=== PATIENT | male | born 1935 | race Caucasian/White ===

== ENCOUNTER 2016-12-02 15:27 | Inpatient (IN) | payer OTHER ==
[~2016-12-02] VITALS: Ht 185.4 cm; Wt 87.9 kg
[~2016-12-02 15:27] MED LIST: HMLI SC; INSDGI SC; METO50TA16 PO; PRAV20TA PO
[2016-12-02 17:03] LABS: BASO % 0.3 %; BASO ABS # 0.03 K/uL (0-0.2); COMPLETE YES; EOS % 1.8 %; HEMATOCRIT 43.3 % (42-52); IG% 0.1 %; LYMPH % 26.7 %; LYMPH ABS # 2.56 K/uL (1.2-3.4); MEAN CELL VOLUME 87.5 fL (80-100); MEAN CORPUSCULAR HEMOGLOBIN 29.3 pg (25-34); MEAN CORPUSCULAR HGB CONC 33.5 g/dl (32-36); MEAN PLATELET VOLUME 9.1 fL (7.4-10.4); MONO % 8.5 %; NEUT % 62.6 %; PLATELET COUNT 239 K/uL (130-400); RED BLOOD COUNT 4.95 M/uL (4.7-6.1); WHITE BLOOD COUNT 9.58 K/uL (4.8-10.8)
--- NOTE | 2016-12-02 17:06 | EMERGENCY ROOM VISIT NOTE ---
History Report prepared by Jason: Poli Aviles Under the Supervision of: Dr. Neyda Easton M.D. First contact with patient: 16:36 Chief Complaint: GI ASSESSMENT Stated Complaint: BLOOD-HEAVY RED-IN STOOL, LIGHTHEADED History of Present Illness The patient is an 81 year old male who presents to the Emergency Room with complaints of intermittent hematochezia beginning earlier today. He currently rates his discomfort a 5/10 in severity. The patient states that he went to shoot skeet at the club after eating lunch. He reports that he went to use the restroom and passed a gross amount of blood. The patient states that he started having abdominal pain and become lightheaded. He notes that he went home and went to the restroom again; the toilet was full of blood again. The patient reports that he has not had abdominal pain prior to this. He denies nausea and vomiting. The patient reports that he has a history of diverticulitis. He states that he has a history of a rectal hemorrhoid 4 years ago that occurred after a colonoscopy. The patient notes that before that he had an episode of blood spots in his stool. He reports the does not take blood thinners, but took aspirin for a headache he had last night. The patient denies drinking alcohol and having a history of: hepatis, liver trouble, kidney trouble, and a blood transfusion. The patient notes that he just finished antibiotics for bronchitis. Source of History: patient Onset: this morning Position: buttock Symptom Intensity: 5/10 Quality: other (hematochezia) Associated Symptoms: + abdominal pain, No nausea, No vomiting Note: Associated symptoms: lightheadedness. Review of Systems See HPI for pertinent positives & negatives. A total of 10 systems reviewed and were otherwise negative. Past Medical & Surgical Medical Problems: (1) CAD (coronary artery disease) (2) DM (diabetes mellitus) (3) Neuropathy, diabetic Surgical Problems: (1) H/O nasal polypectomy Family History Patient reports no known family medical history. Social History Smoking Status: Never Smoker Marital Status: single Housing Status: lives alone Current/Historical Medications Scheduled Ciprofloxacin (Ciprofloxacin HCl), 500 MG PO Q12H Insulin Glargine (Lantus), 22 UNITS SQ HS Insulin Regular (Human) (Novolin R Relion), 10-12 UNITS SQ BID Insulin Regular (Human) (Novolin R Relion), 18-20 UNITS SQ QPM Metoprolol Tartrate (Lopressor) (Lopressor), 50 MG PO QAM Metoprolol Tartrate (Lopressor) (Lopressor), 25 MG PO QPM Metronidazole (Metronidazole), 500 MG PO TID Pravastatin (Pravachol ), 40 MG PO DAILY Allergies Coded Allergies: No Known Allergies (Unverified , 12/02/16) Physical Exam Vital Signs Date Time Temp Pulse Resp B/P (MAP) Pulse Ox O2 Delivery O2 Flow Rate FiO2 12/02/16 20:32 88 22 95 12/02/16 20:31 165/85 12/02/16 20:02 91 19 94 12/02/16 20:01 159/85 12/02/16 19:32 81 23 94 12/02/16 19:31 166/78 12/02/16 18:32 93 25 93 12/02/16 18:27 89 25 94 12/02/16 18:22 94 25 93 12/02/16 18:17 89 23 94 12/02/16 18:12 85 23 95 12/02/16 18:07 88 25 93 12/02/16 18:02 87 25 95 12/02/16 17:57 86 22 95 12/02/16 17:27 92 18 96 12/02/16 17:09 183/99 12/02/16 16:57 96 29 12/02/16 16:48 92 12/02/16 16:35 155/77 12/02/16 15:31 36.8 92 20 182/86 94 Room Air Physical Exam Vital signs reviewed. General: Well-appearing, in no significant distress. HEENT: No scleral icterus, PERRLA, neck supple. Atraumatic. Cardiovascular: Regular rate and rhythm, no extra sounds. Pulmonary: Clear to auscultation bilaterally, normal work of breathing. Abdomen: Soft, nontender, nondistended, positive bowel sounds. Rectal: Grossly positive, guaiac positive initially BRBPR Musculoskeletal: Atraumatic, no peripheral edema. Neurologic: Patient awake alert and oriented x 3, full strength in all 4 extremities. Cranial nerves 2 through 12 grossly intact. Skin: Warm, dry, no rash Medical Decision & Procedures ER Provider Diagnostic Interpretation: Radiology results as stated below per my review and radiologist interpretation: CHEST ONE VIEW PORTABLE CLINICAL HISTORY: GIBE dyspnea COMPARISON STUDY: 12/18/2014 FINDINGS: Emphysematous change. Chronic parenchymal fibrosis. Prior median sternotomy. No evidence for cardiac enlargement. Mild left basilar atelectasis. IMPRESSION: Emphysematous change. Chronic parenchymal fibrosis. Mild superimposed left basilar atelectasis. Electronically signed by: Trent Kelley M.D. 12/02/2016 5:29 PM Dictated Date/Time: 12/02/2016 5:28 PM ABDOMEN AND PELVIS CT WITH IV CONTRAST CT DOSE: 593.76 mGy.cm HISTORY: Pelvic pain diverticulitis TECHNIQUE: Multiaxial CT images of the abdomen and pelvis were performed following the use of intravenous contrast. COMPARISON STUDY: None. FINDINGS: This potentially relates to basilar fibrotic change Mild bibasilar interstitial change with basilar nodularity bilaterally. Several small hepatic cysts. Gallstones are present within the gallbladder lumen. Spleen is uniform. Kidneys demonstrate several small cysts. There are several nonobstructing lower pole left renal calcifications. There is no evidence renal hydronephrosis. The upper abdominal bowel pattern is unremarkable. There are findings of scattered colonic diverticulosis. The appendix is normal. There are findings of sigmoid diverticulitis with colonic wall thickening. Minimal infiltrative changes of pericolonic fat. No evidence for abscess collection or obstruction. IMPRESSION: 1. Mild acute diverticulitis of the sigmoid with findings superimposed upon chronic diverticular change 2. No evidence for abscess collection or obstruction. 3. Scattered colonic diverticulosis. 4. Normal appendix. 6. Several small renal cysts, nonobstructing renal calcifications, as well as gallstones. 7. Fibrotic change of the lung bases with conglomerate nodularity bilaterally. This may be a chronic finding.. Electronically signed by: Trent Kelley M.D. 12/02/2016 6:00 PM Dictated Date/Time: 12/02/2016 5:55 PM Laboratory Results Test 12/02/16 16:35 12/02/16 18:45 Immature Granulocyte % (Auto) 0.1 % White Blood Count 9.58 K/uL (4.8-10.8) Red Blood Count 4.95 M/uL (4.7-6.1) Hemoglobin 14.5 g/dL (14.0-18.0) Hematocrit 43.3 % (42-52) Mean Corpuscular Volume 87.5 fL (80-100) Mean Corpuscular Hemoglobin 29.3 pg (25-34) Mean Corpuscular Hemoglobin Concent 33.5 g/dl (32-36) Platelet Count 239 K/uL (130-400) Mean Platelet Volume 9.1 fL (7.4-10.4) Neutrophils (%) (Auto) 62.6 % Lymphocytes (%) (Auto) 26.7 % Monocytes (%) (Auto) 8.5 % Eosinophils (%) (Auto) 1.8 % Basophils (%) (Auto) 0.3 % Neutrophils # (Auto) 6.00 K/uL (1.4-6.5) Lymphocytes # (Auto) 2.56 K/uL (1.2-3.4) Monocytes # (Auto) 0.81 K/uL (0.11-0.59) Eosinophils # (Auto) 0.17 K/uL (0-0.5) Basophils # (Auto) 0.03 K/uL (0-0.2) Immature Granulocyte # (Auto) 0.01 K/uL (0.00-0.02) Prothrombin Time 10.9 SECONDS (9.0-12.0) Prothromb Time International Ratio 1.0 (0.9-1.1) Activated Partial Thromboplast Time 28.0 SECONDS (21.0-31.0) Partial Thromboplastin Ratio 1.1 Magnesium Level 2.3 mg/dl (1.8-2.4) Total Bilirubin 0.7 mg/dl (0.2-1) Direct Bilirubin 0.1 mg/dl (0-0.2) Aspartate Amino Transf (AST/SGOT) 24 U/L (15-37) Alanine Aminotransferase (ALT/SGPT) 29 U/L (12-78) Alkaline Phosphatase 74 U/L (45-117) Total Protein 7.4 gm/dl (6.4-8.2) Albumin 3.2 gm/dl (3.4-5.0) Lipase 138 U/L (73-393) Urine Color YELLOW Urine Appearance CLEAR (CLEAR) Urine pH 7.0 (4.5-7.5) Urine Specific [place] > 1.045 (1.000-1.030) Urine Protein 1+ (NEG) Urine Glucose (UA) 1+ (NEG) Urine Ketones NEG (NEG) Urine Occult Blood 1+ (NEG) Urine Nitrite NEG (NEG) Urine Bilirubin NEG (NEG) Urine Urobilinogen NEG (NEG) Urine Leukocyte Esterase NEG (NEG) Urine WBC (Auto) 1-5 /hpf (0-5) Urine RBC (Auto) 5-10 /hpf (0-4) Urine Hyaline Casts (Auto) 1-5 /lpf (0-5) Urine Epithelial Cells (Auto) 5-10 /lpf (0-5) Urine Bacteria (Auto) NEG (NEG) Date/Time Source Procedure Growth Status 12/02/16 17:15 Throat Group A Streptococcus Screen - Final SPECIMEN NEGATIVE FOR GROUP A BETA ST... Complete 12/02/16 17:15 Throat Group A Streptococcus Screen ([facility]) - Final NO BETA STREP. ISOLATED. Complete Laboratory results per my review. Medications Administered Medications (Trade) Dose Ordered Sig/Bubba Route Start Time Stop Time Status Last Admin Dose Admin Ciprofloxacin/ Dextrose (Cipro / D5W) 400 mg NOW STAT IV 12/02/16 19:33 12/02/16 19:34 DC 12/02/16 20:06 400 MG Metronidazole (Flagyl / Nss) 500 mg NOW STAT IV 12/02/16 19:33 12/02/16 19:34 DC 12/02/16 20:06 500 MG ECG Indication: other (hematochezia) Rate (beats per minute): 86 Rhythm: sinus rhythm Findings: PVC (occasional), no acute ischemic change, no ectopy ED Course 1453: Past medical records reviewed. The patient was evaluated in room B09. A complete history and physical examination was performed. 1933: Ordered Flagyl/Nss 500mg IV, Cipro/D5W 400mg IV 2005: Upon reevaluation, the patient is resting comfortably. I discussed laboratory and radiographic results with him. He verbalized agreement of the treatment plan. 2030: Ordered Pantoprazole Sodium 80 mg/Dextrose 120ml @ 400mls/hr 2018: [facility] The patient will be evaluated for further management and care. Medical Decision Differential diagnosis: Etiologies such as diverticulosis, AVM, coagulopathy, colitis, inflammatory bowel disease, malignancy, Stephanie-Siddiqui tear, esophagitis, peptic ulcer disease , variceal bleed, gastritis, epistaxis, fissure, hemorrhoids, as well as others were entertained. Medication Reconciliation: I attest that I have personally reviewed the patient' s current medication list. Blood Pressure Screening: Patient was found to have a slightly elevated blood pressure due to circumstances. I do not believe that the patient requires hypertension monitoring. This pt was evaluated and appeared to be in no distress. IV access was obtained and lab work was drawn. Pt was placed on the cardiac cath rn. He was hydrated with NSS. Pt was type and crossed for [address] abd pelvis is significant for diverticulitis. Pt has a larger darker/melanotic stool in the ED. His H/H and BP remain stable. He will be evaluated by the hospitalist for further management. Pt and son were made aware of the plan and agree. Consults Time Called: 2003 Consulting Physician: Essence Alonzo [facility] Hospitalist Returned Call: 2017 I [facility] The patient will be evaluated for further management and care. Impression Primary Impression: GI bleed Scribe Attestation See HPI for pertinent positives & negatives. A total of 10 systems reviewed and were otherwise negative. Departure Information Dispostion Being Evaluated By Hospitalist Prescriptions Metronidazole (Metronidazole) 500 Mg Tab 500 MG PO TID for 7 Days, #21 TAB Prov: Chiquita Haile M.D. 12/04/16 Ciprofloxacin (Ciprofloxacin HCl) 250 Mg Tab 500 MG PO Q12H for 7 Days, #28 TAB Prov: Chiquita Haile M.D. 12/04/16 Referrals No Doctor, Assigned (PCP) Patient Instructions My [facility]
[2016-12-02 17:14] LABS: PARTIAL THROMBOPLASTIN RATIO 1.1; PROTHROMBIN TIME (PATIENT) 10.9 SECONDS (9.0-12.0)
[2016-12-02 17:15] LABS: BUN/CREATININE RATIO 20.7 (10-20); CALCIUM 9.1 mg/dl (8.5-10.1); CREATININE 1.3 mg/dl (0.60-1.40); MAGNESIUM 2.3 mg/dl (1.8-2.4); POTASSIUM 4.7 mmol/L (3.5-5.1)
[2016-12-02] MEDS ORDERED: INSDGI SQ (17:22)
[2016-12-02] MEDS ORDERED: INSU1INJ16 SQ ×2 (17:22)
[2016-12-02] MEDS ORDERED: METO50TA16 PO (17:24)
--- NOTE | 2016-12-02 17:30 | DIAGNOSTIC IMAGING REPORT ---
CHEST ONE VIEW PORTABLE CLINICAL HISTORY: GIBE dyspnea COMPARISON STUDY: 12/18/2014 FINDINGS: Emphysematous change. Chronic parenchymal fibrosis. Prior median sternotomy. No evidence for cardiac enlargement. Mild left basilar atelectasis. IMPRESSION: Emphysematous change. Chronic parenchymal fibrosis. Mild superimposed left basilar atelectasis. Electronically signed by: Trent Kelley M.D. 12/02/2016 5:29 PM Dictated Date/Time: 12/02/2016 5:28 PM
[2016-12-02] MEDS ORDERED: OPTIRAY 320 IV PRN (18:00)
--- NOTE | 2016-12-02 18:02 | DIAGNOSTIC IMAGING REPORT ---
ABDOMEN AND PELVIS CT WITH IV CONTRAST CT DOSE: 593.76 mGy.cm HISTORY: Pelvic pain diverticulitis TECHNIQUE: Multiaxial CT images of the abdomen and pelvis were performed following the use of intravenous contrast. COMPARISON STUDY: None. FINDINGS: This potentially relates to basilar fibrotic change Mild bibasilar interstitial change with basilar nodularity bilaterally. Several small hepatic cysts. Gallstones are present within the gallbladder lumen. Spleen is uniform. Kidneys demonstrate several small cysts. There are several nonobstructing lower pole left renal calcifications. There is no evidence renal hydronephrosis. The upper abdominal bowel pattern is unremarkable. There are findings of scattered colonic diverticulosis. The appendix is normal. There are findings of sigmoid diverticulitis with colonic wall thickening. Minimal infiltrative changes of pericolonic fat. No evidence for abscess collection or obstruction. IMPRESSION: 1. Mild acute diverticulitis of the sigmoid with findings superimposed upon chronic diverticular change 2. No evidence for abscess collection or obstruction. 3. Scattered colonic diverticulosis. 4. Normal appendix. 6. Several small renal cysts, nonobstructing renal calcifications, as well as gallstones. 7. Fibrotic change of the lung bases with conglomerate nodularity bilaterally. This may be a chronic finding.. Electronically signed by: Trent Kelley M.D. 12/02/2016 6:00 PM Dictated Date/Time: 12/02/2016 5:55 PM
[2016-12-02 19:04] LABS: URINE APPEARANCE CLEAR (CLEAR); URINE BILIRUBIN NEG (NEG); URINE COLOR YELLOW; URINE NITRITE NEG (NEG); URINE SPECIFIC GRAVITY > 1.045 (1.000-1.030); UROBILINOGEN NEG (NEG); ZZUR CULT IF INDIC CLEAN CATCH NO
[2016-12-02 19:06] LABS: MANUAL MICROSCOPIC REQUIRED? NO; REVIEW REQ? NO
[2016-12-02] MEDS ORDERED: CIPROFLOXACIN 400MG / 200ML D5W IV STA (19:33)
[2016-12-02] MEDS ORDERED: METRONIDAZOLE 500MG / 100ML NSS IV STA (19:33)
[2016-12-02] MEDS ORDERED: PANTOprazole INJ 80 MG in DEXTROSE 5% 100ML 100 ML IV SCH (20:30)
[2016-12-02] MEDS ORDERED: ONDANSETRON INJ 2 MG/ML 2 ML VIAL IV PRN (20:45)
[2016-12-02] MEDS ORDERED: ACETAMINOPHEN 325 MG TAB PO PRN (20:45)
[2016-12-02] MEDS ORDERED: INSULIN ASPART 100 UNITS/ML 3 ML PEN SC SCH (21:00)
[2016-12-02] MEDS ORDERED: GLUCOSE 10 TABS/TUBE PO PRN (21:00)
[2016-12-02] MEDS ORDERED: INSULIN GLARGINE SOLOSTAR 100 UNITS/ML 3 ML PEN SC SCH (21:00)
[2016-12-02] MEDS ORDERED: GLUCAGON FOR INJ 1 MG VIAL SQ PRN (21:00)
[2016-12-02] MEDS ORDERED: DEXTROSE 50% 50 ML SYR IV PRN (21:00)
[2016-12-02] MEDS ORDERED: GLUCOSE 40% GEL 15 GM TUBE PO PRN (21:00)
--- NOTE | 2016-12-02 21:07 | History and Physical ---
History & Physical Date & Time of Service: Dec 02, 2016 at 20:54 Chief Complaint: Blood in Stool Primary Care Physician: Heidy Potter M.D. History of Present Illness 81 year old male who presents to the ER with bright ref bleeding per rectum. Patient reports that around lunch time today he felt as though he had to have a bowel movement and when he went the toilet was filled with bright red blood. He reports an additional episode a few hours later. He denies any pain with the bowel movements or abdominal pain. He reports feeling mildly lightheaded and dizzy with standing. No syncopal events. While in the ER patient has had two additional bowel movements however stools are now a darker red. He denies nausea and vomiting. He denies any use of blood thinners or heavy NSAID use. He reports he was recently treated for bronchitis with azithromycin and those symptoms have resolved. He denies chest pain and shortness of breath. No fever or chills. He denies urinary symptoms. In the ER, vitals and hgb are stable. CT scan is shpwing mild diverticulitis in the sigmoid colon. Patient was given IV Cipro and Flagyl. Past Medical/Surgical History Medical Problems: (1) CAD (coronary artery disease) Permanent Comment: [place] at age 35 ~ 2009 - CABG x 4 Status: Chronic (2) DM (diabetes mellitus) Status: Chronic (3) Neuropathy, diabetic Status: Chronic Surgical Problems: (1) H/O nasal polypectomy Status: Chronic Family History non contributory due to patient's advanced age Social History Smoking Status: Former Smoker Alcohol Use: none Multi-Drug Resistant Organisms History of MDRO: No Allergies Coded Allergies: No Known Allergies (Unverified , 12/02/16) Home Medications Scheduled Insulin Glargine (Lantus), 22 UNITS SQ HS Insulin Regular (Human) (Novolin R Relion), 10-12 UNITS SQ BID Insulin Regular (Human) (Novolin R Relion), 18-20 UNITS SQ QPM Metoprolol Tartrate (Lopressor) (Lopressor), 50 MG PO QAM Metoprolol Tartrate (Lopressor) (Lopressor), 25 MG PO QPM Pravastatin (Pravachol ), 40 MG PO DAILY Review of Systems ROS per HPI, all other systems reviewed and negative Physical Exam Vital Signs Date Time Temp Pulse Resp B/P (MAP) Pulse Ox O2 Delivery O2 Flow Rate FiO2 12/02/16 18:27 89 25 94 12/02/16 18:22 94 25 93 12/02/16 18:17 89 23 94 12/02/16 18:12 85 23 95 12/02/16 18:07 88 25 93 12/02/16 18:02 87 25 95 12/02/16 17:57 86 22 95 12/02/16 17:27 92 18 96 12/02/16 17:09 183/99 12/02/16 16:57 96 29 12/02/16 16:48 92 12/02/16 16:35 155/77 12/02/16 15:31 36.8 92 20 182/86 94 Room Air General Appearance: no apparent distress Head: normocephalic Eyes: normal inspection ENT: hearing grossly normal Neck: supple, no JVD Respiratory/Chest: lungs clear, normal breath sounds, no respiratory distress Cardiovascular: regular rate, rhythm, no edema, normal peripheral pulses Abdomen/GI: normal bowel sounds, non tender, soft Back: normal inspection, no CVA tenderness Extremities/Musculoskelatal: normal inspection, no calf tenderness Neurologic/Psych: no motor/sensory deficits, alert, normal mood/affect, oriented x 3 Skin: normal color, warm/dry Diagnostics Laboratory Results Results Past 24 Hours Test 12/02/16 16:35 12/02/16 18:45 Range/Units White Blood Count 9.58 4.8-10.8 K/uL Red Blood Count 4.95 4.7-6.1 M/uL Hemoglobin 14.5 14.0-18.0 g/dL Hematocrit 43.3 42-52 % Mean Corpuscular Volume 87.5 80-100 fL Mean Corpuscular Hemoglobin 29.3 25-34 pg Mean Corpuscular Hemoglobin Concent 33.5 32-36 g/dl Platelet Count 239 130-400 K/uL Mean Platelet Volume 9.1 7.4-10.4 fL Neutrophils (%) (Auto) 62.6 % Lymphocytes (%) (Auto) 26.7 % Monocytes (%) (Auto) 8.5 % Eosinophils (%) (Auto) 1.8 % Basophils (%) (Auto) 0.3 % Neutrophils # (Auto) 6.00 1.4-6.5 K/uL Lymphocytes # (Auto) 2.56 1.2-3.4 K/uL Monocytes # (Auto) 0.81 0.11-0.59 K/uL Eosinophils # (Auto) 0.17 0-0.5 K/uL Basophils # (Auto) 0.03 0-0.2 K/uL RDW Standard Deviation 46.1 36.4-46.3 fL RDW Coefficient of Variation 14.5 11.5-14.5 % Immature Granulocyte % (Auto) 0.1 % Immature Granulocyte # (Auto) 0.01 0.00-0.02 K/uL Prothrombin Time 10.9 9.0-12.0 SECONDS Prothromb Time International Ratio 1.0 0.9-1.1 Activated Partial Thromboplast Time 28.0 21.0-31.0 SECONDS Partial Thromboplastin Ratio 1.1 Sodium Level 137 136-145 mmol/L Potassium Level 4.7 3.5-5.1 mmol/L Chloride Level 104 98-107 mmol/L Carbon Dioxide Level 26 21-32 mmol/L Anion Gap 7.0 3-11 mmol/L Blood Urea Nitrogen 27 7-18 mg/dl Creatinine 1.30 0.60-1.40 mg/dl Est Creatinine Clear Calc Drug Dose 50.4 ml/min Estimated GFR () 59.3 Estimated GFR (Non- 51.2 BUN/Creatinine Ratio 20.7 10-20 Random Glucose 230 70-99 mg/dl Calcium Level 9.1 8.5-10.1 mg/dl Magnesium Level 2.3 1.8-2.4 mg/dl Total Bilirubin 0.7 0.2-1 mg/dl Direct Bilirubin 0.1 0-0.2 mg/dl Aspartate Amino Transf (AST/SGOT) 24 15-37 U/L Alanine Aminotransferase (ALT/SGPT) 29 12-78 U/L Alkaline Phosphatase 74 45-117 U/L Total Protein 7.4 6.4-8.2 gm/dl Albumin 3.2 3.4-5.0 gm/dl Lipase 138 73-393 U/L Urine Color YELLOW Urine Appearance CLEAR CLEAR Urine pH 7.0 4.5-7.5 Urine Specific [place] > 1.045 1.000-1.030 Urine Protein 1+ NEG Urine Glucose (UA) 1+ NEG Urine Ketones NEG NEG Urine Occult Blood 1+ NEG Urine Nitrite NEG NEG Urine Bilirubin NEG NEG Urine Urobilinogen NEG NEG Urine Leukocyte Esterase NEG NEG Urine WBC (Auto) 1-5 0-5 /hpf Urine RBC (Auto) 5-10 0-4 /hpf Urine Hyaline Casts (Auto) 1-5 0-5 /lpf Urine Epithelial Cells (Auto) 5-10 0-5 /lpf Urine Bacteria (Auto) NEG NEG Microbiology Results 12/02/16 Group A Streptococcus Screen - Final, Resulted SPECIMEN NEGATIVE FOR GROUP A BETA ST... 12/02/16 Group A Streptococcus Screen ([facility]), Resulted Pending 12/02/16 Shiga Toxin Test, Received Pending 12/02/16 Stool Culture, Received Pending 12/02/16 C.difficile Toxin B Gene (PCR) - Final, Complete No C. difficile toxin B gene detected Diagnostic Radiology CT ABD/PELVIS IMPRESSION: 1. Mild acute diverticulitis of the sigmoid with findings superimposed upon chronic diverticular change 2. No evidence for abscess collection or obstruction 3. Scattered colonic diverticulosis. 4. Normal appendix. 6. Several small renal cysts, nonobstructing renal calcifications, as well as gallstones. 7. Fibrotic change of the lung bases with conglomerate nodularity bilaterally. This may be a chronic finding. CXR IMPRESSION: Emphysematous change. Chronic parenchymal fibrosis. Mild superimposed left basilar atelectasis. Impression Assessment and Plan GI BLEED, DIVERTICULITIS - admit to tele - patient presenting with two episodes of painless BRBPR at home followed by 2 darker red bowel movements in the ER - patient reports last colonoscopy was 3 years ago and he had 2 polyps removed, he also reports he was told he had diverticulosis (report of colonoscopy unavailable, will obtain from PCP) - CT scan today showing sigmoid diverticulitis and diverticulosis throughout the colon - no leukocytosis, afebrile, BP and hgb stable - suspect source for bleeding is diverticular bleed - s/p Cipro and Flagyl in the ED - will continue with - also started on PPI drip in ED - suspect this is a likely a lower GI bleed but will continue with for now - serial H/Hs, transfuse PRN - NPO - GI consult CAD - stable, no reports of chest pain - is not on ASA due to nose bleeds - continue beta lianet and statin DM - on Lantus and SSI at home - will continue with but adjust for NPO status DVT PROPHYLAXIS - SCDs due to GI bleed CODE STATUS - Patient is a full code as per my discussion with him. DISPO - In my clinical judgment this beneficiary meets acute admission criteria, established by [facility], that includes being hospitalized through two midnights. ADDENDUM: This is an 81 year old male with a PMH of CAD and DM2, presents with bright red blood per rectum; CT performed here showing diverticulitis; patient feels abdominal cramping; no chest pain/shortness of breath noted. Diverticular Bleed H/H drop from 14 to 12.8, repeat in AM; type and crossed two units, hold transfusion for now hemodynamically stable NPO, IVFs stool appeared darker while inpatient, so PPI drip started in case there is another source of GI bleeding Cipro + Flagyl VTE Prophylaxis VTE Risk Assessment Done? Y/N: Yes Risk Level: Moderate
[2016-12-02] MEDS ORDERED: PHARMACY GLYCEMIC MGMT CONSULT PRN (21:20)
[2016-12-02] MEDS ORDERED: PANTOprazole INJ 40 MG in DEXTROSE 5% 100ML IV SCH (21:30)
[2016-12-02] MEDS ORDERED: PANTOprazole INJ 80 MG in DEXTROSE 5% 100ML 100 ML IV ONE (22:30)
[2016-12-02 22:48] VITALS: BP 160/81; PULSE 96; TEMP 36.5; O2SAT 95; Ht 185.4 cm; Wt 87.9 kg
[2016-12-02 23:34] LABS: HEMATOCRIT 38.7 % (42-52)
[2016-12-02] MEDS: SODIUM CHLORIDE 0.9% 1000ML 1,000 ML IV SCH (23:47)
[2016-12-02] MEDS: METOPROLOL TARTRATE 25 MG TAB PO SCH (23:47)
[2016-12-03] VITALS (7 sets, daily range): BP systolic 112–157; BP diastolic 55–73; PULSE 66–88; TEMP 36.6–37; O2SAT 93–96
[2016-12-03 02:03] LABS: HEMATOCRIT 37.8 % (42-52)
[2016-12-03 02:33] LABS: CKMB/CK RATIO 2.8 (0-3.0)
[2016-12-03] MEDS: PANTOprazole INJ 40 MG in DEXTROSE 5% 100ML IV SCH ×5 (03:13→22:03)
[2016-12-03] MEDS ORDERED: INSULIN ASPART 100 UNITS/ML 3 ML PEN SC SCH (04:00)
[2016-12-03] MEDS: METRONIDAZOLE / NSS 500 MG in PREMIXED NSS 100 ML IV SCH ×3 (04:35→20:30)
[2016-12-03] MEDS: INSULIN ASPART 100 UNITS/ML 3 ML PEN SC SCH ×3 (06:00→17:03)
[2016-12-03 07:14] LABS: HEMATOCRIT 34.2 % (42-52); MEAN CELL VOLUME 87.5 fL (80-100); MEAN CORPUSCULAR HEMOGLOBIN 29.4 pg (25-34); MEAN CORPUSCULAR HGB CONC 33.6 g/dl (32-36); MEAN PLATELET VOLUME 8.6 fL (7.4-10.4); PLATELET COUNT 201 K/uL (130-400); RED BLOOD COUNT 3.91 M/uL (4.7-6.1); WHITE BLOOD COUNT 8.48 K/uL (4.8-10.8)
[2016-12-03 07:48] LABS: CREATININE 1.3 mg/dl (0.60-1.40); POTASSIUM 4.5 mmol/L (3.5-5.1)
[2016-12-03] MEDS: CIPROFLOXACIN / D5W 400 MG in PREMIXED IN D5W 200 ML IV SCH ×2 (08:14→20:30)
[2016-12-03] MEDS: METOPROLOL TARTRATE 50 MG TAB PO SCH (08:15)
[2016-12-03 08:30] LABS: ESTIMATED AVERAGE GLUCOSE 157 mg/dl; HA1C FLAG Normal (Normal)
--- NOTE | 2016-12-03 08:32 | Progress Note ---
Internal Med Progress Note Date of Service: Dec 03, 2016. Provider Documentation: SUBJECTIVE: had 3 more episode of bloody bowel movement this am last one was at 7 am felt dizzy , lightheaded , diaphoretic while on the commode no nausea has discomfort /pain on left lower quadrant no fever or chills OBJECTIVE: Vital Signs-as noted below Exam: General-no sign of distress Eyes-sclera non icteric Lungs-CTA Heart-regular S1/S2 Abdomen-soft, left lower quadrant tenderness , no rebound , bowel sound active Extremities-no lower ext edema Neuro-AAo x3 , no focal deficit Lab data as noted below. ASSESSMENT & PLAN: GI BLEED, DIVERTICULITIS - Possible diverticular bleed - patient presented with multiple episodes of painless BRBPR at home -having ongoing GI bleed -HB dropped 14-11 ( acute blood loss anemia due to diverticular bleed ) -remains stable hemodynamically -no indication for PRBC transfusion , monitor H&H q 8hrs - patient reports last colonoscopy was 3 years ago and he had 2 polyps removed, he also reports he was told he had diverticulosis (report of colonoscopy unavailable, will obtain from PCP) - CT scan showing sigmoid diverticulitis and diverticulosis throughout the colon - cont Cipro and Flagyl in the ED - will continue with - cont on PPI drip - serial H/Hs q 8hrs - NPO - GI consult requested CAD - stable, no reports of chest pain - is not on ASA due to nose bleeds - continue beta lianet with holding parameters -hold statin for NPO status /GI bleed DM - on Lantus and SSI at home - will continue with but adjusted for NPO status DVT PROPHYLAXIS - SCDs due to GI bleed CODE STATUS - Patient is a full code DISPOSITION Discharge home when medically stable Vital Signs: Date Time Temp Pulse Resp B/P (MAP) Pulse Ox O2 Delivery O2 Flow Rate FiO2 12/03/16 04:00 Room Air 12/03/16 03:23 37.0 69 17 134/67 (89) 93 Room Air 12/03/16 01:26 36.6 88 24 118/73 (88) 93 12/03/16 00:00 Room Air 12/02/16 22:48 36.5 96 19 160/81 95 Room Air 12/02/16 22:22 78 18 155/79 98 12/02/16 22:02 98 155/79 93 6/14/17 22:01 164/72 12/02/16 21:52 155/79 12/02/16 21:32 103 94 12/02/16 21:02 90 21 95 12/02/16 21:01 155/78 12/02/16 20:55 89 12/02/16 20:32 88 22 95 12/02/16 20:31 165/85 12/02/16 20:02 91 19 94 12/02/16 20:01 159/85 12/02/16 19:32 81 23 94 12/02/16 19:31 166/78 12/02/16 18:32 93 25 93 12/02/16 18:27 89 25 94 12/02/16 18:22 94 25 93 12/02/16 18:17 89 23 94 12/02/16 18:12 85 23 95 12/02/16 18:07 88 25 93 12/02/16 18:02 87 25 95 12/02/16 17:57 86 22 95 12/02/16 17:27 92 18 96 12/02/16 17:09 183/99 12/02/16 16:57 96 29 12/02/16 16:48 92 12/02/16 16:35 155/77 12/02/16 15:31 36.8 92 20 182/86 94 Room Air Lab Results: Results Past 24 Hours Test 12/02/16 16:35 12/02/16 18:45 12/02/16 23:04 12/02/16 23:17 Range/Units White Blood Count 9.58 4.8-10.8 K/uL Red Blood Count 4.95 4.7-6.1 M/uL Hemoglobin 14.5 12.8 14.0-18.0 g/dL Hematocrit 43.3 38.7 42-52 % Mean Corpuscular Volume 87.5 80-100 fL Mean Corpuscular Hemoglobin 29.3 25-34 pg Mean Corpuscular Hemoglobin Concent 33.5 32-36 g/dl Platelet Count 239 130-400 K/uL Mean Platelet Volume 9.1 7.4-10.4 fL Neutrophils (%) (Auto) 62.6 % Lymphocytes (%) (Auto) 26.7 % Monocytes (%) (Auto) 8.5 % Eosinophils (%) (Auto) 1.8 % Basophils (%) (Auto) 0.3 % Neutrophils # (Auto) 6.00 1.4-6.5 K/uL Lymphocytes # (Auto) 2.56 1.2-3.4 K/uL Monocytes # (Auto) 0.81 0.11-0.59 K/uL Eosinophils # (Auto) 0.17 0-0.5 K/uL Basophils # (Auto) 0.03 0-0.2 K/uL RDW Standard Deviation 46.1 36.4-46.3 fL RDW Coefficient of Variation 14.5 11.5-14.5 % Immature Granulocyte % (Auto) 0.1 % Immature Granulocyte # (Auto) 0.01 0.00-0.02 K/uL Prothrombin Time 10.9 9.0-12.0 SECONDS Prothromb Time International Ratio 1.0 0.9-1.1 Activated Partial Thromboplast Time 28.0 21.0-31.0 SECONDS Partial Thromboplastin Ratio 1.1 Sodium Level 137 136-145 mmol/L Potassium Level 4.7 3.5-5.1 mmol/L Chloride Level 104 98-107 mmol/L Carbon Dioxide Level 26 21-32 mmol/L Anion Gap 7.0 3-11 mmol/L Blood Urea Nitrogen 27 7-18 mg/dl Creatinine 1.30 0.60-1.40 mg/dl Est Creatinine Clear Calc Drug Dose 50.4 ml/min Estimated GFR () 59.3 Estimated GFR (Non- 51.2 BUN/Creatinine Ratio 20.7 10-20 Random Glucose 230 70-99 mg/dl Calcium Level 9.1 8.5-10.1 mg/dl Magnesium Level 2.3 1.8-2.4 mg/dl Total Bilirubin 0.7 0.2-1 mg/dl Direct Bilirubin 0.1 0-0.2 mg/dl Aspartate Amino Transf (AST/SGOT) 24 15-37 U/L Alanine Aminotransferase (ALT/SGPT) 29 12-78 U/L Alkaline Phosphatase 74 45-117 U/L Total Protein 7.4 6.4-8.2 gm/dl Albumin 3.2 3.4-5.0 gm/dl Lipase 138 73-393 U/L Urine Color YELLOW Urine Appearance CLEAR CLEAR Urine pH 7.0 4.5-7.5 Urine Specific [place] > 1.045 1.000-1.030 Urine Protein 1+ NEG Urine Glucose (UA) 1+ NEG Urine Ketones NEG NEG Urine Occult Blood 1+ NEG Urine Nitrite NEG NEG Urine Bilirubin NEG NEG Urine Urobilinogen NEG NEG Urine Leukocyte Esterase NEG NEG Urine WBC (Auto) 1-5 0-5 /hpf Urine RBC (Auto) 5-10 0-4 /hpf Urine Hyaline Casts (Auto) 1-5 0-5 /lpf Urine Epithelial Cells (Auto) 5-10 0-5 /lpf Urine Bacteria (Auto) NEG NEG Bedside Glucose 212 70-99 mg/dl Test 12/03/16 01:19 12/03/16 01:35 12/03/16 04:34 12/03/16 05:58 Range/Units Bedside Glucose 217 229 213 70-99 mg/dl Hemoglobin 12.9 14.0-18.0 g/dL Hematocrit 37.8 42-52 % Total Creatine Kinase 86 39-308 U/L Creatine Kinase MB 2.4 0.5-3.6 ng/ml Creatine Kinase MB Ratio 2.8 0-3.0 Troponin I 0.030 0-0.045 ng/ml Test 12/03/16 07:03 Range/Units White Blood Count 8.48 4.8-10.8 K/uL Red Blood Count 3.91 4.7-6.1 M/uL Hemoglobin 11.5 14.0-18.0 g/dL Hematocrit 34.2 42-52 % Mean Corpuscular Volume 87.5 80-100 fL Mean Corpuscular Hemoglobin 29.4 25-34 pg Mean Corpuscular Hemoglobin Concent 33.6 32-36 g/dl RDW Standard Deviation 47.0 36.4-46.3 fL RDW Coefficient of Variation 14.6 11.5-14.5 % Platelet Count 201 130-400 K/uL Mean Platelet Volume 8.6 7.4-10.4 fL Sodium Level 139 136-145 mmol/L Potassium Level 4.5 3.5-5.1 mmol/L Chloride Level 106 98-107 mmol/L Carbon Dioxide Level 27 21-32 mmol/L Anion Gap 6.0 3-11 mmol/L Blood Urea Nitrogen 25 7-18 mg/dl Creatinine 1.30 0.60-1.40 mg/dl Est Creatinine Clear Calc Drug Dose 50.4 ml/min Estimated GFR () 59.3 Estimated GFR (Non- 51.2 BUN/Creatinine Ratio 19.0 10-20 Random Glucose 189 70-99 mg/dl Estimated Average Glucose 157 mg/dl Hemoglobin A1c 7.1 4.5-5.6 % Calcium Level 8.0 8.5-10.1 mg/dl Microbiology Results 12/02/16 Group A Streptococcus Screen - Final, Resulted SPECIMEN NEGATIVE FOR GROUP A BETA ST... 12/02/16 Group A Streptococcus Screen ([facility]), Resulted Pending 12/02/16 Shiga Toxin Test, Received Pending 12/02/16 Stool Culture, Received Pending 12/02/16 C.difficile Toxin B Gene (PCR) - Final, Complete No C. difficile toxin B gene detected
[2016-12-03] MEDS ORDERED: INSULIN GLARGINE SOLOSTAR 100 UNITS/ML 3 ML PEN SC SCH ×2 (09:00→21:00)
--- NOTE | 2016-12-03 10:29 | Gastrointestinal Consultation ---
Gastrointestinal Consultation Date of Consultation: Dec 03, 2016 Attending Physician: Dr. Nieto; Essence Alonzo NP Consulting Physician: Dr. Tian Reason for Consultation: GI bleed, diverticulitis History of Present Illness Patient is a 81 year old male patient of Heidy Potter MD. The pt has a hx of CAD, DM, Neuropathy. He presented to the ED yesterday for rectal bleeding. Gi is consulted for diverticulitis and GI bleed. Mr. Sapp tells me that yesterday, he experienced mild lower abdomen cramping with a loose BM consisting mostly of red liquid saying,"It looked like cervantes syrup." He experienced the same thing around 2 PM and he was brought to the ED. Since being here, he has had about 5 more episodes. He had brief lightheadedness yesterday. He also had a "chest cold" last week for which he completed a Z-pack on Wednesday. He denies any significant abdominal pain. No nausea or vomiting. He tells us that he underwent colonoscopy at [facility] about 3 or 4 years ago. On arrival, he was found to have a normal Hb at 14.5, though it has decreased to 11.5 this morning. C-diff is (-). He has remained hemodynamically stable. BUN is 25, Cr 1.2. He is seen and examined while he is resting in bed. He is awake, alert, oriented and free of pain. Past Medical/Surgical History Past Medical History: 1. CAD 2. DM 3. DM neuropathy Past Surgical History: 1. Nasal polypectomy 2. Childhood tonsillectomy and adenoidectomy. Family History Patient reports no known family medical history. Social History Smoking Status: Never Smoker Housing Status: lives alone Allergies Coded Allergies: No Known Allergies (Unverified , 12/02/16) Current Medications Home Meds and Scripts Medications Dose Route/Sig Max Daily Dose Days Date Category Dose Instructions Lopressor (Metoprolol Tartrate) 50 Mg Tab 25 Mg PO QPM 12/02/16 Reported Lantus (Insulin Glargine) 100 Unit/Ml Inj 22 Units SQ HS 12/02/16 Reported Novolin R Relion (Insulin Regular (Human)) 100 Unit/Ml Inj 18-20 Units SQ QPM 12/02/16 Reported SLIDING SCALE Novolin R Relion (Insulin Regular (Human)) 100 Unit/Ml Inj 10-12 Units SQ BID 12/02/16 Reported SLIDING SCALE Pravachol (Pravastatin Sodium) 20 Mg Tab 40 Mg PO DAILY 12/18/14 Reported Lopressor (Metoprolol Tartrate) 50 Mg Tab 50 Mg PO QAM 12/18/14 Reported Review of Systems Constitutional: No fever, No chills, No sweats, No weight loss, No weakness Eyes: No eye pain, No redness ENT: No sore throat, No trouble swallowing, No pain on swallowing Respiratory: No cough, No wheezing, No shortness of breath, No dyspnea on exertion Cardiac: No chest pain, No edema, No palpitations Abdomen: + see HPI, + diarrhea, + GI bleeding, No pain, No nausea, No vomiting Male : No dysuria Neuro: No memory loss, No weakness, No numbness/tingling, No vertigo, No balance problems Psych: No depression symptoms, No anxiety, No insomnia Heme: No abnormal bleeding/bruising, No night sweats Endo: No fatigue, No excessive thirst, No excessive urination Skin: No rash, No itch, No new/changing skin lesions, No jaundice Physical Exam Date Time Temp Pulse Resp B/P (MAP) Pulse Ox O2 Delivery O2 Flow Rate FiO2 12/03/16 04:00 Room Air 12/03/16 03:23 37.0 69 17 134/67 (89) 93 Room Air 12/03/16 01:26 36.6 88 24 118/73 (88) 93 12/03/16 00:00 Room Air 12/02/16 22:48 36.5 96 19 160/81 95 Room Air 12/02/16 22:22 78 18 155/79 98 12/02/16 22:02 98 155/79 93 12/02/16 22:01 164/72 12/02/16 21:52 155/79 12/02/16 21:32 103 94 12/02/16 21:02 90 21 95 12/02/16 21:01 155/78 12/02/16 20:55 89 12/02/16 20:32 88 22 95 12/02/16 20:31 165/85 12/02/16 20:02 91 19 94 12/02/16 20:01 159/85 12/02/16 19:32 81 23 94 12/02/16 19:31 166/78 12/02/16 18:32 93 25 93 12/02/16 18:27 89 25 94 12/02/16 18:22 94 25 93 12/02/16 18:17 89 23 94 12/02/16 18:12 85 23 95 12/02/16 18:07 88 25 93 12/02/16 18:02 87 25 95 12/02/16 17:57 86 22 95 12/02/16 17:27 92 18 96 12/02/16 17:09 183/99 12/02/16 16:57 96 29 12/02/16 16:48 92 12/02/16 16:35 155/77 12/02/16 15:31 36.8 92 20 182/86 94 Room Air General Appearance: no apparent distress Eyes: normal inspection, EOMI Neck: supple, no adenopathy, thyroid normal, no JVD Respiratory/Chest: chest non-tender, lungs clear, normal breath sounds, no accessory muscle use Cardiovascular: regular rate, rhythm, no JVD, no murmur Abdomen: normal bowel sounds, non tender, soft, no organomegaly Extremities: normal inspection, no pedal edema, normal capillary refill Neurologic/Psych: alert, normal mood/affect, oriented x 3 Skin: normal color, no jaundice, warm/dry, no rash Laboratory Results Last 24 Hours Test 12/02/16 16:35 12/02/16 18:45 12/02/16 23:04 12/02/16 23:17 White Blood Count 9.58 K/uL Red Blood Count 4.95 M/uL Hemoglobin 14.5 g/dL 12.8 g/dL Hematocrit 43.3 % 38.7 % Mean Corpuscular Volume 87.5 fL Mean Corpuscular Hemoglobin 29.3 pg Mean Corpuscular Hemoglobin Concent 33.5 g/dl Platelet Count 239 K/uL Mean Platelet Volume 9.1 fL Neutrophils (%) (Auto) 62.6 % Lymphocytes (%) (Auto) 26.7 % Monocytes (%) (Auto) 8.5 % Eosinophils (%) (Auto) 1.8 % Basophils (%) (Auto) 0.3 % Neutrophils # (Auto) 6.00 K/uL Lymphocytes # (Auto) 2.56 K/uL Monocytes # (Auto) 0.81 K/uL Eosinophils # (Auto) 0.17 K/uL Basophils # (Auto) 0.03 K/uL RDW Standard Deviation 46.1 fL RDW Coefficient of Variation 14.5 % Immature Granulocyte % (Auto) 0.1 % Immature Granulocyte # (Auto) 0.01 K/uL Prothrombin Time 10.9 SECONDS Prothromb Time International Ratio 1.0 Activated Partial Thromboplast Time 28.0 SECONDS Partial Thromboplastin Ratio 1.1 Sodium Level 137 mmol/L Potassium Level 4.7 mmol/L Chloride Level 104 mmol/L Carbon Dioxide Level 26 mmol/L Anion Gap 7.0 mmol/L Blood Urea Nitrogen 27 mg/dl Creatinine 1.30 mg/dl Est Creatinine Clear Calc Drug Dose 50.4 ml/min Estimated GFR () 59.3 Estimated GFR (Non- 51.2 BUN/Creatinine Ratio 20.7 Random Glucose 230 mg/dl Calcium Level 9.1 mg/dl Magnesium Level 2.3 mg/dl Total Bilirubin 0.7 mg/dl Direct Bilirubin 0.1 mg/dl Aspartate Amino Transf (AST/SGOT) 24 U/L Alanine Aminotransferase (ALT/SGPT) 29 U/L Alkaline Phosphatase 74 U/L Total Protein 7.4 gm/dl Albumin 3.2 gm/dl Lipase 138 U/L Urine Color YELLOW Urine Appearance CLEAR Urine pH 7.0 Urine Specific [place] > 1.045 Urine Protein 1+ Urine Glucose (UA) 1+ Urine Ketones NEG Urine Occult Blood 1+ Urine Nitrite NEG Urine Bilirubin NEG Urine Urobilinogen NEG Urine Leukocyte Esterase NEG Urine WBC (Auto) 1-5 /hpf Urine RBC (Auto) 5-10 /hpf Urine Hyaline Casts (Auto) 1-5 /lpf Urine Epithelial Cells (Auto) 5-10 /lpf Urine Bacteria (Auto) NEG Bedside Glucose 212 mg/dl Test 12/03/16 01:19 12/03/16 01:35 12/03/16 04:34 12/03/16 05:58 Bedside Glucose 217 mg/dl 229 mg/dl 213 mg/dl Hemoglobin 12.9 g/dL Hematocrit 37.8 % Total Creatine Kinase 86 U/L Creatine Kinase MB 2.4 ng/ml Creatine Kinase MB Ratio 2.8 Troponin I 0.030 ng/ml Test 12/03/16 07:03 White Blood Count 8.48 K/uL Red Blood Count 3.91 M/uL Hemoglobin 11.5 g/dL Hematocrit 34.2 % Mean Corpuscular Volume 87.5 fL Mean Corpuscular Hemoglobin 29.4 pg Mean Corpuscular Hemoglobin Concent 33.6 g/dl RDW Standard Deviation 47.0 fL RDW Coefficient of Variation 14.6 % Platelet Count 201 K/uL Mean Platelet Volume 8.6 fL Sodium Level 139 mmol/L Potassium Level 4.5 mmol/L Chloride Level 106 mmol/L Carbon Dioxide Level 27 mmol/L Anion Gap 6.0 mmol/L Blood Urea Nitrogen 25 mg/dl Creatinine 1.30 mg/dl Est Creatinine Clear Calc Drug Dose 50.4 ml/min Estimated GFR () 59.3 Estimated GFR (Non- 51.2 BUN/Creatinine Ratio 19.0 Random Glucose 189 mg/dl Estimated Average Glucose 157 mg/dl Hemoglobin A1c 7.1 % Calcium Level 8.0 mg/dl CT abd/pelvis mild acute diverticulitis of the sigmoid. Impression Patient is a 81 year old male with painless rectal bleeding. His CT was suggestive of diverticulitis but his symptoms are not suggestive of that. This painless rectal bleeding is more suggestive of a diverticular bleed. Plan 1. Clear liquids po today. 2. Appreciate primary services management of fluids, blood transfusions if necessary. 3. Will prep for colonoscopy today and plan for colonoscopy tomorrow. If bleeding stops as diverticular bleeds often do, we could consider cancelling the colonoscopy. I saw and evaluated the patient. He presents with hematochezia and a CT showing evidence mild left-sided diverticulitis. He did have a colonoscopy performed years home about 3 years ago significant for hemorrhoids and diverticulosis of the colon. Physical examination no obvious distress mild left-sided tenderness impression: patient presenting for evaluation of hematochezia ongoing for several days. I wonder if this may represent ischemic colitis or perhaps a diverticular hemorrhage. We will have the patient undergo a bowel preparation this evening and will likely recommend a colonoscopy tomorrow. If the patient 's hematochezia cease is entirely we may hold on the examination given the question of diverticulitis Recommendations NPO bowel preparation written continue antibiotics
--- NOTE | 2016-12-03 11:20 | Pharmacy Progress Note ---
Glycemic Control Intl Consult Date of Service Dec 03, 2016. Scope Glycemic Pharmacist consulted by Essence Alonzo on 12/03/2016 for glycemic control and to write orders per [facility] inpatient glycemic control protocol Objective Weight (Kilograms): 89.100 Accuchecks BSG (last 24hrs): Test 12/02/16 16:35 12/02/16 23:04 12/03/16 01:19 12/03/16 04:34 Random Glucose 230 mg/dl (70-99) Bedside Glucose 212 mg/dl (70-99) 217 mg/dl (70-99) 229 mg/dl (70-99) Test 12/03/16 05:58 12/03/16 07:03 Bedside Glucose 213 mg/dl (70-99) Random Glucose 189 mg/dl (70-99) Laboratory Data (last 24hrs) Test 12/02/16 16:35 12/03/16 07:03 Anion Gap 7.0 mmol/L 6.0 mmol/L BUN/Creatinine Ratio 20.7 19.0 Blood Urea Nitrogen 27 mg/dl 25 mg/dl Creatinine 1.30 mg/dl 1.30 mg/dl Potassium Level 4.7 mmol/L 4.5 mmol/L Sodium Level 137 mmol/L 139 mmol/L White Blood Count 9.58 K/uL 8.48 K/uL Red Blood Count 4.95 M/uL Hemoglobin 14.5 g/dL Hematocrit 43.3 % Mean Corpuscular Volume 87.5 fL Mean Corpuscular Hemoglobin 29.3 pg Mean Corpuscular Hemoglobin Concent 33.5 g/dl Platelet Count 239 K/uL Mean Platelet Volume 9.1 fL Neutrophils (%) (Auto) 62.6 % Lymphocytes (%) (Auto) 26.7 % Monocytes (%) (Auto) 8.5 % Eosinophils (%) (Auto) 1.8 % Basophils (%) (Auto) 0.3 % Neutrophils # (Auto) 6.00 K/uL Lymphocytes # (Auto) 2.56 K/uL Monocytes # (Auto) 0.81 K/uL Eosinophils # (Auto) 0.17 K/uL Basophils # (Auto) 0.03 K/uL Hemoglobin A1c 7.1 % HbA1c Test 12/03/16 07:03 Hemoglobin A1c 7.1 % (4.5-5.6) H Recent Pertinent Medications Outpatient Anti-diabetic Regimen: * Lantus 22 units qPM + Novolin R 10-12 units with breakfast/lunch, 18-20 units with dinner The patient is currently receiving: * Basal insulin: Lantus 11 units every 24 hours at bedtime * Correctional Insulin: Novolog Correction per scale ACHS Goal Range: Low 140 mg/dL - High 180 mg/dL Correction Factor: 25 mg/dL/unit * Prandial insulin: Per carb ratio of 1 unit per 8 grams CHO consumed Risk Factors for Insulin Resistance: * Infection: possible diverticulitis on cipro + Flagyl * IVs: PRT gtt * Diet: NPO except for meds Assessment & Plan ASSESSMENT: * ADA & AACE recommend a goal blood sugar range 140-180 mg/dl for the majority of critically ill & non-critically ill patients. However, more stringent targets may be selected in individual cases. After lunch, the goal blood sugar was reduced to 120-160 mg/dL. The patient was tolerating 16 units of Lantus, and he would not receive enough insulin to keep his blood sugars lower with this goal range. * Mr Sapp is an 81 y/o M admitted 12/03/2016 for a GI bleed. He has a PMH of CAD and diabetic neuropathy. He last took his Lantus on 12/01/2016 and took Regular insulin 12 units with breakfast and lunch. His blood sugar was 230 mg/ dL and 212 mg/dL yesterday. He received Lantus 11 units in the evening. * Today, Mr Sapp's fasting blood sugar is 213 mg/dL. This is above his goal. Since 50-80% of the Lantus dose may be given when a patient is NPO, I gave an additional 5 units of Lantus to make 17 units total. The nighttime dose of Lantus will be increased to 15 units to provide better coverage (approximately 70% of his home dose) since his fasting was elevated. His correctional insulin is at weight based stress of 2 which is appropriate. PLAN FOR INPATIENT GLYCEMIC CONTROL: * Basal insulin with LANTUS 15 units SQ qPM * Correctional Insulin with NOVOLOG per scale Q6 while NPO * Goal Range: Low 140 mg/dL - High 180 mg/dL * Correction Factor: 25 mg/dL/unit * Nutritional / Prandial insulin per carb ratio of 1 unit per 8 grams CHO consumed * Please note that the plan above was derived based on current level of insulin resistance and hospital stress. These recommendations are appropriate for inpatient admission only. Plan of care upon discharge will need to be reassessed to avoid potential outpatient hypo/hyperglycemia. Thank you.
[2016-12-03] MEDS: SODIUM CHLORIDE 0.9% 1000ML 1,000 ML IV SCH ×2 (12:02→23:59)
[2016-12-03 15:38] LABS: HEMATOCRIT 32.3 % (42-52)
[2016-12-03] MEDS ORDERED: BISACODYL 5 MG TABEC PO ONE (15:45)
[2016-12-03] MEDS ORDERED: LAVAGE SOLUTION 4000ML PO SCH (17:00)
[2016-12-03 19:37] LABS: HEMATOCRIT 34.5 % (42-52)
[2016-12-03] MEDS: METOPROLOL TARTRATE 25 MG TAB PO SCH (20:31)
[2016-12-03] MEDS ORDERED: PRAVASTATIN SOD 20 MG TAB PO SCH (21:00)
[2016-12-03] MEDS ORDERED: PANTOprazole INJ 80 MG in DEXTROSE 5% 100ML 100 ML IV ONE (22:00)
[2016-12-04] VITALS (9 sets, daily range): BP systolic 131–165; BP diastolic 43–75; PULSE 62–74; TEMP 36.6–36.9; O2SAT 94–97
[2016-12-04] MEDS: INSULIN ASPART 100 UNITS/ML 3 ML PEN SC SCH ×4 (00:01→17:58)
[2016-12-04] MEDS: PANTOprazole INJ 40 MG in DEXTROSE 5% 100ML IV SCH ×2 (03:12→09:22)
[2016-12-04] MEDS: METRONIDAZOLE / NSS 500 MG in PREMIXED NSS 100 ML IV SCH (04:16)
[2016-12-04 07:20] LABS: HEMATOCRIT 31.5 % (42-52)
[2016-12-04 07:48] LABS: BUN/CREATININE RATIO 15.7 (10-20); CALCIUM 8.1 mg/dl (8.5-10.1); CREATININE 1.1 mg/dl (0.60-1.40)
--- NOTE | 2016-12-04 09:15 | History & Physical Bridge Note ---
H&P Re-Evaluation Bridge Note: I have examined the patient, reviewed the History & Physical and in the interval since the performance of the History & Physical I have noted the following changes of clinical significance: No changes noted
[2016-12-04] MEDS: METOPROLOL TARTRATE 50 MG TAB PO SCH (09:22)
--- NOTE | 2016-12-04 09:43 | GI REPORT ---
Procedure Date: 12/04/2016 9:25 AM Procedure: Colonoscopy Indications: Hematochezia Medicines: Monitored Anesthesia Care Complications: No immediate complications. Estimated blood loss: Minimal. Estimated Blood Loss: Estimated blood loss was minimal. Procedure: Pre-Anesthesia Assessment: - Prior to the procedure, a History and Physical was performed, and patient medications, allergies and sensitivities were reviewed. The patient's tolerance of previous anesthesia was reviewed. - The risks and benefits of the procedure and the sedation options and risks were discussed with the patient. All questions were answered and informed consent was obtained. - Patient identification and proposed procedure were verified prior to the procedure by the physician, the nurse and the cell builder. The procedure was verified in the procedure room. - Pre-procedure physical examination revealed no contraindications to sedation. - ASA Grade Assessment: III - A patient with severe systemic disease. - After reviewing the risks and benefits, the patient was deemed in satisfactory condition to undergo the procedure. - The anesthesia plan was to use monitored anesthesia care (MAC). - Immediately prior to administration of medications, the patient was re-assessed for adequacy to receive sedatives. - The heart rate, respiratory rate, oxygen saturations, blood pressure, adequacy of pulmonary ventilation, and response to care were monitored throughout the procedure. - The physical status of the patient was re-assessed after the procedure. After I obtained informed consent, the scope was passed under direct vision. Throughout the procedure, the patient's blood pressure, pulse, and oxygen saturations were monitored continuously. The Scope was introduced through the anus and advanced to the terminal ileum. The colonoscopy was performed without difficulty. The patient tolerated the procedure well. The quality of the bowel preparation was fair. Findings: The perianal and digital rectal examinations were normal. Pertinent negatives include normal sphincter tone. The terminal ileum appeared normal. Many small and large-mouthed diverticula were found in the sigmoid colon and in the descending colon. There was evidence of past bleeding within the colon, the specific culprit diverticulum could not be identified. Internal hemorrhoids were found during retroflexion. The hemorrhoids were mild. The exam was otherwise without abnormality. Impression: - The examined portion of the ileum was normal. - Moderate diverticulosis in the sigmoid colon and in the descending colon. There was evidence of past bleeding consistent with a deverticular hemorrhage. - Internal hemorrhoids. - The examination was otherwise normal. - No specimens collected. Recommendation: - [facility]. - Full liquid diet today. - Complete a 2 week course of antibiotics given question of diverticulitis - If rebleeding occurrs would suggest a GI bleeding scan and a referral to a center with IR support. - Patient should be dischard with a fiber supplement and Miralax 17 gm per day Izzy Tian D.O. Izzy Tian, 12/04/2016 9:42:52 AM This report has been signed electronically. Note Initiated On: 12/04/2016 9:25 AM I attest to the content of the Intraoperative Record and orders documented therein, exceptions below
[2016-12-04] MEDS ORDERED: EpHEDrine SULFATE 50MG/5ML SYR ONE (10:01)
[2016-12-04] MEDS ORDERED: LIDOCAINE HCL 2% 2 ML VIAL (20MG/ML) ONE (10:01)
[2016-12-04] MEDS ORDERED: PROPOFOL IV EMULSION 10 MG/ML 20 ML VIAL IV ONE (10:01)
--- NOTE | 2016-12-04 10:10 | Anesthesiology Progress Note ---
Anesthesia Post Op Note Date & Time Dec 04, 2016 at 10:10 Vital Signs Pain Intensity: 0.0 Vital Signs Past 12 Hours Date Time Temp Pulse Resp B/P (MAP) Pulse Ox O2 Delivery O2 Flow Rate FiO2 12/04/16 09:15 36.5 73 20 163/78 (106) 95 Room Air 12/04/16 08:00 Room Air 12/04/16 07:30 36.7 70 19 165/69 (101) 94 Room Air 12/04/16 05:08 36.9 68 18 132/43 95 Room Air 12/04/16 04:06 36.9 68 18 132/43 (72) 95 Room Air 12/04/16 04:00 Room Air 12/03/16 23:59 Room Air 12/03/16 23:39 36.7 72 18 130/67 (88) 95 Room Air Notes Mental Status: alert / awake / arousable, participated in evaluation Pt Amnestic to Procedure: Yes Nausea / Vomiting: adequately controlled Pain: adequately controlled Airway Patency, RR, SpO2: stable & adequate BP & HR: stable & adequate Hydration State: stable & adequate Anesthetic Complications: no major complications apparent
[2016-12-04] MEDS: CIPROFLOXACIN / D5W 400 MG in PREMIXED IN D5W 200 ML IV SCH (11:22)
--- NOTE | 2016-12-04 14:10 | Progress Note ---
Internal Med Progress Note Date of Service: Dec 04, 2016. Provider Documentation: SUBJECTIVE: no episodes of dark stool today had colonoscopy earlier no active bleeding noted ordered for full liquid diet tolerating well no dizzy spell or lightheadedness OBJECTIVE: Vital Signs-as noted below Exam: General-no sign of distress Eyes-sclera non icteric Lungs-CTA Heart-regular S1/S2 Abdomen-soft, left lower quadrant tenderness , no rebound , bowel sound active Extremities-no lower ext edema Neuro-AAo x3 , no focal deficit Lab data as noted below. ASSESSMENT & PLAN: GI BLEED, DIVERTICULITIS resolved - Possible diverticular bleed - patient presented with multiple episodes of painless BRBPR at home -HB dropped 14-11 -> 10 ( acute blood loss anemia due to diverticular bleed ) pt also been getting IV fluids -remained stable hemodynamically - CT scan showing sigmoid diverticulitis and diverticulosis throughout the colon - GI consult appreciated -S/P colonoscopy : Impression: - The examined portion of the ileum was normal. - Moderate diverticulosis in the sigmoid colon and in the descending colon. There was evidence of past bleeding consistent with a diverticular hemorrhage. - Internal hemorrhoids. - The examination was otherwise normal. -Diet advanced to full liquid , will be advanced to low residue diet in AM if tolerated -D/C PPI gtt -pt will need to complete 10 days of Abx for diverticulitis -Changed Cipro and Flagyl to PO -possible discharge home tomorrow if no further episode of GI bleed -stable to D/C tele monitoring CAD - stable, no reports of chest pain - is not on ASA due to nose bleeds - continue beta lianet with holding parameters --statin resumed DM - on Lantus and SSI at home - DVT PROPHYLAXIS - SCDs due to GI bleed CODE STATUS - Patient is a full code DISPOSITION possible Discharge home tomorrow pt would like to follow up with [facility] GI for future follow ups Vital Signs: Date Time Temp Pulse Resp B/P (MAP) Pulse Ox O2 Delivery O2 Flow Rate FiO2 12/04/16 13:49 36.8 62 20 96 12/04/16 12:00 Room Air 12/04/16 11:57 36.8 62 20 135/63 (87) 96 Room Air 12/04/16 10:11 60 20 122/57 (78) 97 Room Air 12/04/16 10:06 56 20 116/55 (75) 95 Room Air 12/04/16 09:56 61 20 93/49 (64) 97 Room Air 12/04/16 09:54 61 20 109/41 (63) 96 Room Air 12/04/16 09:52 60 20 104/35 (58) 97 Room Air 12/04/16 09:48 60 20 107/38 (61) 96 Room Air 12/04/16 09:46 56 20 90/44 (59) 97 Room Air 12/04/16 09:45 58 20 87/38 (54) 97 Room Air 12/04/16 09:43 58 20 86/43 (57) 97 Room Air 12/04/16 09:41 58 20 91/29 (49) 98 Room Air 12/04/16 09:15 36.5 73 20 163/78 (106) 95 Room Air 12/04/16 08:00 Room Air 12/04/16 07:30 36.7 70 19 165/69 (101) 94 Room Air 12/04/16 05:08 36.9 68 18 132/43 95 Room Air 12/04/16 04:06 36.9 68 18 132/43 (72) 95 Room Air 12/04/16 04:00 Room Air 12/03/16 23:59 Room Air 12/03/16 23:39 36.7 72 18 130/67 (88) 95 Room Air 12/03/16 20:00 Room Air 12/03/16 19:15 36.7 83 20 157/70 (99) 94 Room Air 12/03/16 16:00 Room Air 12/03/16 14:58 36.7 75 21 143/64 (90) 95 Room Air Lab Results: Results Past 24 Hours Test 12/03/16 15:29 12/03/16 16:12 12/03/16 19:31 12/03/16 20:24 Range/Units Hemoglobin 10.9 11.4 14.0-18.0 g/dL Hematocrit 32.3 34.5 42-52 % Bedside Glucose 139 178 70-99 mg/dl Test 12/03/16 23:58 12/04/16 06:29 12/04/16 07:09 12/04/16 09:52 Range/Units Bedside Glucose 187 124 140 70-99 mg/dl Hemoglobin 10.7 14.0-18.0 g/dL Hematocrit 31.5 42-52 % Sodium Level 142 136-145 mmol/L Potassium Level 4.0 3.5-5.1 mmol/L Chloride Level 109 98-107 mmol/L Carbon Dioxide Level 25 21-32 mmol/L Anion Gap 8.0 3-11 mmol/L Blood Urea Nitrogen 17 7-18 mg/dl Creatinine 1.10 0.60-1.40 mg/dl Est Creatinine Clear Calc Drug Dose 59.5 ml/min Estimated GFR () 72.6 Estimated GFR (Non- 62.6 BUN/Creatinine Ratio 15.7 10-20 Random Glucose 138 70-99 mg/dl Lactic Acid Level 1.1 0.4-2.0 mmol/L Calcium Level 8.1 8.5-10.1 mg/dl Test 12/04/16 11:32 Range/Units Bedside Glucose 121 70-99 mg/dl
[2016-12-04] MEDS ORDERED: CIPR250T5 PO (14:17)
[2016-12-04] MEDS ORDERED: MTR500 PO (14:17)
--- NOTE | 2016-12-04 14:18 | Discharge Instructions ---
Discharge Instructions Date of Service Dec 04, 2016. Admission Reason for Admission: Gi Bleed Discharge Discharge Diagnosis / Problem: ACUTE SIGMOID DIVERTICULITIS WITH RECURRENT DIVERTICULAR BLEED Discharge Goals Goal(s): Decrease discomfort, Improve disease control, Diagnostic testing Activity Recommendations Activity Limitations: as noted below ( TOLERATED ) . Instructions / Follow-Up Instructions / Follow-Up PT IS BEING TRANSFERRED TO [facility] FOR RECURRENT DIVERTICULAR BLEED WILL NEED BLEEDING SCAN AND IR GUIDED INTERVENTION ACCEPTING PHYSICIAN DR PARRA -HOSPITALIST AT [facility] Current Hospital Diet Patient's current hospital diet: NPO Discharge Diet Recommended Diet: N/A (NPO) Procedures Procedures Performed: Colonoscopy Pending Studies Studies pending at discharge: no Laboratory Results Hemoglobin A1c Test 12/03/16 07:03 Range/Units Estimated Average Glucose 157 mg/dl Hemoglobin A1c 7.1 H 4.5-5.6 % Medical Emergencies . Who to Call and When: Medical Emergencies: If at any time you feel your situation is an emergency, please call 911 immediately. . Non-Emergent Contact Non-Emergency issues call your: Primary Care Provider . . "Provider Documentation" section prepared by Chiquita Haile. . VTE Core Measure Inpt VTE Proph given/why not?: Olivia Chakraborty, SCD's
[2016-12-04] MEDS: METRONIDAZOLE 500 MG TAB PO SCH ×3 (15:46→20:26)
--- NOTE | 2016-12-04 17:11 | Progress Note ---
Progress Note Date of Service Dec 04, 2016. Progress Note Patient underwent colonoscopy today. Results: Diverticulosis of the left colon hemorrhoids REcomendations: Daily fiber supplement Miralax 17 gm per day If rebleeding occurs would suggest a Bleeding scan and referral to a tertiary center for IR support Advance diet as tolerated Please call with questions or concerns if there are issues over the weekend, GI to sign off.
--- NOTE | 2016-12-04 19:20 | Progress Note ---
Progress Note Date of Service Dec 04, 2016. Progress Note ATTENDING NOTE : pt had colonoscopy earlier today later this evening -had dark stool followed by blood clots and bright red blood per rectum due to repeat GI bleed pt will need Bleeding scan and Possible IR guided hemostasis in a Tertiary Care -as GI recommendation called [facility] awaiting call back ordered for NPO pt will be monitored in Telemetry while waiting to be transferred to [facility]
[2016-12-04 19:54] LABS: HEMATOCRIT 30.6 % (42-52)
[2016-12-04] MEDS ORDERED: CIPROFLOXACIN 250 MG TAB PO SCH (20:00)
--- NOTE | 2016-12-04 20:08 | Discharge Summary ---
Discharge Summary Date of Service Dec 04, 2016. Discharge Summary Admission Date: Dec 02, 2016 at 20:46 Discharge Date: Dec 05, 2016 Discharge Disposition: Acute care facility ([facility] ) Principal Diagnosis: CUTE SIGMOID DIVERTICULITIS WITH RECURRENT DIVERTICULAR BLEED Procedures: COLONOSCOPY Consultations: [facility] GI Medication Reconciliation New Medications: Ciprofloxacin (Ciprofloxacin HCl) 250 Mg Tab 500 MG PO Q12H for 7 Days, #28 TAB Metronidazole (Metronidazole) 500 Mg Tab 500 MG PO TID for 7 Days, #21 TAB Continued Medications: Insulin Glargine (Lantus) 100 Unit/Ml Inj 22 UNITS SQ HS, #30 Insulin Regular (Human) (Novolin R Relion) 100 Unit/Ml Inj 10-12 UNITS SQ BID, #40 SLIDING SCALE Insulin Regular (Human) (Novolin R Relion) 100 Unit/Ml Inj 18-20 UNITS SQ QPM SLIDING SCALE Metoprolol Tartrate (Lopressor) (Lopressor) 50 Mg Tab 50 MG PO QAM, TAB Metoprolol Tartrate (Lopressor) (Lopressor) 50 Mg Tab 25 MG PO QPM, TAB Pravastatin (Pravachol ) 20 Mg Tab 40 MG PO DAILY, TAB Admission Information HPI (per Admitting provider): 81 year old male who presents to the ER with bright ref bleeding per rectum. Patient reports that around lunch time today he felt as though he had to have a bowel movement and when he went the toilet was filled with bright red blood. He reports an additional episode a few hours later. He denies any pain with the bowel movements or abdominal pain. He reports feeling mildly lightheaded and dizzy with standing. No syncopal events. While in the ER patient has had two additional bowel movements however stools are now a darker red. He denies nausea and vomiting. He denies any use of blood thinners or heavy NSAID use. He reports he was recently treated for bronchitis with azithromycin and those symptoms have resolved. He denies chest pain and shortness of breath. No fever or chills. He denies urinary symptoms. In the ER, vitals and hgb are stable. CT scan is shpwing mild diverticulitis in the sigmoid colon. Patient was given IV Cipro and Flagyl. Physical Exam (per Admitting): General Appearance: no apparent distress Head: normocephalic Eyes: normal inspection ENT: hearing grossly normal Neck: supple, no JVD Respiratory/Chest: lungs clear, normal breath sounds, no respiratory distress Cardiovascular: regular rate, rhythm, no edema, normal peripheral pulses Abdomen/GI: normal bowel sounds, non tender, soft Back: normal inspection, no CVA tenderness Extremities/Musculoskelatal: normal inspection, no calf tenderness Neurologic/Psych: no motor/sensory deficits, alert, normal mood/affect, oriented x 3 Skin: normal color, warm/dry Hospital Course ATTENDING NOTE : pt had colonoscopy earlier today later this evening -had dark stool followed by blood clots and bright red blood per rectum due to repeat GI bleed pt will need Bleeding scan and Possible IR guided hemostasis in a Tertiary Care -as GI recommendation D/w Dr Izzy Tian in agreement with transfer to [facility] called [facility] Pt is accepted by Dr Parra, Hospitalist at [facility] ordered for NPO pt is being transferred via [facility] GI BLEED, DIVERTICULITIS continued to have GI bleed after colonoscopy - patient presented with multiple episodes of painless BRBPR at home -HB dropped 14-11 -> 10 ( acute blood loss anemia due to diverticular bleed ) pt also been getting IV fluids -remained stable hemodynamically - CT scan showing sigmoid diverticulitis and diverticulosis throughout the colon - GI consult appreciated -S/P colonoscopy : Impression: - The examined portion of the ileum was normal. - Moderate diverticulosis in the sigmoid colon and in the descending colon. There was evidence of past bleeding consistent with a diverticular hemorrhage. - Internal hemorrhoids. - The examination was otherwise normal. -being transferred to [facility] for Bleeding scan and possible IR Guided intervention CAD - stable, no reports of chest pain - is not on ASA due to nose bleeds - continue beta lianet with holding parameters - DM - on Lantus and SSI at home - DVT PROPHYLAXIS - SCDs due to GI bleed CODE STATUS - Patient is a full code DISPOSITION Transfer to [facility] for Further care Accepting Physician Dr Parra Total time spent on discharge = 35 MINS This includes examination of the patient, discharge planning, medication reconciliation, and communication with other providers. Discharge Instructions DI: Medical v4 Discharge Instructions Date of Service Dec 04, 2016. Admission Reason for Admission: Gi Bleed Discharge Discharge Diagnosis / Problem: ACUTE SIGMOID DIVERTICULITIS WITH RECURRENT DIVERTICULAR BLEED Discharge Goals Goal(s): Decrease discomfort, Improve disease control, Diagnostic testing Activity Recommendations Activity Limitations: as noted below ( TOLERATED ) . Instructions / Follow-Up Instructions / Follow-Up PT IS BEING TRANSFERRED TO [facility] FOR RECURRENT DIVERTICULAR BLEED WILL NEED BLEEDING SCAN AND IR GUIDED INTERVENTION ACCEPTING PHYSICIAN DR PARRA -HOSPITALIST AT [facility] Current Hospital Diet Patient's current hospital diet: NPO Discharge Diet Recommended Diet: N/A (NPO) Procedures Procedures Performed: Colonoscopy Pending Studies Studies pending at discharge: no Laboratory Results Hemoglobin A1c Test 12/03/16 07:03 Range/Units Estimated Average Glucose 157 mg/dl Hemoglobin A1c 7.1 H 4.5-5.6 % Medical Emergencies . Who to Call and When: Medical Emergencies: If at any time you feel your situation is an emergency, please call 911 immediately. . Non-Emergent Contact Non-Emergency issues call your: Primary Care Provider . . "Provider Documentation" section prepared by Chiquita Haile. . VTE Core Measure Inpt VTE Proph given/why not?: Olivia Chakraborty, SCD's Additional Copies To Izzy Tian, DO
[2016-12-04] MEDS: METOPROLOL TARTRATE 25 MG TAB PO SCH (20:23)
[2016-12-04] MEDS ORDERED: INSULIN GLARGINE SOLOSTAR 100 UNITS/ML 3 ML PEN SC SCH (21:00)
== END 2016-12-04 21:19 | disposition short-term general hospital (02) | DRG 378 ==
LOC: C.EDB 15:32 → C.2T 20:46 → ENRESERV 20:53 → CANRESERV 20:53 → ENRESERV 21:05 → C.4E 12-04 14:11 → ENRESERV 12-04 19:27 → C.2T 12-04 20:11
PROVIDERS: ADMIT Family Medicine; ATTEND Hospitalist
PROC: 0DJD8ZZ Inspection of Lower Intestinal Tract, Via Natural or Artificial Opening Endoscopic (ICD-10-PCS; principal; 2016-12-04 09:09)
DX: K57.91 Diverticulosis of intestine, part unspecified, without perforation or abscess with bleeding (principal); D62 Acute posthemorrhagic anemia; E11.40 Type 2 diabetes mellitus with diabetic neuropathy, unspecified; K64.8 Other hemorrhoids; I25.10 Atherosclerotic heart disease of native coronary artery without angina pectoris; Z79.4 Long term (current) use of insulin; Z79.899 Other long term (current) drug therapy

== ENCOUNTER 2017-06-04 13:05 | Emergency (ER) | payer OTHER ==
[~2017-06-04] VITALS: Ht 182.9 cm; Wt 93.0 kg
[~2017-06-04 13:05] MED LIST changes: +CIPR250T5 PO; -HMLI SC; -INSDGI SC; +INSDGI SQ; +INSU1INJ16 SQ; +MTR500 PO
[2017-06-04 13:06] VITALS: Ht 182.9 cm; Wt 93.0 kg
--- NOTE | 2017-06-04 13:57 | EMERGENCY ROOM VISIT NOTE ---
ED Visit Note First contact with patient: 13:30 I have seen and examined this patient with Becca South and generally agree with the treatment plan as discussed. Problem List Medical Problems: (1) CAD (coronary artery disease) Permanent Comment: NM at age 35 ~ 2009 - CABG x 4 Status: Chronic (2) DM (diabetes mellitus) Status: Chronic (3) Neuropathy, diabetic Status: Chronic Surgical Problems: (1) H/O nasal polypectomy Status: Chronic Current/Historical Medications Scheduled Ciprofloxacin (Ciprofloxacin HCl), 500 MG PO Q12H Insulin Glargine (Lantus), 22 UNITS SQ HS Insulin Regular (Human) (Novolin R Relion), 10-12 UNITS SQ BID Insulin Regular (Human) (Novolin R Relion), 18-20 UNITS SQ QPM Metoprolol Tartrate (Lopressor) (Lopressor), 50 MG PO QAM Metoprolol Tartrate (Lopressor) (Lopressor), 25 MG PO QPM Metronidazole (Metronidazole), 500 MG PO TID Pravastatin (Pravachol ), 40 MG PO DAILY Allergies Coded Allergies: No Known Allergies (Unverified , 12/02/16) Vital Signs Date Time Temp Pulse Resp B/P (MAP) Pulse Ox O2 Delivery O2 Flow Rate FiO2 06/04/17 13:06 73 16 195/82 97 Room Air Departure Information Referrals Heidy Potter M.D. (PCP) Patient Instructions My [facility]
--- NOTE | 2017-06-04 14:36 | DIAGNOSTIC IMAGING REPORT ---
LEFT ANKLE 3 VIEWS HISTORY: left ankle pain, fall COMPARISON: None. FINDINGS: Minimally displaced oblique fracture within the distal fibula. This demonstrates 1 mm of lateral displacement. Lateral soft tissue swelling. No dislocation. Skin barbie are noted within the medial lower leg. Vascular calcifications are noted. IMPRESSION: Minimally displaced oblique fracture of the distal fibula. Electronically signed by: Tank Hernandez M.D. 06/04/2017 2:34 PM Dictated Date/Time: 06/04/2017 2:27 PM
--- NOTE | 2017-06-04 14:48 | DIAGNOSTIC IMAGING REPORT ---
R RIBS UNILATERAL WITH PA CHEST CLINICAL HISTORY: Right rib pain following fall. COMPARISON STUDY: Chest radiograph December 02, 2016. FINDINGS: There is an acute minimally displaced fracture of the lateral right seventh rib. No pneumothorax or pleural effusion is present. There are median sternotomy wires. Cardiomegaly is noted. Diffuse interstitial thickening is likely chronic. IMPRESSION: 1. Acute mildly displaced lateral right seventh rib fracture. No pneumothorax. 2. Diffuse interstitial thickening which is likely chronic. Electronically signed by: Lawrence Morris M.D. 06/04/2017 2:46 PM Dictated Date/Time: 06/04/2017 2:44 PM
[2017-06-04] MEDS ORDERED: HYDR-5688 PO (15:21)
--- NOTE | 2017-06-04 15:22 | EMERGENCY ROOM VISIT NOTE ---
History First contact with patient: 13:30 Chief Complaint: FALL Stated Complaint: FALL History of Present Illness The patient is a 81 year old male who presents to the Emergency Room for evaluation after a fall. The patient states that he tripped and fell over a table and hit his right ribs on the corner of a desk. He fell backward and landed onto his buttocks. He denies hitting his head. The patient reports pain in the right side of his ribs worse with movement, cough and deep breath. The patient rates the discomfort an 8/10. He states it is much better when he is still. The patient also reports he somehow injured the left ankle when he fell. He reports swelling and pain in the ankle. He does not have much feeling in either ankle/foot due to a history of neuropathy. The patient reports a history of diabetes, bypass surgery and diverticulitis. He lives by himself. He is able to perform all ADLs independently. He reports the fall was mechanical in nature and not associated with any dizziness or lightheadedness. Review of Systems A complete 10 point review of systems was reviewed with the patient with pertinent positives and negatives as per history of present illness. All else were negative. Past Medical/Surgical History Medical Problems: (1) CAD (coronary artery disease) (2) DM (diabetes mellitus) (3) Neuropathy, diabetic Surgical Problems: (1) H/O nasal polypectomy Family History Patient reports no known family medical history. Social History Smoking Status: Never Smoker Housing Status: lives alone Current/Historical Medications Scheduled Ciprofloxacin (Ciprofloxacin HCl), 500 MG PO Q12H Insulin Glargine (Lantus), 22 UNITS SQ HS Insulin Regular (Human) (Novolin R Relion), 10-12 UNITS SQ BID Insulin Regular (Human) (Novolin R Relion), 18-20 UNITS SQ QPM Metoprolol Tartrate (Lopressor) (Lopressor), 50 MG PO QAM Metoprolol Tartrate (Lopressor) (Lopressor), 25 MG PO QPM Metronidazole (Metronidazole), 500 MG PO TID Pravastatin (Pravachol ), 40 MG PO DAILY Scheduled PRN Hydrocodone/Acetaminophen 5MG/325MG ([place] 5MG/325MG), 1 TABLET PO Q4H PRN for Pain Physical Exam Vital Signs Date Time Temp Pulse Resp B/P (MAP) Pulse Ox O2 Delivery O2 Flow Rate FiO2 12/15/17 15:50 81 16 185/93 94 06/04/17 13:06 73 16 195/82 97 Room Air Physical Exam VITALS: Vitals are noted on the nurse's note and reviewed by myself. Vital signs stable. GENERAL: This is an 81-year-old male, in no acute distress, nondiaphoretic, well -developed well-nourished. SKIN: The skin was without erythema, edema, or bruising. HEAD: Normocephalic atraumatic. EARS: External auditory canals clear, tympanic membranes pearly gonzales without erythema or effusion bilaterally. No hemotympanum. EYES: Pupils equal round and reactive to light and accommodation. Extraocular movements intact. NECK: Cervical spine is nontender. HEART: Regular rate and rhythm without murmurs gallops or rubs. LUNGS: Clear to auscultation bilaterally without wheezes, rales or rhonchi. ABDOMEN: Soft, nontender. MUSCULOSKELETAL: There is tenderness to palpation of the right lateral lower ribs. There is mild tenderness and soft tissue swelling of the lateral left ankle. No tenderness of the proximal tibia/fibula or foot. Dorsalis pedis pulse 2+. NEURO: Patient was alert and oriented to person place and time. No focal neurological deficits. Medical Decision & Procedures ER Provider Diagnostic Interpretation: R RIBS UNILATERAL WITH PA CHEST FINDINGS: There is an acute minimally displaced fracture of the lateral right seventh rib. No pneumothorax or pleural effusion is present. There are median sternotomy wires. Cardiomegaly is noted. Diffuse interstitial thickening is likely chronic. IMPRESSION: 1. Acute mildly displaced lateral right seventh rib fracture. No pneumothorax. 2. Diffuse interstitial thickening which is likely chronic. LEFT ANKLE 3 VIEWS FINDINGS: Minimally displaced oblique fracture within the distal fibula. This demonstrates 1 mm of lateral displacement. Lateral soft tissue swelling. No dislocation. Skin barbie are noted within the medial lower leg. Vascular calcifications are noted. IMPRESSION: Minimally displaced oblique fracture of the distal fibula. Medical Decision Differential diagnosis includes rib fracture, rib contusion, pneumothorax, ankle fracture, ankle sprain, among others. The patient is an 81-year-old male who presents today complaining of rib and ankle pain after a fall. The fall was mechanical in nature. The patient did not strike his head. Chest x-ray shows a fracture of the lateral right seventh rib. No pneumothorax. Patient declined any analgesics. X-ray of the left ankle showed a nondisplaced fracture of the distal fibula. Patient was placed in a fracture boot and given a walker. He was given an incentive spirometer and instructed on use. He was given a prescription for [place] in case he needed for pain. I advised him to start with one half a tablet at a time. He will follow-up with orthopedics. He will follow-up with his primary care provider. He does have 3 sons which will be able to help him perform his ADLs. The patient and family members verbalized their understanding of my assessment and treatment plan and the patient was discharged home in good condition. The patient was independently evaluated by Dr. Doss, ED attending physician , who agreed with my assessment and treatment plan. [facility] Drug Monitoring Program Search Results: patient reviewed within database, no issues identified Medication Reconcilliation Current Medication List: was personally reviewed by me Blood Pressure Screening Patient's blood pressure: Elevated blood pressure Blood pressure disposition: Elevated BP felt to be situational, Referred to PCP Impression Primary Impression: Right rib fracture Additional Impression: Fracture of distal fibula Departure Information Dispostion Home / Self-Care Condition GOOD Prescriptions Hydrocodone/Acetaminophen 5MG/325MG ([place] 5MG/325MG) Tab 1 TABLET PO Q4H Y for Pain, #15 TAB For Initial Treatment Prov: Becca South .JAS 06/04/17 Referrals Heidy Potter M.D. (PCP) Bashir Chaudhry, DO Patient Instructions ED Fx Rib, Incentive Spirometer [place], [facility] Additional Instructions You have been treated in the Emergency Department for a Rib fracture and ankle fracture. You have been prescribed [place] to be used for pain control. This is a narcotic medication. You cannot drive or consume alcohol while on this medicine. This medicine should only be used for pain that cannot be controlled with over-the- counter pain medicines. You may want to try one half of a tablet first, as this medication may make you drowsy. For pain control, you can use the following brjc-frs-lbuxeyt medicines (if >12 yo): - Regular strength (325mg/tab) Tylenol (acetaminophen) 2 tabs every 4-6 hours as needed. Do not exceed 12 tablets in a 24 hour period. Avoid taking more than 4 grams (4000 mg) of Tylenol per day. This includes any other sources of acetaminophen you may take on a regular basis. If this is an acute injury, ice can be applied to the area of pain for the first 3 days to help decrease pain and inflammation. After the first 3 days, a heating pad can be used over the area for continued soothing relief. To minimize your discomfort, you can hug a pillow while coughing or sneezing. Additionally, you should continue to force yourself to take nice, deep breaths. Use the incentive spirometer as instructed. This will help you to take full breaths. Full expansion of the lungs is necessary to prevent the accumulation of fluid in the lung tissue and development of pneumonia. Keep the fracture boot in place until you follow up with orthopedics regarding your ankle fracture. Use the walker to help you get around. Call orthopedics tomorrow to schedule a follow-up appointment. You should schedule a follow-up appointment within one week with your Primary Care Provider for further evaluation and treatment of your injuries. Return to the Emergency Department if your current symptoms worsen despite treatment course outlined above, or if you develop any of the following symptoms : intractable pain despite aforementioned treatment course, development of a wet cough, bloody cough, fever, chills, or increased shortness of breath. Problem Qualifiers Primary Impression: Right rib fracture Encounter type: initial encounter Rib fracture type: single rib Fracture type: closed Qualified Codes: S22.31XA - Fracture of one rib, right side, initial encounter for closed fracture Additional Impression: Fracture of distal fibula Encounter type: initial encounter Fracture type: closed Fracture morphology : other fracture Laterality: left Qualified Codes: S82.832A - Other fracture of upper and lower end of left fibula, initial encounter for closed fracture
[2017-06-04 15:50] VITALS: BP 185/93; PULSE 81; O2SAT 94
== END 2017-06-04 15:50 | disposition home or self-care (01) ==
LOC: C.EDB 13:07
DX: S22.31XA Fracture of one rib, right side, initial encounter for closed fracture (principal); S82.832A Other fracture of upper and lower end of left fibula, initial encounter for closed fracture; W19.XXXA Unspecified fall, initial encounter; I25.10 Atherosclerotic heart disease of native coronary artery without angina pectoris; E11.9 Type 2 diabetes mellitus without complications; Z79.4 Long term (current) use of insulin

== ENCOUNTER 2019-12-04 04:01 | Observation (INO) ==
--- NOTE | 2019-12-04 04:05 | Emergency Department Note ---
Impression & Plan Chest pain ED Provider Note NAME: LILLIAN GALARZA AGE: 84 SEX: M ARRIVES VIA: Ambulance INFORMANT: Patient ED PROVIDER(S): Niharika Brooks DO CHIEF COMPLAINT: Left-sided chest pain PLAN: Disposition: Admitted to the [facility] service Condition: Stable MEDICAL DECISION MAKING: This is an 84-year-old male patient who presents to the emergency department with complaints of left-sided chest pain that was relieved with nitroglycerin. Patient had an EKG with no signs of ischemia although he did have episodes of bradycardia. Initial troponin was negative. Patient's chest pain did not return while here in the emergency department. [facility] and [facility] will evaluate for further management. Triage Nursing notes reviewed and agree them. Additional history obtained from EMS Prior medical records reviewed including notes from cardiology Vital Signs: reviewed and remarkable for bradycardia at times Differential diagnosis: NSTEMI; GERD; beta-lianet overdose; CHF Diagnostics interpreted by me: ECG: Sinus bradycardia at 59 with a first-degree AV block flattened T waves laterally no obvious ischemia or ectopy. Cardiac Monitoring: Sinus bradycardia with rates as low as the 40s. 1 to 2- second pauses Laboratory studies: See below Imaging studies: As per my interpretation Chest x-ray: Asymmetric volume overload to the right or interstitial thickening to the right compared to the left. No obvious consolidation or pleural effusion HPI: 84/M arrives for evaluation of left-sided chest pain. The patient has been having episodes of shortness of breath over the past 3 weeks with intermittent episodes of chest pain. He was seen by [facility] cardiology and they prescribed him nitroglycerin. Prior to going to bed last night, the patient took a nitroglycerin for some chest discomfort with associated nausea and diaphoresis. This did not help his discomfort. He did go to sleep but awoke and then developed the chest discomfort again when he got up from bed. He again had associated shortness of breath, nausea and diaphoresis. He took 1 sublingual nitroglycerin and this relieved his chest discomfort. EMS was called. They administered baby aspirin. ROS: See above HPI for pertinent positives & negatives. A total of 10 systems reviewed and were otherwise negative. PAST MEDICAL HISTORY:Diabetes, GERD, hypercholesterolemia PAST SURGICAL HISTORY:See Below FAMILY HISTORY:See Below SOCIAL HISTORY:See Below HOME MEDICATIONS:See list ALLERGIES:None VITALS:See Below PHYSICAL EXAMINATION: HEENT: Head - normocephalic and atraumatic Pupils are equal, round, and reactive to light. Extraocular eye muscles are intact, and sclera are anicteric. Nose - moist nasal mucosa without discharge. Mouth - moist buccal mucosa. Oropharynx is nonerythematous and there is no tonsillar exudate or edema noted. Neck: Supple; no JVD, nuchal rigidity, cervical lymphadenopathy, or auscultated bruits. Heart: Bradycardic rate and rhythm. There is a normal S1 and S2 with no murmurs, clicks, or gallops appreciated. Lungs: Clear to auscultation bilaterally with no wheezes, rales, or rhonchi. Abdomen: Soft, completely nontender, nondistended, with good bowel sounds. There are no palpable pulsatile masses or hepatosplenomegaly. There is no g uarding, rigidity, or rebound noted. Extremities: No evidence of cyanosis, clubbing, or edema. There are easily palpable peripheral pulses. Skin: Pale, warm and dry with good turgor and no rashes. ED COURSE: Times/Reassessments: The patient was evaluated in room C7. A complete history and physical was performed. Labs were obtained. A twelve-lead EKG was obtained. An order was placed for continuous cardiac monitoring. The patient was in a normal sinus rhythm at 64. The patient was rechecked and was asleep I reevaluated the patient and woke him up. He had no complaints of chest pain and stated that the pain never returned. I discussed the case with Dr. Thakur from the [facility] service Niharika Brooks DO Past Med/Surg History Medical History CAD (coronary artery disease) (Chronic) "CT at age 35 ~ 2009 - CABG x 4 " DM (diabetes mellitus) (Chronic) Heart disease Neuropathy, diabetic (Chronic) Social History Preferred Language: [place] Citizen Communication Ability: Effective [employer]vest [employer] Required: No Beliefs That Will Affect Care: None Current Living Situation: Alone Other Information That Helps Us Care for You: No Feels Safe at Home: Yes Safety Concerns: Feels Safe At This Time Smoking Status: Former smoker Smoking End Date: 1967 ; Hx Alcohol Use: No Hx Substance Use: No Allergies Allergies Allergy/AdvReac Type Severity Reaction Status Date / Time No Known Allergies Allergy Unverified 12/04/19 04:16 Home Meds Home Medications Medication Instructions Recorded Confirmed insulin glargine [Lantus U-100 22 units SUBCUT HS 07/16/18 12/04/19 Insulin] insulin regular human [Novolin R See Rx Instructions .ROUTE .COMPLEX 07/16/18 12/04/19 Regular U-100 Insuln] pravastatin 40 mg PO DAILY 07/16/18 12/04/19 famotidine 20 mg PO BID 12/04/19 12/04/19 furosemide 20 mg PO DAILY 12/04/19 12/04/19 metoprolol succinate 50 mg PO BID 12/04/19 12/04/19 nitroglycerin 0.4 mg SUBLINGUAL UD PRN 12/04/19 12/04/19 Results & Data (ED) Vital Signs Vital Signs - 24 hr 12/04/19 04:21 12/04/19 04:23 12/04/19 05:54 Temperature 36.7 C Temperature Source Oral Pulse Rate 59 L Pulse Rate [Apical] 56 L Respiratory Rate 18 18 Respiratory Effort / Characteristics Non-Labored Non-Labored Respiratory Depth Normal Normal Blood Pressure 152/69 H Blood Pressure [Right Arm] 145/74 H Blood Pressure Mean 96 Blood Pressure Mean [Right Arm] 97 Pulse Oximetry 97 96 95 Oxygen Delivery Method Room Air Room Air Room Air Sepsis Recent Fever Within 48 Hours No Sepsis New/Unexplained Change in Mental Status No Sepsis Action Taken by Nursing No Action Required Laboratory Data Result diagrams: 12/05/19 05:16 12/05/19 05:16 Lab Results 12/04/19 12/04/19 12/04/19 Range/Units 04:13 04:13 04:13 WBC 12.70 H (4.8-10.8) K/uL RBC 4.54 L (4.7-6.1) M/uL Hgb 14.2 (14.0-18.0) g/dL Hct 40.7 L (42-52) % MCV 89.6 (80-100) fL MCH 31.3 (25-34) pg MCHC 34.9 (32-36) g/dL RDW Std Deviation 48.4 H (36.4-46.3) fL RDW Coeff of Fahad 14.6 H (11.5-14.5) % Plt Count 205 (130-400) K/uL MPV 9.3 (7.4-10.4) fL Immature Gran % (Auto) 0.3 % Neut % (Auto) 41.3 % Lymph % (Auto) 45.5 % Hays % (Auto) 8.7 % Eos % (Auto) 3.7 % Baso % (Auto) 0.5 % Immature Gran # (Auto) 0.04 H (0.00-0.02) K/uL Neut # (Auto) 5.24 (1.4-6.5) K/uL Lymph # (Auto) 5.78 H (1.2-3.4) K/uL Hays # (Auto) 1.11 H (0.11-0.59) K/uL Eos # (Auto) 0.47 (0-0.5) K/uL Baso # (Auto) 0.06 (0-0.2) K/uL Blood Smear Review Ovalocytes 1+ PT 11.1 (9.0-12.0) Seconds INR 1.1 (0.9-1.1) APTT 26.6 (21.0-31.0) Seconds PTT Ratio 1.0 Sodium 141 (136-145) mmol/L Potassium 3.4 L (3.5-5.1) mmol/L Chloride 107 (98-107) mmol/L Carbon Dioxide 30 (21-32) mmol/L Anion Gap 4.0 (3-11) BUN 29 H (7-18) mg/dl Creatinine 1.22 (0.6-1.4) mg/dl Est Cr Clr Drug Dosing 50.9 ml/min Est GFR ( Amer) 62.7 Est GFR (Non-Af Amer) 54.1 BUN/Creatinine Ratio 23.9 H (10-20) Glucose 54 L (70-99) mg/dl Calcium 8.7 (8.5-10.1) mg/dl Total Bilirubin 0.6 (0.2-1) mg/dl AST 27 (15-37) U/L ALT 35 (12-78) U/L Alkaline Phosphatase 73 (45-117) U/L Troponin I 0.017 (0-0.045) ng/ml Total Protein 6.9 (6.4-8.2) gm/dl Albumin 3.2 L (3.4-5.0) gm/dl Globulin 3.7 (2.5-4.0) gm/dl Albumin/Globulin Ratio 0.9 (0.9-2) Lipase 133 (73-393) U/L Administered Medications Aspirin (Ecotrin Ectab) 81 mg PO DAILY [facility] Stop: 01/03/20 08:59 Last Admin: 12/04/19 09:53 Dose: 81 mg Documented by: [id number] Famotidine (Pepcid) 20 mg PO BID MARGIE Stop: 01/03/20 08:59 Last Admin: 12/04/19 21:32 Dose: 20 mg Documented by: [id number] Admin: 12/04/19 09:52 Dose: 20 mg Documented by: [id number] Heparin Sodium (Porcine) (Heparin Sodium (Porcine)) 5,000 units SQ Q12 MARGIE Stop: 01/03/20 20:59 Last Admin: 12/04/19 21:32 Dose: 5,000 units Documented by: [id number] Cosigned by: [id number] Insulin Aspart (Novolog Flexpen) 0 units SC ACHS [facility] Stop: 01/03/20 11:29 Last Admin: 12/04/19 21:35 Dose: 3 units Documented by: [id number] Cosigned by: [id number] Admin: 12/04/19 16:57 Dose: 6 units Documented by: [id number] Cosigned by: [id number] Admin: 12/04/19 12:11 Dose: 4 units Documented by: [id number] Cosigned by: [id number] Insulin Glargine (Lantus Solostar Pen) 10 units SC [facility] Stop: 01/03/20 20:59 Last Admin: 12/04/19 21:32 Dose: 10 units Documented by: [id number] Cosigned by: [id number] Isosorbide Mononitrate (Imdur Extended Rel) 30 mg PO QAM [facility] Stop: 01/03/20 10:59 Last Admin: 12/04/19 11:45 Dose: 30 mg Documented by: [id number] Pravastatin Sodium (Pravachol) 40 mg PO HS [facility] Stop: 01/03/20 20:59 Last Admin: 12/04/19 21:32 Dose: 40 mg Documented by: [id number] Discontinued Medications Glucose (Dex4 Glucose) 4 tabs PO NOW STA Stop: 12/04/19 06:29 Last Admin: 12/04/19 06:42 Dose: 4 tabs Documented by: [id number] Furosemide 20 mg/ Syringe 2 mls @ 4 mls/min IV [id number] MARGIE Stop: 01/03/20 08:59 Last Admin: 12/04/19 09:52 Dose: 4 mls/min Documented by: [id number] Metoprolol Succinate (Toprol Xl) 50 mg PO BID MARGIE Stop: 01/03/20 08:59 Last Admin: 12/04/19 09:53 Dose: 50 mg Documented by: [id number] Potassium Chloride (Ashleigh Ciel Elix) 40 meq PO NOW ONE Stop: 12/04/19 08:31 Last Admin: 12/04/19 09:52 Dose: 40 meq Documented by: [id number] Discharge Plan Visit Data *Final* Discharge Date/Time: 12/04/19 06:54 Chief Complaint: Cardiac Assessment Stated Complaint: CHEST PAIN/SHORT OF BREATH ED Provider: Niharika Brooks Discharge Problem: Chest pain Patient Disposition: Admitted As Inpatient Discharge Instructions Interventions: ED Discharge Assessment Last Done: 12/04/19 06:54 Discharge Problem: Chest pain Qualifiers: Chest pain type: precordial pain Qualified Code(s): R07.2 - Precordial pain
[2019-12-04 04:27] LABS: Hematocrit (blood only) 40.7 % (42-52); Hemoglobin 14.2 g/dL (14.0-18.0); Mean Corpuscular Hemoglobin 31.3 pg (25-34); Mean Corpuscular Hgb Conc 34.9 g/dL (32-36); Mean Corpuscular Volume 89.6 fL (80-100); Mean Platelet Volume 9.3 fL (7.4-10.4); Platelet Count 205 K/uL (130-400); RDW Coefficient of Variation 14.6 % (11.5-14.5); RDW Standard Deviation 48.4 fL (36.4-46.3); Red Blood Count 4.54 M/uL (4.7-6.1)
[2019-12-04 04:37] LABS: INR 1.1 (0.9-1.1); Partial Thromboplastin Time 26.6 Seconds (21.0-31.0); Prothrombin Time 11.1 Seconds (9.0-12.0)
[2019-12-04 04:38] LABS: Albumin Level 3.2 gm/dl (3.4-5.0); BUN Creatinine Ratio 23.9 (10-20); Calcium 8.7 mg/dl (8.5-10.1); Creatinine Clr Calc Pharmacy 50.9 ml/min; Est GFR (African American) 62.7; Est GFR (Non-African American) 54.1; Potassium 3.4 mmol/L (3.5-5.1)
[2019-12-04 04:43] LABS: Albumin Globulin Ratio 0.9 (0.9-2); Bilirubin,Total 0.6 mg/dl (0.2-1); Globulin 3.7 gm/dl (2.5-4.0); Total Protein 6.9 gm/dl (6.4-8.2); Troponin I 0.017 ng/ml (0-0.045)
[2019-12-04 05:16] LABS: Basophils # (auto) 0.06 K/uL (0-0.2); Basophils % (auto) 0.5 %; Eosinophils # (auto) 0.47 K/uL (0-0.5); Eosinophils % (auto) 3.7 %; Immature Granulocytes # (auto) 0.04 K/uL (0.00-0.02); Immature Granulocytes % (auto) 0.3 %; Lymphocytes # (auto) 5.78 K/uL (1.2-3.4); Lymphocytes % (auto) 45.5 %; Monocytes # (auto) 1.11 K/uL (0.11-0.59); Monocytes % (auto) 8.7 %; Neutrophils # (auto) 5.24 K/uL (1.4-6.5); Neutrophils % (auto) 41.3 %; Ovalocytes 1+
[2019-12-04] MEDS ORDERED: GLUCOSE 10 TABS/TUBE PO STA (06:28)
--- NOTE | 2019-12-04 07:07 | XRay Report ---
XR chest 1V portable CLINICAL HISTORY: Atypical chest pain COMPARISON STUDY: 06/04/2017 FINDINGS: There is radiographic evidence of emphysema. The heart is the upper limits of normal in siz e. There are postsurgical changes of a midline sternotomy. There is asymmetric interstitial thickenin g right greater than left. This could indicate asymmetric edema, or interstitial inflammatory process es. Clinical and radiographic follow-up is recommended. IMPRESSION: 1. Nonspecific asymmetric interstitial thickening. This could be secondary to mild edema or interstit ial inflammatory processes. Clinical and radiographic follow-up is recommended ACT 112: Negative or not required by law. Electronically signed by: Nadir Banda M.D. 12/04/2019 7:06 AM
[2019-12-04] MEDS ORDERED: ONDANSETRON INJ 2 MG/ML 2 ML VIAL IV PRN (08:10)
[2019-12-04] MEDS ORDERED: POLYETHYLENE (MIRALAX) 17 GM PACK PO PRN (08:10)
[2019-12-04] MEDS ORDERED: NITROGLYCERIN SL 0.4 MG/TAB TAB SL PRN ×2 (08:10)
[2019-12-04] MEDS ORDERED: ACETAMINOPHEN 325 MG TAB PO PRN (08:10)
[2019-12-04] MEDS ORDERED: POTASSIUM CHLORIDE 20 MEQ/15 ML UDC PO ONE (08:30)
--- NOTE | 2019-12-04 08:35 | History and Physical Report ---
DATE OF ADMISSION: 12/04/2019 CHIEF COMPLAINT: Chest pain, shortness of breath on exertion. HISTORY OF PRESENT ILLNESS: This 84-year-old male with past medical history significant for type 2 diabetes, hyperlipidemia, congestive heart failure, CAD, diverticulosis, GERD, chronic kidney disease stage III, bilateral hearing loss, who lives alone, walks with a cane, comes with shortness of breath on exertion and chest pain on and off. The patient says he is having chest pain on and off last 2 weeks and shortness of breath on exertion. He saw cardiology recently, echo done November 26 showed EF of 35%, started on Lasix. His Lopressor, was changed to Toprol-XL. He says that he taking medication as prescribed, but last night he was feeling again feeling short of breath on exertion and chest pain and was feeling dizzy and cold in his legs which prompted him to come to the ER. Currently, chest pain is resolved. EKG, no acute findings. Troponin is negative. Chest x-ray showed possible mild congestion. He has a history of diabetic neuropathy and does not feel much in the legs but they are still cold on palpation. Currently resting comfortably and he has some bradycardia, questionable small pause on the monitor. Denies any headache, no blurred vision, no runny nose, no sore throat. Somewhat hard of hearing. No cough, no fever, no chills, no nausea, no abdominal pain. Normal bowel and bladder movements. Appetite is okay. No dysphagia. ALLERGIES: No known drug allergies. PAST MEDICAL HISTORY: As mentioned above. PAST SURGICAL HISTORY: Colonoscopy, CABG, EGD, tonsillectomy. MEDICATIONS: The patient is on Lasix 20 mg p.o. daily, Toprol-XL 50 mg p.o. b.i.d., nitroglycerin 0.4 mg sublingual p.r.n., Pepcid 20 mg p.o. b.i.d., aspirin 81 mg p.o. daily, Lantus 20 units under skin daily, Novolin R sliding scale, pravastatin 40 mg p.o. daily. FAMILY HISTORY: No family history on file. SOCIAL HISTORY: . No smoking, no alcohol. Family lives close by. Lives alone. REVIEW OF SYMPTOMS: As per HPI. Rest of review of symptoms negative. PHYSICAL EXAMINATION: GENERAL: The patient is of moderate build, not in acute distress. VITAL SIGNS: Temperature 36.7, pulse 59, respiratory rate 18, blood pressure 152/69, oxygen 96% on room air. HEENT: Pupils equal, round, and reactive to light. Head atraumatic. NECK: No JVD, supple. CARDIOVASCULAR: S1, S2 heard, regular rate and rhythm, no murmur, no gallop. RESPIRATORY SYSTEM: Normal AP diameter. No accessory muscle use. No wheezing, no crackles. ABDOMEN: Soft, bowel sounds present, nontender. No distention. CENTRAL NERVOUS SYSTEM: Cranial nerves II-XII grossly intact. Nonfocal. EXTREMITIES: Bilateral lower extremity edema present, no erythema seen. LABORATORY DATA: WBC 12.7, hemoglobin 14.2, hematocrit 40.7, platelets 205. PT 11.1, INR 1.1, APTT 26.6. Sodium 141, potassium 3.4, chloride 107, bicarbonate 30, BUN 13, creatinine 1.2, serum glucose 54, calcium 8.7, total bilirubin 0.6, AST 27, ALT 35, alkaline phosphatase 73, troponin 0.017. Lipase 133. Chest x-ray: Mild pulmonary congestion. EKG: Sinus bradycardia with first degree AV block at a rate of 59, nonspecific T-wave abnormality seen. ASSESSMENT AND PLAN: This is an 84-year-old male who presents with ongoing chest pain on and off and also shortness of breath with exertion. Also feels coldness in his legs and dizzy. . Recently saw cardiology and stared on Lasix. Recent echo showed EF of 35%. We will rule out acute coronary syndrome with serial cardiac enzymes and echo. Serial cardiac enzymes. Monitor in tele floor. 2. Acute systolic congestive heart failure with an EF of 35%. We will place him on IV Lasix 20 b.i.d. Continue Toprol-XL. Closely monitor in the tele floor as there is question of some bradycardia and some mild pauses on tele monitor. Await cardiology input. 3.Possible peripheral artery disease, lower extremities are cold on palpation. We will do arterial Doppler 4. Hypoglycemia, glucose is 54 on the labs. Currently n.p.o. We will cut his Lantus to 10units q hs and place on insulin sliding scale. Monitor his blood sugars, follow HbA1c levels. 5. Gastroesophageal reflux disease. Continue Pepcid. 6. Hyperlipidemia. Continue statin. 7. 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 Continue statin, beta lianet, aspirin. 8. Deep vein thrombosis prophylaxis, sequential compression devices. Closely monitor in the tele floor. Level 1 full code. MTDD
[2019-12-04] MEDS ORDERED: METOPROLOL SUCC 50MG EXT REL TAB PO SCH (09:00)
[2019-12-04] MEDS ORDERED: FUROSEMIDE 20 MG in SYRINGE 0 ML IV SCH (09:00)
[2019-12-04] MEDS ORDERED: FUROSEMIDE 40 MG/4 ML VIAL IV SCH (09:00)
[2019-12-04] MEDS: FAMOTIDINE 20 MG TAB PO SCH ×2 (09:52→21:32)
[2019-12-04] MEDS: ASPIRIN 81 MG ECTAB PO SCH (09:53)
--- NOTE | 2019-12-04 10:26 | Ultrasound Report ---
US arterial duplex LE BI HISTORY: 84 years-old Male cold lower extremities peripheral artery disease COMPARISON: None TECHNIQUE: Multiple real-time sonographic images of the bilateral lower extremity arterial structures were obtained assessing grayscale appearance, color and spectral flow. Segmental blood pressures wer e also obtained. FINDINGS: SEGMENTAL BLOOD PRESSURES: RIGHT: Brachial-165 (index); posterior tibial-noncompressible; dorsalis pedis-noncompressible. LEFT: Brachial-158 (index); posterior tibial-211 (1.28); dorsalis pedis-219 (1.33). RIGHT LOWER EXTREMITY: Calcified plaque is noted throughout. Mostly biphasic waveforms within the common femoral, profunda f emoris, superficial femoral, and popliteal arteries. No appreciable flow identified within the motor and chassis inspector ior tibial artery. Biphasic waveforms are also noted within the peroneal and posterior tibial artery. Mildly blunted waveforms of the posterior tibial artery. Blunted monophasic waveforms of the distal anterior tibial artery and dorsalis pedis artery. Mildly elevated peak systolic velocities of the mid superficial femoral artery, 182 cm/s. LEFT LOWER EXTREMITY: Calcified plaque is noted throughout. Mostly biphasic waveforms are noted extending from the common f emoral, profunda femoris, superficial femoral and popliteal arteries. Blunted biphasic waveforms of t he posterior tibial artery. Broken intermittent flow is noted at several places below the level of th e knee. Biphasic waveforms of the peroneal artery. Blunted monophasic waveforms of the anterior tibia l and dorsalis petrous arteries. Mildly elevated peak systolic velocities within the distal superfici al femoral artery, 150 cm/s. IMPRESSION: 1. Peripheral arterial disease as above with biphasic and monophasic waveforms. 2. No appreciable flow identified within the right posterior tibial artery suggestive of occlusion. 3. Mildly elevated peak systolic velocities of the bilateral superficial femoral arteries suggests mi ld stenosis. ACT 112: Negative or not required by law. The above report was generated using voice recognition software. It may contain grammatical, syntax o r spelling errors. Electronically signed by: Reji Valente M.D. 12/04/2019 10:25 AM
[2019-12-04] MEDS: ISOSORBIDE MONO EXTENDED REL 30 MG TABCR PO SCH (11:45)
[2019-12-04] MEDS: INSULIN ASPART 100 UNITS/ML 3 ML PEN SC SCH ×3 (12:11→21:35)
--- NOTE | 2019-12-04 12:25 | Cardiology Consultation ---
Date of Consultation December 04, 2019 Assessment & Plan (1) Chest pain: Musculoskeletal in nature with recent nonischemic outpatient work-up. No further testing or intervention is necessary at this time. If persist consideration may be given to performing a noncontrast CT of the chest to evaluate for sternal nonunion (2) CAD (coronary artery disease): Stable I will be decreasing his metoprolol so to prevent any inducible anginal symptoms I will also start him on isosorbide 30 mg daily at this time. (3) SOB (shortness of breath): Pulmonary evaluation recommended (4) Bradycardia: While sleeping We will obtain a nocturnal pulse ox overnight tonight. We will decrease beta-blockade dose and may consider outpatient telemetry monitoring upon discharge. History of Present Illness Reason for Consultation: chest pain Requesting Physician: Dr. Lucero Attending Physician: Narinder Hurt MD History of Present Illness It was my pleasure to see Mr. Sapp in consultation today December 04, 2019. He is a very pleasant 84-year-old gentleman who only recently established cardiac care with us at [facility]. He presented to [facility] emergency department via EMS with complaint of chest pain. He states that on the evening of 12/04/2019 he was sitting relaxing when he suddenly felt both of his legs become cold from the knees down. When he pushed himself up from the chair he felt some pain in his midsternal area. He states it felt as though the bones shifted at the site of sternotomy which is not unusual for him. He states that this pain occurs with motion and particularly when rolling over in bed. The chest pain quickly resolved on its own but he became concerned and summoned EMS. Upon arrival to the emergency department his initial evaluation was unremarkable and he was admitted to telemetry. He states he has had no further chest discomfort overnight. Upon further questioning he also states his been g etting dyspneic with exertion for the last several months. He recently established care with my partner Dr. Carpenter and a nuclear stress test was performed which showed an inferior and apical scar without ischemia. 2D echocardiogram was also performed which showed no significant valvular disease. A chest x-ray was performed which was read as possible interstitial lung disease pattern and a pulmonary consultation was requested. While the mid on telemetry he had episodes of sinus bradycardia into the 30s with sleep. Allergies Allergy/AdvReac Type Severity Reaction Status Date / Time No Known Allergies Allergy Unverified 12/04/19 04:16 Home Medications Home Medications Medication Instructions Recorded Confirmed Type insulin glargine [Lantus U-100 22 units SUBCUT HS 07/16/18 12/04/19 History Insulin] insulin regular human [Novolin R See Rx Instructions .ROUTE .COMPLEX 07/16/18 12/04/19 History Regular U-100 Insuln] pravastatin 40 mg PO DAILY 07/16/18 12/04/19 History famotidine 20 mg PO BID 12/04/19 12/04/19 History furosemide 20 mg PO DAILY 12/04/19 12/04/19 History metoprolol succinate 50 mg PO BID 12/04/19 12/04/19 History nitroglycerin 0.4 mg SUBLINGUAL UD PRN 12/04/19 12/04/19 History Patient History Medical History CAD (coronary artery disease) (Chronic) "NE at age 35 ~ 2009 - CABG x 4 " DM (diabetes mellitus) (Chronic) Heart disease Neuropathy, diabetic (Chronic) Social History Preferred Language: [place] Communication Ability: Effective Sweatband Perforator Required: No Beliefs That Will Affect Care: None Current Living Situation: Alone Other Information That Helps Us Care for You: No Feels Safe at Home: Yes Safety Concerns: Feels Safe At This Time Smoking Status: Former smoker Smoking End Date: 1967 ; Hx Alcohol Use: No Hx Substance Use: No Review of Systems Review of Systems: All systems reviewed & are unremarkable except as noted in HPI & below Physical Exam Physical Exam: General: Awake, alert and oriented x 3. No acute distress. HEENT: Normocephalic, atraumatic. Pupils equal, round and reactive to light and accommodation. Extraocular muscles are intact. Anicteric sclera. Moist mucous membranes. Neck: No JVD. No bruit. Cardiovascular: Regular. Positive S-4. Normal S-1 and S-2. No S-3. 3/6 mid to late systolic ejection murmur, greatest at the right sternal border, second intercostal space with radiation to the bilateral carotids. No rubs. Pulmonary: Clear to auscultation bilaterally. No rales, rhonchi, or wheezing. Abdomen: Bowel sounds x 4, soft. No rebound, guarding or tenderness. No organomegaly. Extremities: No clubbing, cyanosis or edema. +2 pedal pulses bilaterally. Skin: Warm and dry. Results & Data ([facility]) Vital Signs (Past 12 Hours) Vital Signs Temp Pulse Pulse Pulse Resp BP BP 12/04/19 11:32 36.4 C L 65 18 163/77 H 12/04/19 07:48 36.5 C 73 18 167/69 H 12/04/19 05:54 56 L 18 145/74 H 12/04/19 04:23 12/04/19 04:21 36.7 C 59 L 18 152/69 H Pulse Ox 12/04/19 11:32 97 12/04/19 07:48 96 12/04/19 05:54 95 12/04/19 04:23 96 12/04/19 04:21 97
--- NOTE | 2019-12-04 12:31 | Electrocardiogram Report ---
Test Reason : Blood Pressure : / mmHG Vent. Rate : 059 BPM Atrial Rate : 059 BPM P-R Int : 250 ms QRS Dur : 126 ms QT Int : 438 ms P-R-T Axes : -16 -58 112 degrees QTc Int : 433 ms Sinus bradycardia with 1st degree A-V block Left axis deviation Left ventricular hypertrophy with QRS widening Nonspecific T wave abnormality Abnormal ECG When compared with ECG of 03-DEC-2016 01:23, ME interval has increased Confirmed by El Sharp ([id number]) on 12/04/2019 12:31:39 PM Referred By: REFERRED SELF Confirmed By:Ned Sharp
--- NOTE | 2019-12-04 13:40 | Hospitalist Progress Note ---
Date of Service December 04, 2019 Assessment & Plan (1) Chest pain: Peripheral Arterial Disease -as per admission H and P 12/04/2019: This is an 84-year-old male who presents with ongoing chest pain on and off and also shortness of breath with exertion. Also feels coldness in his legs and dizzy, chest pains and also shortness of breath on exertion." -Patient seen and examined by daytime hospitalist after he was seen by cardiology. Patient did not appear to be any distress. he denied current chest pain. he is breathing on room air. he does not have abdomen pain. he was eating the food. no nausea. no vomiting. no dizziness. no headache. he completed the ultrasound arterial doppler which was ordered by admitting physician because he has bilateral cold lower extremities and while the test appears to indicate a degree of peripheral arterial disease (Peripheral arterial disease with biphasic and monophasic waveforms. No appreciable flow identified within the right posterior tibial artery suggestive of occlusion. 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 This could be secondary to mild edema or interstitial inflammatory processes. -send procalcitonin -there is an elevated WBC on presentation as 12,[address] chest scan may be able to better elucidate admission CXR findings but patient declines CT scan -Continue statin, beta lianet, aspirin. 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 improved during next checks and patient eating okay in the hospital -check HbA1c -holding his Lantus of 22 units qhs at home for now and continue with sliding scale insulin for now Gastroesophageal reflux disease -Continue Pepcid. Deep vein thrombosis prophylaxis: heparin subcutaneous Level 1 full code. Admission and Anticipated Discharge Date Admission Date: December 04, 2019 Subjective Patient seen and examined by daytime hospitalist after he was seen by cardiology. Patient did not appear to be any distress. he denied current chest pain. he is breathing on room air. he does not have abdomen pain. he was eating the food. no nausea. no vomiting. no dizziness. no headache. he completed the u ltrasound arterial doppler which was ordered by admitting physician because he has bilateral cold lower extremities and while the test appears to indicate a degree of peripheral arterial disease the report did not suggest acute arterial occlusions. His legs are indeed cold on my exam. but patient denies pain of the legs when he ambulates independently at home. he is agreeable to vascular surgery consult. Review of Systems Review of Systems: All systems reviewed & are unremarkable except as noted in Subjective Physical Exam Constitutional: WD/WN, vitals as above comfortable Eyes: PERRL, conjunctivae normal, anicteric sclerae EOM intact bilaterally ENMT: external ear and nose normal, oropharynx normal Neck: normal visual inspection Respiratory: normal respiratory effort, lungs clear to auscultation Cardiovascular: heart rate in the 60s and on telemetry this is sinus rhythm with premature atrial contraction Gastrointestinal (Abdomen): normal bowel sounds, soft, nontender, no hepatosplenomegaly Musculoskeletal: Head/Neck/Chest: normocephalic and head atraumatic Skin: bilateral legs are cool to the touch Neurologic: PERRL, EOMI, accommodation nl, no face palsy, no dysarthria CN's II-XI intact bilaterally Psychiatric: A+Ox3, euthymic affect Results & Data Results & Data ([facility]) Vital Signs (Past 12 Hours) Vital Signs Temp Pulse Pulse Pulse Resp BP BP 12/04/19 11:32 36.4 C L 65 18 163/77 H 12/04/19 07:48 36.5 C 73 18 167/69 H 12/04/19 05:54 56 L 18 145/74 H 12/04/19 04:23 12/04/19 04:21 36.7 C 59 L 18 152/69 H Pulse Ox 12/04/19 11:32 97 12/04/19 07:48 96 12/04/19 05:54 95 12/04/19 04:23 96 12/04/19 04:21 97
[2019-12-04] MEDS ORDERED: HEPARIN SOD 5,000 UNIT/0.5 ML VIAL SQ SCH (21:00)
[2019-12-04] MEDS ORDERED: PRAVASTATIN SOD 40 MG TAB PO SCH (21:00)
[2019-12-04] MEDS ORDERED: INSULIN GLARGINE SOLOSTAR 100 UNITS/ML 3 ML PEN SC SCH (21:00)
[2019-12-05 05:41] LABS: Basophils # (auto) 0.06 K/uL (0-0.2); Basophils % (auto) 0.6 %; Eosinophils # (auto) 0.34 K/uL (0-0.5); Eosinophils % (auto) 3.3 %; Hematocrit (blood only) 39.5 % (42-52); Immature Granulocytes # (auto) 0.04 K/uL (0.00-0.02); Immature Granulocytes % (auto) 0.4 %; Lymphocytes # (auto) 3.91 K/uL (1.2-3.4); Lymphocytes % (auto) 37.5 %; Mean Corpuscular Hemoglobin 30.1 pg (25-34); Mean Corpuscular Hgb Conc 32.9 g/dL (32-36); Mean Corpuscular Volume 91.4 fL (80-100); Mean Platelet Volume 9.2 fL (7.4-10.4); Monocytes # (auto) 0.87 K/uL (0.11-0.59); Monocytes % (auto) 8.3 %; Neutrophils # (auto) 5.22 K/uL (1.4-6.5); Neutrophils % (auto) 49.9 %; Platelet Count 172 K/uL (130-400); RDW Coefficient of Variation 14.8 % (11.5-14.5); Red Blood Count 4.32 M/uL (4.7-6.1); White Blood Count 10.44 K/uL (4.8-10.8)
[2019-12-05 06:33] LABS: BUN Creatinine Ratio 21.8 (10-20); Calcium 8.6 mg/dl (8.5-10.1); Creatinine Clr Calc Pharmacy 44.1 ml/min; Est GFR (African American) 52.6; Est GFR (Non-African American) 45.4; Magnesium 2.1 mg/dl (1.8-2.4); Potassium 4.2 mmol/L (3.5-5.1)
[2019-12-05 06:51] LABS: Estimated Average Glucose 151 mg/dl; Hemoglobin A1C 6.9 % (4.5-5.6)
[2019-12-05] MEDS ORDERED: SODIUM CHLORIDE 0.9% 1000ML 250 ML IV ONE (07:26)
[2019-12-05] MEDS: INSULIN ASPART 100 UNITS/ML 3 ML PEN SC SCH ×2 (08:24→12:12)
[2019-12-05] MEDS: FAMOTIDINE 20 MG TAB PO SCH (08:25)
[2019-12-05] MEDS: ASPIRIN 81 MG ECTAB PO SCH (08:25)
[2019-12-05] MEDS: ISOSORBIDE MONO EXTENDED REL 30 MG TABCR PO SCH (08:25)
[2019-12-05] MEDS ORDERED: METOPROLOL SUCC 50MG EXT REL TAB PO SCH (09:00)
--- NOTE | 2019-12-05 10:02 | Consultation ---
Date of Consultation December 05, 2019 Assessment & Plan (1) Peripheral arterial disease: Mild PAd noted on US and good doppler flow to feet. Pt asymptomatic. No indications for vascular surgical intervention at this time. Pt also seen by Dr Jones. Please call if needed. Patient was seen, examined, and chart reviewed. Agree with exam and treatment plan of the Vascular PA. History of Present Illness Reason for Consultation: legs feel cool Attending Physician: Narinder Hurt MD History of Present Illness 84 yo m with hx of DMII, CAD s/p CABG x4, diabetic neuropathy, admitted with chest pain and SOB, seen in consultation today for cold feeling in extremities. Pt is [place], but states he feels his feet are "cool" most of the time. Denies any problems with ambulation other than trouble with balance. Sometimes uses a cane for balance. No hx of PAD. Admits mild edema of BLE and intermittent numbness. Denies any toe discoloration, rest pain, claudication, CURIEL, fever, chest pain presently, abd pain, N/V, recent illness, other complaints. CP and SOB has resolved. Arterial US demonstrates diffuse mild PAD with triphasic waveforms. Allergies Allergy/AdvReac Type Severity Reaction Status Date / Time No Known Allergies Allergy Unverified 12/04/19 04:16 Home Medications Home Medications Medication Instructions Recorded Confirmed Type insulin glargine [Lantus U-100 22 units SUBCUT HS 07/16/18 12/04/19 History Insulin] insulin regular human [Novolin R See Rx Instructions .ROUTE .COMPLEX 07/16/18 12/04/19 History Regular U-100 Insuln] pravastatin 40 mg PO DAILY 07/16/18 12/04/19 History famotidine 20 mg PO BID 12/04/19 12/04/19 History furosemide 20 mg PO DAILY 12/04/19 12/04/19 History metoprolol succinate 50 mg PO BID 12/04/19 12/04/19 History nitroglycerin 0.4 mg SUBLINGUAL UD PRN 12/04/19 12/04/19 History Patient History Medical History (Updated 12/05/19 @ 10:01 by Janine Samano PABretC) CAD (coronary artery disease) (Chronic) "MA at age 35 ~ 2009 - CABG x 4 " DM (diabetes mellitus) (Chronic) Heart disease Neuropathy, diabetic (Chronic) Peripheral arterial disease Social History Preferred Language: Divehi Communication Ability: Effective Blueprinter Required: No Beliefs That Will Affect Care: None Current Living Situation: Alone Other Information That Helps Us Care for You: No Feels Safe at Home: Yes Safety Concerns: Feels Safe At This Time Smoking Status: Former smoker Smoking End Date: 1967 ; Hx Alcohol Use: No Hx Substance Use: No Review of Systems Review of Systems: All systems reviewed & are unremarkable except as noted in HPI & below Physical Exam Constitutional: WD/WN, vitals as above healthy appearing, cooperative and comfortable; not in distress Eyes: PERRL, conjunctivae normal, anicteric sclerae ENMT: external ear and nose normal, oropharynx normal Ears: + hearing impairment Neck: trachea midline, no thyromegaly Respiratory: normal respiratory effort, lungs clear to auscultation Cardiovascular: Rate/Rhythm: regular rate and regular rhythm Vessels: femoral pulses present, posterior tibial pulses present (difficult to palpate, biphasic with doppler), dorsalis pedis pulses present (difficult to palpate, triphasic with doppler bLE), brachial pulses present and radial pulses present; + abnormal peripheral pulses Extremities: normal capillary refill and + edema (trace) Gastrointestinal (Abdomen): normal bowel sounds, soft, nontender, no hepatosplenomegaly Musculoskeletal: no cyanosis or clubbing, extremities motor strength 5/5 Skin: no rashes, warm and dry Neurologic: moves all extremities and awake; no focal motor deficits and not confused Psychiatric: A+Ox3, euthymic affect Results & Data Vital Signs (Past 12 Hours) Vital Signs Temp Pulse Pulse Resp BP Pulse Ox Pulse Ox 12/05/19 07:52 36.4 C L 63 18 128/54 L 96 12/05/19 03:30 36.7 C 68 18 118/56 L 96 12/05/19 03:29 62 94 12/04/19 23:30 36.6 C 68 18 107/47 L 94
--- NOTE | 2019-12-05 12:16 | Electrocardiogram Report ---
Test Reason : Blood Pressure : / mmHG Vent. Rate : 058 BPM Atrial Rate : 058 BPM P-R Int : 232 ms QRS Dur : 120 ms QT Int : 450 ms P-R-T Axes : 007 -51 265 degrees QTc Int : 441 ms Sinus bradycardia with 1st degree A-V block Left axis deviation Non-specific intra-ventricular conduction delay Minimal voltage criteria for LVH, may be normal variant Nonspecific T wave abnormality Abnormal ECG When compared with ECG of 04-DEC-2019 04:07, Nonspecific T wave abnormality now evident in Inferior leads Confirmed by El Sharp ([id number]) on 12/05/2019 12:15:57 PM Referred By: REFERRED SELF Confirmed By:Ned Sharp
[2019-12-05 12:39] LABS: BUN Creatinine Ratio 21.8 (10-20); Calcium 8.5 mg/dl (8.5-10.1); Creatinine Clr Calc Pharmacy 47.4 ml/min; Est GFR (African American) 57.5; Est GFR (Non-African American) 49.6; Potassium 4.6 mmol/L (3.5-5.1)
--- NOTE | 2019-12-05 14:16 | Cardiology Progress Note ---
Date of Service December 05, 2019 Assessment & Plan (1) Chest pain: Musculoskeletal in nature with recent nonischemic outpatient work-up. No further testing or intervention is necessary at this time. If persist consideration may be given to performing a noncontrast CT of the chest to evaluate for sternal nonunion (2) CAD (coronary artery disease): Stable I will be decreasing his metoprolol and to prevent any inducible anginal symptoms I will also start him on isosorbide 30 mg daily Would DC home on this regimen. (3) SOB (shortness of breath): Pulmonary evaluation recommended (4) Bradycardia: While sleeping Asymptomatic. Nocturnal pulse ox was unremarkable with lowest rate into the 40s. No further testing is necessary at this time. His beta-blockade dose has been reduced. Follow-up as scheduled as an outpatient. Subjective Patient seen and examined, chart reviewed. No further complaints of chest pain overnight. Denies any shortness of breath, palpitations, lightheadedness, dizziness or syncope. He is anxious to be discharged home. Telemetry reviewed: Normal sinus rhythm with episodes of sinus bradycardia into the 40s overnight while sleeping. Review of Systems Review of Systems: All systems reviewed & are unremarkable except as noted in HPI & below Physical Exam Physical Exam: General: Awake, alert and oriented x 3. No acute distress. HEENT: Normocephalic, atraumatic. Pupils equal, round and reactive to light and accommodation. Extraocular muscles are intact. Anicteric sclera. Moist mucous membranes. Neck: No JVD. No bruit. Cardiovascular: Regular. Positive S-4. Normal S-1 and S-2. No S-3. 3/6 mid to late systolic ejection murmur, greatest at the right sternal border, second intercostal space with radiation to the bilateral carotids. No rubs. Pulmonary: Clear to auscultation bilaterally. No rales, rhonchi, or wheezing. Abdomen: Bowel sounds x 4, soft. No rebound, guarding or tenderness. No or ganomegaly. Extremities: No clubbing, cyanosis or edema. +2 pedal pulses bilaterally. Skin: Warm and dry. Results & Data Vital Signs (Past 12 Hours) Vital Signs Temp Pulse Pulse Resp BP Pulse Ox Pulse Ox 12/05/19 11:59 36.3 C L 62 18 124/48 L 97 12/05/19 07:52 36.4 C L 63 18 128/54 L 96 12/05/19 03:30 36.7 C 68 18 118/56 L 96 12/05/19 03:29 62 94
--- NOTE | 2019-12-05 14:42 | Hospitalist Progress Note ---
Date of Service December 05, 2019 Assessment & Plan (1) Chest pain: Peripheral Arterial Disease -as per admission H and P 12/04/2019: This is an 84-year-old male who presents with ongoing chest pain on and off and also shortness of breath with exertion. Also feels coldness in his legs and dizzy, chest pains and also shortness of breath on exertion." -Patient seen and examined by daytime hospitalist after he was seen by cardiology. Patient did not appear to be any distress. he denied current chest pain. he is breathing on room air. he does not have abdomen pain. he was eating the food. no nausea. no vomiting. no dizziness. no headache. he completed the ultrasound arterial doppler which was ordered by admitting physician because he has bilateral cold lower extremities and while the test appears to indicate a degree of peripheral arterial disease (Peripheral arterial disease with biphasic and monophasic waveforms. No appreciable flow identified within the right posterior tibial artery suggestive of occlusion. Mildly elevated peak systolic velocities of the bilateral superficial femoral arteries suggests mild stenosis.) the report did not suggest acute arterial occlusions -cardiology consult added isosorbide to medication regimen, appreciate any further cardiology recommendations -vascular surgery consult with no acute surgical interventions, Patient had nose bleed when he was on aspirin and heparin subcutaneous q12 hours while in patient. It self resolved. Patient was evaluated by vascular surgery consult for peripheral arterial disease of the legs but no acute surgical intervention needed at this time -as per cardiology his chest pain had been Musculoskeletal in nature with recent nonischemic outpatient work-up. No further testing or intervention is necessary at this time. Shortness of breath (resolved) -reported on admission but no hypoxia, normal pulse oximetry overnight, no urgent need for pulmonary consultation -patient declined CT chest scan in hospital Leukocytosis with abnormal peripheral blood smear -there is an elevated WBC on presentation as 12,7000 but no fever, downtrended to 10,000 with -PERIPHERAL SMEAR FOR REVIEW on 12/04/2019 This peripheral smear for review reveals anisocytosis of the red blood cells, unremarkable platelets, unremarkable PMN leukocytes, unremarkable monocytes, a mild increase in smudge cells, unremarkable lymphocytes, and a population of lymphocytes with irregular nuclear membranes and nucleomegaly, but mature chromatin. A few buttock cells are identified. Blasts and schistocytes are not seen. Review of the patient's CBC reveals a leukocytosis with a white blood cell count at 12.70 x109 per liter, an unremarkable hemoglobin concentration at 14.2 g/dL, and an unremarkable platelet count at 205 x109 per liter. The patient's absolute lymphocyte count is 5.78 x109 per liter and is clearly elevated. Review of the electronic medical record indicates Mr. Patrick Sapp is an 84-year-old man who was admitted with shortness of breath and chest pain. A recent echocardiogram of the heart revealed an ejection fraction at 35%. In light of the above discussion, residual blood in the lavender-top tube will be submitted for flow cytometric analysis to exclude a monoclonal B-cell lymphocytosis or even chronic lymphocytic leukemia. The flow report will serve as an addendum to this case. PERIPHERAL SMEAR FOR REVIEW: 1. MILD ANISOCYTOSIS OF THE RED BLOOD CELLS, UNREMARKABLE PMN LEUKOCYTES, UNREMARKABLE PLATELETS, UNREMARKABLE MONOCYTES, AND A POPULATION OF MILDLY ATYPICAL LYMPHOCYTES WITH IRREGULAR NUCLEAR MEMBRANES AND NUCLEOMEGALY ARE ALL SEEN. 2. BLASTS AND SCHISTOCYTES ARE NOT SEEN. 3. THE RESIDUAL BLOOD IN THE LAVENDER-TOP TUBE WILL BE SUBMITTED FOR FLOW CYTOMETRIC ANALYSIS TO EXCLUDE A MONOCLONAL B-CELL LYMPHOCYTOSIS OR EVEN CHRONIC LYMPHOCYTIC LEUKEMIA. -12/04/2019 Flow cytometry subsequently sent are pending -patient declined CT chest scan in the hospital for further workup. patient to follow up with primary care doctor for the flow cytometry results congestive heart failure with an EF of 35% Coronary artery disease with history of coronary artery bypass graft Leukocytosis -outpatient echocardiogram with EF 35 % in recent past -admitting physician started empirically on IV Lasix -admission: Chest X ray: Nonspecific asymmetric interstitial thickening. This could be secondary to mild edema or interstitial inflammatory processes. -procalcitonin negative -acute congestive heart failure appears ruled out, he ended up having mildly elevated creatinine from 1.2 to 1.4 that resolved with IV fluids . CT chest scan may be able to better elucidate admission CXR findings but patient declines CT scan -Continue statin, beta lianet, aspirin. Bradycardia -medications adjusted to reduce his home dose beta blockers to minimize overnight bradycardia for which he has been asymptomatic when in the hospital -Patient's new discharge medications are metoprolol succinate as 25 mg once vanesa ly and isosorbide mononitrate as 30 mg daily sent electronically to [facility], [place] [address] Type 2 diabetes mellitus with longterm current use of insulin Hypoglycemia -admission glucose is 54 on the labs. improved during next checks and patient eating okay in the hospital and then placed on reduce insulin dosing compared to home dose -Continue Lantus insulin as reduced dosing as 10 units every night. this change is also sent electronically to [facility], [place] [address]. patient should record blood sugars at home and follow up with primary care doctor Gastroesophageal reflux disease -Continue Pepcid. Discharge clinic follow ups Follow up with primary care doctor on Wednesday with Dr. Li at [facility] Follow up with cardiology on December 13, 2019 Dr. Carpenter of cardiology clinic at [facility] Admission and Anticipated Discharge Date Admission Date: December 04, 2019 Subjective over night with asymptomatic bradycardia. patient continues to be on room air. he did not have any acute pulse oximetry overnight and remained on room air. no dizziness. no lightheadedness. no abdomen pain. no chest pain. no nausea. patient wishes to be discharged and his son to pick him up. Review of Systems Review of Systems: All systems reviewed & are unremarkable except as noted in Subjective Physical Exam Constitutional: WD/WN, vitals as above comfortable Eyes: PERRL, conjunctivae normal, anicteric sclerae EOM intact bilaterally ENMT: external ear and nose normal, oropharynx normal Neck: normal visual inspection Respiratory: normal respiratory effort, lungs clear to auscultation Gastrointestinal (Abdomen): normal bowel sounds, soft, nontender, no hepatosp lenomegaly Musculoskeletal: Head/Neck/Chest: normocephalic and head atraumatic Neurologic: PERRL, EOMI, accommodation nl, no face palsy, no dysarthria CN's II-XI intact bilaterally Psychiatric: A+Ox3, euthymic affect Results & Data Results & Data ([facility]) Vital Signs (Past 12 Hours) Vital Signs Temp Pulse Pulse Resp BP Pulse Ox Pulse Ox 12/05/19 11:59 36.3 C L 62 18 124/48 L 97 12/05/19 07:52 36.4 C L 63 18 128/54 L 96 12/05/19 03:30 36.7 C 68 18 118/56 L 96 12/05/19 03:29 62 94
--- NOTE | 2019-12-05 14:59 | Discharge Summary ---
Date of Service December 05, 2019 Admission HPI Per Admitting Provider DATE OF ADMISSION: 12/04/2019 CHIEF COMPLAINT: Chest pain, shortness of breath on exertion. HISTORY OF PRESENT ILLNESS: This 84-year-old male with past medical history significant for type 2 diabetes, hyperlipidemia, congestive heart failure, CAD, diverticulosis, GERD, chronic kidney disease stage III, bilateral hearing loss, who lives alone, walks with a cane, comes with shortness of breath on exertion and chest pain on and off. The patient says he is having chest pain on and off last 2 weeks and shortness of breath on exertion. He saw cardiology recently, echo done November 26 showed EF of 35%, started on Lasix. His Lopressor, was changed to Toprol-XL. He says that he taking medication as prescribed, but last night he was feeling again feeling short of breath on exertion and chest pain and was feeling dizzy and cold in his legs which prompted him to come to the ER. Currently, chest pain is resolved. EKG, no acute findings. Troponin is negative. Chest x-ray showed possible mild congestion. He has a history of diabetic neuropathy and does not feel much in the legs but they are still cold on palpation. Currently resting comfortably and he has some bradycardia, questionable small pause on the monitor. Denies any headache, no blurred vision, no runny nose, no sore throat. Somewhat hard of hearing. No cough, no fever, no chills, no nausea, no abdominal pain. Normal bowel and bladder movements. Appetite is okay. No dysphagia. Principal Diagnosis Chest pain shortness of breath (resolved) Bradycardia Type 2 diabetes mellitus with half-way current use of insulin Hypoglycemia Leukocytosis with abnormal peripheral blood smear Coronary artery disease Discharge Exam Constitutional WD/WN, vitals as above comfortable Eyes PERRL, conjunctivae normal, anicteric sclerae EOM intact bilaterally ENMT external ear and nose normal, oropharynx normal Neck normal visual inspection Respiratory normal respiratory effort, lungs clear to auscultation Gastrointestinal (Abdomen) normal bowel sounds, soft, nontender, no hepatosplenomegaly Musculoskeletal Head/Neck/Chest: normocephalic and head atraumatic Neurologic PERRL, EOMI, accommodation nl, no face palsy, no dysarthria CN's II-XI intact bilaterally Psychiatric A+Ox3, euthymic affect Discharge Data Allergies Allergy/AdvReac Type Severity Reaction Status Date / Time No Known Allergies Allergy Unverified 12/04/19 04:16 Consultations 12/04/19 05:12 ED Decision to Admit Stat 12/04/19 08:10 Consult Cardiology Routine Consult Case Management - Discharge Planning Routine 12/04/19 12:05 Consult Vascular Surgery Routine Ordered Studies 12/04/19 09:00 arterial duplex LE Urgent Hospital Course (1) Chest pain: Peripheral Arterial Disease -as per admission H and P 12/04/2019: This is an 84-year-old male who presents with ongoing chest pain on and off and also shortness of breath with exertion. Also feels coldness in his legs and dizzy, chest pains and also shortness of breath on exertion." -Patient seen and examined by daytime hospitalist after he was seen by cardiology. Patient did not appear to be any distress. he denied current chest pain. he is breathing on room air. he does not have abdomen pain. he was eating the food. no nausea. no vomiting. no dizziness. no headache. he completed the ultrasound arterial doppler which was ordered by admitting physician because he has bilateral cold lower extremities and while the test appears to indicate a degree of peripheral arterial disease (Peripheral arterial disease with biphasic and monophasic waveforms. No appreciable flow identified within the right posterior tibial artery suggestive of occlusion. Mildly elevated peak systolic velocities of the bilateral superficial femoral arteries suggests mild stenosis.) the report did not suggest acute arterial occlusions -cardiology consult added isosorbide to medication regimen, appreciate any further cardiology recommendations -vascular surgery consult with no acute surgical interventions, Patient had nose bleed when he was on aspirin and heparin subcutaneous q12 hours while in patient. It self resolved. Patient was evaluated by vascular surgery consult for peripheral arterial disease of the legs but no acute surgical intervention needed at this time -as per cardiology his chest pain had been Musculoskeletal in nature with recent nonischemic outpatient work-up. No further testing or intervention is necessary at this time. Shortness of breath (resolved) -reported on admission but no hypoxia, normal pulse oximetry overnight, no urgent need for pulmonary consultation -patient declined CT chest scan in hospital Leukocytosis with abnormal peripheral blood smear -there is an elevated WBC on presentation as 12,7000 but no fever, downtrended to 10,000 with -PERIPHERAL SMEAR FOR REVIEW on 12/04/2019 This peripheral smear for review reveals anisocytosis of the red blood cells, unremarkable platelets, unremarkable PMN leukocytes, unremarkable monocytes, a mild increase in smudge cells, unremarkable lymphocytes, and a population of lymphocytes with irregular nuclear membranes and nucleomegaly, but mature chromatin. A few buttock cells are identified. Blasts and schistocytes are not seen. Review of the patient's CBC reveals a leukocytosis with a white blood cell count at 12.70 x109 per liter, an unremarkable hemoglobin concentration at 14.2 g/dL, and an unremarkable platelet count at 205 x109 per liter. The patient's absolute lymphocyte count is 5.78 x109 per liter and is clearly elevated. Review of the electronic medical record indicates Mr. Patrick Sapp is an 84-year-old man who was admitted with shortness of breath and chest pain. A recent echocardiogram of the heart revealed an ejection fraction at 35%. In light of the above discussion, residual blood in the lavender-top tube will be submitted for flow cytometric analysis to exclude a monoclonal B-cell lymphocytosis or even chronic lymphocytic leukemia. The flow report will serve as an addendum to this case. PERIPHERAL SMEAR FOR REVIEW: 1. MILD ANISOCYTOSIS OF THE RED BLOOD CELLS, UNREMARKABLE PMN LEUKOCYTES, UNREMARKABLE PLATELETS, UNREMARKABLE MONOCYTES, AND A POPULATION OF MILDLY ATYPICAL LYMPHOCYTES WITH IRREGULAR NUCLEAR MEMBRANES AND NUCLEOMEGALY ARE ALL SEEN. 2. BLASTS AND SCHISTOCYTES ARE NOT SEEN. 3. THE RESIDUAL BLOOD IN THE LAVENDER-TOP TUBE WILL BE SUBMITTED FOR FLOW CYTOMETRIC ANALYSIS TO EXCLUDE A MONOCLONAL B-CELL LYMPHOCYTOSIS OR EVEN CHRONIC LYMPHOCYTIC LEUKEMIA. -12/04/2019 Flow cytometry subsequently sent are pending -patient declined CT chest scan in the hospital for further workup. patient to follow up with primary care doctor for the flow cytometry results congestive heart failure with an EF of 35% Coronary artery disease with history of coronary artery bypass graft Leukocytosis -outpatient echocardiogram with EF 35 % in recent past -admitting physician started empirically on IV Lasix -admission: Chest X ray: Nonspecific asymmetric interstitial thickening. This could be secondary to mild edema or interstitial inflammatory processes. -procalcitonin negative -acute congestive heart failure appears ruled out, he ended up having mildly elevated creatinine from 1.2 to 1.4 that resolved with IV fluids . CT chest scan may be able to better elucidate admission CXR findings but patient declines CT scan -Continue statin, beta lianet, aspirin. 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 improved during next checks and patient eating okay in the hospital and then placed on reduce insulin dosing compared to home dose -Continue Lantus insulin as reduced dosing as 10 units every night. this change is also sent electronically to [address] [id number]. patient should record blood sugars at home and follow up with primary care doctor Gastroesophageal reflux disease -Continue Pepcid. Discharge clinic follow ups Follow up with primary care doctor on Wednesday with Dr. Li at [facility] Follow up with cardiology on December 13, 2019 Dr. 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 Li at [facility] Follow up with cardiology on December 13, 2019 Dr. Carpenter of cardiology clinic at [facility] Patient's new discharge medications are metoprolol succinate as 25 mg once daily and isosorbide mononitrate as 30 mg daily sent electronically to [address] [address] Continue Lantus insulin as reduced dosing as 10 units every night. this change is also sent electronically to [address] [address]. patient should record blood sugars at home and follow up with primary care doctor Patient had nose bleed when he was on aspirin and heparin subcutaneous q12 hours while in patient. It self resolved. Patient was evaluated by vascular surgery consult for peripheral arterial disease of the legs but no acute surgical intervention needed at this time Patient should discussed with primary care doctor about future management of peripheral arterial disease of the lower extremities Add Job Coach Provider Instructions: PERIPHERAL SMEAR FOR REVIEW on 12/04/2019 This peripheral smear for review reveals anisocytosis of the red blood cells, unremarkable platelets, unremarkable PMN leukocytes, unremarkable monocytes, a mild increase in smudge cells, unremarkable lymphocytes, and a population of lymphocytes with irregular nuclear membranes and nucleomegaly, but mature chromatin. A few buttock cells are identified. Blasts and schistocytes are not seen. Review of the patient's CBC reveals a leukocytosis with a white blood cell count at 12.70 x109 per liter, an unremarkable hemoglobin concentration at 14.2 g/dL, and an unremarkable platelet count at 205 x109 per liter. The patient's absolute lymphocyte count is 5.78 x109 per liter and is clearly elevated. Review of the electronic medical record indicates Mr. Patrick Sapp is an 84-year-old man who was admitted with shortness of breath and chest pain. A recent echocardiogram of the heart revealed an ejection fraction at 35%. In light of the above discussion, residual blood in the lavender-top tube will be submitted for flow cytometric analysis to exclude a monoclonal B-cell lymphocytosis or even chronic lymphocytic leukemia. The flow report will serve as an addendum to this case. PERIPHERAL SMEAR FOR REVIEW: 1. MILD ANISOCYTOSIS OF THE RED BLOOD CELLS, UNREMARKABLE PMN LEUKOCYTES, UNREMARKABLE PLATELETS, UNREMARKABLE MONOCYTES, AND A POPULATION OF MILDLY ATYPICAL LYMPHOCYTES WITH IRREGULAR NUCLEAR MEMBRANES AND NUCLEOMEGALY ARE ALL SEEN. 2. BLASTS AND SCHISTOCYTES ARE NOT SEEN. 3. THE RESIDUAL BLOOD IN THE LAVENDER-TOP TUBE WILL BE SUBMITTED FOR FLOW CYTOMETRIC ANALYSIS TO EXCLUDE A MONOCLONAL B-CELL LYMPHOCYTOSIS OR EVEN CHRONIC LYMPHOCYTIC LEUKEMIA. 12/04/2019 Flow cytometry subsequently sent are pending patient declined CT chest scan in the hospital for further workup. patient to follow up with primary care doctor for the flow cytometry results Pending Studies at Discharge: No Studies:: Flow cytometry from 12/04/2019 test pending Stand-Alone Forms: [employer], Smoking Cessation Medications and DC Order Prescriptions: New isosorbide mononitrate 30 mg Tablet Extended Release 24 Hr 30 mg PO QAM 30 Days Qty: 30 RF: 0 metoprolol succinate 25 mg Tablet Extended Release 24 Hr 25 mg PO QAM 30 Days Qty: 30 RF: 0 Lantus Solostar U-100 Insulin 100 unit/mL (3 mL) Insulin Pen 10 unit SC HS 30 Days Qty: 3 RF: 0 Continued pravastatin 40 mg tablet 40 mg PO DAILY RF: 0 Novolin R Regular U-100 Insuln 100 unit/mL solution See Rx Instructions .ROUTE .COMPLEX RF: 0 famotidine 20 mg tablet 20 mg PO BID RF: 0 furosemide 20 mg tablet 20 mg PO DAILY RF: 0 nitroglycerin 0.4 mg tablet, sublingual 0.4 mg sublingual UD PRN (Reason: Chest Pain) RF: 0 Discontinued Lantus U-100 Insulin 100 unit/mL solution 22 units subcut HS RF: 0 metoprolol succinate 50 mg tablet extended release 24 hr 50 mg PO BID RF: 0 Discharge Orders: Discharge Order (Routine); Ordered 12/05/19 Ordered By: Narinder Gamez/Other Patient Handouts: Diabetes Type 2 Managing, ED PVD Admission Data Admit Date/Time: 12/04/19 06:15 Attending Provider: Narinder Hurt Admit Provider: Cesario Lucero Primary Care Provider: Heidy Potter Other Providers: Cesario Lucero ; Sebastián Rock ; Gianluca Simons ; Bennett Aviles ; Car Carpenter ; ClaudetteChemo poole ; Trent Jackson ; Blanca Restrepo ; Flavia Doyle ; Too Wood ; Paramjit Jones
[2019-12-06] MEDS ORDERED: METOPROLOL SUCC 25MG EXT REL TAB PO SCH (09:00)
== END 2019-12-05 16:24 | disposition home or self-care (01) ==
LOC: 2S 04:01 → ED 04:01 → 2S 06:54

== ENCOUNTER 2021-10-13 19:47 | Inpatient (IN) ==
[2021-10-13 20:24] LABS: Hematocrit (blood only) 26.1 % (42-52); Hemoglobin 7.7 g/dL (14.0-18.0); Mean Corpuscular Hemoglobin 22.4 pg (25-34); Mean Corpuscular Hgb Conc 29.5 g/dL (32-36); Mean Corpuscular Volume 76.1 fL (80-100); Mean Platelet Volume 8.9 fL (7.4-10.4); Platelet Count 311 K/uL (130-400); RDW Coefficient of Variation 17.9 % (11.5-14.5); RDW Standard Deviation 50.3 fL (36.4-46.3); Red Blood Count 3.43 M/uL (4.7-6.1); White Blood Count 9.97 K/uL (4.8-10.8)
[2021-10-13 20:26] LABS: Partial Thromboplastin Time 26.6 Seconds (21.0-31.0); Prothrombin Time 11.1 Seconds (9.0-12.0)
--- NOTE | 2021-10-13 20:30 | XRay Report ---
SINGLE VIEW CHEST CLINICAL HISTORY: Atypical chest pain FINDINGS: An AP, portable, upright chest radiograph is compared to study dated 12/04/2019. The patient is status post midline sternotomy. The heart is enlarged noting atherosclerotic calcification of the thoracic aorta. Findings of chronic residual lung disease appears progressive as compared to previou s. There are asymmetric airspace opacities throughout the right lung at the left lung base. Question small pleural effusions. No pneumothorax is seen. The skeletal structures are osteopenic. The bony th orax is grossly intact. IMPRESSION: 1. Cardiomegaly with findings of chronic interstitial/fibrotic lung disease. 2. There are asymmetric airspace opacities throughout the right lung and at the left lung base. This has increased from 2020 and could be related to progressive interstitial lung disease. Correlate clin ically for evidence of a superimposed infectious/inflammatory pneumonitis or possibly congestive hess ge. Radiographic follow-up to resolution is recommended. 3. Question trace pleural effusions. ACT 112: Negative or not required by law. Electronically signed by: Vicente Rashid M.D. 10/13/2021 8:28 PM
[2021-10-13 20:37] LABS: Alanine Aminotransferase 11 U/L (7-52); Albumin Globulin Ratio 1.3 (0.9-2); Albumin Level 3.7 gm/dl (3.4-5.0); Alkaline Phosphatase 63 U/L (34-104); Anion Gap 5 (3-11); Aspartate Aminotransferase 17 U/L (13-39); BUN Creatinine Ratio 14.3 (10-20); Bilirubin,Total 0.5 mg/dl (0.2-1.0); Blood Urea Nitrogen 22 mg/dl (6-23); Calcium 8.6 mg/dl (8.5-10.1); Carbon Dioxide 25 mmol/L (21-32); Chloride 103 mmol/L (98-107); Est GFR (African American) 46.7 ml/min; Est GFR (Non-African American) 40.3 ml/min; Globulin 2.8 gm/dl (2.5-4.0); Glucose 136 mg/dl (70-99(Fasting)); Potassium 4.5 mmol/L (3.5-5.1); Sodium 133 mmol/L (136-145); Total Protein 6.5 gm/dl (6.0-8.3)
[2021-10-13 21:01] LABS: Basophils # (auto) 0.02 K/uL (0-0.2); Basophils % (auto) 0.2 %; Eosinophils # (auto) 0.31 K/uL (0-0.5); Eosinophils % (auto) 3.1 %; Hypochromasia Present; Immature Granulocytes # (auto) 0.03 K/uL (0.00-0.02); Immature Granulocytes % (auto) 0.3 %; Lymphocytes # (auto) 3.66 K/uL (1.2-3.4); Lymphocytes % (auto) 36.7 %; Monocytes # (auto) 0.75 K/uL (0.11-0.59); Monocytes % (auto) 7.5 %; Neutrophils % (auto) 52.2 %; Ovalocytes 1+; Polychromasia 1+
[2021-10-13] MEDS ORDERED: SODIUM CHLORIDE 0.9% 250 ML IV PRN (21:03)
[2021-10-13] MEDS ORDERED: ASPIRIN CHEW 324 MG PO STA (21:06)
--- NOTE | 2021-10-13 21:06 | Emergency Department Note ---
Impression & Plan Acute GI bleeding, Non-ST elevation DC (NSTEMI), Symptomatic anemia ED Provider Note NAME: LILLIAN GALARZA AGE: 86 SEX: M : 1935 ARRIVES VIA: Walk-In INFORMANT: Patient ED PROVIDER(S): Vinayak Mejia DO CHIEF COMPLAINT: Chest pain HPI: Patient is an 86-year-old male with a past medical history of CAD and previous bypass as well as peripheral artery disease and diabetes who presents to the ER for exertional chest pain which has been present for the past 2 weeks which was getting worse. He also has associated shortness of breath. Denies any arm or jaw pain. Pain is described as a soreness in the middle of his chest. It resolves with rest. No belly pain, nausea, vomiting, or diarrhea. No dysuria, urgency, or frequency. No other exacerbating or remitting factors. Denies any black stool or bright red blood per rectum. ROS: See above HPI for pertinent positives & negatives. A total of 10 systems reviewed and were otherwise negative. PAST MEDICAL HISTORY:See Below PAST SURGICAL HISTORY:See Below FAMILY HISTORY:See Below SOCIAL HISTORY:See Below HOME MEDICATIONS:See Below ALLERGIES:See Below VITALS:See Below PHYSICAL EXAMINATION: GENERAL: Sitting up in bed, alert, well appearing, well nourished, no distress, non-toxic EYE EXAM: normal conjunctiva. OROPHARYNX: no exudate, no erythema, lips, buccal mucosa, and tongue normal and mucous membranes are moist NECK: supple, no nuchal rigidity, no adenopathy, non-tender LUNGS: Clear to auscultation. Normal chest wall mechanics HEART: no murmurs, S1 normal and S2 normal ABDOMEN: abdomen soft, non-tender, normo-active bowel sounds, no masses, no rebound or guarding. RECTAL: Heme positive dark stool UPPER EXTREMITIES: upper extremities are grossly normal. LOWER EXTREMITIES: No pitting edema. NEURO EXAM: Normal sensorium, cranial nerves II-XII grossly intact, normal speech, no gross weakness of arms, no gross weakness of legs. MEDICAL DECISION MAKING: Patient is an 86-year-old male who presents the ER for exertional chest pain for the past 2 weeks. IV was established blood work was obtained. Labs show no significant leukocytosis. Moderate anemia at 7.7 down from 13 in 2019. INR was unremarkable. BMP with mild hyponatremia at 133. Creatinine at 1.5. Glucose up at 136. Troponin was significantly elevated at 217. COVID was negative. He was typed and crossed and ordered and given 1 unit of PRBCs while in the ER. EKG showed nonspecific T wave changes. This is consistent with an NSTEMI with the elevation in the troponin however in light of the GI bleed and his anemia do favor this is demand ischemia. Did not speak with cardiology at this time as he was pain-free and heparin drip would be harmful at this time and consequently he ld. Held aspirin as well. Discussed with Lynne Glez and patient was admitted for further work-up. Triage Nursing notes reviewed. Limited review of prior medical records performed Vital Signs: reviewed and remarkable for no significant abnormalities Differential diagnosis: Differential diagnoses includes but is not limited to acute coronary syndrome, myocardial infarction, pericarditis, pulmonary embolus, aortic dissection, pneumonia, pneumothorax, musculoskeletal, shingles, esophageal. ER treatment provided: See below Diagnostics interpreted by me: ECG: Sinus rhythm rate [address] depressions in the high lateral leads ST depressions in V4 through V6 Poor baseline in V1 V2 QTC [address] depressions in the lateral leads is new from 2019 Cardiac Monitoring: An order was placed for continuous cardiac monitoring. The monitor shows a rate of 92 with sinus rhythm. Laboratory studies: As stated above and show below. Imaging studies: Chest x-ray with asymmetrical opacities Consultation(s): Discussed with [facility] for further evaluation Procedures: none Critical Care: I have personally spent 32 minutes of critical care time in the direct management of this patient. This includes bedside care, interpretation of diagnostic studies, and testing, discussion with consultants, patient, and family members, and other required patient management activities. This 32 minutes is in excess of all separately billable procedures. Past Med/Surg History Medical History (Updated 10/14/21 @ 01:14 by Vinayak Mejia DO) Abdominal aortic aneurysm CAD (coronary artery disease) "DC at age 35 ~ 2009 - CABG x 4 " CKD stage 3 secondary to diabetes DM (diabetes mellitus) Heart disease ILD (interstitial lung disease) Ischemic cardiomyopathy Neuropathy, diabetic Peripheral arterial disease Surgical History (Updated 10/13/21 @ 22:43 by Lynne Glez DO) S/P CABG (coronary artery bypass graft) Family History Unknown No problems noted. Other Patient denies significant medical history Social History Smoking Status: Former smoker Hx Alcohol Use: No Hx Substance Use: No Preferred Language: French Communication Ability: Effective Metal Model Maker Required: No Beliefs That Will Affect Care: None Current Living Situation: Alone Feels Safe at Home: Yes Assistive Devices: None Allergies Allergies Allergy/AdvReac Type Severity Reaction Status Date / Time GAMAL Inhibitors Allergy Unknown Verified 10/13/21 22:44 Home Meds Home Medications Medication Instructions Recorded Confirmed pravastatin 40 mg tablet 40 mg PO DAILY 07/16/18 10/13/21 famotidine 20 mg tablet 20 mg PO BID PRN 12/04/19 10/13/21 furosemide 20 mg tablet 20 mg PO DAILY 12/04/19 10/13/21 nitroglycerin 0.4 mg sublingual 0.4 mg SUBLINGUAL UD PRN 12/04/19 10/13/21 tablet aspirin 81 mg tablet 81 mg PO DAILY 10/13/21 10/13/21 folic acid 1 mg tablet 1 mg PO DAILY 10/13/21 10/13/21 insulin glargine 100 unit/mL 20 unit SUBCUT QPM 10/13/21 10/13/21 subcutaneous solution (Lantus U-100 Insulin) insulin regular human 100 unit/mL 0 unit SUBCUT TIDWMEAL 10/13/21 10/13/21 injection solution (Novolin R Regular U-100 Insulin) isosorbide mononitrate 30 mg 30 mg PO DAILY 10/13/21 10/13/21 tablet,extended release 24 hr losartan 25 mg tablet 25 mg PO QAM 10/13/21 10/13/21 metoprolol succinate 25 mg 25 mg PO DAILY 10/13/21 10/13/21 tablet,extended release 24 hr Results & Data (ED) Vital Signs Vital Signs - 24 hr 10/13/21 19:53 10/13/21 20:41 Temperature 36.7 C 36.9 C Temperature Source Temporal Artery Scan Oral Pulse Rate 86 Pulse Rate [Apical] 82 Respiratory Rate 18 15 Respiratory Effort / Characteristics Non-Labored Spontaneous Respiratory Depth Normal Normal Blood Pressure 150/81 H Blood Pressure [Right Arm] 161/83 H Blood Pressure Mean 104 Blood Pressure Mean [Right Arm] 109 Blood Pressure Position [Right Arm] Semi-fowlers Pulse Oximetry 98 97 Oxygen Delivery Method Room Air Room Air Sepsis New/Unexplained Change in Mental Status N/A Sepsis Action Taken by Nursing No Action Required Laboratory Data Result diagrams: 10/13/21 20:07 10/13/21 20:07 Lab Results 10/13/21 10/13/21 10/13/21 Range/Units 20:07 20:07 20:07 WBC 9.97 (4.8-10.8) K/uL RBC 3.43 L (4.7-6.1) M/uL Hgb 7.7 L (14.0-18.0) g/dL Hct 26.1 L (42-52) % MCV 76.1 L (80-100) fL MCH 22.4 L (25-34) pg MCHC 29.5 L (32-36) g/dL RDW Std Deviation 50.3 H (36.4-46.3) fL RDW Coeff of Fahad 17.9 H (11.5-14.5) % Plt Count 311 (130-400) K/uL MPV 8.9 (7.4-10.4) fL Immature Gran % (Auto) 0.3 % Neut % (Auto) 52.2 % Lymph % (Auto) 36.7 % [place] % (Auto) 7.5 % Eos % (Auto) 3.1 % Baso % (Auto) 0.2 % Neut # (Auto) 5.20 (1.4-6.5) K/uL Lymph # (Auto) 3.66 H (1.2-3.4) K/uL [place] # (Auto) 0.75 H (0.11-0.59) K/uL Eos # (Auto) 0.31 (0-0.5) K/uL Baso # (Auto) 0.02 (0-0.2) K/uL Immature Gran # (Auto) 0.03 H (0.00-0.02) K/uL Polychromasia 1+ Hypochromasia Present Ovalocytes 1+ PT 11.1 (9.0-12.0) Seconds INR 1.0 (0.9-1.1) APTT 26.6 (21.0-31.0) Seconds PTT Ratio 1.0 Sodium (136-145) mmol/L Potassium (3.5-5.1) mmol/L Chloride (98-107) mmol/L Carbon Dioxide (21-32) mmol/L Anion Gap (3-11) BUN (6-23) mg/dl Creatinine (0.6-1.4) mg/dl Est Cr Clr Drug Dosing Est GFR ( Amer) ml/min Est GFR (Non-Af Amer) ml/min BUN/Creatinine Ratio (10-20) Glucose (70-99(Fasting)) mg/dl Calcium (8.5-10.1) mg/dl Magnesium (1.7-2.4) mg/dl Total Bilirubin (0.2-1.0) mg/dl AST (13-39) U/L ALT (7-52) U/L Alkaline Phosphatase (34-104) U/L Troponin I High Sens 259.0 H* (0-20) pg/ml Total Protein (6.0-8.3) gm/dl Albumin (3.4-5.0) gm/dl Globulin (2.5-4.0) gm/dl Albumin/Globulin Ratio (0.9-2) SARS-CoV-2, RNA, NAAT (NEGATIVE) Blood Type Antibody Screen Crossmatch 10/13/21 10/13/21 10/13/21 Range/Units 20:07 21:09 21:09 WBC (4.8-10.8) K/uL RBC (4.7-6.1) M/uL Hgb (14.0-18.0) g/dL Hct (42-52) % MCV (80-100) fL MCH (25-34) pg MCHC (32-36) g/dL RDW Std Deviation (36.4-46.3) fL RDW Coeff of Fahad (11.5-14.5) % Plt Count (130-400) K/uL MPV (7.4-10.4) fL Immature Gran % (Auto) % Neut % (Auto) % Lymph % (Auto) % [place] % (Auto) % Eos % (Auto) % Baso % (Auto) % Neut # (Auto) (1.4-6.5) K/uL Lymph # (Auto) (1.2-3.4) K/uL [place] # (Auto) (0.11-0.59) K/uL Eos # (Auto) (0-0.5) K/uL Baso # (Auto) (0-0.2) K/uL Immature Gran # (Auto) (0.00-0.02) K/uL Polychromasia Hypochromasia Ovalocytes PT (9.0-12.0) Seconds INR (0.9-1.1) APTT (21.0-31.0) Seconds PTT Ratio Sodium 133 L (136-145) mmol/L Potassium 4.5 (3.5-5.1) mmol/L Chloride 103 (98-107) mmol/L Carbon Dioxide 25 (21-32) mmol/L Anion Gap 5 (3-11) BUN 22 (6-23) mg/dl Creatinine 1.54 H (0.6-1.4) mg/dl Est Cr Clr Drug Dosing Not Reportable Est GFR ( Amer) 46.7 ml/min Est GFR (Non-Af Amer) 40.3 ml/min BUN/Creatinine Ratio 14.3 (10-20) Glucose 136 H (70-99(Fasting)) mg/dl Calcium 8.6 (8.5-10.1) mg/dl Magnesium 2.1 (1.7-2.4) mg/dl Total Bilirubin 0.5 (0.2-1.0) mg/dl AST 17 (13-39) U/L ALT 11 (7-52) U/L Alkaline Phosphatase 63 (34-104) U/L Troponin I High Sens 217.0 H* (0-20) pg/ml Total Protein 6.5 (6.0-8.3) gm/dl Albumin 3.7 (3.4-5.0) gm/dl Globulin 2.8 (2.5-4.0) gm/dl Albumin/Globulin Ratio 1.3 (0.9-2) SARS-CoV-2, RNA, NAAT (NEGATIVE) Blood Type A Positive Antibody Screen NEGATIVE Crossmatch See Detail 10/13/21 Range/Units 21:23 WBC (4.8-10.8) K/uL RBC (4.7-6.1) M/uL Hgb (14.0-18.0) g/dL Hct (42-52) % MCV (80-100) fL MCH (25-34) pg MCHC (32-36) g/dL RDW Std Deviation (36.4-46.3) fL RDW Coeff of Fahad (11.5-14.5) % Plt Count (130-400) K/uL MPV (7.4-10.4) fL Immature Gran % (Auto) % Neut % (Auto) % Lymph % (Auto) % [place] % (Auto) % Eos % (Auto) % Baso % (Auto) % Neut # (Auto) (1.4-6.5) K/uL Lymph # (Auto) (1.2-3.4) K/uL [place] # (Auto) (0.11-0.59) K/uL Eos # (Auto) (0-0.5) K/uL Baso # (Auto) (0-0.2) K/uL Immature Gran # (Auto) (0.00-0.02) K/uL Polychromasia Hypochromasia Ovalocytes PT (9.0-12.0) Seconds INR (0.9-1.1) APTT (21.0-31.0) Seconds PTT Ratio Sodium (136-145) mmol/L Potassium (3.5-5.1) mmol/L Chloride (98-107) mmol/L Carbon Dioxide (21-32) mmol/L Anion Gap (3-11) BUN (6-23) mg/dl Creatinine (0.6-1.4) mg/dl Est Cr Clr Drug Dosing Est GFR ( Amer) ml/min Est GFR (Non-Af Amer) ml/min BUN/Creatinine Ratio (10-20) Glucose (70-99(Fasting)) mg/dl Calcium (8.5-10.1) mg/dl Magnesium (1.7-2.4) mg/dl Total Bilirubin (0.2-1.0) mg/dl AST (13-39) U/L ALT (7-52) U/L Alkaline Phosphatase (34-104) U/L Troponin I High Sens (0-20) pg/ml Total Protein (6.0-8.3) gm/dl Albumin (3.4-5.0) gm/dl Globulin (2.5-4.0) gm/dl Albumin/Globulin Ratio (0.9-2) SARS-CoV-2, RNA, NAAT NEGATIVE (NEGATIVE) Blood Type Antibody Screen Crossmatch Administered Medications Pantoprazole Sodium 40 mg/ (Dextrose) 100 mls @ 20 mls/hr IV Q5H MARGIE Stop: 11/12/21 21:44 Last Admin: 10/13/21 22:39 Dose: 8 mg/hr, 20 mls/hr Documented by: [id number] Discontinued Medications Albuterol (Albut/Ipratrop 3mg/0.5mg Neb 3 Ml Vial) 3 ml NEB NOW STA; Protocol Stop: 10/13/21 22:22 Last Admin: 10/13/21 23:59 Dose: Not Given Documented by: [id number] Aspirin (Aspirin Chew 324 Mg) 324 mg PO NOW STA Stop: 10/13/21 21:07 Last Admin: 10/13/21 22:22 Dose: Not Given Documented by: [id number] Furosemide (Furosemide Inj 20 Mg/2 Ml Vial) 20 mg IV ONE ONE Stop: 10/13/21 23:53 Last Admin: 10/13/21 23:56 Dose: 20 mg Documented by: [id number] Pantoprazole Sodium 80 mg/ (Dextrose) 120 mls @ 400 mls/hr IV NOW ONE Stop: 10/13/21 21:45 Last Infusion: 10/13/21 22:39 Dose: 0 mls/hr Documented by: [id number] Admin: 10/13/21 22:23 Dose: 400 mls/hr Documented by: [id number] Methylprednisolone 20 mg/ (Syringe) 0.32 mls @ 1.5 mls/min IV NOW STA Stop: 10/14/21 00:19 Last Admin: 10/14/21 00:45 Dose: 1.5 mls/min Documented by: [id number] Ipratropium [place] (Ipratropium [place] Neb Soln 0.02% 2.5 Ml Vial) 0.5 mg INH NOW STA Stop: 10/13/21 23:34 Last Admin: 10/13/21 23:58 Dose: 0.5 mg Documented by: [id number] Levalbuterol HCl (Levalbuterol 1.25mg/0.5ml Neb) 1.25 mg INH NOW STA Stop: 10/13/21 23:34 Last Admin: 10/13/21 23:58 Dose: 1.25 mg Documented by: [id number] Imaging Data Radiologist's Impression: Chest X-Ray 10/13/21 19:59 SINGLE VIEW CHEST CLINICAL HISTORY: Atypical chest pain FINDINGS: An AP, portable, upright chest radiograph is compared to study dated 12/04/2019. The patient is status post midline sternotomy. The heart is enlarged noting atherosclerotic calcification of the thoracic aorta. Findings of chronic residual lung disease appears progressive as compared to previous. There are asymmetric airspace opacities throughout the right lung at the left lung base. Question small pleural effusions. No pneumothorax is seen. The skeletal structures are osteopenic. The bony thorax is grossly intact. IMPRESSION: 1. Cardiomegaly with findings of chronic interstitial/fibrotic lung disease. 2. There are asymmetric airspace opacities throughout the right lung and at the left lung base. This has increased from 2020 and could be related to progressive interstitial lung disease. Correlate clinically for evidence of a superimposed infectious/inflammatory pneumonitis or possibly congestive change. Radiographic follow-up to resolution is recommended. 3. Question trace pleural effusions. ACT 112: Negative or not required by law. Electronically signed by: Vicente Rashid M.D. 10/13/2021 8:28 PM Discharge Plan Visit Data Chief Complaint: Chest Pain Stated Complaint: CHEST PAIN, FOR 6 WEEKS NOW, SOB ED Provider: Vinayak Mejia Discharge Problem: Acute GI bleeding, Non-ST elevation DC (NSTEMI), Symptomatic anemia Patient Disposition: Admitted As Inpatient Discharge Instructions Interventions: ED Discharge Assessment Last Done: 10/14/21 00:18
[2021-10-13] MEDS ORDERED: PANTOPRAZOLE BOLUS/DRIP 1 EA IV STA (21:28)
[2021-10-13] MEDS ORDERED: PANTOprazole 80 MG in DEXTROSE 5% 100 ML IV ONE (21:28)
--- NOTE | 2021-10-13 21:48 | History & Physical Report ---
Date of Service October 13, 2021 Assessment & Plan (1) NSTEMI (non-ST elevated myocardial infarction): Plan: ST changes and elevated trop to 259 consistent with acute cardiac syndrome. Uncertain if this is primary or secondary to acute GI bleeding. Full dose aspirin given, cont statin, losartan. He has a normal heart rate and currently is not in pain. Heparin contraindicated in acute bleeding. Trend serial troponins overnight. Echo in am. Cardiology consult. Control pain overnight, but if unable to contact cardiology immediately given history. (2) Acute GI bleeding: Plan: Heme positive but no meg blood per rectum. There is a clear anemia, however, he remains hemodynamically stable. 3 gram drop in H/H in last 2-3 months. PPI drip, consult GI for consideration of endoscopy, however, this may be delayed because of the acute [place] unless life threatening bleed occurs. (3) Acute blood loss anemia: Plan: 2 units blood ordered for overnight. Given possible pulmonary congestion on xray and lower extremity edema as well as age and h/o cardiomyopathy, there is a concern for fluid overload with this volume. Adding small dose Lasix in between units. Trend H/H (4) Ischemic cardiomyopathy: Plan: volume status is difficult to appreciate. In setting of possible bleed, hold scheduled diuretic therapy. Otherwise cont GDMT per home regimen. Follows with [facility] cardiology. (5) CAD (coronary artery disease): Plan: plan per #4 (6) Peripheral arterial disease: Plan: cont medical management per home regimen, AAA monitored as outpatient. (7) DM (diabetes mellitus): Plan: DMII wtih neuropathy as a complication. A1C is 7.2 in Aug 12. Cont with basal/bolus insulin in the hospital. (8) ILD (interstitial lung disease): Plan: Abnormal chest CT consistent with this, but according to outpatient records review, it doesn't appear he has followed back up for continued diagnostics. No reports worsening cough with possible progressive ILD on CXR. Currently oxygenating well on room air and suspect cardiac and GI issues to be contributing to current dyspnea issues, however, this is not a good foundation for good airway exchange and may be contributing to current symptoms. Cont to monitor. If not improved with initial treatments, consider pulmonology consultation. (9) CKD stage 3 secondary to diabetes: Plan: chronic, stable. Creat currently 1.5 and was just checked outpatient and was 1.4. Cont to monitor and renally dose medications as needed. (10) DVT prophylaxis: Plan: SCDs DNR/DNI per my discussion with he and his son who was at bedside in the ER. Dispo-to PCU Lynne Glez DO [facility] Hospitalist History of Present Illness Chief Complaint: chest pain Primary Care Provider: Car Carpenter DO 86 yo nonsmoker with known CAD s/p CABG presents with chest pain and exertional shortness of breath, worse in the last couple of weeks. Workup revealed a drop in H/H from 11.6/39 in Aug 12 to 7.7/ tonight. Heme positive on rectal exam performed by ER physician, however, the patient denies any blood per rectum, changes in BMs (takes a regular stool softener) and denies nausea, vomiting. He does report a poor appetite for the past 3-6 months. He did recently get put on omeprazole by his PCP because taking daily famotidine wasn't helping him. He fr equently takes Tums or Rolaids and has been asking for these meds recently per son who is at bedside. Patient cannot describe his chest pain but it clearly comes on with exertion, and is better with rest. He states it is more intense now. He has known ICM with and EF 45%, and denies any changes in leg swelling which has been present for a long time, no orthopnea. He has a decreased exercise tolerance because of SOB. He has suspected ILD and was seen by [facility] pulmonology in 2019. He underwent a CT chest which was abnormal and PFTs with 6 minute walk test was recommended. Patient declined followup. He reports increase cough with some sputum production for the past few months. Denies fevers or chills. He also has CLL and is under active surveillance with oncology. No treatment has been needed and he denies weight loss, night sweats, or other B symptoms at this time. He currently denies any chest pain In the ER, he was given ASA 324mg and protonix Allergies Allergy/AdvReac Type Severity Reaction Status Date / Time GAMAL Inhibitors Allergy Unknown Verified 10/13/21 22:44 Home Medications Medication Instructions Recorded Confirmed Type pravastatin 40 mg tablet 40 mg PO DAILY 07/16/18 10/13/21 History famotidine 20 mg tablet 20 mg PO BID PRN 12/04/19 10/13/21 History furosemide 20 mg tablet 20 mg PO DAILY 12/04/19 10/13/21 History nitroglycerin 0.4 mg sublingual 0.4 mg SUBLINGUAL UD PRN 12/04/19 10/13/21 History tablet aspirin 81 mg tablet 81 mg PO DAILY 10/13/21 10/13/21 History folic acid 1 mg tablet 1 mg PO DAILY 10/13/21 10/13/21 History insulin glargine 100 unit/mL 20 unit SUBCUT QPM 10/13/21 10/13/21 History subcutaneous solution (Lantus U-100 Insulin) insulin regular human 100 unit/mL 0 unit SUBCUT TIDWMEAL 10/13/21 10/13/21 History injection solution (Novolin R Regular U-100 Insulin) isosorbide mononitrate 30 mg 30 mg PO DAILY 10/13/21 10/13/21 History tablet,extended release 24 hr losartan 25 mg tablet 25 mg PO QAM 10/13/21 10/13/21 History metoprolol succinate 25 mg 25 mg PO DAILY 10/13/21 10/13/21 History tablet,extended release 24 hr Past Med/Surg History Medical History (Updated 10/13/21 @ 22:50 by Lynne Glez DO) Abdominal aortic aneurysm CAD (coronary artery disease) "[place] at age 35 ~ 2009 - CABG x 4 " CKD stage 3 secondary to diabetes DM (diabetes mellitus) Heart disease ILD (interstitial lung disease) Ischemic cardiomyopathy Neuropathy, diabetic Peripheral arterial disease Surgical History (Updated 10/13/21 @ 22:43 by Lynne Glez DO) S/P CABG (coronary artery bypass graft) Family History Unknown No problems noted. Other Patient denies significant medical history Social History Smoking Status: Former smoker Hx Alcohol Use: No Hx Substance Use: No Preferred Language: Grenadian Communication Ability: Effective Top Cutter Required: No Beliefs That Will Affect Care: None Current Living Situation: Alone Feels Safe at Home: Yes Assistive Devices: None Review of Systems Review of Systems: All systems were reviewed and negative except as indicated above. Physical Exam Physical Exam: CONSTITUTIONAL: WNWD, vitals as above, NAD, hard of hearing EYES: normal conjunctivae, no scleral icterus ENT: external ear and nose normal, oropharynx clear, NECK: trachea midline RESPIRATORY: clear to auscultation bilaterally, no crackles, rales or wheezes, normal respiratory effort. Upper airway wheezing is audible. CARDIOVASCULAR: regular rate and rhythm, S1 and 2 heard without murmurs, gallops or rubs, no JVD, 1+ peripheral edema bilaterally CHEST: inspection of chest was normal GASTROINTESTINAL: soft, nontender, ND, no guarding MUSCULOSKELETAL: strength 5/5 throughout, head is normocephalic and atraumatic SKIN: warm and dry, NEUROLOGIC: CN 2-12 grossly intact, no sensory deficit, normal cognition, normal speech, no tremor PSYCHIATRIC: alert cooperative and oriented and answering questions appropriately. Results & Data Results & Data ([facility]) Vital Signs (Past 12 Hours) Vital Signs Temp Pulse Pulse Resp BP BP Pulse Ox 10/13/21 20:41 36.9 C 82 15 161/83 H 97 10/13/21 19:53 36.7 C 86 18 150/81 H 98 Laboratory Results Short CBC 10/13/21 Range/Units 20:07 WBC 9.97 (4.8-10.8) K/uL Hgb 7.7 L (14.0-18.0) g/dL Hct 26.1 L (42-52) % Plt Count 311 (130-400) K/uL BMP 10/13/21 20:07 Sodium 133 L Potassium 4.5 Chloride 103 Carbon Dioxide 25 BUN 22 Creatinine 1.54 H Glucose 136 H Calcium 8.6 Liver Function 10/13/21 Range/Units 20:07 Total Bilirubin 0.5 (0.2-1.0) mg/dl AST 17 (13-39) U/L ALT 11 (7-52) U/L Alkaline Phosphatase 63 (34-104) U/L Albumin 3.7 (3.4-5.0) gm/dl Diagnostic Findings Chest X-Ray 10/13/21 19:59 SINGLE VIEW CHEST CLINICAL HISTORY: Atypical chest pain FINDINGS: An AP, portable, upright chest radiograph is compared to study dated 12/04/2019. The patient is status post midline sternotomy. The heart is enlarged noting atherosclerotic calcification of the thoracic aorta. Findings of chronic residual lung disease appears progressive as compared to previous. There are asymmetric airspace opacities throughout the right lung at the left lung base. Question small pleural effusions. No pneumothorax is seen. The skeletal structures are osteopenic. The bony thorax is grossly intact. IMPRESSION: 1. Cardiomegaly with findings of chronic interstitial/fibrotic lung disease. 2. There are asymmetric airspace opacities throughout the right lung and at the left lung base. This has increased from 2020 and could be related to progressive interstitial lung disease. Correlate clinically for evidence of a superimposed infectious/inflammatory pneumonitis or possibly congestive change. Radiographic follow-up to resolution is recommended. 3. Question trace pleural effusions. ACT 112: Negative or not required by law. Electronically signed by: Vicente Rashid M.D. 10/13/2021 8:28 PM Code Status & VTE Plan VTE Prophylaxis Plan VTE Prophylaxis will be ordered: Yes
[2021-10-13] MEDS ORDERED: ALBUT/IPRATROP 3MG/0.5MG NEB 3 ML VIAL NEB STA (22:21)
[2021-10-13] MEDS: PANTOprazole 40 MG in DEXTROSE 5% 100 ML IV SCH (22:39)
[2021-10-13] MEDS ORDERED: GLUCOSE 10 TABS/TUBE PO PRN (22:58)
[2021-10-13] MEDS ORDERED: GLUCOSE 40% GEL 15 GM TUBE PO PRN (22:58)
[2021-10-13] MEDS ORDERED: CARBOHYDRATES FOR HYPOGLYCEMIA PO PRN (22:58)
[2021-10-13] MEDS ORDERED: DEXTROSE 50% 50 ML SYRINGE IV PRN (22:58)
[2021-10-13] MEDS ORDERED: GLUCAGON FOR INJ 1 MG VIAL SQ PRN (22:58)
[2021-10-13] MEDS ORDERED: LEVALBUTEROL 1.25MG/0.5ML NEB INH STA (23:33)
[2021-10-13] MEDS ORDERED: XOPENEX/ATROVENT 1.25mg/0.5MG NEB COMBO NEB STA (23:33)
[2021-10-13] MEDS ORDERED: IPRATROPIUM BROMIDE NEB SOLN 0.02% 2.5 ML VIAL INH STA (23:33)
[2021-10-13] MEDS ORDERED: FUROSEMIDE INJ 20 MG/2 ML VIAL IV ONE (23:52)
[2021-10-13] MEDS ORDERED: NITROGLYCERIN SL 0.4 MG/TAB TAB SL PRN (23:58)
[2021-10-14 00:13] LABS: Magnesium 2.1 mg/dl (1.7-2.4)
[2021-10-14] MEDS ORDERED: methylPREDNISolone 20 MG in SYRINGE 0 ML IV STA (00:18)
[2021-10-14] MEDS ORDERED: METOPROLOL TARTRATE 1 MG/ML VIAL IV STA (00:40)
[2021-10-14 01:34] LABS: Base Excess ABG -1.2 mEq/L (-9-1.8); HCO3 ABG 22 mmol/L (19-24); Oxygen Saturation ABG 89.5 % (90-95); PCO2 ABG 33 mmHg (35-46); PO2 ABG 57 mmHg (80-95); pH ABG 7.45 (7.35-7.45)
[2021-10-14 01:49] LABS: Allen Test Pos (Pos)
[2021-10-14] MEDS: PANTOprazole 40 MG in DEXTROSE 5% 100 ML IV SCH ×5 (03:43→22:31)
[2021-10-14 06:32] LABS: Hematocrit (blood only) 27.8 % (42-52); Hemoglobin 8.4 g/dL (14.0-18.0); Mean Corpuscular Hemoglobin 23.3 pg (25-34); Mean Corpuscular Hgb Conc 30.2 g/dL (32-36); Mean Corpuscular Volume 77.2 fL (80-100); Mean Platelet Volume 8.9 fL (7.4-10.4); Platelet Count 275 K/uL (130-400); RDW Coefficient of Variation 18.4 % (11.5-14.5); White Blood Count 9.58 K/uL (4.8-10.8)
[2021-10-14 06:56] LABS: BUN Creatinine Ratio 14.3 (10-20); Calcium 8.7 mg/dl (8.5-10.1); Creatinine Clr Calc Pharmacy 38.9 ml/min; Est GFR (African American) 46.7 ml/min; Est GFR (Non-African American) 40.3 ml/min
--- NOTE | 2021-10-14 07:10 | Gastrointestinal Consultation ---
Date of Consultation October 14, 2021 Assessment & Plan (1) Non-ST elevation NE (NSTEMI): (2) Symptomatic anemia: Pt w hx of CAD s/p CABG, ischemic cardiomyopathy, presented w CP and SOB symptoms. Found to be anemic w heme positive stools but wo meg melena or rectal bleeding. Abd exam benign today. His blood ct responded well after 2U PRBC transfusion. His Troponin levels are increased w Twave changes on EKG. I would keep him NPO, continue PPI gtt, and defer endoscopic evaluations until Cardiology evaluates him. Please continue to monitor for any s/s of GI bleeding and recall us if this occurs. Supervising Physician Co-Signing Physician Notes PE elderly male in no acute distress, slightyl sob, abd exam is benign Does not endorse any symptoms of hematemesis/ hematochezia. PE as noted Labs reviewed Currently has NSTEMI with sob on physical exam. He has had an egd/colon in 2017 with findings of diverticula/hemorrhoids on colonoscopy from 2017, egd with findings gastritis. There is no significant bun rise to suggest an acute ugi bleed. Given his cardiac status, await cardiology input, would complete IV drip and then convert to oral PPI daily. No plans for endoscopy unless overt hematemesis given current cardiac status. History of Present Illness Reason for Consultation: GI bleed Requesting Physician: Dr. Larissa Baird Attending Physician: Dr. Kenia Powell History of Present Illness Pt is a 86 yo male who presented yesterday with c/o CP, SOB, and weakness. Hx of CAD s/p CABG, ICM w EF of 45%, CLL on surveillance. He was found to be anemic w H/H of 01/13 from baseline Hgb of 11 two months ago. He was given 2U PRBC transfusion last night w improvement of his blood ct. Heme positive stools per ED physician exam though pt denies rectal bleeding or black stools. He does not to have heartburn, frequently taking TUMS/Rolaids, and recently started on Omeprazole by PCP as Famotidine daily wasn't helping. His bloodwork also elevated Troponin in 200s, w T wave inversion in EKG this AM. CXR: 1. Cardiomegaly with findings of chronic interstitial/fibrotic lung disease. 2. There are asymmetric airspace opacities throughout the right lung and at the left lung base. This has increased from 2020 and could be related to progressive interstitial lung disease. Correlate clinically for evidence of a superimposed infectious/inflammatory pneumonitis or possibly congestive change. Radiographic follow-up to resolution is recommended. 3. Question trace pleural effusions. Last EGD/Colonoscopy in 2017: Hiatal hernia, gastric erosion, diverticuli, int hemorrhoids. Pt reports ? hx of duodenal ulcer 20+ years ago No NSAIDs, ETOh, tobacco. Allergies Allergy/AdvReac Type Severity Reaction Status Date / Time GAMAL Inhibitors Allergy Unknown Verified 10/13/21 22:44 Home Medications Medication Instructions Recorded Confirmed Type pravastatin 40 mg tablet 40 mg PO DAILY 07/16/18 10/13/21 History famotidine 20 mg tablet 20 mg PO BID PRN 12/04/19 10/13/21 History furosemide 20 mg tablet 20 mg PO DAILY 12/04/19 10/13/21 History nitroglycerin 0.4 mg sublingual 0.4 mg SUBLINGUAL UD PRN 12/04/19 10/13/21 History tablet aspirin 81 mg tablet 81 mg PO DAILY 10/13/21 10/13/21 History folic acid 1 mg tablet 1 mg PO DAILY 10/13/21 10/13/21 History insulin glargine 100 unit/mL 20 unit SUBCUT QPM 10/13/21 10/13/21 History subcutaneous solution (Lantus U-100 Insulin) insulin regular human 100 unit/mL 0 unit SUBCUT TIDWMEAL 10/13/21 10/13/21 History injection solution (Novolin R Regular U-100 Insulin) isosorbide mononitrate 30 mg 30 mg PO DAILY 10/13/21 10/13/21 History tablet,extended release 24 hr losartan 25 mg tablet 25 mg PO QAM 10/13/21 10/13/21 History metoprolol succinate 25 mg 25 mg PO DAILY 10/13/21 10/13/21 History tablet,extended release 24 hr Patient History Medical History Abdominal aortic aneurysm CAD (coronary artery disease) "NE at age 35 ~ 2009 - CABG x 4 " CKD stage 3 secondary to diabetes DM (diabetes mellitus) Heart disease ILD (interstitial lung disease) Ischemic cardiomyopathy Neuropathy, diabetic Peripheral arterial disease Surgical History S/P CABG (coronary artery bypass graft) Family History Unknown No problems noted. Other Patient denies significant medical history Social History Smoking Status: Former smoker Smoking End Date: 50 years ago; Second Hand Exposure: No; Hx Alcohol Use: No Hx Substance Use: No Preferred Language: Thai Communication Ability: Effective Barrel Finisher Required: No Beliefs That Will Affect Care: Hinduism Hinduism Beliefs: Ronda Current Living Situation: Alone Feels Safe at Home: Yes Safety Concerns: Feels Safe At This Time Assistive Devices: Cane and Hearing Aid - Bilateral Assistive Devices Comment: Patient uses hearing aids, not with patient Review of Systems Review of Systems: All systems reviewed & are unremarkable except as noted in HPI & below Physical Exam Constitutional: WD/WN, vitals as above well groomed, cooperative and comfortable Eyes: PERRL, conjunctivae normal, anicteric sclerae ENMT: external ear and nose normal, oropharynx normal Respiratory: normal respiratory effort, lungs clear to auscultation Cardiovascular: RRR, no murmur, no edema Gastrointestinal (Abdomen): normal bowel sounds, soft, nontender, no hepatosplenomegaly Skin: no rashes, warm and dry no jaundice Psychiatric: A+Ox3, euthymic affect Lymphatic: no lymphedema Results & Data ([facility]) Vital Signs (Past 12 Hours) Vital Signs Temp Pulse Pulse Resp BP BP Pulse Ox 10/14/21 06:25 36.8 C 87 20 146/75 H 96 10/14/21 05:25 36.6 C 90 18 149/77 H 94 10/14/21 05:19 90 10/14/21 04:25 36.6 C 87 16 135/68 94 10/14/21 03:55 36.5 C 85 16 135/68 97 10/14/21 03:40 36.7 C 85 20 143/71 H 95 10/14/21 03:23 36.7 C 87 16 144/73 H 96 10/14/21 00:00 36.3 C L 101 H 26 H 178/85 H 93 10/13/21 23:59 111 H 24 97 10/13/21 23:48 36.3 C L 101 H 26 H 178/85 H 93 10/13/21 22:46 36.6 C 84 24 160/84 H 97 10/13/21 22:45 36.6 C 78 20 160/84 H 78 L 10/13/21 22:30 36.6 C 82 21 165/84 H 91 10/13/21 20:41 36.9 C 82 15 161/83 H 97 10/13/21 19:53 36.7 C 86 18 150/81 H 98
[2021-10-14] MEDS: FUROSEMIDE INJ 20 MG/2 ML VIAL IV SCH ×2 (07:17→07:49)
--- NOTE | 2021-10-14 08:56 | Cardiology Consultation ---
Date of Consultation October 14, 2021 Assessment & Plan (1) Symptomatic anemia: (2) Non-ST elevation CO (NSTEMI): (3) Ischemic cardiomyopathy: -Echocardiogram revealed stable findings of LAD territory scar, mild LV systolic dysfunction. -Pt has chronic exertional angina with worsening symptoms, minimally elevated HS troponin, and chronic lateral ST depression on EKG. At minimum , would describe this as crescendo angina, or Type II NSTEMI with subendocardial ischemia due to anemia. -Agree with holding aspirin. Heparin contraindicated. -Transfuse goal Hgb of 9-10 g/dl given angina. -Continue Imdur, losartan, metoprolol. -Holding standing furosemide. -Resume pravastatin. -Agree with supportive care. Presentation appears similar to 2017 admission at which time EGD and colonoscopy suggestive diverticular disease as source. Continue IV protonix. History of Present Illness Attending Physician: Larissa Baird MD History of Present Illness Patrick Sapp is an 86-year-old male seen in cardiology consultation per the request of Dr. Glez for evaluation of non-ST segment elevation myocardial infarction. The patient's primary business travel consultant is Dr. Carpenter of our practice. Most recent outpatient follow-up visit had been July, at which time stable cardiac signs and symptoms were noted, with history of stable angina pectoris. The patient presented via the emergency room last evening with complaint of chest discomfort and exertional shortness of breath that has been progressive over the last few weeks, acutely worse in the last few days. Outpatient hemoglobin level obtained 08/01/2021 was 11.6. On presentation to the emergency department yesterday 10/13/2021 hemoglobin was 7.7 g/dL. He was found to have Hemoccult positive stool and has received 2 units of packed red blood cells overnight with repeat hemoglobin at 6 AM of 8.4 g/dL. Furosemide 20 mg IV was administered between transfusions. EKG performed 10/13/2021 at 1959 revealed sinus rhythm at 83 bpm with first- degree AV block, [address] segment depression noted in the lateral leads, however this is only minimally changed compared to previous outpatient tracing dated 01/09/2021. Repeat tracing this morning, once again with lateral ST segment depression, 11.5 mm in the lateral leads. Patient has had at bedtime troponin measurements x2 last evening of 259, 217 PG per mL at 2006 and again at 2108. Past Medical History: 1. Chronic coronary heart disease, CABG in 2007 or 2008 at [facility],anatomical details unknown 2. Prior myocardial infarction at the age of 35 3. Ischemic cardiomyopathy, pharmacologic nuclear stress test, September, revealed a large sized inferior, septal, apical scar with no superimposed ischemia. LVEF 42%. 4. [facility], [facility]: Large sized apical, septal, anteroseptal, anterior wall motion abnormality with hypokinesis to akinesis of the segments, LVEF mildly reduced 45 to 49%, moderate aortic regurgitation. 5. Flow cytometry suggestive of monotypic CD5 positive B-cell population with an immunophenotype typical of chronic lymphocytic leukemia, small lymphocytic leukemia (CLL/SLL) 6.Suspected underlying interstitial lung disease 4. Chart history, past admission for gastrointestinal bleeding 2016, diverticulosis noted at that time. EGD November,, report describes a single nonbleeding localized erosion at the pylorus. Colonoscopy November,, report describes many small and large mouth diverticula in the sigmoid and descending colon. Allergies Allergy/AdvReac Type Severity Reaction Status Date / Time GAMAL Inhibitors Allergy Unknown Verified 10/13/21 22:44 Home Medications Medication Instructions Recorded Confirmed Type pravastatin 40 mg tablet 40 mg PO DAILY 07/16/18 10/13/21 History famotidine 20 mg tablet 20 mg PO BID PRN 12/04/19 10/13/21 History furosemide 20 mg tablet 20 mg PO DAILY 12/04/19 10/13/21 History nitroglycerin 0.4 mg sublingual 0.4 mg SUBLINGUAL UD PRN 12/04/19 10/13/21 History tablet aspirin 81 mg tablet 81 mg PO DAILY 10/13/21 10/13/21 History folic acid 1 mg tablet 1 mg PO DAILY 10/13/21 10/13/21 History insulin glargine 100 unit/mL 20 unit SUBCUT QPM 10/13/21 10/13/21 History subcutaneous solution (Lantus U-100 Insulin) insulin regular human 100 unit/mL 0 unit SUBCUT TIDWMEAL 10/13/21 10/13/21 History injection solution (Novolin R Regular U-100 Insulin) isosorbide mononitrate 30 mg 30 mg PO DAILY 10/13/21 10/13/21 History tablet,extended release 24 hr losartan 25 mg tablet 25 mg PO QAM 10/13/21 10/13/21 History metoprolol succinate 25 mg 25 mg PO DAILY 10/13/21 10/13/21 History tablet,extended release 24 hr Patient History Medical History Abdominal aortic aneurysm CAD (coronary artery disease) "CO at age 35 ~ 2009 - CABG x 4 " CKD stage 3 secondary to diabetes DM (diabetes mellitus) Heart disease ILD (interstitial lung disease) Ischemic cardiomyopathy Neuropathy, diabetic Peripheral arterial disease Surgical History S/P CABG (coronary artery bypass graft) Family History Unknown No problems noted. Other Patient denies significant medical history Social History Smoking Status: Former smoker Smoking End Date: 50 years ago; Second Hand Exposure: No; Hx Alcohol Use: No Hx Substance Use: No Preferred Language: Guatemalan Communication Ability: Effective Shoe Folder Required: No Beliefs That Will Affect Care: Mandaeism Mandaeism Beliefs: Ronda Current Living Situation: Alone Feels Safe at Home: Yes Safety Concerns: Feels Safe At This Time Assistive Devices: Cane and Hearing Aid - Bilateral Assistive Devices Comment: Patient uses hearing aids, not with patient Review of Systems Review of Systems: All systems reviewed & are unremarkable except as noted in HPI & below Physical Exam Physical Exam: Temp Pulse Resp BP Pulse Ox 36.5 C 84 18 144/82 H 98 10/14/21 07:25 10/14/21 07:35 10/14/21 07:25 10/14/21 07:25 10/14/21 07:25 Constitutional: + frail appearing; no acute distress Respiratory: normal respiratory effort, lungs clear to auscultation Cardiovascular: RRR, no murmur, no edema Gastrointestinal (Abdomen): normal bowel sounds, soft, nontender, no hepatosplenomegaly Neurologic: PERRL, EOMI, accommodation nl, no face palsy, no dysarthria Results & Data ([facility]) Laboratory Results Cardiac Enzymes 10/13/21 10/13/21 10/13/21 Range/Units 20:07 20:07 21:09 AST 17 (13-39) U/L Troponin I High Sens 259.0 H* 217.0 H* (0-20) pg/ml 10/14/21 Range/Units 09:06 AST (13-39) U/L Troponin I High Sens 196.2 H* (0-20) pg/ml Coagulation 10/13/21 Range/Units 20:07 PT 11.1 (9.0-12.0) Seconds APTT 26.6 (21.0-31.0) Seconds CBC 10/13/21 10/14/21 Range/Units 20:07 06:08 WBC 9.97 9.58 (4.8-10.8) K/uL RBC 3.43 L 3.60 L (4.7-6.1) M/uL Hgb 7.7 L 8.4 L (14.0-18.0) g/dL Hct 26.1 L 27.8 L (42-52) % Plt Count 311 275 (130-400) K/uL Neut # (Auto) 5.20 (1.4-6.5) K/uL Lymph # (Auto) 3.66 H (1.2-3.4) K/uL [place] # (Auto) 0.75 H (0.11-0.59) K/uL Eos # (Auto) 0.31 (0-0.5) K/uL Baso # (Auto) 0.02 (0-0.2) K/uL Comprehensive Metabolic Panel 10/13/21 10/14/21 Range/Units 20:07 06:08 Sodium 133 L 133 L (136-145) mmol/L Potassium 4.5 5.0 (3.5-5.1) mmol/L Chloride 103 102 (98-107) mmol/L Carbon Dioxide 25 24 (21-32) mmol/L BUN 22 22 (6-23) mg/dl Creatinine 1.54 H 1.54 H (0.6-1.4) mg/dl Glucose 136 H 244 H (70-99(Fasting)) mg/dl Calcium 8.6 8.7 (8.5-10.1) mg/dl AST 17 (13-39) U/L ALT 11 (7-52) U/L Alkaline Phosphatase 63 (34-104) U/L Total Protein 6.5 (6.0-8.3) gm/dl Albumin 3.7 (3.4-5.0) gm/dl Intake and Output 10/13/21 10/14/21 10/14/21 22:59 06:59 14:59 Intake Total 120 / 220 100 / 220 393.667 / 393.667 Output Total 2300 / 2300 500 / 500 Balance 120 / -2080 -2200 / -2080 -106.333 / -106.333 Intake: IV 120 / 220 100 / 220 83.667 / 83.667 PANTOprazole 40 mg In Dextrose 100 / 100 83.667 / 83.667 5% 100 ml @ 8 MG/HR 20 mls/hr IV Q5H [facility] Rx#:[id number] PANTOprazole 80 mg In Dextrose 120 / 120 5% 100 ml @ 400 mls/hr IV NOW ONE Rx#:[id number] Intake (Blood Product) Amt 0 / 0 310 / 310 Packed Cells, Leukoreduced 0 / 0 310 / 310 Unit [id number] Output: Urine 2300 / 2300 500 / 500 Other: Weight 92.7 kg 92.7 kg Weight Measurement Method Built in [facility] Patient Weight 10/15/21 06:59 Weight 92.7 kg
[2021-10-14] MEDS: INSULIN GLARGINE SOLOSTAR 100 UNITS/ML 3 ML PEN SC SCH ×2 (08:57→20:04)
[2021-10-14] MEDS: ISOSORBIDE MONO EXTENDED REL 30 MG TABCR PO SCH (08:58)
[2021-10-14] MEDS: FOLIC ACID 1 MG TAB PO SCH (08:58)
[2021-10-14] MEDS: METOPROLOL SUCC 25MG EXT REL TAB PO SCH (08:58)
[2021-10-14] MEDS: LOSARTAN POTASSIUM 25 MG TAB PO SCH (08:58)
[2021-10-14] MEDS: INSULIN ASPART PER UNIT SC SCH ×4 (08:58→20:04)
--- NOTE | 2021-10-14 09:29 | Electrocardiogram Report ---
Test Reason : Blood Pressure : / mmHG Vent. Rate : 086 BPM Atrial Rate : 086 BPM P-R Int : 220 ms QRS Dur : 120 ms QT Int : 402 ms P-R-T Axes : 016 -39 148 degrees QTc Int : 481 ms Sinus rhythm with 1st degree A-V block Left axis deviation Incomplete left bundle block Abnormal ECG When compared with ECG of 13-OCT-2021 19:59, (unconfirmed) T wave inversion more evident in Lateral leads Confirmed by Parish Vieira ([id number]) on 10/14/2021 9:29:22 AM Referred By: REFERRED SELF Confirmed By:Parish Vieira
--- NOTE | 2021-10-14 09:42 | Electrocardiogram Report ---
Test Reason : Blood Pressure : / mmHG Vent. Rate : 083 BPM Atrial Rate : 083 BPM P-R Int : 228 ms QRS Dur : 122 ms QT Int : 394 ms P-R-T Axes : 072 -38 115 degrees QTc Int : 462 ms Sinus rhythm with 1st degree A-V block Left axis deviation Non-specific intra-ventricular conduction delay Abnormal ECG When compared with ECG of 05-DEC-2019 06:49, ST now depressed in Anterolateral leads Nonspecific T wave abnormality no longer evident in Inferior leads Confirmed by Parish Vieira ([id number]) on 10/14/2021 9:42:20 AM Referred By: REFERRED SELF Confirmed By:Parish Vieira
[2021-10-14 10:30] LABS: Hematocrit (blood only) 28.6 % (42-52); Hemoglobin 8.8 g/dL (14.0-18.0)
[2021-10-14] MEDS: PRAVASTATIN SOD 40 MG TAB PO SCH (11:18)
[2021-10-14] MEDS ORDERED: SODIUM CHLORIDE 0.9% 250 ML IV PRN ×2 (12:23→14:03)
--- NOTE | 2021-10-14 12:24 | Hospitalist Progress Note ---
Date of Service October 14, 2021 Assessment & Plan (1) Non-ST elevation NE (NSTEMI): (2) Symptomatic anemia: (3) Acute GI bleeding: Plan: 86 yo nonsmoker with known CAD s/p CABG presents with chest pain and exertional shortness of breath, worse in the last couple of weeks. He is being maanged for the following: (1) NSTEMI (non-ST elevated myocardial infarction): Plan: Patient presented with chest pain and exertional shortness of breath, progressive over the last few weeks [employer]. 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 Likely NSTEMI. S/P full dose aspirin but Heparin drip contraindicated d/t acute bleeding. 10/14 ECHO: EF 40-45%, no significant change from prior Echo on Jan, 2021. Patient denies chest pain, patient is mostly lying in bed. Cardio on board, c/w imdur, losartan, metoprolol, pravastatin Hb goal of 9-10 mg/dl; supportive care. c/w telemetry, EKG prn for chest pain. #. Acute GI bleeding, likely lower GI #. Acute blood loss anemia Workup revealed a drop in H/H from 11.6/39 in Aug 12 to 7.7/ on the day of arrival. Patient denies any blood per rectum or changes in bowel movement. Patient had EGD/colon in 2016 with findings of gastritis and diverticula/hemorrhoids respectively. FOBT positive in the ED. Patient is status post 1 unit PRBC (reflected differently in the system), 1 unit ordered again to maintain hemoglobin goal of 9-10 given ACS. iv lasix fci through transfusion of 2nd unit. Monitor hemoglobin every 12 hours or as needed. Continue PPI drip, n.p.o. GI evaluated, appreciate recommendation. No plans for scope unless overt hematemesis. #. Other chronic medical conditions: Ischemic CM, CAD, PAD, DM 2 with neuropathy [A1c of 7.2 in July 2021], ILD, CKD stage III Continue with/resume home meds as and when appropriate. Continue with sliding scale insulin and 50% dose of basal insulin [as long as n.p.o.]. Admitting CXR suggestive of ILD, will need outpatient follow-up with pulmonology. If patient does not improve with improving hemoglobin, consider pulmonology consult. Creatinine around baseline, continue to monitor BMP #. DVT prophylaxis: SCDs Re: GI bleed DNR/DNI Dispo-to PCU 10/14: Updated patient's son at bedside. Admission and Anticipated Discharge Date Admission Date: October 13, 2021 Subjective Patient seen and examined at bedside as a follow-up of NSTEMI, acute GI bleed likely lower GI, acute blood loss anemia. Patient was lying in bed, on 2 L nasal cannula oxygen, NAD, no new acute events overnight. Patient reports 3 bowel movement yesterday, he is unsure of whether or not there was blood in it. Patient is n.p.o., denies any headache/dizziness/chest pain/palpitation, denies any pain or burning while passing urine or other review of symptoms. Physical Exam Physical Exam: GENERAL: Alert and oriented x3. NAD, on 2L. HEENT: No pallor, no icterus. Pupils equal, round and reactive to light. Oral mucosa moist. NECK: No JVD, no neck masses. HEART: S1 and S2 heard. Regular rate and rhythm. Systolic murmur at A and P area, no gallop. RESPIRATORY SYSTEM: Normal AP diameter. No accessory muscle use. No wheezing, no crackles. ABDOMEN: Soft, bowel sounds present, nontender, no distention. CENTRAL NERVOUS SYSTEM: No facial droop. Speech is clear. Obeys simple commands. Moves extremities. EXTREMITIES: 1-2+ BLE edema, no erythema seen. Results & Data Results & Data ([facility]) Vital Signs (Past 12 Hours) Vital Signs Temp Pulse Pulse Resp BP BP Pulse Ox 10/14/21 11:13 36.8 C 72 19 129/55 L 94 10/14/21 07:35 84 10/14/21 07:25 36.5 C 90 18 144/82 H 98 10/14/21 06:25 36.8 C 87 20 146/75 H 96 10/14/21 05:25 36.6 C 90 18 149/77 H 94 10/14/21 05:19 90 10/14/21 04:25 36.6 C 87 16 135/68 94 10/14/21 03:55 36.5 C 85 16 135/68 97 10/14/21 03:40 36.7 C 85 20 143/71 H 95 10/14/21 03:23 36.7 C 87 16 144/73 H 96
[2021-10-14] MEDS ORDERED: FUROSEMIDE INJ 20 MG/2 ML VIAL IV ONE (12:36)
[2021-10-14] MEDS ORDERED: FUROSEMIDE INJ 20 MG/2 ML VIAL IV SCH (12:51)
[2021-10-14 20:50] LABS: Hematocrit (blood only) 31.1 % (42-52); Hemoglobin 9.7 g/dL (14.0-18.0)
[2021-10-15] MEDS: PANTOprazole 40 MG in DEXTROSE 5% 100 ML IV SCH (03:57)
[2021-10-15 06:41] LABS: BUN Creatinine Ratio 14.6 (10-20); Calcium 8.4 mg/dl (8.5-10.1); Creatinine Clr Calc Pharmacy 38.2 ml/min; Est GFR (African American) 45.6 ml/min; Est GFR (Non-African American) 39.3 ml/min; Magnesium 1.9 mg/dl (1.7-2.4); Potassium 4.2 mmol/L (3.5-5.1)
[2021-10-15 08:13] LABS: Hematocrit (blood only) 30.7 % (42-52); Hemoglobin 9.5 g/dL (14.0-18.0); Mean Corpuscular Hemoglobin 23.8 pg (25-34); Mean Corpuscular Hgb Conc 30.9 g/dL (32-36); Mean Corpuscular Volume 76.8 fL (80-100); Platelet Count 269 K/uL (130-400); RDW Coefficient of Variation 18.5 % (11.5-14.5); RDW Standard Deviation 52.2 fL (36.4-46.3); White Blood Count 11.51 K/uL (4.8-10.8)
[2021-10-15] MEDS: PRAVASTATIN SOD 40 MG TAB PO SCH (08:29)
[2021-10-15] MEDS: METOPROLOL SUCC 25MG EXT REL TAB PO SCH (08:29)
[2021-10-15] MEDS: FOLIC ACID 1 MG TAB PO SCH (08:29)
[2021-10-15] MEDS: INSULIN GLARGINE SOLOSTAR 100 UNITS/ML 3 ML PEN SC SCH ×2 (08:29→20:38)
[2021-10-15] MEDS: ISOSORBIDE MONO EXTENDED REL 30 MG TABCR PO SCH (08:29)
[2021-10-15] MEDS: LOSARTAN POTASSIUM 25 MG TAB PO SCH (08:29)
[2021-10-15] MEDS: INSULIN ASPART PER UNIT SC SCH ×4 (08:31→20:36)
--- NOTE | 2021-10-15 09:08 | Gastroenterology Progress Note ---
Date of Service October 15, 2021 Assessment & Plan (1) Non-ST elevation [place] (NSTEMI): (2) Symptomatic anemia: Plan: Pt w hx of CAD s/p CABG, ischemic cardiomyopathy, presented w CP and SOB symptoms. Found to be anemic w heme positive stools but wo meg melena or recta l bleeding. Abd exam benign today. His blood ct responded well after 3U PRBC transfusion. His Troponin levels are increased w Twave changes on EKG. Overnight patient did not have any bowel movements, also denies any abdominal pain, nausea or vomiting. Tolerating clear liquid diets. Continues to not have any meg signs and symptoms of GI bleed. Blood counts stable. - Continue to defer endoscopic evaluations unless meg hematemesis. - Stop Protonix drip, switch to Protonix 40 mg p.o. daily -Advance diet as tolerated -Please recall GI as needed Admission and Anticipated Discharge Date Admission Date: October 13, 2021 Supervising Physician Co-Signing Physician Notes Sitting in a chair, sleepy but arousable, abd exam is benign Stable labs, no bun rise Agree with further plan of care as already stated. Subjective Pt denies any more chest pain, or SOB. Does have expiratory wheezing. No abd pain, nausea or vomiting. He denies any bowel movements overnight. His blood count has been stable after 3 units of PRBC transfusion. Hemoglobin currently staying around 9. Review of Systems Review of Systems: All systems reviewed & are unremarkable except as noted in HPI & below Physical Exam Constitutional: WD/WN, vitals as above well groomed, cooperative and comfortable Eyes: PERRL, conjunctivae normal, anicteric sclerae ENMT: external ear and nose normal, oropharynx normal Respiratory: normal respiratory effort, lungs clear to auscultation Cardiovascular: RRR, no murmur, no edema Gastrointestinal (Abdomen): normal bowel sounds, soft, nontender, no hepatosplenomegaly Skin: no rashes, warm and dry no jaundice Psychiatric: A+Ox3, euthymic affect Lymphatic: no lymphedema Results & Data ([facility]) Vital Signs (Past 12 Hours) Vital Signs Temp Pulse Pulse Resp BP Pulse Ox 10/15/21 07:49 36.6 C 77 18 146/66 H 96 10/15/21 07:28 77 10/15/21 02:33 37.0 C 76 17 146/76 H 96 10/15/21 00:00 76 10/14/21 22:50 36.8 C 80 19 142/67 H 95
--- NOTE | 2021-10-15 10:21 | Electrocardiogram Report ---
Test Reason : Blood Pressure : / mmHG Vent. Rate : 082 BPM Atrial Rate : 082 BPM P-R Int : 212 ms QRS Dur : 126 ms QT Int : 422 ms P-R-T Axes : 001 -51 122 degrees QTc Int : 493 ms Sinus rhythm with 1st degree A-V block with occasional Premature ventricular complexes Left axis deviation Non-specific intra-ventricular conduction block T wave abnormality, consider lateral ischemia Abnormal ECG When compared with ECG of 14-OCT-2021 06:50, Premature ventricular complexes are now Present Confirmed by Parish Vieira ([id number]) on 10/15/2021 10:21:31 AM Referred By: REFERRED SELF Confirmed By:Parish Vieira
--- NOTE | 2021-10-15 10:57 | Cardiology Progress Note ---
Date of Service October 15, 2021 Assessment & Plan (1) Symptomatic anemia: (2) Non-ST elevation [place] (NSTEMI): (3) Ischemic cardiomyopathy: Plan: 86-year-old patient admitted with crescendo angina secondary to symptomatic anemia. Symptoms have resolved with transfusion. No indication for intravenous heparin at this time. Resume oral furosemide 20 mg daily in AM. Continue isosorbide monohydrate, losartan, metoprolol, and pravastatin. Restart low-dose aspirin, 81 mg daily if no contraindication/object from GI perspective. No further inpatient cardiac testing or intervention at this time. Recommend outpatient cardiology follow-up in 1-2 weeks. Admission and Anticipated Discharge Date Admission Date: October 13, 2021 Subjective Patient seen and examined at the bedside. Denies recurrent chest discomfort or unusual shortness of breath. Telemetry reveals sinus rhythm. Hemoglobin improved with transfusion of 3 units of packed red blood cells. No signs/symptoms of GI/ blood loss. Aspirin and furosemide on hold since admission. Patient offers no complaints. Review of Systems Review of Systems: All systems reviewed & are unremarkable except as noted in Subjective Physical Exam Constitutional: well developed and well nourished; not ill appearing Respiratory: normal respiratory effort; no respiratory distress and no labored breathing Auscultation: lungs clear to auscultation bilaterally; breath sounds present, no diminished lung sounds, no crackles, no rales and no rhonchi Cardiovascular: Rate/Rhythm: regular rate and regular rhythm Heart Sounds: normal S1 and normal S2; no murmur Vessels: no JVD and no carotid bruit Extremities: + edema (Trace to mild bilateral pedal and ankle edema.) Gastrointestinal (Abdomen): Inspection/Auscultation: abdomen normal to inspection and normal bowel sounds; abdomen not distended Percussion/Palpation: abdomen soft; abdomen nontender, no guarding and abdomen not rigid Neurologic: CN's II-XI intact bilaterally and moves all extremities; no focal motor deficits Motor/Sensory: no tremor Psychiatric: A+Ox3, euthymic affect Results & Data ([facility]) Vital Signs (Past 12 Hours) Vital Signs Temp Pulse Pulse Resp BP Pulse Ox 10/15/21 07:49 36.6 C 77 18 146/66 H 96 10/15/21 07:28 77 10/15/21 02:33 37.0 C 76 17 146/76 H 96 10/15/21 00:00 76
[2021-10-15] MEDS: PANTOprazole 40 MG TAB PO SCH (12:13)
[2021-10-15] MEDS: ACETAMINOPHEN 325 MG TAB PO PRN (12:18)
--- NOTE | 2021-10-15 13:45 | Hospitalist Progress Note ---
Date of Service October 15, 2021 Assessment & Plan (1) Non-ST elevation [place] (NSTEMI): (2) Symptomatic anemia: (3) Acute GI bleeding: Plan: 86 yo nonsmoker with known CAD s/p CABG presents with chest pain and exertional shortness of breath, worse in the last couple of weeks. He is being managed for the following: (1) NSTEMI (non-ST elevated myocardial infarction): Plan: Patient presented with chest pain and exertional shortness of breath, progressive over the last few weeks [employer]. 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 NSTEMI secondary to anemia. S/P full dose aspirin but Heparin drip contraindicated d/t acute bleeding. 10/14 ECHO: EF 40-45%, no significant change from prior Echo on Jan, 2021. Patient denies chest pain Cardiology following c/w imdur, losartan, metoprolol, pravastatin, furosemide. consider re-starting ASA if not contraindicated w/ GI Hb goal of 9-10 mg/dl; supportive care. c/w telemetry, EKG prn for chest pain. #. Acute GI bleeding, likely lower GI #. Acute blood loss anemia Workup revealed a drop in H/H from 11.6/39 in Aug 12 to 7.7/26 on the day of arrival. Patient denies any blood per rectum or changes in bowel movement. Patient had EGD/colon in 2016 with findings of gastritis and diverticula/hemorrhoids respectively. FOBT positive in the ED. Patient is status post 2 units PRBCs, hgb stable hemoglobin goal of 9-10 given ACS. PPI now switched to PO 40 mg daily GI evaluated, appreciate recommendation. No plans for endoscopy unless overt hematemesis. #. Other chronic medical conditions: Ischemic CM, CAD, PAD, DM 2 with neuropathy [A1c of 7.2 in July 2021], ILD, CKD stage III Continue with/resume home meds as and when appropriate. Continue with sliding scale insulin and 50% dose of basal insulin [as long as n.p.o.]. Admitting CXR suggestive of ILD, will need outpatient follow-up with pulmonology. If patient does not improve with improving hemoglobin, consider pulmonology consult. Creatinine around baseline, continue to monitor BMP #. DVT prophylaxis: SCDs Re: GI bleed DNR/DNI Dispo-to PCU 10/14: son updated at the bedside. Admission and Anticipated Discharge Date Admission Date: October 13, 2021 Subjective Patient seen in follow-up of NSTEMI, poss. acute GI bleed likely lower GI, acute blood loss anemia. Patient is sitting in chair, in no acute distress, on RA Patient says this is the first time he is out of bed Also says that he is eating solids now for the first time since admission Denies any blood in his stool or dark stools, reports no bowel movement since being admitted Denies any chest pain shortness of breath palpitations, headache, abdominal pain, nausea vomiting Review of Systems Review of Systems: All systems reviewed & are unremarkable except as noted in Subjective Physical Exam Physical Exam: GENERAL: Alert and oriented x3. NAD, on RA HEENT: No pallor, no icterus . Pupils equal, r ound and reactive to light. Oral mu cosa moist. NECK: No JVD, no neck m asses. HEART: S1 and S2 heard. Reg ular rate and rhyt hm. Systolic murm ur at A and P area , no gallop. RESPI RATORY: Normal AP diameter. No acc essory muscle use. No wheezing, no crackles. ABDOMEN: Soft, bowel soun ds present, nonten ray, no distention . NEURO: No facia l droop. Speech i s clear. Obeys si mple commands. Mo ves extremities. E XTREMITIES: 1-2+ BLE edema, no eryt lucian seen. Results & Data Results & Data ([facility]) Vital Signs (Past 12 Hours) Vital Signs Temp Pulse Pulse Resp BP Pulse Ox 10/15/21 11:48 36.7 C 73 20 108/61 95 10/15/21 07:49 36.6 C 77 18 146/66 H 96 10/15/21 07:28 77 10/15/21 02:33 37.0 C 76 17 146/76 H 96 Laboratory Results 10/15/21 10/15/21 10/15/21 Range/Units 11:08 07:22 05:41 WBC (4.8-10.8) K/uL RBC (4.7-6.1) M/uL Hgb Hct MCV (80-100) fL MCH (25-34) pg MCHC (32-36) g/dL RDW Std Deviation (36.4-46.3) fL RDW Coeff of Fahad (11.5-14.5) % Plt Count (130-400) K/uL MPV (7.4-10.4) fL Sodium 135 L (136-145) mmol/L Potassium 4.2 (3.5-5.1) mmol/L Chloride 101 (98-107) mmol/L Carbon Dioxide 28 (21-32) mmol/L Anion Gap 6 (3-11) BUN 23 (6-23) mg/dl Creatinine 1.57 H (0.6-1.4) mg/dl Est Cr Clr Drug Dosing 38.2 ml/min Est GFR ( Amer) 45.6 ml/min Est GFR (Non-Af Amer) 39.3 ml/min BUN/Creatinine Ratio 14.6 (10-20) Glucose 142 H (70-99(Fasting)) mg/dl POC Glucose 240 H 157 H (70-99) mg/dl Calcium 8.4 L (8.5-10.1) mg/dl Magnesium 1.9 (1.7-2.4) mg/dl Blood Type Blood Type Recheck Antibody Screen Crossmatch 10/15/21 10/14/21 10/14/21 Range/Units 05:41 20:18 19:40 WBC 11.51 H (4.8-10.8) K/uL RBC 4.00 L (4.7-6.1) M/uL Hgb 9.5 L 9.7 L Hct 30.7 L 31.1 L MCV 76.8 L (80-100) fL MCH 23.8 L (25-34) pg MCHC 30.9 L (32-36) g/dL RDW Std Deviation 52.2 H (36.4-46.3) fL RDW Coeff of Fahad 18.5 H (11.5-14.5) % Plt Count 269 (130-400) K/uL MPV 9.0 (7.4-10.4) fL Sodium (136-145) mmol/L Potassium (3.5-5.1) mmol/L Chloride (98-107) mmol/L Carbon Dioxide (21-32) mmol/L Anion Gap (3-11) BUN (6-23) mg/dl Creatinine (0.6-1.4) mg/dl Est Cr Clr Drug Dosing ml/min Est GFR ( Amer) ml/min Est GFR (Non-Af Amer) ml/min BUN/Creatinine Ratio (10-20) Glucose (70-99(Fasting)) mg/dl POC Glucose 258 H (70-99) mg/dl Calcium (8.5-10.1) mg/dl Magnesium (1.7-2.4) mg/dl Blood Type Blood Type Recheck Antibody Screen Crossmatch 10/14/21 10/14/21 10/14/21 Range/Units 16:11 12:30 10:21 WBC (4.8-10.8) K/uL RBC (4.7-6.1) M/uL Hgb Cancelled Hct Cancelled MCV (80-100) fL MCH (25-34) pg MCHC (32-36) g/dL RDW Std Deviation (36.4-46.3) fL RDW Coeff of Fahad (11.5-14.5) % Plt Count (130-400) K/uL MPV (7.4-10.4) fL Sodium (136-145) mmol/L Potassium (3.5-5.1) mmol/L Chloride (98-107) mmol/L Carbon Dioxide (21-32) mmol/L Anion Gap (3-11) BUN (6-23) mg/dl Creatinine (0.6-1.4) mg/dl Est Cr Clr Drug Dosing ml/min Est GFR ( Amer) ml/min Est GFR (Non-Af Amer) ml/min BUN/Creatinine Ratio (10-20) Glucose (70-99(Fasting)) mg/dl POC Glucose 217 H (70-99) mg/dl Calcium (8.5-10.1) mg/dl Magnesium (1.7-2.4) mg/dl Blood Type Blood Type Recheck A Positive Antibody Screen Crossmatch 10/13/21 Range/Units 21:09 WBC (4.8-10.8) K/uL RBC (4.7-6.1) M/uL Hgb Hct MCV (80-100) fL MCH (25-34) pg MCHC (32-36) g/dL RDW Std Deviation (36.4-46.3) fL RDW Coeff of Fahad (11.5-14.5) % Plt Count (130-400) K/uL MPV (7.4-10.4) fL Sodium (136-145) mmol/L Potassium (3.5-5.1) mmol/L Chloride (98-107) mmol/L Carbon Dioxide (21-32) mmol/L Anion Gap (3-11) BUN (6-23) mg/dl Creatinine (0.6-1.4) mg/dl Est Cr Clr Drug Dosing ml/min Est GFR ( Amer) ml/min Est GFR (Non-Af Amer) ml/min BUN/Creatinine Ratio (10-20) Glucose (70-99(Fasting)) mg/dl POC Glucose (70-99) mg/dl Calcium (8.5-10.1) mg/dl Magnesium (1.7-2.4) mg/dl Blood Type A Positive Blood Type Recheck Antibody Screen NEGATIVE Crossmatch See Detail Medications Administered Current Inpatient Medications Acetaminophen (Acetaminophen 325 Mg Tab) 650 mg PO Q4H PRN PRN Reason: Pain or Fever Stop: 11/12/21 23:57 Last Admin: 10/15/21 12:18 Dose: 650 mg Documented by: Dextrose (Dextrose 50% 50 Ml Syringe) 25 - 50 ml IV UD PRN; Protocol PRN Reason: Hypoglycemia Protocol Stop: 11/12/21 22:57 Folic Acid (Folic Acid 1 Mg Tab) [address] [facility] Stop: 11/13/21 08:59 Last Admin: 10/15/21 08:29 Dose: 1 mg Documented by: Furosemide (Furosemide 20 Mg Tab) [address] [facility] Stop: 11/15/21 08:59 Glucagon (Glucagon For Inj 1 Mg Vial) 1 mg SQ UD PRN; Protocol PRN Reason: Hypoglycemia Protocol Stop: 11/12/21 22:57 Glucose (Glucose 10 Tabs/Tube) 4 - 8 tabs PO UD PRN; Protocol PRN Reason: Hypoglycemia Protocol Stop: 11/12/21 22:57 Glucose (Glucose 40% Gel 15 Gm Tube) 15 - 30 gm PO UD PRN; Protocol PRN Reason: Hypoglycemia Protocol Stop: 11/12/21 22:57 Insulin Aspart (Insulin Aspart Per Unit) [address] [facility] Stop: 11/13/21 07:29 Last Admin: 10/15/21 12:11 Dose: 7 units Documented by: Insulin Glargine (Insulin Glargine Solostar 100 Units/Ml 3 Ml Pen) [address] [facility] Stop: 11/13/21 08:59 Last Admin: 10/15/21 08:29 Dose: 8 units Documented by: Isosorbide Mononitrate (Isosorbide [place] Extended Rel 30 Mg Tabcr) [address] [facility] Stop: 11/13/21 08:59 Last Admin: 10/15/21 08:29 Dose: 30 mg Documented by: Losartan Potassium (Losartan Potassium 25 Mg Tab) [address] [facility] Stop: 11/13/21 08:59 Last Admin: 10/15/21 08:29 Dose: 25 mg Documented by: Metoprolol Succinate (Metoprolol Succ 25mg Ext Rel Tab) [address] [facility] Stop: 11/13/21 08:59 Last Admin: 10/15/21 08:29 Dose: 25 mg Documented by: Miscellaneous (Carbohydrates For Hypoglycemia ) 15 - 30 gm PO UD PRN PRN Reason: Hypoglycemia Protocol Stop: 11/12/21 22:57 Nitroglycerin (Nitroglycerin Sl 0.4 Mg/Tab Tab) 0.4 mg SL PRN PRN PRN Reason: chest pain Stop: 11/12/21 23:57 Pantoprazole Sodium (Pantoprazole 40 Mg Tab) [address] [facility] Stop: 11/14/21 09:14 Last Admin: 10/15/21 12:13 Dose: 40 mg Documented by: Pravastatin Sodium (Pravastatin Sod 40 Mg Tab) [address] [facility] Stop: 11/13/21 10:29 Last Admin: 10/15/21 08:29 Dose: 40 mg Documented by:
[2021-10-15] MEDS: SENNA 8.6 MG TAB PO SCH (20:38)
[2021-10-16] MEDS: INSULIN ASPART PER UNIT SC SCH ×4 (08:52→20:43)
--- NOTE | 2021-10-16 09:02 | Cardiology Progress Note ---
Date of Service October 16, 2021 Assessment & Plan (1) Symptomatic anemia: (2) Non-ST elevation [place] (NSTEMI): (3) Ischemic cardiomyopathy: Plan: 86-year-old patient admitted with crescendo angina secondary to symptomatic anemia. No signs of GI blood loss at this time. Oral furosemide resumed yesterday. Continue isosorbide monohydrate, losartan, metoprolol, and pravastatin. Discussed with gastroenterology. Okay to resume low-dose aspirin, 81 mg daily. No further inpatient cardiac testing or intervention at this time. Admission and Anticipated Discharge Date Admission Date: October 13, 2021 Subjective Patient seen and examined the bedside. Feeling well from a cardiovascular perspective. No recurrent chest discomfort. Tolerated a.m. meal. Telemetry reveals sinus rhythm. Offers no concerns/complaints. Review of Systems Review of Systems: All systems reviewed & are unremarkable except as noted in Subjective Physical Exam Constitutional: well developed and well nourished; not ill appearing Respiratory: normal respiratory effort; no respiratory distress and no labored breathing Auscultation: lungs clear to auscultation bilaterally; breath sounds present, no diminished lung sounds, no crackles, no rales and no rhonchi Cardiovascular: Rate/Rhythm: regular rate and regular rhythm Heart Sounds: normal S1 and normal S2; no murmur Vessels: no JVD and no carotid bruit Extremities: + edema (Trace to mild bilateral pedal and ankle edema.) Gastrointestinal (Abdomen): Inspection/Auscultation: abdomen normal to inspection and normal bowel sounds; abdomen not distended Percussion/Palpation: abdomen soft; abdomen nontender, no guarding and abdomen not rigid Neurologic: CN's II-XI intact bilaterally and moves all extremities; no focal motor deficits Motor/Sensory: no tremor Psychiatric: A+Ox3, euthymic affect Results & Data ([facility]) Vital Signs (Past 12 Hours) Vital Signs Temp Pulse Pulse Resp BP Pulse Ox 10/16/21 08:00 81 10/16/21 07:59 36.9 C 78 22 140/75 93 10/16/21 04:00 36.9 C 82 20 154/69 H 93 10/16/21 00:00 86 10/15/21 23:20 36.9 C 81 20 144/71 H 92
[2021-10-16] MEDS: FUROSEMIDE 20 MG TAB PO SCH (09:05)
[2021-10-16] MEDS: SENNA 8.6 MG TAB PO SCH (09:05)
[2021-10-16] MEDS: PRAVASTATIN SOD 40 MG TAB PO SCH (09:05)
[2021-10-16] MEDS: METOPROLOL SUCC 25MG EXT REL TAB PO SCH (09:06)
[2021-10-16] MEDS: PANTOprazole 40 MG TAB PO SCH (09:06)
[2021-10-16] MEDS: FOLIC ACID 1 MG TAB PO SCH (09:06)
[2021-10-16] MEDS: ISOSORBIDE MONO EXTENDED REL 30 MG TABCR PO SCH (09:07)
[2021-10-16] MEDS: LOSARTAN POTASSIUM 25 MG TAB PO SCH (09:07)
[2021-10-16] MEDS: INSULIN GLARGINE SOLOSTAR 100 UNITS/ML 3 ML PEN SC SCH ×2 (09:08→20:45)
[2021-10-16] MEDS ORDERED: ASPIRIN 81 MG CHEW ONE (09:25)
--- NOTE | 2021-10-16 14:39 | Hospitalist Progress Note ---
Date of Service October 16, 2021 Assessment & Plan (1) Non-ST elevation [place] (NSTEMI): (2) Symptomatic anemia: (3) Acute GI bleeding: Plan: 86 yo nonsmoker with known CAD s/p CABG presents with chest pain and exertional shortness of breath, worse in the last couple of weeks. He is being managed for the following: (1) NSTEMI (non-ST elevated myocardial infarction): Plan: Patient presented with chest pain and exertional shortness of breath, progressive over the last few weeks [employer]. 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 NSTEMI secondary to anemia. S/P full dose aspirin but Heparin drip contraindicated d/t acute bleeding. 10/14 ECHO: EF 40-45%, no significant change from prior Echo on Jan, 2021. Patient denies chest pain Cardiology following c/w imdur, losartan, metoprolol, pravastatin, furosemide. re-starting ASA as it's not contraindicated w/ GI Hb goal of 9-10 mg/dl; supportive care. c/w telemetry, EKG prn for chest pain. #. Acute GI bleeding, likely lower GI #. Acute blood loss anemia Workup revealed a drop in H/H from 11.6/39 in Aug 12 to 7.7/ on the day of arrival. Patient denies any blood per rectum or changes in bowel movement. Patient had EGD/colon in 2016 with findings of gastritis and diverticula/hemorrhoids respectively. FOBT positive in the ED. Patient is status post 2 units PRBCs, hgb stable hemoglobin goal of 9-10 given ACS. PPI now switched to PO 40 mg daily GI evaluated, appreciate recommendation. No plans for endoscopy unless signs of active bleeding. #. Other chronic medical conditions: Ischemic CM, CAD, PAD, DM 2 with neuropathy [A1c of 7.2 in July 2021], ILD, CKD stage III Continue with/resume home meds as and when appropriate. Continue with sliding scale insulin and 50% dose of basal insulin [as long as n.p.o.]. Admitting CXR suggestive of ILD, will need outpatient follow-up with pulmonology. If patient does not improve with improving hemoglobin, consider pulmonology consult. Creatinine around baseline, continue to monitor BMP #. DVT prophylaxis: SCDs Re: GI bleed DNR/DNI Dispo-to PCU, per PT, recommends rehab 10/14: son updated at the bedside. Admission and Anticipated Discharge Date Admission Date: October 13, 2021 Subjective Patient seen in follow-up of NSTEMI, poss. acute GI bleed likely lower GI, acute blood loss anemia. Patient is laying in bed in no acute distress, on RA Patient reports he was seen by PT, became short of breath during physical therapy. Per PT, recommend rehab. Denies any blood in his stool or dark stools. Nursing staff reported brown stool. Denies any chest pain shortness of breath palpitations, headache, abdominal pain, nausea vomiting Review of Systems Review of Systems: All systems reviewed & are unremarkable except as noted in Subjective Physical Exam Physical Exam: GENERAL: Alert and oriented x3. NAD, on RA HEENT: NC/ AT. EOMI. Pupils e qual, round and re active to light. Oral mucosa moist. NECK: No JVD, no neck masses. HEAR T: S1 and S2 hear d. Regular rate a nd rhythm. Systol ic murmur at A and P area, no gallop . RESPIRATORY: No rmal AP diameter. No accessory musc le use. No wheezi ng, no crackles. A BDOMEN: Soft, bow el sounds present, nontender, no dis tention. NEURO: N o facial droop. S peech is clear. O beys simple comman ds. Moves extremi ties. EXTREMITIES: 1+ BLE edema, no erythema seen. Results & Data Results & Data ([facility]) Vital Signs (Past 12 Hours) Vital Signs Temp Pulse Pulse Resp BP Pulse Ox 10/16/21 13:20 95 10/16/21 11:49 36.3 C L 77 20 125/62 96 10/16/21 08:00 81 10/16/21 07:59 36.9 C 78 22 140/75 93 10/16/21 04:00 36.9 C 82 20 154/69 H 93 Laboratory Results 10/16/21 10/16/21 10/15/21 Range/Units 11:43 07:30 20:29 POC Glucose 185 H 187 H 152 H (70-99) mg/dl 10/15/21 Range/Units 16:14 POC Glucose 145 H (70-99) mg/dl Medications Administered Current Inpatient Medications Acetaminophen (Acetaminophen 325 Mg Tab) 650 mg PO Q4H PRN PRN Reason: Pain or Fever Stop: 11/12/21 23:57 Last Admin: 10/15/21 12:18 Dose: 650 mg Documented by: Aspirin (Aspirin 81 Mg Chew) 81 mg PO DAILY [facility] Stop: 11/16/21 08:59 Dextrose (Dextrose 50% 50 Ml Syringe) 25 - 50 ml IV UD PRN; Protocol PRN Reason: Hypoglycemia Protocol Stop: 11/12/21 22:57 Folic Acid (Folic Acid 1 Mg Tab) 1 mg PO DAILY [facility] Stop: 11/13/21 08:59 Last Admin: 10/16/21 09:06 Dose: 1 mg Documented by: Furosemide (Furosemide 20 Mg Tab) 20 mg PO QAM [facility] Stop: 11/15/21 08:59 Last Admin: 10/16/21 09:05 Dose: 20 mg Documented by: Glucagon (Glucagon For Inj 1 Mg Vial) 1 mg SQ UD PRN; Protocol PRN Reason: Hypoglycemia Protocol Stop: 11/12/21 22:57 Glucose (Glucose 10 Tabs/Tube) 4 - 8 tabs PO UD PRN; Protocol PRN Reason: Hypoglycemia Protocol Stop: 11/12/21 22:57 Glucose (Glucose 40% Gel 15 Gm Tube) 15 - 30 gm PO UD PRN; Protocol PRN Reason: Hypoglycemia Protocol Stop: 11/12/21 22:57 Insulin Aspart (Insulin Aspart Per Unit) 0 units SC ACHS [facility] Stop: 11/13/21 07:29 Last Admin: 10/16/21 12:07 Dose: 5 units Documented by: Insulin Glargine (Insulin Glargine Solostar 100 Units/Ml 3 Ml Pen) 8 units SC BID [facility] Stop: 11/13/21 08:59 Last Admin: 10/16/21 09:08 Dose: 8 units Documented by: Isosorbide Mononitrate (Isosorbide [place] Extended Rel 30 Mg Tabcr) 30 mg PO DAILY [facility] Stop: 11/13/21 08:59 Last Admin: 10/16/21 09:07 Dose: 30 mg Documented by: Losartan Potassium (Losartan Potassium 25 Mg Tab) 25 mg PO QAM [facility] Stop: 11/13/21 08:59 Last Admin: 10/16/21 09:07 Dose: 25 mg Documented by: Metoprolol Succinate (Metoprolol Succ 25mg Ext Rel Tab) 25 mg PO DAILY [facility] Stop: 11/13/21 08:59 Last Admin: 10/16/21 09:06 Dose: 25 mg Documented by: Miscellaneous (Carbohydrates For Hypoglycemia ) 15 - 30 gm PO UD PRN PRN Reason: Hypoglycemia Protocol Stop: 11/12/21 22:57 Nitroglycerin (Nitroglycerin Sl 0.4 Mg/Tab Tab) 0.4 mg SL PRN PRN PRN Reason: chest pain Stop: 11/12/21 23:57 Pantoprazole Sodium (Pantoprazole 40 Mg Tab) 40 mg PO QAM [facility] Stop: 11/14/21 09:14 Last Admin: 10/16/21 09:06 Dose: 40 mg Documented by: Pravastatin Sodium (Pravastatin Sod 40 Mg Tab) 40 mg PO DAILY [facility] Stop: 11/13/21 10:29 Last Admin: 10/16/21 09:05 Dose: 40 mg Documented by: Sennosides (Senna 8.6 Mg Tab) 8.6 mg PO QAM [facility] Stop: 11/14/21 18:59 Last Admin: 10/16/21 09:05 Dose: 8.6 mg Documented by:
[2021-10-17 06:18] LABS: Hematocrit (blood only) 31.9 % (42-52); Hemoglobin 9.8 g/dL (14.0-18.0)
[2021-10-17 06:54] LABS: BUN Creatinine Ratio 20.6 (10-20); Calcium 8.7 mg/dl (8.5-10.1); Creatinine Clr Calc Pharmacy 44.1 ml/min; Est GFR (African American) 54.2 ml/min; Est GFR (Non-African American) 46.8 ml/min; Phosphorus 3.1 mg/dl (2.5-4.9); Potassium 4.1 mmol/L (3.5-5.1)
[2021-10-17] MEDS: INSULIN ASPART PER UNIT SC SCH ×4 (08:06→21:03)
[2021-10-17] MEDS: INSULIN GLARGINE SOLOSTAR 100 UNITS/ML 3 ML PEN SC SCH ×2 (08:08→21:02)
[2021-10-17] MEDS: SENNA 8.6 MG TAB PO SCH (08:09)
[2021-10-17] MEDS: FOLIC ACID 1 MG TAB PO SCH (08:09)
[2021-10-17] MEDS: ISOSORBIDE MONO EXTENDED REL 30 MG TABCR PO SCH (08:09)
[2021-10-17] MEDS: PANTOprazole 40 MG TAB PO SCH (08:09)
[2021-10-17] MEDS: LOSARTAN POTASSIUM 25 MG TAB PO SCH (08:09)
[2021-10-17] MEDS: FUROSEMIDE 20 MG TAB PO SCH (08:09)
[2021-10-17] MEDS: METOPROLOL SUCC 25MG EXT REL TAB PO SCH (08:09)
[2021-10-17] MEDS: PRAVASTATIN SOD 40 MG TAB PO SCH (08:09)
[2021-10-17] MEDS: ASPIRIN 81 MG CHEW PO SCH (08:09)
--- NOTE | 2021-10-17 17:43 | Hospitalist Progress Note ---
Date of Service October 17, 2021 Assessment & Plan (1) Non-ST elevation [place] (NSTEMI): (2) Symptomatic anemia: (3) Acute GI bleeding: Plan: 86 yo nonsmoker with known CAD s/p CABG presents with chest pain and exertional shortness of breath, worse in the last couple of weeks. 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 NSTEMI secondary to anemia. S/P full dose aspirin but Heparin drip contraindicated d/t acute bleeding. 10/14 ECHO: EF 40-45%, no significant change from prior Echo on Jan, 2021. Patient denies chest pain Cardiology following c/w imdur, losartan, metoprolol, pravastatin, furosemide. re-starting ASA as it's not contraindicated w/ GI Hb goal of 9-10 mg/dl; supportive care. c/w telemetry, EKG prn for chest pain. #. Acute GI bleeding, likely lower GI #. Acute blood loss anemia Workup revealed a drop in H/H from 11.6/39 in Aug 12 to 7.7/ on the day of arrival. Patient denies any blood per rectum or changes in bowel movement. Patient had EGD/colon in 2016 with findings of gastritis and diverticula/hemorrhoids respectively. FOBT positive in the ED. Patient is status post 2 units PRBCs, hgb stable hemoglobin goal of 9-10 given ACS. PPI now switched to PO 40 mg daily GI evaluated, appreciate recommendation. No plans for endoscopy unless signs of active bleeding. #. Other chronic medical conditions: Ischemic CM, CAD, PAD, DM 2 with neuropathy [A1c of 7.2 in July 2021], ILD, CKD stage III Continue with/resume home meds as and when appropriate. Continue with sliding scale insulin and 50% dose of basal insulin [as long as n.p.o.]. Admitting CXR suggestive of ILD, will need outpatient follow-up with pulmonology. If patient does not improve with improving hemoglobin, consider pulmonology consult. Creatinine around baseline, continue to monitor BMP #. DVT prophylaxis: SCDs Re: GI bleed DNR/DNI Dispo-to PCU, per PT, recommends rehab 10/17: son updated at the bedside. Admission and Anticipated Discharge Date Admission Date: October 13, 2021 Subjective Patient seen in follow-up of NSTEMI, poss. acute GI bleed likely lower GI, acute blood loss anemia. Patient is laying in bed in no acute distress, on RA Per PT, recommend rehab. Denies any blood in his stool or dark stools. Nursing staff reported brown stool. Denies any chest pain shortness of breath palpitations, headache, abdominal pain, nausea vomiting Review of Systems Review of Systems: All systems reviewed & are unremarkable except as noted in Subjective Physical Exam Physical Exam: GENERAL: Alert and oriented x3. NAD, on RA HEENT: NC/ AT. EOMI. Pupils e qual, round and re active to light. Oral mucosa moist. NECK: No JVD, no neck masses. HEAR T: S1 and S2 hear d. Regular rate a nd rhythm. Systol ic murmur at A and P area, no gallop . RESPIRATORY: No rmal AP diameter. No accessory musc le use. No wheezi ng, no crackles. A BDOMEN: Soft, bow el sounds present, nontender, no dis tention. NEURO: N o facial droop. S peech is clear. O beys simple comman ds. Moves extremi ties. EXTREMITIES: 1+ BLE edema, no erythema seen. Results & Data Results & Data ([facility]) Vital Signs (Past 12 Hours) Vital Signs Temp Pulse Pulse Resp BP Pulse Ox 10/17/21 16:00 79 10/17/21 15:29 36.5 C 87 14 137/61 97 10/17/21 11:40 36.3 C L 80 14 129/61 95 10/17/21 08:00 83 10/17/21 06:43 36.6 C 87 18 137/75 95 Laboratory Results 10/17/21 10/17/21 10/17/21 Range/Units 16:26 16:25 16:23 Hgb (14.0-18.0) g/dL Hct (42-52) % Sodium (136-145) mmol/L Potassium (3.5-5.1) mmol/L Chloride (98-107) mmol/L Carbon Dioxide (21-32) mmol/L Anion Gap (3-11) BUN (6-23) mg/dl Creatinine (0.6-1.4) mg/dl Est Cr Clr Drug Dosing ml/min Est GFR ( Amer) ml/min Est GFR (Non-Af Amer) ml/min BUN/Creatinine Ratio (10-20) Glucose (70-99(Fasting)) mg/dl POC Glucose 226 H 196 H 406 H* (70-99) mg/dl Calcium (8.5-10.1) mg/dl Phosphorus (2.5-4.9) mg/dl Magnesium (1.7-2.4) mg/dl 10/17/21 10/17/21 10/17/21 Range/Units 11:02 07:07 05:56 Hgb (14.0-18.0) g/dL Hct (42-52) % Sodium 135 L (136-145) mmol/L Potassium 4.1 (3.5-5.1) mmol/L Chloride 103 (98-107) mmol/L Carbon Dioxide 25 (21-32) mmol/L Anion Gap 7 (3-11) BUN 28 H (6-23) mg/dl Creatinine 1.36 (0.6-1.4) mg/dl Est Cr Clr Drug Dosing 44.1 ml/min Est GFR ( Amer) 54.2 ml/min Est GFR (Non-Af Amer) 46.8 ml/min BUN/Creatinine Ratio 20.6 H (10-20) Glucose 139 H (70-99(Fasting)) mg/dl POC Glucose 275 H 154 H (70-99) mg/dl Calcium 8.7 (8.5-10.1) mg/dl Phosphorus 3.1 (2.5-4.9) mg/dl Magnesium 2.0 (1.7-2.4) mg/dl 10/17/21 10/16/21 Range/Units 05:56 20:40 Hgb 9.8 L (14.0-18.0) g/dL Hct 31.9 L (42-52) % Sodium (136-145) mmol/L Potassium (3.5-5.1) mmol/L Chloride (98-107) mmol/L Carbon Dioxide (21-32) mmol/L Anion Gap (3-11) BUN (6-23) mg/dl Creatinine (0.6-1.4) mg/dl Est Cr Clr Drug Dosing ml/min Est GFR ( Amer) ml/min Est GFR (Non-Af Amer) ml/min BUN/Creatinine Ratio (10-20) Glucose (70-99(Fasting)) mg/dl POC Glucose 175 H (70-99) mg/dl Calcium (8.5-10.1) mg/dl Phosphorus (2.5-4.9) mg/dl Magnesium (1.7-2.4) mg/dl Medications Administered Current Inpatient Medications Acetaminophen (Acetaminophen 325 Mg Tab) 650 mg PO Q4H PRN PRN Reason: Pain or Fever Stop: 11/12/21 23:57 Last Admin: 10/15/21 12:18 Dose: 650 mg Documented by: Aspirin (Aspirin 81 Mg Chew) 81 mg PO DAILY [facility] Stop: 11/16/21 08:59 Last Admin: 10/17/21 08:09 Dose: 81 mg Documented by: Dextrose (Dextrose 50% 50 Ml Syringe) 25 - 50 ml IV UD PRN; Protocol PRN Reason: Hypoglycemia Protocol Stop: 11/12/21 22:57 Folic Acid (Folic Acid 1 Mg Tab) 1 mg PO DAILY [facility] Stop: 11/13/21 08:59 Last Admin: 10/17/21 08:09 Dose: 1 mg Documented by: Furosemide (Furosemide 20 Mg Tab) 20 mg PO QAM [facility] Stop: 11/15/21 08:59 Last Admin: 10/17/21 08:09 Dose: 20 mg Documented by: Glucagon (Glucagon For Inj 1 Mg Vial) 1 mg SQ UD PRN; Protocol PRN Reason: Hypoglycemia Protocol Stop: 11/12/21 22:57 Glucose (Glucose 10 Tabs/Tube) 4 - 8 tabs PO UD PRN; Protocol PRN Reason: Hypoglycemia Protocol Stop: 11/12/21 22:57 Glucose (Glucose 40% Gel 15 Gm Tube) 15 - 30 gm PO UD PRN; Protocol PRN Reason: Hypoglycemia Protocol Stop: 11/12/21 22:57 Insulin Aspart (Insulin Aspart Per Unit) 0 units SC ACHS [facility] Stop: 11/13/21 07:29 Last Admin: 10/17/21 16:46 Dose: 7 units Documented by: Insulin Glargine (Insulin Glargine Solostar 100 Units/Ml 3 Ml Pen) 8 units SC BID [facility] Stop: 11/13/21 08:59 Last Admin: 10/17/21 08:08 Dose: 8 units Documented by: Isosorbide Mononitrate (Isosorbide [place] Extended Rel 30 Mg Tabcr) 30 mg PO DAILY [facility] Stop: 11/13/21 08:59 Last Admin: 10/17/21 08:09 Dose: 30 mg Documented by: Losartan Potassium (Losartan Potassium 25 Mg Tab) 25 mg PO QAM [facility] Stop: 11/13/21 08:59 Last Admin: 10/17/21 08:09 Dose: 25 mg Documented by: Metoprolol Succinate (Metoprolol Succ 25mg Ext Rel Tab) 25 mg PO DAILY [facility] Stop: 11/13/21 08:59 Last Admin: 10/17/21 08:09 Dose: 25 mg Documented by: Miscellaneous (Carbohydrates For Hypoglycemia ) 15 - 30 gm PO UD PRN PRN Reason: Hypoglycemia Protocol Stop: 11/12/21 22:57 Nitroglycerin (Nitroglycerin Sl 0.4 Mg/Tab Tab) 0.4 mg SL PRN PRN PRN Reason: chest pain Stop: 11/12/21 23:57 Pantoprazole Sodium ([facility] 40 Mg Tab) [facility] Stop: 11/14/21 09:14 Last Admin: 10/17/21 08:09 Dose: 40 mg Documented by: Pravastatin Sodium (Pravastatin Sod 40 Mg Tab) 40 mg PO DAILY [facility] Stop: 11/13/21 10:29 Last Admin: 10/17/21 08:09 Dose: 40 mg Documented by: Sennosides (Senna 8.6 Mg Tab) 8.6 mg PO QAM [facility] Stop: 11/14/21 18:59 Last Admin: 10/17/21 08:09 Dose: 8.6 mg Documented by:
[2021-10-18] MEDS: PANTOprazole 40 MG TAB PO SCH (09:07)
[2021-10-18] MEDS: METOPROLOL SUCC 25MG EXT REL TAB PO SCH (09:07)
[2021-10-18] MEDS: PRAVASTATIN SOD 40 MG TAB PO SCH (09:08)
[2021-10-18] MEDS: LOSARTAN POTASSIUM 25 MG TAB PO SCH (09:08)
[2021-10-18] MEDS: ASPIRIN 81 MG CHEW PO SCH (09:08)
[2021-10-18] MEDS: FOLIC ACID 1 MG TAB PO SCH (09:09)
[2021-10-18] MEDS: SENNA 8.6 MG TAB PO SCH (09:10)
[2021-10-18] MEDS: ISOSORBIDE MONO EXTENDED REL 30 MG TABCR PO SCH (09:10)
[2021-10-18] MEDS: INSULIN GLARGINE SOLOSTAR 100 UNITS/ML 3 ML PEN SC SCH ×2 (09:11→20:43)
[2021-10-18] MEDS: INSULIN ASPART PER UNIT SC SCH ×4 (09:17→20:44)
[2021-10-18] MEDS: FUROSEMIDE 20 MG TAB PO SCH (09:17)
[2021-10-18] MEDS: ACETAMINOPHEN 325 MG TAB PO PRN (12:47)
--- NOTE | 2021-10-18 12:51 | Hospitalist Progress Note ---
Date of Service October 18, 2021 Assessment & Plan (1) Non-ST elevation [place] (NSTEMI): (2) Symptomatic anemia: (3) Acute GI bleeding: Plan: 86 yo nonsmoker with known CAD s/p CABG presents with chest pain and exertional shortness of breath, worse in the last couple of weeks. 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 NSTEMI secondary to anemia. S/P full dose aspirin but Heparin drip contraindicated d/t acute bleeding. 10/14 ECHO: EF 40-45%, no significant change from prior Echo on Jan, 2021. Patient denies chest pain Cardiology following c/w imdur, losartan, metoprolol, pravastatin, furosemide. re-started ASA as it's not contraindicated w/ GI Hb goal of 9-10 mg/dl; supportive care. c/w telemetry, EKG prn for chest pain. possible Acute GI bleeding, likely lower GI Acute blood loss anemia Workup revealed a drop in H/H from 11.6/39 in Aug 12 to 7.7/ on the day of arrival. Patient denies any blood per rectum or changes in bowel movement. Patient had EGD/colon in 2016 with findings of gastritis and diverticula/hemorrhoids respectively. FOBT positive in the ED. Patient is status post 2 units PRBCs, hgb stable hemoglobin goal of 9-10 given ACS. PPI now switched to PO 40 mg daily GI evaluated, appreciate recommendation. No plans for endoscopy unless signs of active bleeding. Other chronic medical conditions: Ischemic CM, CAD, PAD, DM 2 with neuropathy [A1c of 7.2 in July 2021], ILD, CKD stage III Continue with/resume home meds as and when appropriate. Continue with sliding scale insulin and 50% dose of basal insulin [as long as n.p.o.]. Admitting CXR suggestive of ILD, will need outpatient follow-up with pulmonology. If patient does not improve with improving hemoglobin, consider pulmonology consult. Patient is clinically much improved, comfortable and breathing comfortably on room air, saturating 95%. Creatinine around baseline, continue to monitor BMP #. DVT prophylaxis: SCDs Re: poss. GI bleed DNR/DNI Dispo-to PCU, per PT, recommends rehab 10/17: son updated at the bedside. Admission and Anticipated Discharge Date Admission Date: October 13, 2021 Subjective Patient seen in follow-up of NSTEMI, poss. acute GI bleed likely lower GI, acute blood loss anemia. Patient is laying in bed in no acute distress, on RA Per PT, recommend rehab. Denies any blood in his stool or dark stools. Nursing staff reported brown stool. Denies any chest pain shortness of breath palpitations, headache, abdominal p ain, nausea vomiting Review of Systems Review of Systems: All systems reviewed & are unremarkable except as noted in Subjective Physical Exam Physical Exam: GENERAL: Alert and oriented x3. NAD, on RA HEENT: NC/ AT. EOMI. Pupils e qual, round and re active to light. Oral mucosa moist. NECK: No JVD, no neck masses. HEAR T: S1 and S2 hear d. Regular rate a nd rhythm. Systol ic murmur at A and P area, no gallop . RESPIRATORY: No rmal AP diameter. No accessory musc le use. No wheezi ng, no crackles. A BDOMEN: Soft, bow el sounds present, nontender, no dis tention. NEURO: N o facial droop. S peech is clear. O beys simple comman ds. Moves extremi ties. EXTREMITIES: 1+ BLE edema, no erythema seen. Results & Data Results & Data ([facility]) Vital Signs (Past 12 Hours) Vital Signs Temp Pulse Pulse Resp BP BP Pulse Ox 10/18/21 10:55 36.4 C L 81 18 134/63 95 10/18/21 07:27 83 10/18/21 07:09 36.6 C 79 18 158/71 H 95 10/18/21 03:55 36.7 C 75 18 135/65 96 10/18/21 00:54 85 Medications Administered Current Inpatient Medications Acetaminophen (Acetaminophen 325 Mg Tab) 650 mg PO Q4H PRN PRN Reason: Pain or Fever Stop: 11/12/21 23:57 Last Admin: 10/18/21 12:47 Dose: 650 mg Documented by: Aspirin (Aspirin 81 Mg Chew) 81 mg PO DAILY [facility]S [facility] 234 BEDS AT [facility] Stop: 11/16/21 08:59 Last Admin: 10/18/21 09:08 Dose: 81 mg Documented by: Dextrose (Dextrose 50% 50 Ml Syringe) 25 - 50 ml IV UD PRN; Protocol PRN Reason: Hypoglycemia Protocol Stop: 11/12/21 22:57 Folic Acid (Folic Acid 1 Mg Tab) 1 mg PO DAILY [facility] Stop: 11/13/21 08:59 Last Admin: 10/18/21 09:09 Dose: 1 mg Documented by: Furosemide (Furosemide 20 Mg Tab) 20 mg PO QAM [facility] Stop: 11/15/21 08:59 Last Admin: 10/18/21 09:17 Dose: 20 mg Documented by: Glucagon (Glucagon For Inj 1 Mg Vial) 1 mg SQ UD PRN; Protocol PRN Reason: Hypoglycemia Protocol Stop: 11/12/21 22:57 Glucose (Glucose 10 Tabs/Tube) 4 - 8 tabs PO UD PRN; Protocol PRN Reason: Hypoglycemia Protocol Stop: 11/12/21 22:57 Glucose (Glucose 40% Gel 15 Gm Tube) 15 - 30 gm PO UD PRN; Protocol PRN Reason: Hypoglycemia Protocol Stop: 11/12/21 22:57 Insulin Aspart (Insulin Aspart Per Unit) 0 units SC ACHS [facility] Stop: 11/13/21 07:29 Last Admin: 10/18/21 12:49 Dose: 9 units Documented by: Insulin Glargine (Insulin Glargine Solostar 100 Units/Ml 3 Ml Pen) 10 units SC BID [facility] Stop: 11/17/21 20:59 Isosorbide Mononitrate (Isosorbide [place] Extended Rel 30 Mg Tabcr) 30 mg PO DAILY [facility] Stop: 11/13/21 08:59 Last Admin: 10/18/21 09:10 Dose: 30 mg Documented by: Losartan Potassium (Losartan Potassium 25 Mg Tab) 25 mg PO QAM [facility] Stop: 11/13/21 08:59 Last Admin: 10/18/21 09:08 Dose: 25 mg Documented by: Metoprolol Succinate (Metoprolol Succ 25mg Ext Rel Tab) 25 mg PO DAILY [facility] Stop: 11/13/21 08:59 Last Admin: 10/18/21 09:07 Dose: 25 mg Documented by: Miscellaneous (Carbohydrates For Hypoglycemia ) 15 - 30 gm PO UD PRN PRN Reason: Hypoglycemia Protocol Stop: 11/12/21 22:57 Nitroglycerin (Nitroglycerin Sl 0.4 Mg/Tab Tab) 0.4 mg SL PRN PRN PRN Reason: chest pain Stop: 11/12/21 23:57 Pantoprazole Sodium (Pantoprazole 40 Mg Tab) 40 mg PO [facility] Stop: 11/14/21 09:14 Last Admin: 10/18/21 09:07 Dose: 40 mg Documented by: Pravastatin Sodium (Pravastatin Sod 40 Mg Tab) 40 mg PO DAILY COUNTS INCLUDE 234 BEDS AT [facility] Stop: 11/13/21 10:29 Last Admin: 10/18/21 09:08 Dose: 40 mg Documented by: Sennosides (Senna 8.6 Mg Tab) 8.6 mg PO [facility] Stop: 11/14/21 18:59 Last Admin: 10/18/21 09:10 Dose: 8.6 mg Documented by:
[2021-10-19] MEDS: INSULIN ASPART PER UNIT SC SCH ×4 (09:41→20:27)
[2021-10-19] MEDS: INSULIN GLARGINE SOLOSTAR 100 UNITS/ML 3 ML PEN SC SCH ×2 (09:42→20:28)
[2021-10-19] MEDS: FUROSEMIDE 20 MG TAB PO SCH (09:46)
[2021-10-19] MEDS: ISOSORBIDE MONO EXTENDED REL 30 MG TABCR PO SCH (09:46)
[2021-10-19] MEDS: ASPIRIN 81 MG CHEW PO SCH (09:46)
[2021-10-19] MEDS: SENNA 8.6 MG TAB PO SCH (09:46)
[2021-10-19] MEDS: PANTOprazole 40 MG TAB PO SCH (09:47)
[2021-10-19] MEDS: PRAVASTATIN SOD 40 MG TAB PO SCH (09:47)
[2021-10-19] MEDS: LOSARTAN POTASSIUM 25 MG TAB PO SCH (09:47)
[2021-10-19] MEDS: FOLIC ACID 1 MG TAB PO SCH (09:47)
[2021-10-19] MEDS: METOPROLOL SUCC 25MG EXT REL TAB PO SCH (09:47)
--- NOTE | 2021-10-19 19:40 | Hospitalist Progress Note ---
Date of Service October 19, 2021 Assessment & Plan (1) Non-ST elevation [place] (NSTEMI): (2) Symptomatic anemia: (3) Acute GI bleeding: Plan: 86 yo nonsmoker with known CAD s/p CABG presents with chest pain and exertional shortness of breath, worse in the last couple of weeks. 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 NSTEMI secondary to anemia. S/P full dose aspirin but Heparin drip contraindicated d/t acute bleeding. 10/14 ECHO: EF 40-45%, no significant change from prior Echo on Jan, 2021. Patient denies chest pain Cardiology following c/w imdur, losartan, metoprolol, pravastatin, furosemide. re-started ASA as it's not contraindicated w/ GI Hb goal of 9-10 mg/dl; supportive care. c/w telemetry, EKG prn for chest pain. possible Acute GI bleeding, likely lower GI Acute blood loss anemia Workup revealed a drop in H/H from 11.6/39 in Aug 12 to 7.7/ on the day of arrival. Patient denies any blood per rectum or changes in bowel movement. Patient had EGD/colon in 2016 with findings of gastritis and diverticula/hemorrhoids respectively. FOBT positive in the ED. Patient is status post 2 units PRBCs, hgb stable hemoglobin goal of 9-10 given ACS. PPI now switched to PO 40 mg daily GI evaluated, appreciate recommendation. No plans for endoscopy unless signs of active bleeding. Other chronic medical conditions: Ischemic CM, CAD, PAD, DM 2 with neuropathy [A1c of 7.2 in July 2021], ILD, CKD stage III Continue with/resume home meds as and when appropriate. Continue with sliding scale insulin and 50% dose of basal insulin [as long as n.p.o.]. Admitting CXR suggestive of ILD, will need outpatient follow-up with pulmonology. If patient does not improve with improving hemoglobin, consider pulmonology consult. Patient is clinically much improved, comfortable and breathing comfortably on room air, saturating 95%. Creatinine around baseline, continue to monitor BMP #. DVT prophylaxis: SCDs Re: poss. GI bleed DNR/DNI Dispo-to PCU, per PT, recommends rehab 10/17: son updated at the bedside. Admission and Anticipated Discharge Date Admission Date: October 13, 2021 Subjective Patient seen in follow-up of NSTEMI, poss. acute GI bleed likely lower GI, acute blood loss anemia. Patient is sitting up in chair, in no acute distress, on RA Per PT, recommend rehab. Denies any blood in his stool or dark stools. Nursing staff reported brown stool. Denies any chest pain shortness of breath palpitations, headache, abdominal pain, nausea vomiting Review of Systems Review of Systems: All systems reviewed & are unremarkable except as noted in Subjective Physical Exam Physical Exam: GENERAL: Alert and oriented x3. NAD, on RA HEENT: NC/ AT. EOMI. Pupils e qual, round and re active to light. Oral mucosa moist. NECK: No JVD, no neck masses. HEAR T: S1 and S2 hear d. Regular rate a nd rhythm. Systol ic murmur at A and P area, no gallop . RESPIRATORY: No rmal AP diameter. No accessory musc le use. No wheezi ng, no crackles. A BDOMEN: Soft, bow el sounds present, nontender, no dis tention. NEURO: N o facial droop. S peech is clear. O beys simple comman ds. Moves extremi ties. EXTREMITIES: 1+ BLE edema, no erythema seen. Results & Data Results & Data ([facility]) Vital Signs (Past 12 Hours) Vital Signs Temp Pulse Resp BP Pulse Ox 10/19/21 16:07 36.7 C 71 20 110/59 L 95 10/19/21 07:48 36.6 C 83 19 145/57 H 94 Medications Administered Current Inpatient Medications Acetaminophen (Acetaminophen 325 Mg Tab) 650 mg PO Q4H PRN PRN Reason: Pain or Fever Stop: 11/12/21 23:57 Last Admin: 10/18/21 12:47 Dose: 650 mg Documented by: Aspirin (Aspirin 81 Mg Chew) 81 mg PO DAILY [facility] Stop: 11/16/21 08:59 Last Admin: 10/19/21 09:46 Dose: 81 mg Documented by: Dextrose (Dextrose 50% 50 Ml Syringe) 25 - 50 ml IV UD PRN; Protocol PRN Reason: Hypoglycemia Protocol Stop: 11/12/21 22:57 Folic Acid (Folic Acid 1 Mg Tab) 1 mg PO DAILY [facility] Stop: 11/13/21 08:59 Last Admin: 10/19/21 09:47 Dose: 1 mg Documented by: Furosemide (Furosemide 20 Mg Tab) 20 mg PO QAM [facility] Stop: 11/15/21 08:59 Last Admin: 10/19/21 09:46 Dose: 20 mg Documented by: Glucagon (Glucagon For Inj 1 Mg Vial) 1 mg SQ UD PRN; Protocol PRN Reason: Hypoglycemia Protocol Stop: 11/12/21 22:57 Glucose (Glucose 10 Tabs/Tube) 4 - 8 tabs PO UD PRN; Protocol PRN Reason: Hypoglycemia Protocol Stop: 11/12/21 22:57 Glucose (Glucose 40% Gel 15 Gm Tube) 15 - 30 gm PO UD PRN; Protocol PRN Reason: Hypoglycemia Protocol Stop: 11/12/21 22:57 Insulin Aspart (Insulin Aspart Per Unit) 0 units SC ACHS [facility] Stop: 11/13/21 07:29 Last Admin: 10/19/21 17:08 Dose: 3 units Documented by: Insulin Glargine (Insulin Glargine Solostar 100 Units/Ml 3 Ml Pen) 10 units SC BID [facility] Stop: 11/17/21 20:59 Last Admin: 10/19/21 09:42 Dose: 10 units Documented by: Isosorbide Mononitrate (Isosorbide [place] Extended Rel 30 Mg Tabcr) 30 mg PO DAILY [facility] Stop: 11/13/21 08:59 Last Admin: 10/19/21 09:46 Dose: 30 mg Documented by: Losartan Potassium (Losartan Potassium 25 Mg Tab) 25 mg PO QAM [facility] Stop: 11/13/21 08:59 Last Admin: 10/19/21 09:47 Dose: 25 mg Documented by: Metoprolol Succinate (Metoprolol Succ 25mg Ext Rel Tab) 25 mg PO DAILY [facility] Stop: 11/13/21 08:59 Last Admin: 10/19/21 09:47 Dose: 25 mg Documented by: Miscellaneous (Carbohydrates For Hypoglycemia ) 15 - 30 gm PO UD PRN PRN Reason: Hypoglycemia Protocol Stop: 11/12/21 22:57 Nitroglycerin (Nitroglycerin Sl 0.4 Mg/Tab Tab) 0.4 mg SL PRN PRN PRN Reason: chest pain Stop: 11/12/21 23:57 Pantoprazole Sodium (Pantoprazole 40 Mg Tab) 40 mg PO [facility] Stop: 11/14/21 09:14 Last Admin: 10/19/21 09:47 Dose: 40 mg Documented by: Pravastatin Sodium (Pravastatin Sod 40 Mg Tab) 40 mg PO DAILY [facility] Stop: 11/13/21 10:29 Last Admin: 10/19/21 09:47 Dose: 40 mg Documented by: Sennosides (Senna 8.6 Mg Tab) 8.6 mg PO [facility] Stop: 11/14/21 18:59 Last Admin: 10/19/21 09:46 Dose: 8.6 mg Documented by:
--- NOTE | 2021-10-20 08:11 | Hospitalist Progress Note ---
Date of Service October 20, 2021 Assessment & Plan (1) Non-ST elevation VA (NSTEMI): (2) Symptomatic anemia: (3) Acute GI bleeding: Plan: 86 yo nonsmoker with known CAD s/p CABG presents with chest pain and exertional shortness of breath, worse in the last couple of weeks. 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 NSTEMI secondary to anemia. S/P full dose aspirin but Heparin drip contraindicated d/t acute bleeding. 10/14 ECHO: EF 40-45%, no significant change from prior Echo on Jan, 2021. Patient denies chest pain Cardiology following c/w imdur, losartan, metoprolol, pravastatin, furosemide. re-started ASA as it's not contraindicated w/ GI Hb goal of 9-10 mg/dl; supportive care. c/w telemetry, EKG prn for chest pain. possible Acute GI bleeding, likely lower GI Acute blood loss anemia Workup revealed a drop in H/H from 11.6/39 in Aug 12 to 7.7/ on the day of arrival. Patient denies any blood per rectum or changes in bowel movement. Patient had EGD/colon in 2016 with findings of gastritis and diverticula/hemorrhoids respectively. FOBT positive in the ED. Patient is status post 2 units PRBCs, hgb stable hemoglobin goal of 9-10 given ACS. PPI now switched to PO 40 mg daily GI evaluated, appreciate recommendation. No plans for endoscopy unless signs of active bleeding. Other chronic medical conditions: Ischemic CM, CAD, PAD, DM 2 with neuropathy [A1c of 7.2 in July 2021], ILD, CKD stage III Continue with/resume home meds as and when appropriate. Continue with sliding scale insulin and 50% dose of basal insulin [as long as n.p.o.]. Admitting CXR suggestive of ILD, will need outpatient follow-up with pulmonology. If patient does not improve with improving hemoglobin, consider pulmonology consult. Patient is clinically much improved, comfortable and breathing comfortably on room air, saturating 95%. Creatinine around baseline, continue to monitor BMP #. DVT prophylaxis: SCDs Re: poss. GI bleed DNR/DNI Dispo-per PT, recommends rehab 10/17: son updated at the bedside. Admission and Anticipated Discharge Date Admission Date: October 13, 2021 Subjective Patient seen in follow-up of NSTEMI, poss. acute GI bleed likely lower GI, acute blood loss anemia. Patient is sitting up in chair, in no acute distress, on RA Per PT, recommend rehab. Denies any blood in his stool or dark stools. Nursing staff reported brown stool. Denies any chest pain shortness of breath palpitations, headache, abdominal pain, nausea vomiting Review of Systems Review of Systems: All systems reviewed & are unremarkable except as noted in Subjective Physical Exam Physical Exam: GENERAL: Alert and oriented x3. NAD, on RA HEENT: NC/ AT. EOMI. Pupils e qual, round and re active to light. Oral mucosa moist. NECK: No JVD, no neck masses. HEAR T: S1 and S2 hear d. Regular rate a nd rhythm. Systol ic murmur at A and P area, no gallop . RESPIRATORY: No rmal AP diameter. No accessory musc le use. No wheezi ng, no crackles. A BDOMEN: Soft, bow el sounds present, nontender, no dis tention. NEURO: N o facial droop. S peech is clear. O beys simple comman ds. Moves extremi ties. EXTREMITIES: trace BLE edema, no erythema seen. Results & Data Results & Data ([facility]) Vital Signs (Past 12 Hours) Vital Signs Temp Pulse Pulse Resp BP BP Pulse Ox 10/20/21 07:53 36.7 C 80 14 138/70 93 10/20/21 07:44 86 10/20/21 03:05 36.8 C 80 16 138/68 97 10/20/21 00:01 36.8 C 71 18 116/71 96 10/19/21 23:00 76 Medications Administered Current Inpatient Medications Acetaminophen (Acetaminophen 325 Mg Tab) 650 mg PO Q4H PRN PRN Reason: Pain or Fever Stop: 11/12/21 23:57 Last Admin: 10/18/21 12:47 Dose: 650 mg Documented by: Aspirin (Aspirin 81 Mg Chew) 81 mg PO DAILY [facility] Stop: 11/16/21 08:59 Last Admin: 10/19/21 09:46 Dose: 81 mg Documented by: Dextrose (Dextrose 50% 50 Ml Syringe) 25 - 50 ml IV UD PRN; Protocol PRN Reason: Hypoglycemia Protocol Stop: 11/12/21 22:57 Folic Acid (Folic Acid 1 Mg Tab) 1 mg PO DAILY MARGIE Stop: 11/13/21 08:59 Last Admin: 10/19/21 09:47 Dose: 1 mg Documented by: Furosemide (Furosemide 20 Mg Tab) 20 mg PO QAM MARGIE Stop: 11/15/21 08:59 Last Admin: 10/19/21 09:46 Dose: 20 mg Documented by: Glucagon (Glucagon For Inj 1 Mg Vial) 1 mg SQ UD PRN; Protocol PRN Reason: Hypoglycemia Protocol Stop: 11/12/21 22:57 Glucose (Glucose 10 Tabs/Tube) 4 - 8 tabs PO UD PRN; Protocol PRN Reason: Hypoglycemia Protocol Stop: 11/12/21 22:57 Glucose (Glucose 40% Gel 15 Gm Tube) 15 - 30 gm PO UD PRN; Protocol PRN Reason: Hypoglycemia Protocol Stop: 11/12/21 22:57 Insulin Aspart (Insulin Aspart Per Unit) 0 units SC ACHS MARGIE Stop: 11/13/21 07:29 Last Admin: 10/19/21 20:27 Dose: 3 units Documented by: Insulin Glargine (Insulin Glargine Solostar 100 Units/Ml 3 Ml Pen) 10 units SC BID MARGIE Stop: 11/17/21 20:59 Last Admin: 10/19/21 20:28 Dose: 10 units Documented by: Isosorbide Mononitrate (Isosorbide Rock Extended Rel 30 Mg Tabcr) 30 mg PO DAILY MARGIE Stop: 11/13/21 08:59 Last Admin: 10/19/21 09:46 Dose: 30 mg Documented by: Losartan Potassium (Losartan Potassium 25 Mg Tab) 25 mg PO QAM MARGIE Stop: 11/13/21 08:59 Last Admin: 10/19/21 09:47 Dose: 25 mg Documented by: Metoprolol Succinate (Metoprolol Succ 25mg Ext Rel Tab) 25 mg PO DAILY MARGIE Stop: 11/13/21 08:59 Last Admin: 10/19/21 09:47 Dose: 25 mg Documented by: Miscellaneous (Carbohydrates For Hypoglycemia ) 15 - 30 gm PO UD PRN PRN Reason: Hypoglycemia Protocol Stop: 11/12/21 22:57 Nitroglycerin (Nitroglycerin Sl 0.4 Mg/Tab Tab) 0.4 mg SL PRN PRN PRN Reason: chest pain Stop: 11/12/21 23:57 Pantoprazole Sodium (Pantoprazole 40 Mg Tab) [facility] [place] Stop: 11/14/21 09:14 Last Admin: 10/19/21 09:47 Dose: 40 mg Documented by: Pravastatin Sodium (Pravastatin Sod 40 Mg Tab) 40 mg PO DAILY [facility] Stop: 11/13/21 10:29 Last Admin: 10/19/21 09:47 Dose: 40 mg Documented by: Sennosides (Senna 8.6 Mg Tab) 8.6 mg PO [facility] Stop: 11/14/21 18:59 Last Admin: 10/19/21 09:46 Dose: 8.6 mg Documented by:
[2021-10-20] MEDS: LOSARTAN POTASSIUM 25 MG TAB PO SCH (08:46)
[2021-10-20] MEDS: FOLIC ACID 1 MG TAB PO SCH (08:46)
[2021-10-20] MEDS: ISOSORBIDE MONO EXTENDED REL 30 MG TABCR PO SCH (08:46)
[2021-10-20] MEDS: SENNA 8.6 MG TAB PO SCH (08:47)
[2021-10-20] MEDS: ASPIRIN 81 MG CHEW PO SCH (08:47)
[2021-10-20] MEDS: FUROSEMIDE 20 MG TAB PO SCH (08:47)
[2021-10-20] MEDS: PANTOprazole 40 MG TAB PO SCH (08:48)
[2021-10-20] MEDS: PRAVASTATIN SOD 40 MG TAB PO SCH (08:48)
[2021-10-20] MEDS: METOPROLOL SUCC 25MG EXT REL TAB PO SCH (08:48)
[2021-10-20] MEDS: INSULIN GLARGINE SOLOSTAR 100 UNITS/ML 3 ML PEN SC SCH ×2 (08:49→20:37)
[2021-10-20] MEDS: INSULIN ASPART PER UNIT SC SCH ×4 (08:55→20:38)
[2021-10-21] MEDS: INSULIN ASPART PER UNIT SC SCH ×2 (08:37→13:14)
[2021-10-21] MEDS: SENNA 8.6 MG TAB PO SCH (08:39)
[2021-10-21] MEDS: ASPIRIN 81 MG CHEW PO SCH (08:39)
[2021-10-21] MEDS: ISOSORBIDE MONO EXTENDED REL 30 MG TABCR PO SCH (08:39)
[2021-10-21] MEDS: FUROSEMIDE 20 MG TAB PO SCH (08:40)
[2021-10-21] MEDS: LOSARTAN POTASSIUM 25 MG TAB PO SCH (08:40)
[2021-10-21] MEDS: PRAVASTATIN SOD 40 MG TAB PO SCH (08:40)
[2021-10-21] MEDS: METOPROLOL SUCC 25MG EXT REL TAB PO SCH (08:41)
[2021-10-21] MEDS: FOLIC ACID 1 MG TAB PO SCH (08:41)
[2021-10-21] MEDS: PANTOprazole 40 MG TAB PO SCH (08:41)
[2021-10-21] MEDS: INSULIN GLARGINE SOLOSTAR 100 UNITS/ML 3 ML PEN SC SCH (09:41)
--- NOTE | 2021-10-21 13:15 | Discharge Summary ---
Date of Service October 21, 2021 Admission HPI Per Admitting Provider 86 yo nonsmoker with known CAD s/p CABG presents with chest pain and exertional shortness of breath, worse in the last couple of weeks. Workup revealed a drop in H/H from 11.6/39 in Aug 12 to 7.7/ tonight. Heme positive on rectal exam performed by ER physician, however, the patient denies any blood per rectum, changes in BMs (takes a regular stool softener) and denies nausea, vomiting. He does report a poor appetite for the past 3-6 months. He did recently get put on omeprazole by his PCP because taking daily famotidine wasn't helping him. He frequently takes Tums or Rolaids and has been asking for these meds recently per son who is at bedside. Patient cannot describe his chest pain but it clearly comes on with exertion, and is better with rest. He states it is more intense now. He has known ICM with and EF 45%, and denies any changes in leg swelling which has been present for a long time, no orthopnea. He has a decreased exercise tolerance because of SOB. He has suspected ILD and was seen by [facility] pulmonology in 2019. He underwent a CT chest which was abnormal and PFTs with 6 minute walk test was recommended. Patient declined followup. He reports increase cough with some sputum production for the past few months. Denies fevers or chills. He also has CLL and is under active surveillance with oncology. No treatment has been needed and he denies weight loss, night sweats, or other B symptoms at this time. He currently denies any chest pain In the ER, he was given ASA 324mg and protonix Principal Diagnosis Demand Ischemia Acute anemia Microcytic anemia, likely iron deficient Discharge Exam Patient appears well, hard of hearing, no acute distress Respiratory breathing comfortably on room air, no wheezing/rhonchi/rales Cardiovascular regular rate and rhythm, no murmurs/rubs/gallops Gastrointestinal (Abdomen) soft, non tender, non distended Musculoskeletal No edema Neurologic awake, alert, hard of hearing, spontaneously moving extremities Discharge Data Allergies Allergy/AdvReac Type Severity Reaction Status Date / Time GAMAL Inhibitors Allergy Unknown Verified 10/13/21 22:44 Consultations 10/13/21 21:07 ED Decision to Admit Stat 10/13/21 23:58 Consult Cardiology Routine Consult Gastroenterology Routine Hospital Course (1) Non-ST elevation [place] (NSTEMI): (2) Symptomatic anemia: (3) Acute GI bleeding: Mr Patrick Sapp is a 86 year old man with history of CKD stage 3, ischemic cardiomyopathy, CAD, IDDM and remaining PMHx per H&P presented to the ER on 10/13 with chest pain and shortness of breath found to have anemia. His hemoglobin on presentation was 7.7 with an MCV of 76 compared to Hb of 13 and normal MCV from 2 years prior. He received 2 units packed RBC and did not have any evidence of bleed while here. He was seen by GI and recommended deferring endoscopy unless he had meg bleeding. He will need to follow up with them after discharge for EGD and/or colonoscopy for evaluation of his microcytic anemia (likely iron deficiency from chronic blood loss). His chest pain and shortness of breath was demand ischemia in the setting of his anemia. His symptoms resolved after blood transfusion. Initially, he was seen by PT and recommended rehab and he remained in the hospital awaiting placement. Subsequent PT assessments patient did markedly improve but PT continues to recommend rehab. Patient, however, does not want to remain in the hospital any longer and wants to return home with home care services and the support of his 3 sons. Prior to discharge, his son Car was called and updated. Home Health Attestation I certify that this patient is under my care and that I, or a physicians press assistant and feeder working with me, had a face to-face encounter that meets the home health [id number] encounter requirements with this patient. The encounter with the patient was in whole, or in part, for the following medical condition, which is the primary reason for home health care (list medical condition): Non STEMI, GI Bleed I certify that, based on my findings, the following services are medically necessary home health services: My clinical findings support the need for the above services because: OT Assess ADL Status and Restore Function w ADLs PT Assessment for Endurance / Balance / Strength PT Eval for Safety and Mobility PT Eval for Safety, Gait Training, Assistive Devices PT Gait and Balance Training, Strengthening and Safety Skilled Nsg Assessment Skilled Nsg Instruction New Medications Further, I certify that my clinical findings support that this patient is homebound (i.e. absences from home require considerable and taxing effort and are for medical reasons or bahai services or infrequently or of short duration when for other reasons) because: Transportation Assistance/Unable to Leave Home Unassisted Certification for Home Health Services: Based on the above findings, I certify that this patient is confined to the home and needs intermittent intermediate care, physical therapy and/or speech therapy or continues to need occupational therapy. The patient is under my care, and I have initiated the establishment of the plan of care. This patient will be followed by a physician who will periodically review the plan of care. Total Time Total Time Spent Total Time Spent (In Minutes): 40 Discharge Plan Discharge Items Patient Disposition: Home - Home Health Services Reason For Visit: NSTEMI, UPPER GI BLEED Discharge Diagnosis: Demand ischemia Acute anemia Microcytic Anemia Condition on Discharge: Good Activity: Resume your previous activity Non-emergency contact: Primary Care Provider and Cyber Defense Analyst Call non-emergency contact if: you have any medication questions Follow-up/Referrals: Car Carpenetr DO [Primary Care Provider] - (Date & Time 11/11/2021 9:00 AM Provider Blanca Restrepo PA-C Department Cardiology, [facility] ) Nadine Li MD [Outside Practitioners] - (Date & Time 10/24/2021 11:00 AM Provider Nadine Li MD Department [facility] ) Diet: Carb Consistent or DM2 and Heart Healthy Diet Texture: Easy to Chew Addtl Attending Provider Instructions: You were admitted for weakness found to have anemia This is likely Iron deficiency. You received 2 unit RBC (blood) while in the hospital You had no overt bleeding and was seen by Cyber Defense Analyst. It is recommended you follow up with Gastroenterology to arrange for an outpatient Endoscopy (EGD and/or colonoscopy) to evaluate for the source of your anemia You were started on oral iron. This may cause constipation so you were also started on colace (stool softener) and miralax (laxative). You should follow up with your primary care provider for repeat CBC in 1 week, Iron studies, folate level, B12 level. Pending Studies at Discharge: No Stand-Alone Forms: My Sessions, Smoking Cessation Medications and DC Order Prescriptions: New pantoprazole 40 mg Tablet,Delayed Release (Dr/Ec) 40 mg PO QAM 60 Days Qty: 60 RF: 0 ferrous sulfate 325 mg (65 mg iron) tablet 325 mg PO DAILY Qty: 30 RF: 1 docusate sodium [Colace] 100 mg capsule 100 mg PO DAILY Qty: 30 RF: 1 polyethylene glycol 3350 [Miralax] 17 gram/dose powder 8.5 g PO DAILY PRN (Reason: constipation) Qty: 119 RF: 0 Continued pravastatin 40 mg tablet 40 mg PO DAILY RF: 0 furosemide 20 mg tablet 20 mg PO DAILY RF: 0 nitroglycerin 0.4 mg tablet, sublingual 0.4 mg sublingual UD PRN (Reason: Chest Pain) RF: 0 Lantus U-100 Insulin 100 unit/mL solution 20 unit SUBCUT QPM RF: 0 Novolin R Regular U-100 Insuln 100 unit/mL solution 0 unit subcut TIDWMEAL RF: 0 isosorbide mononitrate 30 mg tablet extended release 24 hr 30 mg PO DAILY RF: 0 metoprolol succinate 25 mg tablet extended release 24 hr 25 mg PO DAILY RF: 0 losartan 25 mg tablet 25 mg PO QAM RF: 0 aspirin 81 mg Tablet 81 mg PO DAILY RF: 0 folic acid 1 mg Tablet 1 mg PO DAILY RF: 0 Discontinued famotidine 20 mg tablet 20 mg PO BID PRN (Reason: Heartburn) RF: 0 Discharge Orders: Discharge Order (Routine); Ordered 10/21/21 Ordered By: Law Gamez/Other Patient Handouts: Anemia, Managing Type 2 Diabetes Admission Data Admit Date/Time: 10/13/21 21:45 Attending Provider: Law Singh Admit Provider: Lynne Glez Primary Care Provider: Car Carpenter Other Providers: Larissa Baird ; [facility] ; [facility] [place] ; Lynne Glez ; Gianluca Simons ; Kenia Powell ; Kris Gaffney Other Interventions: Discharge Summary Assessment (RN) Last Done: 10/21/21 11:14
== END 2021-10-21 14:00 | disposition home health service (06) | DRG 811 ==
LOC: ED 19:47 → SUATTDRO 21:45 → 2S 21:45 → 3W 10-20 18:20

== ENCOUNTER 2022-03-25 06:26 | Inpatient (IN) ==
[2022-03-25] MEDS ORDERED: traMADol HCL 50 MG TABLET PO STA (06:48)
[2022-03-25] MEDS ORDERED: ACETAMINOPHEN 500 MG TAB PO STA (06:48)
[2022-03-25] MEDS ORDERED: LIDOCAINE 5% 1 PATCH TD STA (06:48)
--- NOTE | 2022-03-25 06:48 | Emergency Department Note ---
Impression & Plan Fall, Elevated troponin I level, Back pain, Anemia ED Provider Note NAME: LILLIAN GALARZA AGE: 86 SEX: M : 1935 ARRIVES VIA: Ambulance INFORMANT: Patient, ED PROVIDER(S): Ramírez Jauregui MD Chief Complaint: Fall, hip and back pain HPI: Patient presents due to concern for fall with associated head and neck pain. Patient states that he has neuropathy in his heels and sometimes he does not know if he was leaning somewhat backward. The patient states that he fell backward last evening around 11 PM as he was going to bed fell into a chair. Patient states that he went to bed but this morning was unable to get up out of bed very well as he had pain in his back and hips. Patient denies any nausea or vomiting but does have some indigestion. He states that he may have some associated chest pain from the cold. Patient also has reproducible chest pain. Patient denies any nausea or vomiting. Patient denies any abdominal pain or extremity pain. No focal weakness or headache. The patient denies any head strike or LOC at the time of his fall. ROS: See HPI for pertinent positives and negatives. A total of 10 systems were reviewed and otherwise negative. Past medical history: See below Surgical history: See below Social history: See below Physical Exam: GENERAL: NAD, wearing a mask, non-toxic. EYE EXAM: Normal conjunctiva. PERRL, no anisocoria and EOM's grossly intact w/o pain. NECK: Supple, no nuchal rigidity, no adenopathy, non-tender. No signs of meningismus. FROM of the neck with good chin to chest and neck extension. No stridor. LUNGS: Clear to auscultation. Normal chest wall mechanics. HEART: NSR, no MRG. ABDOMEN: Abdomen soft, non-tender, normo-active bowel sounds, no masses, no rebound or guarding. BACK: Mild reproducible right-sided SI and midline lumbar TTP. SKIN: No rashes and no bruising. UPPER EXTREMITIES: Upper extremities are grossly normal. LOWER EXTREMITIES: Grossly normal, no edema. NEURO EXAM: A&O x3, cranial nerves II-XII grossly intact, normal speech, moves all 4 extremities. Differential diagnoses: Fracture, dislocation, contusion, intra-abdominal, pneumothorax, intrathoracic, intracranial, neurologic, compartment syndrome, rhabdomyolysis, as well as other pathologies. Course: Patient was seen and evaluated the bedside. Full history physical exam was performed. EKG interpreted by me Sinus tachycardia with first-degree AV block with PVCs noted, rate of 101, prolonged UT, wide QRS, left bundle branch block pattern. Depressions noted lat erally in the high lateral leads. Also in V2. Slight elevation in aVR. Patient does appear to have prior depressions with slight elevation in aVR from prior completed October 15, 2021. Imaging Studies: See Below Cardiac monitoring: An order was placed for continuous cardiac monitoring. The monitor shows a rate of 88 with sinus rhythm. MDM: Patient was seen due to concern for fall. Blood work was obtained along with an EKG and troponin the patient did have imaging completed and was given pain medication. EKG does appear to show likely chronic changes. Patient does have a borderline elevated troponin at 22 this is significantly decreased from comparison in September. Patient does have a creatinine 1.4 which is close to the patient's baseline. Kidney function grossly unremarkable with normal white count mild anemia hemoglobin 13. Patient's chest x-ray shows cardiomegaly with stable appearance of chronic interstitial lung disease. Patient's lumbar spine pelvis and sacrum and coccyx show no definite acute fracture. The patient is a chronic L1 with mild superior endplate compression at L3 which is progressively worse. The patient does not have any reproducible tenderness upon reassessment. Given that the patient has a prior history of heart disease and does have an elevated troponin a repeat was obtained. The repeat troponin is almost double from what it was initially and thus I did make the recommendation for observation and treatment to continue to trend his enzymes. I also discussed with the patient the patient's son at bedside about PT and OT to ensure that he has better mobility and is able to get up from a seated or laying down position. They are in agreement plan of care. I did speak with Virginie Wong PA-C and Dr. Chou and the patient was admitted to Dr. Chou [facility] medical service. Past Med/Surg History Medical History Abdominal aortic aneurysm Acute GI bleeding CAD (coronary artery disease) "[place] at age 35 ~ 2009 - CABG x 4 " CKD stage 3 secondary to diabetes DM (diabetes mellitus) Heart disease ILD (interstitial lung disease) Ischemic cardiomyopathy Neuropathy, diabetic Non-ST elevation [place] (NSTEMI) Peripheral arterial disease Symptomatic anemia Surgical History S/P CABG (coronary artery bypass graft) Family History (Updated 03/25/22 @ 11:18 by Virginie Wong PA-C) Other Family history non-contributory Social History Smoking Status: Never smoker Second Hand Exposure: No; Hx Alcohol Use: No Hx Substance Use: No Preferred Language: Singaporean Communication Ability: Effective Running Specialist Required: No Beliefs That Will Affect Care: Yazdanism Yazdanism Beliefs: Ronda Current Living Situation: Alone How many Children do You have: 4 Feels Safe at Home: Yes Assistive Devices: Cane Allergies Allergies Allergy/AdvReac Type Severity Reaction Status Date / Time GAMAL Inhibitors Allergy Unknown Verified 10/13/21 22:44 Home Meds Home Medications Medication Instructions Recorded Confirmed pravastatin 40 mg tablet 40 mg PO DAILY 07/16/18 03/25/22 furosemide 20 mg tablet 20 mg PO DAILY 12/04/19 03/25/22 nitroglycerin 0.4 mg sublingual 0.4 mg sublingual UD PRN Chest Pain 12/04/19 03/25/22 tablet aspirin 81 mg tablet 81 mg PO DAILY 10/13/21 03/25/22 folic acid 1 mg tablet 1 mg PO DAILY 10/13/21 03/25/22 insulin glargine 100 unit/mL 20 unit subcut QPM 10/13/21 03/25/22 subcutaneous solution (Lantus U-100 Insulin) insulin regular human 100 unit/mL 0 unit subcut TIDWMEAL 10/13/21 03/25/22 injection solution (Novolin R Regular U-100 Insulin) isosorbide mononitrate 30 mg 30 mg PO DAILY 10/13/21 03/25/22 tablet,extended release 24 hr losartan 25 mg tablet 25 mg PO QAM 10/13/21 03/25/22 metoprolol succinate 25 mg 25 mg PO DAILY 10/13/21 03/25/22 tablet,extended release 24 hr pantoprazole 40 mg tablet,delayed 40 mg PO DAILY 03/25/22 03/25/22 release Previous Rx's Medication Instructions Recorded docusate sodium 100 mg capsule 100 mg PO DAILY #30 caps 10/21/21 (Colace) ferrous sulfate 325 mg (65 mg 325 mg PO DAILY #30 tabs 10/21/21 iron) tablet polyethylene glycol 3350 17 8.5 g PO DAILY PRN constipation 10/21/21 gram/dose oral powder (Miralax) #119 grams Results & Data (ED) Vital Signs Vital Signs - 24 hr 03/25/22 06:36 03/25/22 06:52 03/25/22 08:11 Temperature 36.6 C Temperature Source Oral Pulse Rate 96 H Pulse Rate [Right Finger] 76 Pulse Rate from SpO2 Sensor Respiratory Rate 20 16 Blood Pressure 189/106 H Blood Pressure [Right Arm] 164/81 H Blood Pressure Mean 133 Blood Pressure Mean [Right Arm] 108 Pulse Oximetry 96 95 94 Oxygen Delivery Method Room Air Room Air Sepsis Recent Fever Within 48 Hours No Sepsis New/Unexplained Change in Mental Status N/A Sepsis Action Taken by Nursing No Action Required 03/25/22 06:31 03/25/22 06:33 03/25/22 06:33 Temperature Temperature Source Pulse Rate 101 H 103 H Pulse Rate [Right Finger] Pulse Rate from SpO2 Sensor 95 H Respiratory Rate 24 21 Blood Pressure 189/106 H Blood Pressure [Right Arm] Blood Pressure Mean 133 Blood Pressure Mean [Right Arm] Pulse Oximetry 93 Oxygen Delivery Method Sepsis Recent Fever Within 48 Hours Sepsis New/Unexplained Change in Mental Status Sepsis Action Taken by Nursing 03/25/22 07:00 03/25/22 08:09 03/25/22 08:10 Temperature Temperature Source Pulse Rate 88 Pulse Rate [Right Finger] Pulse Rate from SpO2 Sensor 88 82 81 Respiratory Rate 15 Blood Pressure Blood Pressure [Right Arm] Blood Pressure Mean Blood Pressure Mean [Right Arm] Pulse Oximetry 93 94 95 Oxygen Delivery Method Sepsis Recent Fever Within 48 Hours Sepsis New/Unexplained Change in Mental Status Sepsis Action Taken by Nursing 03/25/22 08:10 03/25/22 09:00 03/25/22 09:00 Temperature Temperature Source Pulse Rate Pulse Rate [Right Finger] Pulse Rate from SpO2 Sensor 81 Respiratory Rate Blood Pressure 164/81 H 159/79 H Blood Pressure [Right Arm] Blood Pressure Mean 108 105 Blood Pressure Mean [Right Arm] Pulse Oximetry 95 Oxygen Delivery Method Sepsis Recent Fever Within 48 Hours Sepsis New/Unexplained Change in Mental Status Sepsis Action Taken by Nursing 03/25/22 10:00 Temperature Temperature Source Pulse Rate Pulse Rate [Right Finger] Pulse Rate from SpO2 Sensor 78 Respiratory Rate Blood Pressure 164/80 H Blood Pressure [Right Arm] Blood Pressure Mean 108 Blood Pressure Mean [Right Arm] Pulse Oximetry 95 Oxygen Delivery Method Sepsis Recent Fever Within 48 Hours Sepsis New/Unexplained Change in Mental Status Sepsis Action Taken by Residential Medications Current Medication List: was personally reviewed by me Laboratory Data Attestation: I reviewed the patient's lab results. Result diagrams: 03/25/22 07:03/25/22 07: Lab Results 03/25/22 03/25/22 03/25/22 Range/Units 07: 07: 09:02 WBC 10.08 (4.8-10.8) K/ul RBC 4.34 L (4.63-6.08) M/uL Hgb 13.0 L (14.0-18.0) g/dl Hct 39.6 L (40.1-51.0) % MCV 91.2 (80.0-100.0) fL MCH 30.0 (25.0-34.0) pg MCHC 32.8 (32.0-36.0) g/dL RDW Std Deviation 50.4 H (36.4-46.3) fL RDW Coeff of Fahad 14.9 H (11.5-14.5) % Plt Count 172 (130-400) K/uL MPV 9.0 L (9.4-12.4) fL Immature Gran % (Auto) 0.4 % Neut % (Auto) 71.5 % Lymph % (Auto) 18.2 % Kings % (Auto) 6.9 % Eos % (Auto) 2.7 % Baso % (Auto) 0.3 % Neut # (Auto) 7.21 H (1.4-6.5) K/uL Lymph # (Auto) 1.83 (1.2-3.4) K/uL Kings # (Auto) 0.70 (0.24-0.82) K/uL Eos # (Auto) 0.27 (0-0.50) K/uL Baso # (Auto) 0.03 (0-0.2) K/uL Immature Gran # (Auto) 0.04 H (0.00-0.02) K/uL Sodium 137 (136-145) mmol/L Potassium 4.2 (3.5-5.1) mmol/L Chloride 104 (98-107) mmol/L Carbon Dioxide 26 (21-32) mmol/L Anion Gap 7 (3-11) BUN 33 H (6-23) mg/dl Creatinine 1.48 H (0.6-1.4) mg/dl Est Cr Clr Drug Dosing Not Reportable Est GFR ( Amer) 49.0 ml/min Est GFR (Non-Af Amer) 42.2 ml/min BUN/Creatinine Ratio 22.3 H (10-20) Glucose 161 H (70-99(Fasting)) mg/dl Calcium 9.1 (8.5-10.1) mg/dl Total Bilirubin 0.8 (0.2-1.0) mg/dl AST 20 (13-39) U/L ALT 15 (7-52) U/L Alkaline Phosphatase 69 (34-104) U/L Troponin I High Sens 22.2 H 39.9 H D (0-20) pg/ml Total Protein 6.3 (6.0-8.3) gm/dl Albumin 4.0 (3.4-5.0) gm/dl Globulin 2.3 L (2.5-4.0) gm/dl Albumin/Globulin Ratio 1.7 (0.9-2) Administered Medications Acetaminophen (Acetaminophen 500 Mg Tab) 500 mg PO TID MARGIE Stop: 04/24/22 13:59 Last Admin: 03/25/22 13:45 Dose: 500 mg Documented By: BRYSON Insulin Aspart (Insulin Aspart Per Unit) 0 units SC ACHS MARGIE Stop: 04/24/22 12:59 Last Admin: 03/25/22 13:44 Dose: 2 units Documented By: BRYSON Co-signed By: OAM Discontinued Medications Acetaminophen (Acetaminophen 500 Mg Tab) 1,000 mg PO NOW STA Stop: 03/25/22 06:49 Last Admin: 03/25/22 07:26 Dose: 1,000 mg Documented By: WILIAN Al Hydrox/Mg Hydrox/Simethicone (Aluminum/Magnesium Susp 30 Ml Udc) 30 ml PO NOW STA Stop: 03/25/22 06:51 Last Admin: 03/25/22 07:27 Dose: 30 ml Documented By: WILIAN Furosemide (Furosemide 20 Mg Tab) 20 mg PO NOW STA Stop: 03/25/22 11:15 Last Admin: 03/25/22 11:58 Dose: 20 mg Documented By: WILIAN Famotidine (Pepcid 20mg Iv Push) 20 mg in 5 mls @ 2.5 mls/min IV NOW STA Stop: 03/25/22 06:51 Last Admin: 03/25/22 07:27 Dose: 2.5 mls/min Documented By: WILIAN Isosorbide Mononitrate (Isosorbide Kings Extended Rel 30 Mg Tabcr) 30 mg PO NOW STA Stop: 03/25/22 11:15 Last Admin: 03/25/22 11:57 Dose: 30 mg Documented By: WILIAN Lidocaine (Lidocaine 5% 1 Patch) 1 patch TD NOW STA Stop: 03/25/22 06:49 Last Admin: 03/25/22 07:27 Dose: 1 patch Documented By: WILIAN Losartan Potassium (Losartan Potassium 25 Mg Tab) 25 mg PO NOW STA Stop: 03/25/22 11:15 Last Admin: 03/25/22 11:58 Dose: 25 mg Documented By: WILIAN Metoprolol Succinate (Metoprolol Succ 25mg Ext Rel Tab) 25 mg PO NOW STA Stop: 03/25/22 11:15 Last Admin: 03/25/22 11:58 Dose: 25 mg Documented By: WILIAN Tramadol HCl (Tramadol Hcl 50 Mg Tablet) 50 mg PO NOW STA Stop: 03/25/22 06:49 Last Admin: 03/25/22 07:25 Dose: 50 mg Documented By: AMS Imaging Data Radiologist's Impression: Chest X-Ray 03/25/22 06:48 XR chest 1V portable HISTORY: 86 years-old Male anterior chest wall pain . Acute anterior chest wall pain COMPARISON: Chest radiograph 10/13/2021 TECHNIQUE: Portable AP view of the chest FINDINGS: Cardiac silhouette is enlarged. Prior median sternotomy. Atherosclerosis of the thoracic aorta. No pneumothorax or large pleural effusion. Chronic coarse reticular interstitial opacities are most pronounced about the right lung. Right lung volume loss appears similar to prior. Degenerative changes of the shoulders and spine. IMPRESSION: Cardiomegaly with stable appearance of the chronic interstitial lung disease. ACT 112: Negative or not required by law. The above report was generated using voice recognition software. It may contain grammatical, syntax or spelling errors. Electronically signed by: Waqar Valente M.D. 03/25/2022 8:20 AM Lumbar Spine X-Ray 03/25/22 06:48 XR lumbar spine 2-3V, XR sacrum coccyx min 2V, XR pelvis 1-2V routine HISTORY: 86 years-old Male LBP s/p fall . Acute pain of the low back and pelvis status post fall COMPARISON: CT abdomen and pelvis 12/02/2016 TECHNIQUE: 3 views of the lumbar spine with AP view the pelvis and 2 views of the sacrum and coccyx FINDINGS: LUMBAR SPINE: Demineralized appearance of the bones. Mild dextroscoliosis. Atherosclerosis of the abdominal aorta with fusiform dilation measuring up to 3.5 cm. Chronic L1 compression deformity. Additional mild multilevel superior endplate compression also appears to be chronic. Mild superior endplate compression at L3 has progressed from the prior study. Mild multilevel intervertebral disc space narrowing with moderate spondylitic spurring and facet arthrosis. PELVIS: No acute fracture or dislocation. Arterial calcifications. SACRUM/COCCYX: No acute fracture, subluxation or osseous erosion identified. IMPRESSION: 1. No definite acute fracture or subluxation identified. 2. Chronic L1 compression fracture. 3. Mild superior endplate compression at L3 has progressively worsened from the 2017 comparison. This is favored to be chronic, however should be correlated with point tenderness. ACT 112: Negative or not required by law. The above report was generated using voice recognition software. It may contain grammatical, syntax or spelling errors. Electronically signed by: Waqar Valente M.D. 03/25/2022 8:18 AM Pelvis X-Ray 03/25/22 06:48 XR lumbar spine 2-3V, XR sacrum coccyx min 2V, XR pelvis 1-2V routine HISTORY: 86 years-old Male LBP s/p fall . Acute pain of the low back and pelvis status post fall COMPARISON: CT abdomen and pelvis 12/02/2016 TECHNIQUE: 3 views of the lumbar spine with AP view the pelvis and 2 views of the sacrum and coccyx FINDINGS: LUMBAR SPINE: Demineralized appearance of the bones. Mild dextroscoliosis. Atherosclerosis of the abdominal aorta with fusiform dilation measuring up to 3.5 cm. Chronic L1 compression deformity. Additional mild multilevel superior endplate compression also appears to be chronic. Mild superior endplate compression at L3 has progressed from the prior study. Mild multilevel intervertebral disc space narrowing with moderate spondylitic spurring and facet arthrosis. PELVIS: No acute fracture or dislocation. Arterial calcifications. SACRUM/COCCYX: No acute fracture, subluxation or osseous erosion identified. IMPRESSION: 1. No definite acute fracture or subluxation identified. 2. Chronic L1 compression fracture. 3. Mild superior endplate compression at L3 has progressively worsened from the 2017 comparison. This is favored to be chronic, however should be correlated with point tenderness. ACT 112: Negative or not required by law. The above report was generated using voice recognition software. It may contain grammatical, syntax or spelling errors. Electronically signed by: Wqaar Valente M.D. 03/25/2022 8:18 AM Sacrum and Coccyx X-Ray 03/25/22 06:50 XR lumbar spine 2-3V, XR sacrum coccyx min 2V, XR pelvis 1-2V routine HISTORY: 86 years-old Male LBP s/p fall . Acute pain of the low back and pelvis status post fall COMPARISON: CT abdomen and pelvis 12/02/2016 TECHNIQUE: 3 views of the lumbar spine with AP view the pelvis and 2 views of the sacrum and coccyx FINDINGS: LUMBAR SPINE: Demineralized appearance of the bones. Mild dextroscoliosis. Atherosclerosis of the abdominal aorta with fusiform dilation measuring up to 3.5 cm. Chronic L1 compression deformity. Additional mild multilevel superior endplate compression also appears to be chronic. Mild superior endplate compression at L3 has progressed from the prior study. Mild multilevel intervertebral disc space narrowing with moderate spondylitic spurring and facet arthrosis. PELVIS: No acute fracture or dislocation. Arterial calcifications. SACRUM/COCCYX: No acute fracture, subluxation or osseous erosion identified. IMPRESSION: 1. No definite acute fracture or subluxation identified. 2. Chronic L1 compression fracture. 3. Mild superior endplate compression at L3 has progressively worsened from the 2017 comparison. This is favored to be chronic, however should be correlated with point tenderness. ACT 112: Negative or not required by law. The above report was generated using voice recognition software. It may contain grammatical, syntax or spelling errors. Electronically signed by: Waqar Valente M.D. 03/25/2022 8:18 AM Discharge Plan Visit Data Chief Complaint: Fall Stated Complaint: Back Pain ED Provider: Ramírez Jauregui Discharge Problem: Fall, Elevated troponin I level, Back pain, Anemia Patient Disposition: Admitted As Inpatient Discharge Instructions Interventions: ED Discharge Assessment Last Done: 03/25/22 12:58
[2022-03-25] MEDS ORDERED: FAMOTIDINE 20MG IV PUSH 20 MG/5 ML SYR IV STA (06:50)
[2022-03-25] MEDS ORDERED: ALUMINUM/MAGNESIUM SUSP 30 ML UDC PO STA (06:50)
[2022-03-25 07:36] LABS: Basophils # (auto) 0.03 K/uL (0-0.2); Basophils % (auto) 0.3 %; Eosinophils # (auto) 0.27 K/uL (0-0.50); Eosinophils % (auto) 2.7 %; Hematocrit (blood only) 39.6 % (40.1-51.0); Immature Granulocytes # (auto) 0.04 K/uL (0.00-0.02); Immature Granulocytes % (auto) 0.4 %; Lymphocytes # (auto) 1.83 K/uL (1.2-3.4); Lymphocytes % (auto) 18.2 %; Mean Corpuscular Hgb Conc 32.8 g/dL (32.0-36.0); Mean Corpuscular Volume 91.2 fL (80.0-100.0); Monocytes % (auto) 6.9 %; Neutrophils # (auto) 7.21 K/uL (1.4-6.5); Neutrophils % (auto) 71.5 %; Platelet Count 172 K/uL (130-400); RDW Coefficient of Variation 14.9 % (11.5-14.5); RDW Standard Deviation 50.4 fL (36.4-46.3); Red Blood Count 4.34 M/uL (4.63-6.08); White Blood Count 10.08 K/ul (4.8-10.8)
[2022-03-25 08:01] LABS: Troponin I High Sensitivity 22.2 pg/ml (0-20)
[2022-03-25 08:02] LABS: Alanine Aminotransferase 15 U/L (7-52); Albumin Globulin Ratio 1.7 (0.9-2); Alkaline Phosphatase 69 U/L (34-104); Anion Gap 7 (3-11); Aspartate Aminotransferase 20 U/L (13-39); BUN Creatinine Ratio 22.3 (10-20); Bilirubin,Total 0.8 mg/dl (0.2-1.0); Blood Urea Nitrogen 33 mg/dl (6-23); Calcium 9.1 mg/dl (8.5-10.1); Carbon Dioxide 26 mmol/L (21-32); Chloride 104 mmol/L (98-107); Est GFR (Non-African American) 42.2 ml/min; Globulin 2.3 gm/dl (2.5-4.0); Glucose 161 mg/dl (70-99(Fasting)); Potassium 4.2 mmol/L (3.5-5.1); Sodium 137 mmol/L (136-145); Total Protein 6.3 gm/dl (6.0-8.3)
--- NOTE | 2022-03-25 08:21 | XRay Report ---
XR chest 1V portable HISTORY: 86 years-old Male anterior chest wall pain . Acute anterior chest wall pain COMPARISON: Chest radiograph 10/13/2021 TECHNIQUE: Portable AP view of the chest FINDINGS: Cardiac silhouette is enlarged. Prior median sternotomy. Atherosclerosis of the thoracic aorta. No pn eumothorax or large pleural effusion. Chronic coarse reticular interstitial opacities are most pronou nced about the right lung. Right lung volume loss appears similar to prior. Degenerative changes of t he shoulders and spine. IMPRESSION: Cardiomegaly with stable appearance of the chronic interstitial lung disease. ACT 112: Negative or not required by law. The above report was generated using voice recognition software. It may contain grammatical, syntax o r spelling errors. Electronically signed by: Waqar Valente M.D. 03/25/2022 8:20 AM
--- NOTE | 2022-03-25 08:21 | XRay Report ---
XR lumbar spine 2-3V, XR sacrum coccyx min 2V, XR pelvis 1-2V routine HISTORY: 86 years-old Male LBP s/p fall . Acute pain of the low back and pelvis status post fall COMPARISON: CT abdomen and pelvis 12/02/2016 TECHNIQUE: 3 views of the lumbar spine with AP view the pelvis and 2 views of the sacrum and coccyx FINDINGS: LUMBAR SPINE: Demineralized appearance of the bones. Mild dextroscoliosis. Atherosclerosis of the abdominal aorta w ith fusiform dilation measuring up to 3.5 cm. Chronic L1 compression deformity. Additional mild multi level superior endplate compression also appears to be chronic. Mild superior endplate compression at L3 has progressed from the prior study. Mild multilevel intervertebral disc space narrowing with mod erate spondylitic spurring and facet arthrosis. PELVIS: No acute fracture or dislocation. Arterial calcifications. SACRUM/COCCYX: No acute fracture, subluxation or osseous erosion identified. IMPRESSION: 1. No definite acute fracture or subluxation identified. 2. Chronic L1 compression fracture. 3. Mild superior endplate compression at L3 has progressively worsened from the 2017 comparison. This is favored to be chronic, however should be correlated with point tenderness. ACT 112: Negative or not required by law. The above report was generated using voice recognition software. It may contain grammatical, syntax o r spelling errors. Electronically signed by: Waqar Valente M.D. 03/25/2022 8:18 AM
--- NOTE | 2022-03-25 08:46 | Electrocardiogram Report ---
Test Reason : Blood Pressure : / mmHG Vent. Rate : 101 BPM Atrial Rate : 101 BPM P-R Int : 222 ms QRS Dur : 128 ms QT Int : 364 ms P-R-T Axes : 071 -65 112 degrees QTc Int : 471 ms Sinus tachycardia with 1st degree A-V block with frequent , and consecutive Premature ventricular com plexes Left axis deviation Non-specific intra-ventricular conduction block Cannot rule out Anterior infarct , age undetermined T wave abnormality, consider lateral ischemia Abnormal ECG When compared with ECG of 15-OCT-2021 04:41, Minimal criteria for Anterior infarct are now Present Confirmed by El Sharp ([id number]) on 03/25/2022 8:46:05 AM Referred By: REFERRED SELF Confirmed By:Ned Sharp
--- NOTE | 2022-03-25 11:06 | Electrocardiogram Report ---
Test Reason : Blood Pressure : / mmHG Vent. Rate : 077 BPM Atrial Rate : 077 BPM P-R Int : 238 ms QRS Dur : 124 ms QT Int : 402 ms P-R-T Axes : 071 -58 101 degrees QTc Int : 454 ms Sinus rhythm with 1st degree A-V block Left axis deviation Non-specific intra-ventricular conduction delay Nonspecific ST and T wave abnormality Abnormal ECG When compared with ECG of 25-MAR-2022 06:35, Premature ventricular complexes are no longer Present ST less depressed in Lateral leads Confirmed by El Sharp ([id number]) on 03/25/2022 11:06:06 AM Referred By: REFERRED SELF Confirmed By:Ned Sharp
[2022-03-25] MEDS ORDERED: FUROSEMIDE 20 MG TAB PO STA (11:14)
[2022-03-25] MEDS ORDERED: METOPROLOL SUCC 25MG EXT REL TAB PO STA (11:14)
[2022-03-25] MEDS ORDERED: LOSARTAN POTASSIUM 25 MG TAB PO STA (11:14)
[2022-03-25] MEDS ORDERED: ISOSORBIDE MONO EXTENDED REL 30 MG TABCR PO STA (11:14)
--- NOTE | 2022-03-25 11:15 | History & Physical Report ---
Date of Service March 25, 2022 Assessment & Plan (1) Fall: (2) Ambulatory dysfunction: (3) Closed compression fracture of lumbar vertebra: (4) CAD (coronary artery disease): (5) Chronic HFrEF (heart failure with reduced ejection fraction): (6) Ischemic cardiomyopathy: (7) Elevated troponin: (8) CKD stage 3 secondary to diabetes: (9) DM (diabetes mellitus): (10) Neuropathy, diabetic: Plan This is an 86-year-old male who has a significant past medical history of CAD status post CABG x4 in 2005, insulin-dependent diabetes with peripheral neuropathy, AAA 3.[address] chest 11/08, HTN, HLD, chronic HFrEF, ischemic cardiomyopathy, mild pulmonary hypertension, Pulmonary Fibrosis, 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 Fall Ambulatory dysfunction Acute on Chronic Lumbar Compression Deformity at L3 Chronic Lumbar Compression Fx L1 - pt not aware of previously injury admit to med tele Worsening of compression deformity at L3 from previously imaging in 2017, likely new, given fall and acute pinpoint tenderness PT/OT pain control with scheduled APAP, lidocaine patch, prn tramadol for mod/severe pain consult orthotics for LSO brace no radicular sx or bowel/bladder difficulty - no need for ortho consult at this time conservative management suspect pt may benefit from short rehab stay CAD hx of CABG x 4 in 2005 Chronic HFrEF Ischemic Cardiomyopathy HTN HLD Elevated Troponin trop 22.2 on admission, 2hr repeat 39.9 likely chronic elevation 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 LVEF 40 to 45%, moderate aortic regurg, mild pulmonary hypertension. Echo was unchanged from prior comparison of January 2021 Continue ASA, statin, metoprolol, losartan, lasix and Imdur daily weights/strict I and O pt with mild peripheral edema which he states is chronic and appears consistent with last cardiology note from 01/28/22 Insulin Dependent T2DM with peripheral neuropathy last a1c 6.5 02/12/22 On Lantus 20 units at HS with Novolin TID via sliding scale at home place on lantus/novolog per protocol while inpt CKD-3 baseline cr 1.5 renal fxn at baseline avoid nephrotoxic agents Bilateral hearing loss very hard of hearing have to speak loud and slow Chronic Anemia Iron deficiency continue iron supplement h/h stable, hgb 13 DVT ppx: SQ Heparin Dispo: med tele, PT/OT consults, may benefit from short rehab stay if pain limiting mobility as he lives alone FULL CODE PCP: Nadine Li Pt was seen and examined in collaboration with Dr. Chou, please see addendum History of Present Illness Chief Complaint: Fall last night at 11pm; Back pain and difficulty walking since. 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 His son is at bedside. He states last evening at approximately 11 PM he was going to get in bed. Due to loss of sensation secondary to neuropathy in his heels he ended up losing balance and falling backwards hitting his back on the arm of a chair and falling on his buttocks. He denies losing consciousness or hitting head. Since fall he has had midline low back pain that was nonradiating. He was able to get up and get in bed, but when he woke up this morning he had significant pain with movement and ambulating. He was then brought to ED. Up until fall last night him doing relatively well. He walks with a cane or walker at baseline. He lives alone, but does have family close by. He denies any fever, chills, sweats, lightheadedness, dizziness, syncope, palpitations, cough, URI symptoms, nausea, vomiting, abdominal pain, change in bowel or urinary habits. He does occasionally get chest pain, but only when he goes outside and hits the cold air. He did experience this this morning when going outside to come to ER. Currently he denies any chest pain. He has been compliant with his medications although he did not take any medication so far today. He does have history of chronic HFrEF and does not weigh himself on a regular basis. He does have chronic lower extremity swelling and feels this is at baseline. In ED patient remained hemodynamically stable. His lab work was notable for an H&H of 13.0 and 39.6, platelet 172, BUN 39, creatinine 1.48, glucose 161, initial troponin 22.2, SARS-CoV-2 negative, lumbar spine x-ray consistent with chronic L1 compression fracture and mild superior endplate compression deformity at L3 that is progressively worsened since 2017 comparison. His EKG was without significant change. He did receive Tylenol, Tramadol, Pepcid and lidocaine patch while in ED. Allergies Allergy/AdvReac Type Severity Reaction Status Date / Time GAMAL Inhibitors Allergy Unknown Verified 10/13/21 22:44 Home Medications Medication Instructions Recorded Confirmed Type pravastatin 40 mg tablet 40 mg PO DAILY 07/16/18 03/25/22 History furosemide 20 mg tablet 20 mg PO DAILY 12/04/19 03/25/22 History nitroglycerin 0.4 mg sublingual 0.4 mg sublingual UD PRN Chest Pain 12/04/19 03/25/22 History tablet aspirin 81 mg tablet 81 mg PO DAILY 10/13/21 03/25/22 History folic acid 1 mg tablet 1 mg PO DAILY 10/13/21 03/25/22 History insulin glargine 100 unit/mL 20 unit subcut QPM 10/13/21 03/25/22 History subcutaneous solution (Lantus U-100 Insulin) insulin regular human 100 unit/mL 0 unit subcut TIDWMEAL 10/13/21 03/25/22 History injection solution (Novolin R Regular U-100 Insulin) isosorbide mononitrate 30 mg 30 mg PO DAILY 10/13/21 03/25/22 History tablet,extended release 24 hr losartan 25 mg tablet 25 mg PO QAM 10/13/21 03/25/22 History metoprolol succinate 25 mg 25 mg PO DAILY 10/13/21 03/25/22 History tablet,extended release 24 hr docusate sodium 100 mg capsule 100 mg PO DAILY #30 caps 10/21/21 03/25/22 Rx (Colace) ferrous sulfate 325 mg (65 mg 325 mg PO DAILY #30 tabs 10/21/21 03/25/22 Rx iron) tablet polyethylene glycol 3350 17 8.5 g PO DAILY PRN constipation 10/21/21 03/25/22 Rx gram/dose oral powder (Miralax) #119 grams pantoprazole 40 mg tablet,delayed 40 mg PO DAILY 03/25/22 03/25/22 History release Past Med/Surg History Medical History Abdominal aortic aneurysm Acute GI bleeding CAD (coronary artery disease) "NH at age 35 ~ 2009 - CABG x 4 " CKD stage 3 secondary to diabetes DM (diabetes mellitus) Heart disease ILD (interstitial lung disease) Ischemic cardiomyopathy Neuropathy, diabetic Non-ST elevation NH (NSTEMI) Peripheral arterial disease Symptomatic anemia Surgical History S/P CABG (coronary artery bypass graft) Family History (Updated 03/25/22 @ 11:18 by Virginie Wong PA-C) Other Family history non-contributory Social History Smoking Status: Never smoker Second Hand Exposure: No; Hx Alcohol Use: No Hx Substance Use: No Preferred Language: Yemeni Communication Ability: Effective Assistant Teacher Required: No Beliefs That Will Affect Care: Anabaptism Anabaptism Beliefs: Pentecostal Current Living Situation: Alone How many Children do You have: 4 Feels Safe at Home: Yes Assistive Devices: Cane Review of Systems Review of Systems: All systems reviewed & are unremarkable except as noted in HPI & below Physical Exam Physical Exam: Constitutional: WD/WN, Elderly, M, vitals as above, NAD, sitting up in bed, pleasant, [place], answers questions appropriately Head: Normocephalic, Atraumatic Eyes: PERRL, conjunctivae normal, anicteric sclerae ENMT: external ear and nose normal, oropharynx normal Neck: trachea midline, no thyromegaly normal visual inspection Respiratory: normal respiratory effort, lungs clear to auscultation, no wheeze, rales, rhonchi. Normal insp/exp effort, no accessory muscle use Cardiovascular: RRR, no murmur, b/l +1 pitting edema, pedal edema Vessels: no JVD or carotid bruit Chest: normal inspection of chest Abdomen: normal bowel sounds, soft, nontender, no hepatosplenomegaly Musculoskeletal: no cyanosis or clubbing, AROM x4, pinpoint tenderness to Lumbar spine, no pain to paraspinal muscle palpation Skin: no rashes, warm and dry normal turgor Neurologic: PERRL, EOMI, accommodation nl, no face palsy, no dysarthria CN's II-XI intact bilaterally and moves all extremities Psychiatric: A+Ox3, euthymic affect Lymphatic: no cervical or axillary lymphadenopathy : deferred Results & Data Results & Data ([facility]) Vital Signs (Past 12 Hours) Vital Signs Temp Pulse Pulse Resp BP BP Pulse Ox 03/25/22 10:00 164/80 H 95 03/25/22 09:00 95 03/25/22 09:00 159/79 H 03/25/22 08:10 164/81 H 03/25/22 08:10 95 03/25/22 08:09 94 03/25/22 07:00 88 15 93 03/25/22 06:33 189/106 H 03/25/22 06:33 103 H 21 03/25/22 06:31 101 H 24 93 03/25/22 08:11 76 16 164/81 H 94 03/25/22 06:52 95 03/25/22 06:36 36.6 C 96 H 20 189/106 H 96 O2 Del Method 03/25/22 10:00 03/25/22 09:00 03/25/22 09:00 03/25/22 08:10 03/25/22 08:10 03/25/22 08:09 03/25/22 07:00 03/25/22 06:33 03/25/22 06:33 03/25/22 06:31 03/25/22 08:11 03/25/22 06:52 Room Air 03/25/22 06:36 Room Air Diagnostic Findings Chest X-Ray 03/25/22 06:48 XR chest 1V portable HISTORY: 86 years-old Male anterior chest wall pain . Acute anterior chest wall pain COMPARISON: Chest radiograph 10/13/2021 TECHNIQUE: Portable AP view of the chest FINDINGS: Cardiac silhouette is enlarged. Prior median sternotomy. Atherosclerosis of the thoracic aorta. No pneumothorax or large pleural effusion. Chronic coarse reticular interstitial opacities are most pronounced about the right lung. Right lung volume loss appears similar to prior. Degenerative changes of the shoulders and spine. IMPRESSION: Cardiomegaly with stable appearance of the chronic interstitial lung disease. ACT 112: Negative or not required by law. The above report was generated using voice recognition software. It may contain grammatical, syntax or spelling errors. Electronically signed by: Waqar Valente M.D. 03/25/2022 8:20 AM Lumbar Spine X-Ray 03/25/22 06:48 XR lumbar spine 2-3V, XR sacrum coccyx min 2V, XR pelvis 1-2V routine HISTORY: 86 years-old Male LBP s/p fall . Acute pain of the low back and pelvis status post fall COMPARISON: CT abdomen and pelvis 12/02/2016 TECHNIQUE: 3 views of the lumbar spine with AP view the pelvis and 2 views of the sacrum and coccyx FINDINGS: LUMBAR SPINE: Demineralized appearance of the bones. Mild dextroscoliosis. Atherosclerosis of the abdominal aorta with fusiform dilation measuring up to 3.5 cm. Chronic L1 compression deformity. Additional mild multilevel superior endplate compression also appears to be chronic. Mild superior endplate compression at L3 has progressed from the prior study. Mild multilevel intervertebral disc space narrowing with moderate spondylitic spurring and facet arthrosis. PELVIS: No acute fracture or dislocation. Arterial calcifications. SACRUM/COCCYX: No acute fracture, subluxation or osseous erosion identified. IMPRESSION: 1. No definite acute fracture or subluxation identified. 2. Chronic L1 compression fracture. 3. Mild superior endplate compression at L3 has progressively worsened from the 2017 comparison. This is favored to be chronic, however should be correlated with point tenderness. ACT 112: Negative or not required by law. The above report was generated using voice recognition software. It may contain grammatical, syntax or spelling errors. Electronically signed by: Waqar Valente M.D. 03/25/2022 8:18 AM Pelvis X-Ray 03/25/22 06:48 XR lumbar spine 2-3V, XR sacrum coccyx min 2V, XR pelvis 1-2V routine HISTORY: 86 years-old Male LBP s/p fall . Acute pain of the low back and pelvis status post fall COMPARISON: CT abdomen and pelvis 12/02/2016 TECHNIQUE: 3 views of the lumbar spine with AP view the pelvis and 2 views of the sacrum and coccyx FINDINGS: LUMBAR SPINE: Demineralized appearance of the bones. Mild dextroscoliosis. Atherosclerosis of the abdominal aorta with fusiform dilation measuring up to 3.5 cm. Chronic L1 compression deformity. Additional mild multilevel superior endplate compression also appears to be chronic. Mild superior endplate compression at L3 has progressed from the prior study. Mild multilevel intervertebral disc space narrowing with moderate spondylitic spurring and facet arthrosis. PELVIS: No acute fracture or dislocation. Arterial calcifications. SACRUM/COCCYX: No acute fracture, subluxation or osseous erosion identified. IMPRESSION: 1. No definite acute fracture or subluxation identified. 2. Chronic L1 compression fracture. 3. Mild superior endplate compression at L3 has progressively worsened from the 2017 comparison. This is favored to be chronic, however should be correlated with point tenderness. ACT 112: Negative or not required by law. The above report was generated using voice recognition software. It may contain grammatical, syntax or spelling errors. Electronically signed by: Waqar Valente M.D. 03/25/2022 8:18 AM Sacrum and Coccyx X-Ray 03/25/22 06:50 XR lumbar spine 2-3V, XR sacrum coccyx min 2V, XR pelvis 1-2V routine HISTORY: 86 years-old Male LBP s/p fall . Acute pain of the low back and pelvis status post fall COMPARISON: CT abdomen and pelvis 12/02/2016 TECHNIQUE: 3 views of the lumbar spine with AP view the pelvis and 2 views of the sacrum and coccyx FINDINGS: LUMBAR SPINE: Demineralized appearance of the bones. Mild dextroscoliosis. Atherosclerosis of the abdominal aorta with fusiform dilation measuring up to 3.5 cm. Chronic L1 compression deformity. Additional mild multilevel superior endplate compression also appears to be chronic. Mild superior endplate compression at L3 has progressed from the prior study. Mild multilevel intervertebral disc space narrowing with moderate spondylitic spurring and facet arthrosis. PELVIS: No acute fracture or dislocation. Arterial calcifications. SACRUM/COCCYX: No acute fracture, subluxation or osseous erosion identified. IMPRESSION: 1. No definite acute fracture or subluxation identified. 2. Chronic L1 compression fracture. 3. Mild superior endplate compression at L3 has progressively worsened from the 2017 comparison. This is favored to be chronic, however should be correlated with point tenderness. ACT 112: Negative or not required by law. The above report was generated using voice recognition software. It may contain grammatical, syntax or spelling errors. Electronically signed by: Waqar Valente M.D. 03/25/2022 8:18 AM Medications Administered Medication List Discontinued Medications Acetaminophen (Acetaminophen 500 Mg Tab) 1,000 mg PO NOW STA Stop: 03/25/22 06:49 Last Admin: 03/25/22 07:26 Dose: 1,000 mg Documented By: WILIAN Al Hydrox/Mg Hydrox/Simethicone (Aluminum/Magnesium Susp 30 Ml Udc) 30 ml PO NOW STA Stop: 03/25/22 06:51 Last Admin: 03/25/22 07:27 Dose: 30 ml Documented By: WILIAN Famotidine (Pepcid 20mg Iv Push) 20 mg in 5 mls @ 2.5 mls/min IV NOW STA Stop: 03/25/22 06:51 Last Admin: 03/25/22 07:27 Dose: 2.5 mls/min Documented By: WILIAN Lidocaine (Lidocaine 5% 1 Patch) 1 patch TD NOW STA Stop: 03/25/22 06:49 Last Admin: 03/25/22 07:27 Dose: 1 patch Documented By: WILIAN Tramadol HCl (Tramadol Hcl 50 Mg Tablet) 50 mg PO NOW STA Stop: 03/25/22 06:49 Last Admin: 03/25/22 07:25 Dose: 50 mg Documented By: WILIAN ECG Rate (beats per minute): 77 Rhythm: normal sinus Findings: + 1st degree AV block Additional Comments: no st t wave changes COVID-19 Results Results COVID-19 Adm Lab Results: RBC 4.34 M/uL (4.63-6.08) L 03/25/22 WBC 10.08 K/ul (4.8-10.8) 03/25/22 Hgb 13.0 g/dl (14.0-18.0) L 03/25/22 Hct 39.6 % (40.1-51.0) L 03/25/22 Plt Count 172 K/uL (130-400) 03/25/22 Neutrophils (%) (Auto) 71.5 % 03/25/22 Lymphocytes (%) (Auto) 18.2 % 03/25/22 Monocytes # (Auto) 0.70 K/uL (0.24-0.82) 03/25/22 Eosinophils # (Auto) 0.27 K/uL (0-0.50) 03/25/22 Immature Granulocyte % (Auto) 0.4 % 03/25/22 Neutrophils # (Auto) 7.21 K/uL (1.4-6.5) H 03/25/22 Lymphocytes # (Auto) 1.83 K/uL (1.2-3.4) 03/25/22 Monocytes # (Auto) 0.70 K/uL (0.24-0.82) 03/25/22 Eosinophils # (Auto) 0.27 K/uL (0-0.50) 03/25/22 Basophils # (Auto) 0.03 K/uL (0-0.2) 03/25/22 Immature Granulocyte # (Auto) 0.04 K/uL (0.00-0.02) H 03/25 Na 137 mmol/L (136-145) 03/25/22 K 4.2 mmol/L (3.5-5.1) 03/25/22 Cl 104 mmol/L (98-107) 03/25/22 CO2 26 mmol/L (21-32) 03/25/22 Anion Gap 7 (3-11) 03/25/22 BUN 33 mg/dl (6-23) H 03/25/22 Creatinine 1.48 mg/dl (0.6-1.4) H 03/25/22 BUN/Creatinine Ratio 22.3 (10-20) H 03/25/22 Glucose Level 161 mg/dl (70-99(Fasting)) H 03/25/22 Ca 9.1 mg/dl (8.5-10.1) 03/25/22 Total Bilirubin 0.8 mg/dl (0.2-1.0) 03/25/22 AST/SGOT 20 U/L (13-39) 03/25/22 ALT/SGPT 15 U/L (7-52) 03/25/22 Alkaline Phosphatase 69 U/L (34-104) 03/25/22 Total Protein 6.3 gm/dl (6.0-8.3) 03/25/22 Albumin 4.0 gm/dl (3.4-5.0) 03/25/22 Globulin 2.3 gm/dl (2.5-4.0) L 03/25/22 Albumin/Globulin Ratio 1.7 (0.9-2) 03/25/22 Total CK 57 U/L (30-223) 03/25/22 SARS-CoV-2, RNA, NAAT NEGATIVE (NEGATIVE) 03/25/22 Chest X-Ray 03/25/22 Code Status & VTE Plan Code Status FULL CODE VTE Prophylaxis Plan VTE Prophylaxis will be ordered: Yes Supervising Physician Co-Signing Physician Notes Attending addendum: 86 years old male with significant past medical history as mentioned in the H&P was admitted with history of fall at 11 PM last night and developed back pain with difficulty walking He has had an episode of chest pain while he was waiting outside for ambulance this morning Denies any more chest pain, palpitation or shortness of breath but has back pain which is controlled with her breast Noted to have increasing troponins and some EKG changes On examination Lying in bed comfortably Hemodynamically stable Chest-decreased breath sounds bilaterally with occasional bibasilar crackles Heart-S1-S2 Abdomen-benign Zfqwbzmfwog-[id number]+ edema bilaterally which seems to be chronic 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
[2022-03-25] MEDS ORDERED: MAGNESIUM HYDROXIDE SUSP 30 ML UDC PO PRN (13:00)
[2022-03-25] MEDS ORDERED: GLUCAGON FOR INJ 1 MG VIAL SQ PRN (13:00)
[2022-03-25] MEDS ORDERED: GLUCOSE 10 TAB/TUBE PO PRN (13:00)
[2022-03-25] MEDS ORDERED: ACETAMINOPHEN 325 MG TAB PO PRN (13:00)
[2022-03-25] MEDS ORDERED: POLYETHYLENE (MIRALAX) 17 GM PACK PO PRN (13:00)
[2022-03-25] MEDS ORDERED: ALUMINUM/MAGNESIUM SUSP 30 ML UDC PO PRN (13:00)
[2022-03-25] MEDS ORDERED: CARBOHYDRATES FOR HYPOGLYCEMIA PO PRN (13:00)
[2022-03-25] MEDS ORDERED: DEXTROSE 50% 50 ML SYRINGE IV PRN (13:00)
[2022-03-25] MEDS ORDERED: GLUCOSE 40% GEL 15 GM TUBE PO PRN (13:00)
[2022-03-25 13:15] LABS: Appearance Urine Clear (Clear); Bacteria Urine Automated Negative (Negative); Bilirubin Urine Negative (Negative); Blood Urine 1+ (Negative); Color Urine Yellow; Glucose Urine UA Negative (Negative); Ketones Urine Trace (Negative); Leukocyte Esterase Urine Negative (Negative); Nitrite Urine Negative (Negative); Protein Urine 2+ (Negative); Specific Gravity Urine 1.023 (1.000-1.030); Urobilinogen Urine Negative (Negative); pH Urine 6.5 (4.5-7.5)
[2022-03-25] MEDS: INSULIN ASPART PER UNIT SC SCH ×3 (13:44→20:31)
[2022-03-25] MEDS: ACETAMINOPHEN 500 MG TAB PO SCH ×2 (13:45→20:25)
--- NOTE | 2022-03-25 16:01 | Electrocardiogram Report ---
Test Reason : Blood Pressure : / mmHG Vent. Rate : 066 BPM Atrial Rate : 066 BPM P-R Int : 224 ms QRS Dur : 120 ms QT Int : 398 ms P-R-T Axes : 075 -49 184 degrees QTc Int : 417 ms Poor data quality, interpretation may be adversely affected Sinus rhythm with 1st degree A-V block Left axis deviation Right bundle branch block T wave abnormality, consider lateral ischemia Abnormal ECG When compared with ECG of 25-MAR-2022 10:19, Right bundle branch block has replaced Non-specific intra-ventricular conduction delay Confirmed by El Sharp ([id number]) on 03/25/2022 4:00:37 PM Referred By: REFERRED SELF Confirmed By:Ned Sharp
[2022-03-25] MEDS ORDERED: Heparin IV Adult Wt-Based Low-Dose *NO* Bolus Protocol IV SCH (16:22)
[2022-03-25] MEDS ORDERED: ASPIRIN 81 MG ECTAB PO STA (16:27)
[2022-03-25] MEDS ORDERED: HEPARIN SODIUM/DEXTROSE 25,000 UNITS/500 ML BAG IV SCH (16:30)
[2022-03-25] MEDS ORDERED: INFLUENZA VACCINE HIGH DOSE PF 65+ 0.7 ML SYR IM ONE (17:32)
[2022-03-25 19:13] LABS: INR 1.1 (0.9-1.1); Partial Thromboplastin Time 28.3 Seconds (21.0-31.0); Prothrombin Time 11.3 Seconds (9.0-12.0)
[2022-03-25] MEDS: LANTUS PER UNIT CHARGE SQ SCH (20:31)
[2022-03-25] MEDS ORDERED: HEPARIN SOD 5,000 UNIT/0.5 ML VIAL SQ SCH (22:00)
[2022-03-26] MEDS ORDERED: NITROGLYCERIN SL 0.4 MG/TAB TAB SL STA (02:10)
[2022-03-26] MEDS ORDERED: NITROGLYCERIN SL 0.4 MG/TAB TAB ONE (02:13)
[2022-03-26] MEDS ORDERED: METOPROLOL SUCC 25MG EXT REL TAB PO SCH ×2 (02:25→09:00)
[2022-03-26 03:38] LABS: Basophils # (auto) 0.05 K/uL (0-0.2); Basophils % (auto) 0.6 %; Eosinophils # (auto) 0.64 K/uL (0-0.50); Eosinophils % (auto) 7.4 %; Hemoglobin 12.4 g/dl (14.0-18.0); Immature Granulocytes # (auto) 0.05 K/uL (0.00-0.02); Immature Granulocytes % (auto) 0.6 %; Lymphocytes # (auto) 2.22 K/uL (1.2-3.4); Lymphocytes % (auto) 25.6 %; Mean Corpuscular Hemoglobin 30.2 pg (25.0-34.0); Mean Corpuscular Hgb Conc 33.5 g/dL (32.0-36.0); Mean Corpuscular Volume 90.2 fL (80.0-100.0); Mean Platelet Volume 9.4 fL (9.4-12.4); Monocytes # (auto) 0.68 K/uL (0.24-0.82); Monocytes % (auto) 7.8 %; Neutrophils # (auto) 5.04 K/uL (1.4-6.5); Platelet Count 177 K/uL (130-400); RDW Coefficient of Variation 15.1 % (11.5-14.5); RDW Standard Deviation 49.7 fL (36.4-46.3); White Blood Count 8.68 K/ul (4.8-10.8)
[2022-03-26 04:01] LABS: Albumin Globulin Ratio 1.8 (0.9-2); Albumin Level 3.7 gm/dl (3.4-5.0); BUN Creatinine Ratio 20.4 (10-20); Bilirubin,Total 1.1 mg/dl (0.2-1.0); Calcium 8.7 mg/dl (8.5-10.1); Est GFR (African American) 51.5 ml/min; Est GFR (Non-African American) 44.4 ml/min; Globulin 2.1 gm/dl (2.5-4.0); Magnesium 1.8 mg/dl (1.7-2.4); Potassium 4.2 mmol/L (3.5-5.1); Total Protein 5.8 gm/dl (6.0-8.3)
[2022-03-26 04:05] LABS: Troponin I High Sensitivity 178.6 pg/ml (0-20)
[2022-03-26 04:20] LABS: Partial Thromboplastin Time 55.7 Seconds (21.0-31.0)
--- NOTE | 2022-03-26 05:50 | Communication Note ---
Date of Service: March 26, 2022 Patient with chest pain improved with nitroglycerin around around 2:10 AM as per RN. EKG as per my interpretation: Rate 80, NSR, LAD, LAFB, 1 AVB, T wave abnormalities lateral leads, PVCs troponin 230s -> 320 -> 178.6 AP NSTEMI hx CAD N.p.o. until patient seen by cardiology in a.m. in anticipation of ischemic work-up Continue aspirin, beta-lianet, statin, IV heparin
[2022-03-26] MEDS ORDERED: MAGNESIUM SULFATE / D5W 1 GM/100 ML BAG IV ONE (05:52)
--- NOTE | 2022-03-26 06:38 | CT Scan Report ---
CT head/brain wo con CLINICAL HISTORY: 86 years-old Male with victor. Acute headache TECHNIQUE: Multiple axial CT images of the head were obtained without contrast. A dose lowering tech nique was utilized adhering to the principles of ALARA. CT DOSE: 691.05 mGy.cm COMPARISON: None. FINDINGS: No acute intracranial hemorrhage, midline shift, intracranial mass, hydrocephalus, territorial ischem ia or abnormal extra-axial collection. Age-related changes. White matter just chronic microvascular i schemic disease. Chronic appearing lacunar infarcts of the damon radiata. The calvarium is intact. Prior bilateral lens repair. The paranasal sinuses, mastoid air cells, and m iddle ear cavities are clear. IMPRESSION: No acute intracranial abnormality. ACT 112: Negative or not required by law. The above report was generated using voice recognition software. It may contain grammatical, syntax o r spelling errors. Electronically signed by: Waqar Valente M.D. 03/26/2022 6:36 AM
--- NOTE | 2022-03-26 08:17 | Electrocardiogram Report ---
Test Reason : Blood Pressure : / mmHG Vent. Rate : 078 BPM Atrial Rate : 078 BPM P-R Int : 216 ms QRS Dur : 132 ms QT Int : 436 ms P-R-T Axes : 076 -60 082 degrees QTc Int : 497 ms Sinus rhythm with 1st degree A-V block with occasional Premature ventricular complexes Left axis deviation Non-specific intra-ventricular conduction block Abnormal ECG When compared with ECG of 25-MAR-2022 15:34, Premature ventricular complexes are now Present Non-specific intra-ventricular conduction block has replaced Right bundle branch block Confirmed by El Sharp ([id number]) on 03/26/2022 8:17:24 AM Referred By: REFERRED SELF Confirmed By:Ned Sharp
[2022-03-26] MEDS: FOLIC ACID 1 MG TAB PO SCH (08:30)
[2022-03-26] MEDS: LIDOCAINE 5% 1 PATCH TD SCH (08:30)
[2022-03-26] MEDS: FERROUS SULFATE 325 MG TAB PO SCH (08:30)
[2022-03-26] MEDS: ISOSORBIDE MONO EXTENDED REL 30 MG TABCR PO SCH (08:30)
[2022-03-26] MEDS: PRAVASTATIN SOD 40 MG TAB PO SCH (08:30)
[2022-03-26] MEDS: LOSARTAN POTASSIUM 25 MG TAB PO SCH (08:30)
[2022-03-26] MEDS: DOCUSATE SODIUM 100 MG CAP PO SCH (08:30)
[2022-03-26] MEDS: PANTOprazole 40 MG TAB PO SCH (08:30)
[2022-03-26] MEDS: ACETAMINOPHEN 500 MG TAB PO SCH ×3 (08:31→20:54)
[2022-03-26] MEDS: ASPIRIN 81 MG ECTAB PO SCH (08:31)
--- NOTE | 2022-03-26 08:37 | Cardiology Consultation ---
Date of Consultation March 26, 2022 Assessment & Plan (1) CAD (coronary artery disease): (2) Chronic HFrEF (heart failure with reduced ejection fraction): (3) Elevated troponin: (4) Fall: Plan 86-year-old male with history of chronic ischemic heart disease and chronic stable angina. Presented to the emergency department after a fall secondary to neuropathy and loss of sensation in his feet. Denies any neurologic changes or chest pain preceding this event. High-sensitivity troponins peaked at 320. Did have an episode of chest discomfort last evening. EKGs during this admission showed sinus rhythm with a first-degree AV block in the 60s to 70s. He did have T wave inversions in lead V4 and V5 but not much different from prior EKGs. Minimally elevated high-sensitivity troponins in the setting of chronic ischemic heart disease/CAD, hypervolemia, CKD, and acute fracture. Echocardiogram and EKG without significant change. In this setting of elevated troponins unlikely to be related to acute coronary syndrome. - Continue aspirin. - Discontinue IV heparin at this time. - Blood pressures elevated during this stay, possibly related to hypovolemia versus pain. Future considerations of increasing Imdur to 60 mg daily. -Patient is also on losartan 25 mg daily and metoprolol 25 mg daily, continue. Patient appears hypervolemic on exam with lower extremity edema and weight gain. - We will give an additional 20 mg of p.o. Lasix this morning and start Lasix 40 mg daily tomorrow. Patient normally maintains on Lasix 20 mg daily. - Trend BMP. Potassium goal of 4.0 and magnesium goal 2.0, replace as necessary. Case discussed with Dr. Rock, will follow. Supervising Physician Co-Signing Physician Notes Patient seen and examined with CORNELIO Wren. Agree with findings and assessment as above. Additional lasix as above. No need for heparin. History of Present Illness Reason for Consultation: Elevated troponin Requesting Physician: Artur Luna Attending Physician: Laureen Chou MD History of Present Illness 86-year-old male with history of ischemic heart disease and chronic stable angina initially presented to the emergency department due to a fall getting out of bed around 11 p.m. on 03/24. States that he lost sensation in his feet secondary to neuropathy and improved balance falling backwards landing on his buttocks. He developed significant back discomfort and difficulty ambulating in the morning and was brought into the emergency department. X-ray of the lumbar spine was consistent with a chronic L1 fracture and compression deformity of L3 which was worsened compared to 2017. High-sensitivity troponin drawn: 22.2>>39.9>>236.3>>320>>178.6 Otherwise lab work remarkable for mild anemia with a hemoglobin of 12.4, sodium this morning mildly low at 135. Renal function stable with a creatinine of 1.4 EKG initially showed sinus rhythm with first-degree, 77 bpm. Repeat EKG showed T wave inversions in leads V4 and V5. Prior EKG on 10/14 was very similar showing the same T wave inversions. Patient was given aspirin 162 mg and started on IV heparin. Echocardiogram pending. 03/26: Early this morning around 2 AM patient developed chest discomfort which improved with the use of sublingual nitroglycerin. EKG this morning showed sinus rhythm with first-degree block and PVCs. Nonspecific IVCD. T wave inversions no longer noted in lateral leads. QTc 497 ms Echo 03/26: offical read pending, preliminary reads looks unchanged. Upon entrance into the room patient resting in bed. States that he is very uncomfortable due to back pain. Denies any current chest pain, but did mention pain over night. Pain occasionally worse with palpitation, but can also be unchanged. SL nitro does help. No unusual shortness of breath. Denies palpitations, dizziness, or presyncope. No orthopnea or PND. Notes worsening lower extremity edema, states "water pills don't seem to work". Tele: SR, PACs with 1 AVB 60-90s I&O: -606mL Weight: 89kg >> 91.5 kg Past Medical History: 1. Chronic coronary heart disease, CABG in 2007 or 2009 at [place], martin omical details unknown 2. Prior myocardial infarction at the age of 35 3. Ischemic cardiomyopathy, pharmacologic nuclear stress test, September, revealed a large sized inferior, septal, apical scar with no superimposed ischemia. LVEF 42%. 4. Echocardiogram, [facility] 02/05/2021: Large sized apical, septal, anteroseptal, anterior wall motion abnormality with hypokinesis to akinesis of the segments, LVEF mildly reduced 45 to 49%, moderate aortic regurgitation. 5. Flow cytometry suggestive of monotypic CD5 positive B-cell population with an immunophenotype typical of chronic lymphocytic leukemia, small lymphocytic leukemia (CLL/SLL) 6. Suspected underlying interstitial lung disease 4. Chart history, past admission for gastrointestinal bleeding 2016, diverticulosis noted at that time. EGD November,, report describes a single nonbleeding localized erosion at the pylorus. Colonoscopy November,, report describes many small and large mouth diverticula in the sigmoid and descending colon. Allergies Allergy/AdvReac Type Severity Reaction Status Date / Time GAMAL Inhibitors Allergy Unknown Verified 10/13/21 22:44 Home Medications Medication Instructions Recorded Confirmed Type pravastatin 40 mg tablet 40 mg PO DAILY 07/16/18 03/25/22 History furosemide 20 mg tablet 20 mg PO DAILY 12/04/19 03/25/22 History nitroglycerin 0.4 mg sublingual 0.4 mg sublingual UD PRN Chest Pain 12/04/19 03/25/22 History tablet aspirin 81 mg tablet 81 mg PO DAILY 10/13/21 03/25/22 History folic acid 1 mg tablet 1 mg PO DAILY 10/13/21 03/25/22 History insulin glargine 100 unit/mL 20 unit subcut QPM 10/13/21 03/25/22 History subcutaneous solution (Lantus U-100 Insulin) insulin regular human 100 unit/mL 0 unit subcut TIDWMEAL 10/13/21 03/25/22 History injection solution (Novolin R Regular U-100 Insulin) isosorbide mononitrate 30 mg 30 mg PO DAILY 10/13/21 03/25/22 History tablet,extended release 24 hr losartan 25 mg tablet 25 mg PO QAM 10/13/21 03/25/22 History metoprolol succinate 25 mg 25 mg PO DAILY 10/13/21 03/25/22 History tablet,extended release 24 hr docusate sodium 100 mg capsule 100 mg PO DAILY #30 caps 10/21/21 03/25/22 Rx (Colace) ferrous sulfate 325 mg (65 mg 325 mg PO DAILY #30 tabs 10/21/21 03/25/22 Rx iron) tablet polyethylene glycol 3350 17 8.5 g PO DAILY PRN constipation 10/21/21 03/25/22 Rx gram/dose oral powder (Miralax) #119 grams pantoprazole 40 mg tablet,delayed 40 mg PO DAILY 03/25/22 03/25/22 History release Patient History Medical History Abdominal aortic aneurysm Acute GI bleeding CAD (coronary artery disease) "[place] at age 35 ~ 2009 - CABG x 4 " CKD stage 3 secondary to diabetes DM (diabetes mellitus) Heart disease ILD (interstitial lung disease) Ischemic cardiomyopathy Neuropathy, diabetic Non-ST elevation [place] (NSTEMI) Peripheral arterial disease Symptomatic anemia Surgical History S/P CABG (coronary artery bypass graft) Family History (Updated 03/25/22 @ 11:18 by Virginie Wong PA-C) Other Family history non-contributory Social History Smoking Status: Former smoker Second Hand Exposure: No; Do You Dip or Chew Tobacco: No; Tobacco Cessation Education Requested by Patient: No Hx Alcohol Use: No Hx Substance Use: No Preferred Language: Slovenian Communication Ability: Effective Coordinator Volunteer Services Required: No Beliefs That Will Affect Care: Hoahaoism Hoahaoism Beliefs: Ronda Current Living Situation: Alone How many Children do You have: 4 Feels Safe at Home: Yes Safety Concerns: Feels Safe At This Time Assistive Devices: Cane Assistive Devices Comment: Cane and walker for longer distances Review of Systems Review of Systems: All systems reviewed & are unremarkable except as noted in HPI & below MOAPA Physical Exam Constitutional: WD/WN, vitals as above no acute distress Eyes: PERRL, conjunctivae normal, anicteric sclerae ENMT: Ears: + hearing impairment Neck: normal visual inspection and trachea midline Respiratory: normal respiratory effort, lungs clear to auscultation Auscultation: + diminished lung sounds (BL bases ) Cardiovascular: RRR, no murmur, no edema Heart Sounds: normal S1 and normal S2 Vessels: no JVD Extremities: + edema (+2 BLLE pitting edema) Gastrointestinal (Abdomen): normal bowel sounds, soft, nontender, no hepatosplenomegaly Skin: no rashes, warm and dry Psychiatric: A+Ox3, euthymic affect Results & Data ([facility]) Vital Signs (Past 12 Hours) Vital Signs Temp Pulse Pulse Resp BP Pulse Ox O2 Del Method 03/26/22 08:01 36.8 C 84 16 177/80 H 92 Room Air 03/26/22 02:57 79 146/77 H 03/26/22 02:37 84 150/67 H 03/26/22 02:00 36.7 C 83 20 170/83 H 97 Room Air 03/26/22 05:48 76 03/25/22 23:48 36.4 C L 69 20 150/70 H 95 Room Air Laboratory Results Cardiac Enzymes 03/25/22 03/25/22 03/25/22 Range/Units 09:02 14:08 18:46 AST (13-39) U/L Troponin I High Sens 39.9 H D 236.3 H* D 320.6 H* D (0-20) pg/ml 03/26/22 Range/Units 03:11 AST 18 (13-39) U/L Troponin I High Sens 178.6 H* D (0-20) pg/ml Coagulation 03/25/22 03/26/22 Range/Units 18:46 03:11 PT 11.3 (9.0-12.0) Seconds APTT 28.3 55.7 H* (21.0-31.0) Seconds CBC 03/26/22 Range/Units 03:11 WBC 8.68 (4.8-10.8) K/ul RBC 4.10 L (4.63-6.08) M/uL Hgb 12.4 L (14.0-18.0) g/dl Hct 37.0 L (40.1-51.0) % Plt Count 177 (130-400) K/uL Neut # (Auto) 5.04 (1.4-6.5) K/uL Lymph # (Auto) 2.22 (1.2-3.4) K/uL [place] # (Auto) 0.68 (0.24-0.82) K/uL Eos # (Auto) 0.64 H (0-0.50) K/uL Baso # (Auto) 0.05 (0-0.2) K/uL Comprehensive Metabolic Panel 03/26/22 Range/Units 03:11 Sodium 135 L (136-145) mmol/L Potassium 4.2 (3.5-5.1) mmol/L Chloride 102 (98-107) mmol/L Carbon Dioxide 26 (21-32) mmol/L BUN 29 H (6-23) mg/dl Creatinine 1.42 H (0.6-1.4) mg/dl Glucose 160 H (70-99(Fasting)) mg/dl Calcium 8.7 (8.5-10.1) mg/dl AST 18 (13-39) U/L ALT 12 (7-52) U/L Alkaline Phosphatase 63 (34-104) U/L Total Protein 5.8 L (6.0-8.3) gm/dl Albumin 3.7 (3.4-5.0) gm/dl Intake and Output 03/25/22 03/26/22 03/26/22 22:59 06:59 14:59 Intake Total 200 / 344 144 / 344 Output Total 250 / 750 500 / 750 200 / 200 Balance -50 / -406 -356 / -406 -200 / -200 Intake: IV 144 / 144 Heparin Sodium/Dextrose 25,000 144 / 144 units In 500 ml @ 1,000 UNITS/ HR 20 mls/hr IV .Q24H [facility] Rx#: [id number] Oral 200 / 200 Output: Urine 250 / 750 500 / 750 200 / 200 Other: Other Intake Source Patient is NPO # Unmeasured Voids 1 Weight 89 kg 91.5 kg Weight Measurement Method Built in [facility] Diagnostic Findings 2D echocardiogram report summary [facility] 10/14/2021: Large size apical, septal, anteroseptal, and anterior wall motion abnormality with hypokinesis to akinesis of the segments. Left ventricular ejection fraction 40 to 45% Moderate aortic regurgitation Mild pulmonary hypertension 2D echocardiogram report summary February 05, 2021: The left ventricular cavity size is normal. The wall thickness is mildly increased in segments with normal wall motion. There is a large sized apical, septal, anteroseptal, and inferior wall motion abnormality with mild hypokinesis to akinesis of the segments. There is a small sized septal scar. The qualitative LV ejection fraction is 45-49% (mildly reduced). The left ventricular diastolic function is mildly abnormal (grade I). The aortic valve is mildly calcified. Aortic stenosis is absent. Moderate aortic valve regurgitation is present. There is moderate mitral annular calcification. The mitral valve leaflets thickness is moderately increased. Mild mitral regurgitation is present. There is no evidence of pulmonary hypertension. The aortic root is mildly enlarged. Compared to last available study changes are noted as follows: Aortic insufficiency is now moderate
[2022-03-26] MEDS: traMADol HCL 50 MG TABLET PO PRN ×2 (08:39→14:11)
[2022-03-26] MEDS: INSULIN ASPART PER UNIT SC SCH ×4 (08:40→20:52)
[2022-03-26] MEDS ORDERED: FUROSEMIDE 20 MG TAB PO SCH (09:00)
[2022-03-26] MEDS ORDERED: FUROSEMIDE 20 MG TAB PO ONE (09:21)
--- NOTE | 2022-03-26 13:34 | Electrocardiogram Report ---
Test Reason : Blood Pressure : / mmHG Vent. Rate : 082 BPM Atrial Rate : 082 BPM P-R Int : 242 ms QRS Dur : 132 ms QT Int : 410 ms P-R-T Axes : 079 -59 094 degrees QTc Int : 479 ms Sinus rhythm with 1st degree A-V block with occasional Premature ventricular complexes Left axis deviation Non-specific intra-ventricular conduction block Abnormal ECG When compared with ECG of 25-MAR-2022 15:34, Premature ventricular complexes are now Present Non-specific intra-ventricular conduction block has replaced Right bundle branch block Confirmed by El Sharp ([id number]) on 03/26/2022 1:34:17 PM Referred By: REFERRED SELF Confirmed By:Ned Sharp
--- NOTE | 2022-03-26 17:08 | Hospitalist Progress Note ---
Date of Service March 26, 2022 Assessment & Plan (1) Fall: (2) Ambulatory dysfunction: (3) Closed compression fracture of lumbar vertebra: (4) CAD (coronary artery disease): (5) Chronic HFrEF (heart failure with reduced ejection fraction): (6) Ischemic cardiomyopathy: (7) Elevated troponin: (8) CKD stage 3 secondary to diabetes: (9) DM (diabetes mellitus): (10) Neuropathy, diabetic: Plan This is an 86-year-old male who has a significant past medical history of CAD status post CABG x4 in 2005, insulin-dependent diabetes with peripheral neuropathy, AAA 3.[address] chest 11/08, HTN, HLD, chronic HFrEF, ischemic cardiomyopathy, mild pulmonary hypertension, Pulmonary Fibrosis, 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 Fall Ambulatory dysfunction Acute on Chronic Lumbar Compression Deformity at L3 Chronic Lumbar Compression Fx L1 - pt not aware of previously injury Worsening of compression deformity at L3 from previously imaging in 2017, likely new, given fall and acute pinpoint tenderness Pain control with scheduled APAP, lidocaine patch, prn tramadol for mod/severe pain Consult orthotics for LSO brace doubt any need for formal orthospine consult No radicular sx or bowel/bladder difficulty - no need for ortho consult at this time Still complains to have pain Will advise PT and OT evaluation and likely to need short-term rehab placement on discharge CAD hx of CABG x 4 in 2005 Chronic HFrEF Ischemic Cardiomyopathy HTN HLD Elevated Troponin trop 22.2 on admission, 2hr repeat 39.9 likely chronic elevation in setting 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 LVEF 40 to 45%, moderate aortic regurg, mild pulmonary hypertension. Echo was unchanged from prior comparison of January 2021 Continue ASA, statin, metoprolol, losartan, lasix and Imdur Appreciate cardiology input and recommendation Doubt any ACS and Heparin was discontinued Received additional dose of Lasix and Lasix dose will be increased to 40 mg once a day Insulin Dependent T2DM with peripheral neuropathy last a1c 6.5 02/12/22 On Lantus 20 units at HS with Novolin TID via sliding scale at home place on lantus/novolog per protocol while inpt CKD-3 baseline cr 1.5 renal fxn at baseline avoid nephrotoxic agents Bilateral hearing loss very hard of hearing have to speak loud and slow Chronic Anemia Iron deficiency continue iron supplement h/h stable, hgb 13 DVT ppx: SQ Heparin Dispo: med tele, PT/OT consults, may benefit from short rehab stay if pain limiting mobility as he lives alone FULL CODE PCP: Nadine Li Admission and Anticipated Discharge Date Admission Date: March 25, 2022 Subjective 03/26/2022 The patient was seen and examined in telemetry unit He did not have any more chest pain Complains to have pain at the back without any radiation Denies any shortness of breath and or palpitation Review of Systems Review of Systems: All systems reviewed and are unremarkable except as noted below Physical Exam Physical Exam: Lying in bed comfortably Constitutional: well developed, well nourished, + ill appearing and + obese Eyes: PERRL, conjunctivae normal, anicteric sclerae ENMT: external ear and nose normal, oropharynx normal Neck: trachea midline, no thyromegaly Respiratory: no respiratory distress Auscultation: + diminished lung sounds and + crackles (Minimal crackles at the bases) Cardiovascular: Rate/Rhythm: regular rate and regular rhythm; not tachycardic Heart Sounds: normal S1 and + murmur Extremities: + edema (Trace edema bilaterally) Gastrointestinal (Abdomen): Inspection/Auscultation: normal bowel sounds; abdomen not distended Percussion/Palpation: abdomen soft; abdomen nontender Musculoskeletal: Back pain with localized tenderness in the lower back, no radiculopathy Neurologic: Alert, awake and oriented. Generally weak. No focal neurodeficit Lymphatic: no cervical or axillary lymphadenopathy Results & Data Results & Data ([facility]) Vital Signs (Past 12 Hours) Vital Signs Temp Pulse Pulse Resp BP BP Pulse Ox 03/26/22 15:38 36.3 C L 68 17 136/69 94 03/26/22 07:00 80 03/26/22 11:23 36.4 C L 79 18 135/69 95 03/26/22 10:10 03/26/22 08:01 36.8 C 84 16 177/80 H 92 03/26/22 05:48 76 O2 Del Method 03/26/22 15:38 Room Air 03/26/22 07:00 03/26/22 11:23 Room Air 03/26/22 10:10 Room Air 03/26/22 08:01 Room Air 03/26/22 05:48 Laboratory Results Short CBC 03/26/22 Range/Units 03:11 WBC 8.68 (4.8-10.8) K/ul Hgb 12.4 L (14.0-18.0) g/dl Hct 37.0 L (40.1-51.0) % Plt Count 177 (130-400) K/uL BMP 03/26/22 03:11 Sodium 135 L Potassium 4.2 Chloride 102 Carbon Dioxide 26 BUN 29 H Creatinine 1.42 H Glucose 160 H Calcium 8.7 Liver Function 03/26/22 Range/Units 03:11 Total Bilirubin 1.1 H (0.2-1.0) mg/dl AST 18 (13-39) U/L ALT 12 (7-52) U/L Alkaline Phosphatase 63 (34-104) U/L Albumin 3.7 (3.4-5.0) gm/dl Medications Administered Current Inpatient Medications Acetaminophen (Acetaminophen 325 Mg Tab) 650 mg PO Q4H PRN PRN Reason: Pain or Fever Stop: 04/24/22 12:59 Acetaminophen (Acetaminophen 500 Mg Tab) 500 mg PO TID [facility] Stop: 04/24/22 13:59 Last Admin: 03/26/22 14:11 Dose: 500 mg Al Hydrox/Mg Hydrox/Simethicone (Aluminum/Magnesium Susp 30 Ml Udc) 15 ml PO Q4H PRN PRN Reason: Dyspepsia Stop: 04/24/22 12:59 Last Admin: 03/26/22 11:48 Dose: 15 ml Aspirin (Aspirin 81 Mg Ectab) 81 mg PO DAILY MARGIE Stop: 04/25/22 08:59 Last Admin: 03/26/22 08:31 Dose: 81 mg Dextrose (Dextrose 50% 50 Ml Syringe) 25 - 50 ml IV UD PRN; Protocol PRN Reason: Hypoglycemia Protocol Stop: 04/24/22 12:59 Docusate Sodium (Docusate Sodium 100 Mg Cap) 100 mg PO DAILY [facility] Stop: 04/25/22 08:59 Last Admin: 03/26/22 08:30 Dose: 100 mg Ferrous Sulfate (Ferrous Sulfate 325 Mg Tab) 325 mg PO DAILY MARGIE Stop: 04/25/22 08:59 Last Admin: 03/26/22 08:30 Dose: 325 mg Folic Acid (Folic Acid 1 Mg Tab) 1 mg PO DAILY MARGIE Stop: 04/25/22 08:59 Last Admin: 03/26/22 08:30 Dose: 1 mg Furosemide (Furosemide 40 Mg Tab) 40 mg PO QAM MARGIE Stop: 04/26/22 08:59 Glucagon (Glucagon For Inj 1 Mg Vial) 1 mg SQ UD PRN; Protocol PRN Reason: Hypoglycemia Protocol Stop: 04/24/22 12:59 Glucose (Glucose 40% Gel 15 Gm Tube) 15 - 30 gm PO UD PRN; Protocol PRN Reason: Hypoglycemia Protocol Stop: 04/24/22 12:59 Glucose (Glucose 10 Tab/Tube) 4 - 8 tab PO UD PRN; Protocol PRN Reason: Hypoglycemia Treatment Stop: 04/24/22 12:59 Insulin Aspart (Insulin Aspart Per Unit) 0 units SC ACHS MARGIE Stop: 04/24/22 12:59 Last Admin: 03/26/22 12:31 Dose: 3 units Insulin Glargine (Lantus Per Unit Charge) 0 - 16 units SQ HS MARGIE Stop: 04/24/22 20:59 Last Admin: 03/25/22 20:31 Dose: 16 units Isosorbide Mononitrate (Isosorbide [place] Extended Rel 30 Mg Tabcr) 30 mg PO DAILY MARGIE Stop: 04/25/22 08:59 Last Admin: 03/26/22 08:30 Dose: 30 mg Lidocaine (Lidocaine 5% 1 Patch) 1 patch TD QAM MARGIE Stop: 04/25/22 08:59 Last Admin: 03/26/22 08:30 Dose: 1 patch Losartan Potassium (Losartan Potassium 25 Mg Tab) 25 mg PO QAM MARGIE Stop: 04/25/22 08:59 Last Admin: 03/26/22 08:30 Dose: 25 mg Magnesium Hydroxide (Magnesium Hydroxide Susp 30 Ml Udc) 30 ml PO Q12H PRN PRN Reason: Constipation Stop: 04/24/22 12:59 Metoprolol Succinate (Metoprolol Succ 25mg Ext Rel Tab) 25 mg PO DAILY MARGIE Stop: 04/25/22 02:24 Last Admin: 03/26/22 03:45 Dose: 25 mg Miscellaneous (Carbohydrates For Hypoglycemia ) 15 - 30 gm PO UD PRN PRN Reason: Hypoglycemia Protocol Stop: 04/24/22 12:59 Miscellaneous (Remove Lidoderm Patch) 1 each N/A DAILY@2100 [facility] Stop: 04/24/22 20:59 Last Admin: 03/25/22 20:25 Dose: 1 each Nitroglycerin (Nitroglycerin Sl 0.4 Mg/Tab Tab) 0.4 mg SL Q5M PRN PRN Reason: Chest Pain Stop: 04/25/22 04:09 Pantoprazole Sodium (Pantoprazole 40 Mg Tab) 40 mg PO DAILY [facility] Stop: 04/25/22 08:59 Last Admin: 03/26/22 08:30 Dose: 40 mg Polyethylene Glycol (Polyethylene (Miralax) 17 Gm Pack) 17 gm PO DAILY PRN PRN Reason: Constipation Stop: 04/24/22 12:59 Pravastatin Sodium (Pravastatin Sod 40 Mg Tab) 40 mg PO DAILY [facility] Stop: 04/25/22 08:59 Last Admin: 03/26/22 08:30 Dose: 40 mg Tramadol HCl (Tramadol Hcl 50 Mg Tablet) 50 mg PO Q4H PRN PRN Reason: mod/severe pain; > or = 5/10 Stop: 04/24/22 12:59 Last Admin: 03/26/22 14:11 Dose: 50 mg
[2022-03-26] MEDS: LANTUS PER UNIT CHARGE SQ SCH (20:52)
[2022-03-27 05:19] LABS: Basophils # (auto) 0.04 K/uL (0-0.2); Basophils % (auto) 0.4 %; Eosinophils # (auto) 0.58 K/uL (0-0.50); Eosinophils % (auto) 6.3 %; Hematocrit (blood only) 38.1 % (40.1-51.0); Hemoglobin 12.9 g/dl (14.0-18.0); Immature Granulocytes # (auto) 0.05 K/uL (0.00-0.02); Immature Granulocytes % (auto) 0.5 %; Lymphocytes # (auto) 2.47 K/uL (1.2-3.4); Lymphocytes % (auto) 26.9 %; Mean Corpuscular Hemoglobin 30.2 pg (25.0-34.0); Mean Corpuscular Hgb Conc 33.9 g/dL (32.0-36.0); Mean Corpuscular Volume 89.2 fL (80.0-100.0); Mean Platelet Volume 9.2 fL (9.4-12.4); Monocytes # (auto) 0.78 K/uL (0.24-0.82); Monocytes % (auto) 8.5 %; Neutrophils # (auto) 5.25 K/uL (1.4-6.5); Neutrophils % (auto) 57.4 %; Platelet Count 170 K/uL (130-400); RDW Coefficient of Variation 15.3 % (11.5-14.5); RDW Standard Deviation 49.9 fL (36.4-46.3); Red Blood Count 4.27 M/uL (4.63-6.08); White Blood Count 9.17 K/ul (4.8-10.8)
[2022-03-27 05:21] LABS: Partial Thromboplastin Ratio 1.1; Partial Thromboplastin Time 30.5 Seconds (21.0-31.0)
[2022-03-27 05:28] LABS: BUN Creatinine Ratio 20.2 (10-20); Creatinine Clr Calc Pharmacy 46.9 ml/min; Est GFR (African American) 60.6 ml/min; Est GFR (Non-African American) 52.3 ml/min; Potassium 4.1 mmol/L (3.5-5.1)
[2022-03-27] MEDS: NITROGLYCERIN SL 0.4 MG/TAB TAB SL PRN ×2 (07:37→07:42)
--- NOTE | 2022-03-27 07:47 | Cardiology Progress Note ---
Date of Service March 27, 2022 Assessment & Plan (1) CAD (coronary artery disease): (2) Chronic HFrEF (heart failure with reduced ejection fraction): Plan: (3) Elevated troponin: (4) Fall: Plan 86-year-old male with history of chronic ischemic heart disease and chronic stable angina. Presented to the emergency department after a fall secondary to neuropathy and loss of sensation in his feet. Denies any neurologic changes or chest pain preceding this event. High-sensitivity troponins peaked at 320. Did have an episode of chest discomfort again this am. EKGs during this admission have showed transient ST changes in this anterior and lateral leads. ST depression noted this am with CP episode. Tele showing tachycardiac episodes with frequent PACs. Minimally elevated high-sensitivity troponins in the setting of chronic ischemic heart disease/CAD, hypervolemia, CKD, and acute fracture. Echocardiogram and EKG without significant change. In this setting of elevated troponins unlikely to be related to acute coronary syndrome. Patient has known chronic stable angina likly with a hypertension factor involved. Also will need to consider a musculoskeletal component and/or GI cause to his discomfort also. - Continue aspirin. - No need to restart IV heparin at this time - Blood pressures remain elevated with chest pain symptoms. Increase Imdur to 60 mg daily -Patient is also on losartan 25 mg daily, future considerations for increasing. Unsure if CCB like amlodipine would be a good option due to HFrEF/lower extremity edema- could exacerbate fluid retention. -Tachycardic episodes with frequent PACs with chest pain symptoms- increase metoprolol to 37.5 mg daily Patient now appears euvolemic on exam, lower extremity edema back to his b aseline. Renal function stable. - Continue Lasix 40 mg daily. - Trend BMP. Potassium goal of 4.0 and magnesium goal 2.0, replace as necessary. Case discussed with Dr. Rock, will follow. Admission and Anticipated Discharge Date Admission Date: March 25, 2022 Supervising Physician Co-Signing Physician Notes Patient seen and examined with CORNELIO Wren. Agree with findings and assessment as above. Additional lasix as above. No need for heparin. Subjective 86-year-old male with history of chronic ischemic heart disease and chronic stable angina. Presented to the emergency department after a fall secondary to neuropathy and loss of sensation in his feet. 03/26: Patient's main concern is regarding back discomfort. Did have 1 episode of chest discomfort which was somewhat relieved with nitroglycerin. T wave changes in V4 and V5 similar compared to prior EKGs. High-sensitivity troponins peaked at 320 and trended downward. Patient was hypervolemic on exam additional 20 mg of Lasix was given for total of 40 mg. Echocardiogram: LVEF 40 to 45% with large sized apical, septal, anteroseptal, anterior wall motion abnormality with hypokinesis to akinesis of the segments. Grade 1 diastolic dysfunction. Moderate AI. Moderate MR. Pulmonary hypertension with PASP of 48 mmHg-primarily unchanged from previous. 03/27: Received secure TT from nursing. Patient woke up complaining of right- sided chest discomfort without associated symptoms. Blood pressures were elevated with systolics in the 170s. He was given x2 nitroglycerin with relief in symptoms and blood pressure lowered to 123/71. EKG at the time showed ST/ST with ST depression in leads anterior/lateral leads. PVCs/PACs noted. Known WMA noted on echo in this location. Labs: Renal function electrolytes stable. Chart and telemetry reviewed. Patient examined at bedside. Upon entrance into the room patient resting comfortably in bed. No further episodes of chest pain since the occurrence this am. No associated symptoms of shortness of breath or palpitations. Review of Systems Review of Systems: All systems reviewed & are unremarkable except as noted in HPI & below Physical Exam Constitutional: WD/WN, vitals as above no acute distress Eyes: PERRL, conjunctivae normal, anicteric sclerae ENMT: Ears: + hearing impairment Neck: normal visual inspection and trachea midline Respiratory: normal respiratory effort, lungs clear to auscultation Auscultation: + diminished lung sounds (BL bases ) Cardiovascular: RRR, no murmur, no edema Heart Sounds: normal S1 and normal S2 Vessels: no JVD Extremities: + edema (+2 BLLE pitting edema) Gastrointestinal (Abdomen): normal bowel sounds, soft, nontender, no hepatosplenomegaly Skin: no rashes, warm and dry Psychiatric: A+Ox3, euthymic affect Results & Data ([facility]) Vital Signs (Past 12 Hours) Vital Signs Temp Pulse Pulse Resp BP Pulse Ox O2 Del Method 03/27/22 05:30 64 03/27/22 03:00 36.7 C 80 20 167/75 H 93 Room Air 03/26/22 23:00 36.9 C 63 20 155/74 H 94 Laboratory Results Coagulation 03/27/22 Range/Units 04:37 APTT 30.5 (21.0-31.0) Seconds CBC 03/27/22 Range/Units 04:37 WBC 9.17 (4.8-10.8) K/ul RBC 4.27 L (4.63-6.08) M/uL Hgb 12.9 L (14.0-18.0) g/dl Hct 38.1 L (40.1-51.0) % Plt Count 170 (130-400) K/uL Neut # (Auto) 5.25 (1.4-6.5) K/uL Lymph # (Auto) 2.47 (1.2-3.4) K/uL [place] # (Auto) 0.78 (0.24-0.82) K/uL Eos # (Auto) 0.58 H (0-0.50) K/uL Baso # (Auto) 0.04 (0-0.2) K/uL Comprehensive Metabolic Panel 03/27/22 Range/Units 04:37 Sodium 137 (136-145) mmol/L Potassium 4.1 (3.5-5.1) mmol/L Chloride 105 (98-107) mmol/L Carbon Dioxide 24 (21-32) mmol/L BUN 25 H (6-23) mg/dl Creatinine 1.24 (0.6-1.4) mg/dl Glucose 102 H (70-99(Fasting)) mg/dl Calcium 9.0 (8.5-10.1) mg/dl Intake and Output 03/26/22 03/27/22 03/27/22 22:59 06:59 14:59 Intake Total 430 / 1129.333 Output Total 950 / 2250 650 / 2250 Balance -520 / -1120.667 -650 / -1120.667 Intake: Oral 430 / 910 Output: Urine 950 / 2250 650 / 2250 Other: Weight 91.1 kg Weight Measurement Method Built in [facility]
[2022-03-27] MEDS ORDERED: METOPROLOL SUCC 25MG EXT REL TAB PO ONE (08:57)
[2022-03-27] MEDS ORDERED: ISOSORBIDE MONO EXTENDED REL 30 MG TABCR PO ONE (08:59)
[2022-03-27] MEDS: LIDOCAINE 5% 1 PATCH TD SCH (09:01)
[2022-03-27] MEDS: DOCUSATE SODIUM 100 MG CAP PO SCH (09:02)
[2022-03-27] MEDS: LOSARTAN POTASSIUM 25 MG TAB PO SCH (09:02)
[2022-03-27] MEDS: ASPIRIN 81 MG ECTAB PO SCH (09:02)
[2022-03-27] MEDS: FOLIC ACID 1 MG TAB PO SCH (09:03)
[2022-03-27] MEDS: PRAVASTATIN SOD 40 MG TAB PO SCH (09:03)
[2022-03-27] MEDS: PANTOprazole 40 MG TAB PO SCH (09:03)
[2022-03-27] MEDS: FUROSEMIDE 40 MG TAB PO SCH (09:03)
[2022-03-27] MEDS: ACETAMINOPHEN 500 MG TAB PO SCH ×3 (09:06→20:26)
[2022-03-27] MEDS: INSULIN ASPART PER UNIT SC SCH ×4 (09:19→20:34)
[2022-03-27] MEDS: FERROUS SULFATE 325 MG TAB PO SCH (10:48)
--- NOTE | 2022-03-27 11:08 | Hospitalist Progress Note ---
Date of Service March 27, 2022 Assessment & Plan (1) Fall: Plan: per Dr. Chou's notes with addendum: (1) Fall: (2) Ambulatory dysfunction: (3) Closed compression fracture of lumbar vertebra: (4) CAD (coronary artery disease): (5) Chronic HFrEF (heart failure with reduced ejection fraction): (6) Ischemic cardiomyopathy: (7) Elevated troponin: (8) CKD stage 3 secondary to diabetes: (9) DM (diabetes mellitus): (10) Neuropathy, diabetic: Plan This is an 86-year-old male who has a significant past medical history of CAD status post CABG x4 in 2005, insulin-dependent diabetes with peripheral neuropathy, AAA 3.[address] chest 11/08, HTN, HLD, chronic HFrEF, ischemic cardiomyopathy, mild pulmonary hypertension, Pulmonary Fibrosis, 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 Fall Ambulatory dysfunction Acute on Chronic Lumbar Compression Deformity at L3 Chronic Lumbar Compression Fx L1 - pt not aware of previously injury Worsening of compression deformity at L3 from previously imaging in 2017, likely new, given fall and acute pinpoint tenderness Pain control with scheduled APAP, lidocaine patch, prn tramadol for mod/severe pain 03/27 continue pain control with above still having significant pain with ambulation will consult Ortho Spine CAD hx of CABG x 4 in 2005 Chronic HFrEF Ischemic Cardiomyopathy HTN HLD Elevated Troponin trop 22.2 on admission, 2hr repeat 39.9 likely chronic elevation 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 LVEF 40 to 45%, moderate aortic regurg, mild pulmonary hypertension. Echo was unchanged from prior comparison of January 2021 Continue ASA, statin, metoprolol, losartan, lasix and Imdur Appreciate cardiology input and recommendation Doubt any ACS and Heparin was discontinued Received additional dose of Lasix and Lasix dose will be increased to 40 mg once a day 04/20 had chest pain this morning relieved by Nitro, BP elevated Imdur increased to 60 mg daily Metoprolol increased to 37.5mg also now on increased Lasix 40mg po daily Insulin Dependent T2DM with peripheral neuropathy last a1c 6.5 02/12/22 On Lantus 20 units at HS with Novolin TID via sliding scale at home place on lantus/novolog per protocol while inpt BSG 131 to 186 CKD-3 baseline cr 1.5 renal fxn at baseline avoid nephrotoxic agents Bilateral hearing loss Chronic Chronic Anemia Iron deficiency continue iron supplement h/h stable, hgb 13 DVT ppx:SQ Heparin Dispo:will need Rehab/SNF FULL CODE PCP: Nadine Li (2) Closed compression fracture of lumbar vertebra: Admission and Anticipated Discharge Date Admission Date: March 27, 2022 Subjective ff up for L3 compression fracture, s/p fall, CHF, CAD, etc had chest pain - central- this morning, relieved after 2 nitro SL on exam, resting in bed, comfortable states chest pain has resolved no dyspnea, palpitations, dizziness still having severe back pain with movement unable to ambulate properly due to pain no leg pain, paresthesias Review of Systems Review of Systems: all noted and negative except for above Physical Exam Physical Exam: General- oriented x 3, not in distress, speaks in sentences with no effort or accessory muscle use Eyes- anicteric Neck- no JVD Lungs- clear breath sounds bilaterally, no rales/wheezes Heart- normal rate, regular rhythm; no murmurs Abdomen- normal bowel sounds, nondistended, soft, nontender Extremities- no pretibial edema, no calf tenderness Back- mild tenderness L spine area Neuro- alert, oriented x 3; no gross focal neurologic deficits Skin- warm & dry Results & Data Results & Data ([facility]) Vital Signs (Past 12 Hours) Vital Signs Temp Pulse Pulse Resp BP Pulse Ox O2 Del Method 03/27/22 08:02 36.3 C L 100 H 18 165/82 H 92 Room Air 03/27/22 05:30 64 03/27/22 03:00 36.7 C 80 20 167/75 H 93 Room Air all noted and reviewed including below (1) Fall Encounter type: initial encounter Qualified Code(s): W19.XXXA - Unspecified fall, initial encounter
--- NOTE | 2022-03-27 13:49 | Electrocardiogram Report ---
Test Reason : Blood Pressure : / mmHG Vent. Rate : 080 BPM Atrial Rate : 080 BPM P-R Int : 220 ms QRS Dur : 132 ms QT Int : 410 ms P-R-T Axes : 074 -53 074 degrees QTc Int : 472 ms Sinus rhythm with 1st degree A-V block Left axis deviation Right bundle branch block Abnormal ECG When compared with ECG of 26-MAR-2022 06:12, Premature ventricular complexes are no longer Present Right bundle branch block has replaced Non-specific intra-ventricular conduction block Confirmed by El Sharp ([id number]) on 03/27/2022 1:49:20 PM Referred By: REFERRED SELF Confirmed By:Ned Sharp
[2022-03-27] MEDS: traMADol HCL 50 MG TABLET PO PRN (13:51)
--- NOTE | 2022-03-27 13:51 | Electrocardiogram Report ---
Test Reason : Blood Pressure : / mmHG Vent. Rate : 099 BPM Atrial Rate : 099 BPM P-R Int : 208 ms QRS Dur : 130 ms QT Int : 370 ms P-R-T Axes : 084 -64 100 degrees QTc Int : 474 ms Sinus rhythm with sinus arrhythmia with occasional Premature ventricular complexes Left axis deviation Non-specific intra-ventricular conduction block T wave abnormality, consider lateral ischemia Abnormal ECG When compared with ECG of 27-MAR-2022 05:01, (unconfirmed) Premature ventricular complexes are now Present Non-specific intra-ventricular conduction block has replaced Right bundle branch block Confirmed by El Sharp ([id number]) on 03/27/2022 1:51:08 PM Referred By: REFERRED SELF Confirmed By:Ned Sharp
--- NOTE | 2022-03-27 13:52 | Electrocardiogram Report ---
Test Reason : Blood Pressure : / mmHG Vent. Rate : 099 BPM Atrial Rate : 099 BPM P-R Int : 200 ms QRS Dur : 132 ms QT Int : 370 ms P-R-T Axes : 013 -63 104 degrees QTc Int : 474 ms Sinus rhythm with occasional Premature ventricular complexes and Premature atrial complexes Left axis deviation Non-specific intra-ventricular conduction block T wave abnormality, consider lateral ischemia Abnormal ECG When compared with ECG of 27-MAR-2022 07:29, (unconfirmed) Premature atrial complexes are now Present Confirmed by El Sharp ([id number]) on 03/27/2022 1:51:35 PM Referred By: REFERRED SELF Confirmed By:Ned Sharp
[2022-03-27] MEDS: ISOSORBIDE MONO EXTENDED REL 30 MG TABCR PO SCH (13:58)
[2022-03-27] MEDS: LANTUS PER UNIT CHARGE SQ SCH (20:34)
[2022-03-28] MEDS: PANTOprazole 40 MG TAB PO SCH (07:50)
[2022-03-28] MEDS: ASPIRIN 81 MG ECTAB PO SCH (07:50)
[2022-03-28] MEDS: METOPROLOL SUCC 25MG EXT REL TAB PO SCH (07:50)
[2022-03-28] MEDS: LOSARTAN POTASSIUM 25 MG TAB PO SCH (07:50)
[2022-03-28] MEDS: FUROSEMIDE 40 MG TAB PO SCH (07:50)
[2022-03-28] MEDS: ISOSORBIDE MONO EXTENDED REL 60 MG TABCR PO SCH (07:51)
[2022-03-28] MEDS: FOLIC ACID 1 MG TAB PO SCH (07:51)
[2022-03-28] MEDS: PRAVASTATIN SOD 40 MG TAB PO SCH (07:52)
[2022-03-28] MEDS: ACETAMINOPHEN 500 MG TAB PO SCH ×3 (07:58→20:32)
[2022-03-28] MEDS: DOCUSATE SODIUM 100 MG CAP PO SCH (07:58)
[2022-03-28] MEDS: LIDOCAINE 5% 1 PATCH TD SCH (08:01)
[2022-03-28] MEDS: INSULIN ASPART PER UNIT SC SCH ×4 (09:17→20:45)
[2022-03-28] MEDS: traMADol HCL 50 MG TABLET PO PRN (09:28)
--- NOTE | 2022-03-28 10:24 | Orthopedic Consultation ---
Date of Consultation March 28, 2022 Assessment & Plan (1) Closed compression fracture of lumbar vertebra: Assessment acute on chronic compression fractures lumbar spine. Plan at this time he does have a brace to wear when he is up and ambulating. If he continues to have pain that does not improve over the next few days we may need to proceed with an MRI lumbar spine and further treatment. Understands agrees with this plan. Otherwise to have him undergo activity as tolerated with his brace. History of Present Illness Reason for Consultation: Back pain Attending Physician: Félix Daugherty MD History of Present Illness This a very pleasant 86-year-old male that states he had a fall at home past Wednesday. He has fairly significant bilateral peripheral neuropathy and does not feel his feet. He fell backwards striking his back. He states he did not fall to the ground in any hard manner. He denies any radicular complaints. States his back pain is worse with activity. Allergies Allergy/AdvReac Type Severity Reaction Status Date / Time GAMAL Inhibitors Allergy Unknown Verified 10/13/21 22:44 Home Medications Medication Instructions Recorded Confirmed Type pravastatin 40 mg tablet 40 mg PO DAILY 07/16/18 03/25/22 History furosemide 20 mg tablet 20 mg PO DAILY 12/04/19 03/25/22 History nitroglycerin 0.4 mg sublingual 0.4 mg sublingual UD PRN Chest Pain 12/04/19 03/25/22 History tablet aspirin 81 mg tablet 81 mg PO DAILY 10/13/21 03/25/22 History folic acid 1 mg tablet 1 mg PO DAILY 10/13/21 03/25/22 History insulin glargine 100 unit/mL 20 unit subcut QPM 10/13/21 03/25/22 History subcutaneous solution (Lantus U-100 Insulin) insulin regular human 100 unit/mL 0 unit subcut TIDWMEAL 10/13/21 03/25/22 History injection solution (Novolin R Regular U-100 Insulin) isosorbide mononitrate 30 mg 30 mg PO DAILY 10/13/21 03/25/22 History tablet,extended release 24 hr losartan 25 mg tablet 25 mg PO QAM 10/13/21 03/25/22 History metoprolol succinate 25 mg 25 mg PO DAILY 10/13/21 03/25/22 History tablet,extended release 24 hr docusate sodium 100 mg capsule 100 mg PO DAILY #30 caps 10/21/21 03/25/22 Rx (Colace) ferrous sulfate 325 mg (65 mg 325 mg PO DAILY #30 tabs 10/21/21 03/25/22 Rx iron) tablet polyethylene glycol 3350 17 8.5 g PO DAILY PRN constipation 10/21/21 03/25/22 Rx gram/dose oral powder (Miralax) #119 grams pantoprazole 40 mg tablet,delayed 40 mg PO DAILY 03/25/22 03/25/22 History release Patient History Medical History Abdominal aortic aneurysm Acute GI bleeding CAD (coronary artery disease) "OR at age 35 ~ 2009 - CABG x 4 " CKD stage 3 secondary to diabetes DM (diabetes mellitus) Heart disease ILD (interstitial lung disease) Ischemic cardiomyopathy Neuropathy, diabetic Non-ST elevation OR (NSTEMI) Peripheral arterial disease Symptomatic anemia Surgical History S/P CABG (coronary artery bypass graft) Family History (Updated 03/25/22 @ 11:18 by Virginie Wong PA-C) Other Family history non-contributory Social History Smoking Status: Former smoker Second Hand Exposure: No; Do You Dip or Chew Tobacco: No; Tobacco Cessation Education Requested by Patient: No Hx Alcohol Use: No Hx Substance Use: No Preferred Language: Tamazight Communication Ability: Effective Independent Living Instructor Required: No Beliefs That Will Affect Care: L[employer]-Day L[employer]-Day Beliefs: Ronda Current Living Situation: Alone How many Children do You have: 4 Feels Safe at Home: Yes Safety Concerns: Feels Safe At This Time Assistive Devices: Cane Assistive Devices Comment: Cane and walker for longer distances Physical Exam Physical Exam: On exam he is currently in bed. He is constricted testing. Results & Data ([facility]) Vital Signs (Past 12 Hours) Vital Signs Temp Pulse Pulse Resp BP BP Pulse Ox 03/28/22 07:37 36.6 C 99 H 18 161/75 H 92 03/28/22 04:12 36.4 C L 82 18 162/81 H 95 03/28/22 05:03 64 03/28/22 00:05 36.8 C 75 18 146/78 H 94 O2 Del Method 03/28/22 07:37 Room Air 03/28/22 04:12 Room Air 03/28/22 05:03 03/28/22 00:05 Room Air
[2022-03-28] MEDS: FERROUS SULFATE 325 MG TAB PO SCH (11:03)
--- NOTE | 2022-03-28 18:01 | Hospitalist Progress Note ---
Date of Service March 28, 2022 Assessment & Plan (1) Fall: Plan: per Dr. Chou's notes with addendum: (1) Fall: (2) Ambulatory dysfunction: (3) Closed compression fracture of lumbar vertebra: (4) CAD (coronary artery disease): (5) Chronic HFrEF (heart failure with reduced ejection fraction): (6) Ischemic cardiomyopathy: (7) Elevated troponin: (8) CKD stage 3 secondary to diabetes: (9) DM (diabetes mellitus): (10) Neuropathy, diabetic: Plan This is an 86-year-old male who has a significant past medical history of CAD status post CABG x4 in 2005, insulin-dependent diabetes with peripheral neuropathy, AAA 3.[address] chest 11/08, HTN, HLD, chronic HFrEF, ischemic cardiomyopathy, mild pulmonary hypertension, Pulmonary Fibrosis, 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 Fall Ambulatory dysfunction Acute on Chronic Lumbar Compression Deformity at L3 Chronic Lumbar Compression Fx L1 - pt not aware of previously injury Worsening of compression deformity at L3 from previously imaging in 2017, likely new, given fall and acute pinpoint tenderness Pain control with scheduled APAP, lidocaine patch, prn tramadol for mod/severe pain 03/28 continue pain control with above still having significant pain with ambulation will consult Ortho Spine: No surgical intervention for now, may need MRI if with no improvement in the coming days Increase Tylenol to 1 g 3 times daily Warm compress Continue Lidoderm patch Continue as needed travel CAD hx of CABG x 4 in 2005 Chronic HFrEF Ischemic Cardiomyopathy HTN HLD Elevated Troponin trop 22.2 on admission, 2hr repeat 39.9 likely chronic elevation in setting of 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 LVEF 40 to 45%, moderate aortic regurg, mild pulmonary hypertension. Echo was unchanged from prior comparison of January 2021 Continue ASA, statin, metoprolol, losartan, lasix and Imdur Appreciate cardiology input and recommendation Doubt any ACS and Heparin was discontinued Received additional dose of Lasix and Lasix dose will be increased to 40 mg once a day 03/27 had chest pain this morning relieved by Nitro, BP elevated Imdur increased to 60 mg daily Metoprolol increased to 37.5mg also now on increased Lasix 40mg po daily 03/28 No recurrence of chest pain Continue Imdur, metoprolol, Lasix Monitor closely Insulin Dependent T2DM with peripheral neuropathy last a1c 6.5 02/12/22 On Lantus 20 units at HS with Novolin TID via sliding scale at home place on lantus/novolog per protocol while inpt BSG 164, up to 193 CKD-3 baseline cr 1.5 renal fxn at baseline avoid nephrotoxic agents Bilateral hearing loss Chronic Chronic Anemia Iron deficiency continue iron supplement h/h stable, hgb 13 DVT ppx:SQ Heparin Dispo:will need Rehab/SNF FULL CODE PCP: Nadine Li (2) Closed compression fracture of lumbar vertebra: Admission and Anticipated Discharge Date Admission Date: March 27, 2022 Subjective Follow-up for acute on chronic L3 compression fracture, hypertension, CHF, etc. Seen resting in bed, sleeping but easily awakened Comfortable States he feels okay overall Still having low back pain, with some difficulty ambulating secondary to pain No leg paresthesias, weakness No chest pain, shortness of breath, palpitations, dizziness No other symptom Review of Systems Review of Systems: all noted and negative except for above Physical Exam Physical Exam: General- oriented x 3, not in distress, speaks in sentences with no effort or accessory muscle use Eyes- anicteric Neck- no JVD Lungs- clear breath sounds bilaterally, no rales/wheezes Heart- normal rate, regular rhythm; no murmurs Abdomen- normal bowel sounds, nondistended, soft, nontender Extremities- no pretibial edema, no calf tenderness Neuro- alert, oriented x 3; no gross focal neurologic deficits Skin- warm & dry Results & Data Results & Data ([facility]) Vital Signs (Past 12 Hours) Vital Signs Temp Pulse Pulse Resp BP Pulse Ox O2 Del Method 03/28/22 16:02 36.5 C 67 18 97/47 L 94 Room Air 03/28/22 11:26 36.9 C 73 17 97/42 L 95 Room Air 03/28/22 08:00 87 03/28/22 07:37 36.6 C 99 H 18 161/75 H 92 Room Air all noted and reviewed including below (1) Fall Encounter type: initial encounter Qualified Code(s): W19.XXXA - Unspecified fall, initial encounter
[2022-03-28] MEDS: LANTUS PER UNIT CHARGE SQ SCH (20:45)
[2022-03-29] MEDS: traMADol HCL 50 MG TABLET PO PRN (06:34)
[2022-03-29] MEDS: FERROUS SULFATE 325 MG TAB PO SCH (08:33)
[2022-03-29] MEDS: METOPROLOL SUCC 25MG EXT REL TAB PO SCH (08:33)
[2022-03-29] MEDS: ASPIRIN 81 MG ECTAB PO SCH (08:34)
[2022-03-29] MEDS: FUROSEMIDE 40 MG TAB PO SCH (08:34)
[2022-03-29] MEDS: LOSARTAN POTASSIUM 25 MG TAB PO SCH (08:35)
[2022-03-29] MEDS: ACETAMINOPHEN 500 MG TAB PO SCH ×3 (08:35→20:52)
[2022-03-29] MEDS: PRAVASTATIN SOD 40 MG TAB PO SCH (08:35)
[2022-03-29] MEDS: ISOSORBIDE MONO EXTENDED REL 60 MG TABCR PO SCH (08:35)
[2022-03-29] MEDS: PANTOprazole 40 MG TAB PO SCH (08:35)
[2022-03-29] MEDS: FOLIC ACID 1 MG TAB PO SCH (08:35)
[2022-03-29] MEDS: INSULIN ASPART PER UNIT SC SCH ×4 (08:39→20:58)
[2022-03-29] MEDS: DOCUSATE SODIUM 100 MG CAP PO SCH (10:13)
[2022-03-29] MEDS: LIDOCAINE 5% 1 PATCH TD SCH (10:13)
--- NOTE | 2022-03-29 17:55 | Hospitalist Progress Note ---
Date of Service March 29, 2022 Assessment & Plan (1) Fall: Plan: per Dr. Chou's notes with addendum: (1) Fall: (2) Ambulatory dysfunction: (3) Closed compression fracture of lumbar vertebra: (4) CAD (coronary artery disease): (5) Chronic HFrEF (heart failure with reduced ejection fraction): (6) Ischemic cardiomyopathy: (7) Elevated troponin: (8) CKD stage 3 secondary to diabetes: (9) DM (diabetes mellitus): (10) Neuropathy, diabetic: Plan This is an 86-year-old male who has a significant past medical history of CAD status post CABG x4 in 2005, insulin-dependent diabetes with peripheral neuropathy, AAA 3.[address] chest 11/08, HTN, HLD, chronic HFrEF, ischemic cardiomyopathy, mild pulmonary hypertension, Pulmonary Fibrosis, 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 Fall Ambulatory dysfunction Acute on Chronic Lumbar Compression Deformity at L3 Chronic Lumbar Compression Fx L1 - pt not aware of previously injury Worsening of compression deformity at L3 from previously imaging in 2017, likely new, given fall and acute pinpoint tenderness Pain control with scheduled APAP, lidocaine patch, prn tramadol for mod/severe pain 03/29 Back pain improving consult Ortho Spine: No surgical intervention for now, may need MRI if with no improvement in the coming days Continue Tylenol to 1 g 3 times daily Warm compress Continue Lidoderm patch PT OT evaluation CAD hx of CABG x 4 in 2005 Chronic HFrEF Ischemic Cardiomyopathy HTN HLD Elevated Troponin trop 22.2 on admission, 2hr repeat 39.9 likely chronic elevation in setting of 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 LVEF 40 to 45%, moderate aortic regurg, mild pulmonary hypertension. Echo was unchanged from prior comparison of January 2021 Continue ASA, statin, metoprolol, losartan, lasix and Imdur Appreciate cardiology input and recommendation Doubt any ACS and Heparin was discontinued Received additional dose of Lasix and Lasix dose will be increased to 40 mg once a day 03/27 had chest pain this morning relieved by Nitro, BP elevated Imdur increased to 60 mg daily Metoprolol increased to 37.5mg also now on increased Lasix 40mg po daily 03/29 No recurrence of chest pain Continue Imdur, metoprolol, Lasix Monitor closely Insulin Dependent T2DM with peripheral neuropathy last a1c 6.5 02/12/22 On Lantus 20 units at HS with Novolin TID via sliding scale at home place on lantus/novolog per protocol while inpt BSG 161, 181 CKD-3 baseline cr 1.5 renal fxn at baseline avoid nephrotoxic agents Bilateral hearing loss Chronic Chronic Anemia Iron deficiency continue iron supplement h/h stable, hgb 13 DVT ppx:SQ Heparin Dispo:will need Rehab/SNF FULL CODE PCP: Nadine Li (2) Closed compression fracture of lumbar vertebra: Admission and Anticipated Discharge Date Admission Date: March 27, 2022 Subjective Follow-up for chest pain, L3 compression fracture, etc. Per RN patient is already sitting up in bedside chair Able to mobilize more today compared to yesterday Seen resting in bed, watching TV Brighter, in good spirits States he feels somewhat better compared to yesterday Back pain improving gradually No leg weakness or numbness no chest pain, dyspnea, palpitations, dizziness No other symptoms Review of Systems Review of Systems: all noted and negative except for above Physical Exam Physical Exam: General- oriented x 3, not in distress, speaks in sentences with no effort or accessory muscle use Eyes- anicteric Neck- no JVD Lungs- clear breath sounds bilaterally, no crackles or wheezing Heart- normal rate, regular rhythm; no murmurs Abdomen- normal bowel sounds, nondistended, soft, nontender Extremities- no pretibial edema, no calf tenderness Neuro- alert, oriented x 3; no gross focal neurologic deficits Skin- warm & dry Results & Data Results & Data ([facility]) Vital Signs (Past 12 Hours) Vital Signs Temp Pulse Pulse Resp BP Pulse Ox O2 Del Method 03/29/22 16:10 36.3 C L 86 18 124/78 96 Room Air 03/29/22 11:54 36.4 C L 74 18 109/64 93 Room Air 03/29/22 08:00 84 03/29/22 08:16 36.3 C L 88 18 156/82 H 93 Room Air all noted and reviewed including below (1) Fall Encounter type: initial encounter Qualified Code(s): W19.XXXA - Unspecified fall, initial encounter
[2022-03-29] MEDS: LANTUS PER UNIT CHARGE SQ SCH (20:59)
[2022-03-30] MEDS: traMADol HCL 50 MG TABLET PO PRN ×2 (03:29→09:11)
[2022-03-30] MEDS: ACETAMINOPHEN 500 MG TAB PO SCH ×3 (07:22→20:58)
[2022-03-30] MEDS: LIDOCAINE 5% 1 PATCH TD SCH (07:22)
[2022-03-30] MEDS: PRAVASTATIN SOD 40 MG TAB PO SCH (07:22)
[2022-03-30] MEDS: METOPROLOL SUCC 25MG EXT REL TAB PO SCH (07:23)
[2022-03-30] MEDS: FUROSEMIDE 40 MG TAB PO SCH (07:23)
[2022-03-30] MEDS: ISOSORBIDE MONO EXTENDED REL 60 MG TABCR PO SCH (07:24)
[2022-03-30] MEDS: FOLIC ACID 1 MG TAB PO SCH (07:24)
[2022-03-30] MEDS: ASPIRIN 81 MG ECTAB PO SCH (07:24)
[2022-03-30] MEDS: LOSARTAN POTASSIUM 25 MG TAB PO SCH (07:24)
[2022-03-30] MEDS: PANTOprazole 40 MG TAB PO SCH (07:24)
[2022-03-30] MEDS: INSULIN ASPART PER UNIT SC SCH ×4 (09:11→20:57)
[2022-03-30] MEDS: FERROUS SULFATE 325 MG TAB PO SCH (09:11)
[2022-03-30] MEDS: DOCUSATE SODIUM 100 MG CAP PO SCH (09:11)
[2022-03-30] MEDS ORDERED: LIDOCAINE 5% 1 PATCH TD ONE (10:30)
--- NOTE | 2022-03-30 15:39 | Hospitalist Progress Note ---
Date of Service March 30, 2022 Assessment & Plan (1) Fall: Plan: per Dr. Chou's notes with addendum: (1) Fall: (2) Ambulatory dysfunction: (3) Closed compression fracture of lumbar vertebra: (4) CAD (coronary artery disease): (5) Chronic HFrEF (heart failure with reduced ejection fraction): (6) Ischemic cardiomyopathy: (7) Elevated troponin: (8) CKD stage 3 secondary to diabetes: (9) DM (diabetes mellitus): (10) Neuropathy, diabetic: Plan This is an 86-year-old male who has a significant past medical history of CAD status post CABG x4 in 2005, insulin-dependent diabetes with peripheral neuropathy, AAA 3.[address] chest 11/08, HTN, HLD, chronic HFrEF, ischemic cardiomyopathy, mild pulmonary hypertension, Pulmonary Fibrosis, 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 Fall Ambulatory dysfunction Acute on Chronic Lumbar Compression Deformity at L3 Chronic Lumbar Compression Fx L1 - pt not aware of previously injury Worsening of compression deformity at L3 from previously imaging in 2017, likely new, given fall and acute pinpoint tenderness Pain control with scheduled APAP, lidocaine patch, prn tramadol for mod/severe pain 03/30 Back pain improving consult Ortho Spine: No surgical intervention for now, may need MRI if with no improvement in the coming days Continue Tylenol to 1 g 3 times daily Warm compress Continue Lidoderm patch PT OT evaluation Awaiting transfer to acute rehab CAD hx of CABG x 4 in 2005 Chronic HFrEF Ischemic Cardiomyopathy HTN HLD Elevated Troponin trop 22.2 on admission, 2hr repeat 39.9 likely 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 LVEF 40 to 45%, moderate aortic regurg, mild pulmonary hypertension. Echo was unchanged from prior comparison of January 2021 Continue ASA, statin, metoprolol, losartan, lasix and Imdur Appreciate cardiology input and recommendation Doubt any ACS and Heparin was discontinued Received additional dose of Lasix and Lasix dose will be increased to 40 mg once a day 03/27 had chest pain this morning relieved by Nitro, BP elevated Imdur increased to 60 mg daily Metoprolol increased to 37.5mg also now on increased Lasix 40mg po daily 03/29 No recurrence of chest pain Continue Imdur, metoprolol, Lasix Monitor closely 02/28 Remained stable Continue above medications Insulin Dependent T2DM with peripheral neuropathy last a1c 6.5 02/12/22 On Lantus 20 units at HS with Novolin TID via sliding scale at home place on lantus/novolog per protocol while inpt BSG within acceptable range CKD-3 baseline cr 1.5 renal fxn at baseline avoid nephrotoxic agents Bilateral hearing loss Chronic Chronic Anemia Iron deficiency continue iron supplement h/h stable, hgb 13 DVT ppx:SQ Heparin Dispo:will need Rehab/SNF FULL CODE PCP: Nadine Li (2) Closed compression fracture of lumbar vertebra: Admission and Anticipated Discharge Date Admission Date: March 27, 2022 Subjective Follow-up for L3 compression fracture, hypertension, chest pain, etc. Seen resting in bed, comfortable, not in distress, watching TV States he feels okay overall Still having some back pain but somewhat better Able to move better No chest pain, shortness of breath, palpitation, dizziness next Review of Systems Review of Systems: all noted and negative except for above Physical Exam Physical Exam: General- oriented x 3, not in distress, speaks in sentences with no effort or accessory muscle use Eyes- anicteric Neck- no JVD Lungs- clear breath sounds bilaterally, no crackles No wheezing Heart- normal rate, regular rhythm; no murmurs Abdomen- normal bowel sounds, nondistended, soft, nontender Extremities- no pretibial edema, no calf tenderness Neuro- alert, oriented x 3; no gross focal neurologic deficits Skin- warm & dry Results & Data Results & Data ([facility]) Vital Signs (Past 12 Hours) Vital Signs Temp Pulse Pulse Resp BP Pulse Ox O2 Del Method 03/30/22 11:33 36.4 C L 62 18 116/49 L 95 Room Air 03/30/22 08:00 74 03/30/22 06:50 37.0 C 69 18 161/66 H 94 Room Air all noted and reviewed including below (1) Fall Encounter type: initial encounter Qualified Code(s): W19.XXXA - Unspecified fall, initial encounter
[2022-03-30] MEDS: LANTUS PER UNIT CHARGE SQ SCH (20:57)
[2022-03-31] MEDS: traMADol HCL 50 MG TABLET PO PRN ×2 (03:07→09:04)
[2022-03-31] MEDS: LIDOCAINE 5% 1 PATCH TD SCH (07:56)
[2022-03-31] MEDS: ACETAMINOPHEN 500 MG TAB PO SCH ×3 (07:57→20:37)
[2022-03-31] MEDS: PANTOprazole 40 MG TAB PO SCH (07:57)
[2022-03-31] MEDS: FUROSEMIDE 40 MG TAB PO SCH (07:57)
[2022-03-31] MEDS: FOLIC ACID 1 MG TAB PO SCH (07:57)
[2022-03-31] MEDS: METOPROLOL SUCC 25MG EXT REL TAB PO SCH (07:57)
[2022-03-31] MEDS: LOSARTAN POTASSIUM 25 MG TAB PO SCH (07:57)
[2022-03-31] MEDS: ISOSORBIDE MONO EXTENDED REL 60 MG TABCR PO SCH (07:57)
[2022-03-31] MEDS: ASPIRIN 81 MG ECTAB PO SCH (07:58)
[2022-03-31] MEDS: PRAVASTATIN SOD 40 MG TAB PO SCH (07:58)
[2022-03-31] MEDS: DOCUSATE SODIUM 100 MG CAP PO SCH (08:03)
[2022-03-31] MEDS: INSULIN ASPART PER UNIT SC SCH ×4 (08:57→20:39)
[2022-03-31] MEDS ORDERED: oxyCODONE HCL IR 5 MG TAB (IMMEDIATE RELEASE) PO STA (11:46)
[2022-03-31] MEDS: FERROUS SULFATE 325 MG TAB PO SCH (12:40)
[2022-03-31] MEDS ORDERED: oxyCODONE HCL IR 5 MG TAB (IMMEDIATE RELEASE) PO PRN (13:38)
--- NOTE | 2022-03-31 17:31 | Hospitalist Progress Note ---
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 Fall Ambulatory dysfunction Acute on Chronic Lumbar Compression Deformity at L3 Chronic Lumbar Compression Fx L1 - pt not aware of previously injury Worsening of compression deformity at L3 from previously imaging in 2017, likely new, given fall and acute pinpoint tenderness Pain control with scheduled APAP, lidocaine patch, prn tramadol for mod/severe pain 03/31 Back pain slowly improving, had severe pain this morning consult Ortho Spine: No surgical intervention for now, may need MRI if with no improvement Continue Tylenol to 1 g 3 times daily Oxycodone 5 mg p.o. 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 LVEF 40 to 45%, moderate aortic regurg, mild pulmonary hypertension. Echo was unchanged from prior comparison of January 2021 Continue ASA, statin, metoprolol, losartan, lasix and Imdur Appreciate cardiology input and recommendation Doubt any ACS and Heparin was discontinued Received additional dose of Lasix and Lasix dose will be increased to 40 mg once a day 03/27 had chest pain this morning relieved by Nitro, BP elevated Imdur increased to 60 mg daily Metoprolol increased to 37.5mg also now on increased Lasix 40mg po daily 03/31 Remained stable BP improved Continue above medications Insulin Dependent T2DM with peripheral neuropathy last a1c 6.5 02/12/22 On Lantus 20 units at HS with Novolin TID via sliding scale at home place on lantus/novolog per protocol while inpt CKD-3 baseline cr 1.5 renal fxn at baseline avoid nephrotoxic agents Bilateral hearing loss Chronic Chronic Anemia Iron deficiency continue iron supplement h/h stable, hgb 13 DVT ppx:SQ Heparin Dispo:will need Rehab/SNF FULL CODE PCP: Nadine Li Admission and Anticipated Discharge Date Admission Date: March 27, 2022 Subjective Follow-up for L3 compression fracture, etc. Seen resting in bed sitting up, not in distress Had worsening back pain earlier this morning, relieved by oxycodone no chest pain, dyspnea, palpitations, dizziness No other symptom Review of Systems Review of Systems: all noted and negative except for above Physical Exam Physical Exam: General- oriented x 3, not in distress, speaks in sentences with no effort or accessory muscle use Eyes- anicteric Neck- no JVD Lungs- clear breath sounds bilaterally, no crackles or wheezing Heart- normal rate, regular rhythm; no murmurs Abdomen- normal bowel sounds, nondistended, soft, nontender Extremities- no pretibial edema, no calf tenderness Neuro- alert, oriented x 3; no gross focal neurologic deficits Skin- warm & dry Results & Data Results & Data ([facility]) Vital Signs (Past 12 Hours) Vital Signs Temp Pulse Pulse Resp BP BP Pulse Ox 03/31/22 16:00 36.2 C L 55 L 17 129/55 L 94 03/31/22 11:56 36.2 C L 50 L 16 114/61 95 03/31/22 08:00 36.3 C L 75 18 123/70 93 03/31/22 08:00 71 O2 Del Method 03/31/22 16:00 03/31/22 11:56 03/31/22 08:00 Room Air 03/31/22 08:00 all noted and reviewed including below (1) Fall Encounter type: initial encounter Qualified Code(s): W19.XXXA - Unspecified fall, initial encounter
[2022-03-31] MEDS: HEPARIN SOD 5,000 UNIT/0.5 ML VIAL SQ SCH (20:37)
[2022-03-31] MEDS: LANTUS PER UNIT CHARGE SQ SCH (20:39)
[2022-04-01] MEDS: ACETAMINOPHEN 500 MG TAB PO SCH (08:26)
[2022-04-01] MEDS: ASPIRIN 81 MG ECTAB PO SCH (08:27)
[2022-04-01] MEDS: DOCUSATE SODIUM 100 MG CAP PO SCH (08:27)
[2022-04-01] MEDS: HEPARIN SOD 5,000 UNIT/0.5 ML VIAL SQ SCH (08:28)
[2022-04-01] MEDS: ISOSORBIDE MONO EXTENDED REL 60 MG TABCR PO SCH (08:28)
[2022-04-01] MEDS: FOLIC ACID 1 MG TAB PO SCH (08:28)
[2022-04-01] MEDS: FUROSEMIDE 40 MG TAB PO SCH (08:28)
[2022-04-01] MEDS: FERROUS SULFATE 325 MG TAB PO SCH (08:28)
[2022-04-01] MEDS: METOPROLOL SUCC 25MG EXT REL TAB PO SCH (08:29)
[2022-04-01] MEDS: LIDOCAINE 5% 1 PATCH TD SCH (08:29)
[2022-04-01] MEDS: LOSARTAN POTASSIUM 25 MG TAB PO SCH (08:29)
[2022-04-01] MEDS: PRAVASTATIN SOD 40 MG TAB PO SCH (08:30)
[2022-04-01] MEDS: PANTOprazole 40 MG TAB PO SCH (08:30)
[2022-04-01] MEDS: INSULIN ASPART PER UNIT SC SCH (08:36)
--- NOTE | 2022-04-01 08:36 | Magnetic Resonance Report ---
MRI OF THE LUMBAR SPINE WITHOUT CONTRAST CLINICAL HISTORY: Low back pain. Fall last week. Old L1 compression fracture. COMPARISON STUDY: Lumbar spine radiographs March 25, 2022. CT of the abdomen and pelvis December 02. TECHNIQUE: Utilizing a 1.5 Zoraida magnet and dedicated coil, multiplanar, multiecho imaging of the [facility] spine was performed without IV contrast. FINDINGS: For purposes of numbering on this exam, the L5-S1 disc space is assigned to axial image 27 of 31. The re is an old L1 compression fracture. This is unchanged since radiographs of March 25, [address] o f December 02, 2016. Note is made of acute compression fracture of the superior endplate of L3 with 30% l oss of vertebral body height. This may slightly extend into the pedicles. There is no retropulsion. V ertebral body height loss has increased since radiograph March 25, 2022. Mild paravertebral edema is present. No additional acute lumbar spine fractures are noted. Concavity of the inferior endplate of L5 is chronic. There is no intracanalicular mass or fluid crit. Conus terminates at the upper L1 lev el. There is a 3.3 cm infrarenal abdominal aortic aneurysm. L1-2: Central canal and neural foramen are patent. L2-3: There is facet arthrosis with ligamentous hypertrophy. Central canal is patent. Moderate left a nd mild right neural foraminal stenosis is present. L3-4: Disc narrowing with disc bulge, facet arthrosis and ligamentous hypertrophy. There is mild cent ral canal stenosis. There is moderate bilateral neural foraminal stenosis. L4-5: Moderate facet arthrosis is noted with ligamentous hypertrophy. Central canal and left neural f oramen are patent. There is mild right neural foraminal stenosis. L5-S1: There is facet arthrosis. Central canal is patent. Left neural foramen is patent. There is mil d right neural foraminal stenosis. IMPRESSION: 1. Acute L3 compression fracture involving the superior endplate with 30% loss of vertebral body heig ht and no retropulsion. Fracture may slightly extend into the pedicles. Mild paravertebral edema. Inc rease in vertebral body height loss since radiographs of March 25, 2022. 2. Old L1 compression fracture. 3. Mild multilevel degenerative disc disease and moderate facet arthrosis within lumbar spine. No sev ere central canal stenosis. ACT 112: Negative or not required by law. Electronically signed by: Lawrence Morris M.D. 04/01/2022 8:34 AM
--- NOTE | 2022-04-01 16:15 | Discharge Summary ---
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 His son is at bedside. He states last evening at approximately 11 PM he was going to get in bed. Due to loss of sensation secondary to neuropathy in his heels he ended up losing balance and falling backwards hitting his back on the arm of a chair and falling on his buttocks. He denies losing consciousness or hitting head. Since fall he has had midline low back pain that was nonradiating. He was able to get up and get in bed, but when he woke up this morning he had significant pain with movement and ambulating. He was then brought to ED. Up until fall last night him doing relatively well. He walks with a cane or walker at baseline. He lives alone, but does have family close by. He denies any fever, chills, sweats, lightheadedness, dizziness, syncope, palpitations, cough, URI symptoms, nausea, vomiting, abdominal pain, change in bowel or urinary habits. He does occasionally get chest pain, but only when he goes outside and hits the cold air. He did experience this this morning when going outside to come to ER. Currently he denies any chest pain. He has been compliant with his medications although he did not take any medication so far today. He does have history of chronic HFrEF and does not weigh himself on a regular basis. He does have chronic lower extremity swelling and feels this is at baseline. In ED patient remained hemodynamically stable. His lab work was notable for an H&H of 13.0 and 39.6, platelet 172, BUN 39, creatinine 1.48, glucose 161, initial troponin 22.2, SARS-CoV-2 negative, lumbar spine x-ray consistent with chronic L1 compression fracture and mild superior endplate compression deformity at L3 that is progressively worsened since 2017 comparison. His EKG was without significant change. He did receive Tylenol, Tramadol, Pepcid and lidocaine patch while in ED. Admission Exam Per Admitting Provider Constitutional: WD/WN, Elderly, M, vitals as above, NAD, sitting up in bed, pleasant, [place], answers questions appropriately Head: Normocephalic, Atraumatic Eyes: PERRL, conjunctivae normal, anicteric sclerae ENMT: external ear and nose normal, oropharynx normal Neck: trachea midline, no thyromegaly normal visual inspection Respiratory: normal respiratory effort, lungs clear to auscultation, no wheeze, rales, rhonchi. Normal insp/exp effort, no accessory muscle use Cardiovascular: RRR, no murmur, b/l +1 pitting edema, pedal edema Vessels: no JVD or carotid bruit Chest: normal inspection of chest Abdomen: normal bowel sounds, soft, nontender, no hepatosplenomegaly Musculoskeletal: no cyanosis or clubbing, AROM x4, pinpoint tenderness to Lumbar spine, no pain to paraspinal muscle palpation Skin: no rashes, warm and dry normal turgor Neurologic: PERRL, EOMI, accommodation nl, no face palsy, no dysarthria CN's II-XI intact bilaterally and moves all extremities Psychiatric: A+Ox3, euthymic affect Lymphatic: no cervical or axillary lymphadenopathy : deferred Principal Diagnosis Fall Ambulatory dysfunction Acute on Chronic Lumbar Compression Deformity at L Discharge Exam Constitutional: WD/WN, vitals as above, NAD, sitting up in bed, pleasant, conversing easily Respiratory: normal respiratory effort, lungs clear to auscultation, no wheeze, rales, rhonchi. Normal insp/exp effort, no accessory muscle use Cardiovascular: RRR, no murmur, no edema Vessels: no JVD or carotid bruit Chest: normal inspection of chest Abdomen: normal bowel sounds, soft, nontender, no hepatosplenomegaly Musculoskeletal: no cyanosis or clubbing, extremities motor strength 5/5. Tenderness present at lower back at midline. Skin: no rashes, warm and dry normal turgor Neurologic: PERRL, EOMI, accommodation nl, no face palsy, no dysarthria CN's II- XI intact bilaterally and moves all extremities Psychiatric: A+Ox3, euthymic affect Lymphatic: no cervical or axillary lymphadenopathy : deferred Discharge Data Allergies Allergy/AdvReac Type Severity Reaction Status Date / Time GAMAL Inhibitors Allergy Unknown Verified 10/13/21 22:44 Consultations 03/25/22 10:08 ED Decision to Admit Stat 03/25/22 18:00 Consult Cardiology Routine 03/27/22 10:05 Consult Orthopedic Surgery Routine Ordered Studies 03/26/22 02:58 CT head/brain wo con Urgent 03/31/22 19:27 MRI Lumbar Spine [MR lumbar spine wo con] Routine Hospital Course (1) Fall: (2) Closed compression fracture of lumbar vertebra: Plan This is an 86-year-old male who has a significant past medical history of CAD status post CABG x4 in 2005, insulin-dependent diabetes with peripheral neuropathy, AAA 3.[address] chest 11/08, HTN, HLD, chronic HFrEF, ischemic cardiomyopathy, mild pulmonary hypertension, Pulmonary Fibrosis, 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 X-ray of the lumbar spine showed worsening of the compression deformity at L3. Orthospine was consulted; recommended conservative management. Patient was treated for pain control. MRI of lumbar spine was obtained as patient continued to complain of pain; showed acute L3 compression fracture involving the superior endplate with 30% loss of vertebral body height. The finding was discussed with orthospine again. Recommended to continue conservative care with the brace. He was recommended to follow-up as outpatient. Patient was also found to have elevated high-sensitivity likely due to demand ischemia on admission. Echo was done; no significant change compared to prior echo from January 2021. PT OT evaluation was done and patient was discharged to subacute rehab. Total Time Total Time Spent Total Time Spent (In Minutes): 36 Total Time Includes: Examination of the Patient, Discharge Planning, Medication Reconciliation, Communication With Other Providers and Other Discharge Plan Discharge Items Patient Disposition: Transfer Longterm Fac Reason For Visit: FALL, ELEVATED TROPONIN Discharge Diagnosis: Fall Ambulatory dysfunction Acute on Chronic Lumbar Compression Deformity at L3 Activity: Resume your previous activity Non-emergency contact: Primary Care Provider Call non-emergency contact if: you have any medication questions and your symptoms worsen Follow-up/Referrals: Nadine Li MD [Primary Care Provider] - Diet: Regular Addtl Attending Provider Instructions: You are found to have acute on chronic lumbar compression fracture at L3 level. Please wear the lumbar brace when you are standing up and walking. You will need to follow-up with orthopedic doctor ( Dr. Fitzgerald) in 2 weeks. The following changes have been made to the medication list 1)Decrease glargine from 20units to 16 units. 2)Increase metoprolol from 25 mg once daily to 37.5 mg once daily 3) Increase Imdur from 30 mg once daily to 60 mg once daily Please continue other medication as prescribed before. The following medication were added for pain control; Extremity strength Tylenol as needed for mild to moderate pain 3 times daily as needed. Tramadol 50 mg as needed every 6 hours for severe pain. Pending Studies at Discharge: No Stand-Alone Forms: My [facility] [employer] Skilled Items Patient informed of condition?: Yes DNR: No Discharge Level of Care: Skilled Communicable Disease: No Discharge Prognosis: Stable Lines: None Urinary Catheter: No Medications and DC Order Prescriptions: New acetaminophen [Tylenol Extra Strength] 500 mg Tablet 1,000 mg PO TID PRN (Reason: pain) Qty: 90 0RF aspirin 81 mg capsule 81 mg PO DAILY Qty: 30 0RF isosorbide mononitrate 60 mg tablet extended release 24 hr 60 mg PO DAILY Qty: 30 0RF losartan 25 mg tablet 25 mg PO DAILY Qty: 30 0RF metoprolol succinate 25 mg capsule,sprinkle,ER 24hr 37.5 mg PO DAILY Qty: 60 0RF tramadol 50 mg tablet 50 mg PO Q6H PRN (Reason: pain) Qty: 20 0RF ferrous sulfate 325 mg (65 mg iron) tablet 325 mg PO DAILY Qty: 30 0RF folic acid 1 mg tablet 1,000 mcg PO DAILY Qty: 30 0RF furosemide [Lasix] 40 mg tablet 40 mg PO DAILY Qty: 30 0RF insulin glargine [Lantus U-100 Insulin] 100 unit/mL solution 16 unit subcut PM Qty: 10 0RF Novolin R Flexpen 100 unit/mL (3 mL) insulin pen 1 sliding scale dose subcut USEASDIRECTD Qty: 15 0RF Rx Instructions: < 150- 0 units 150-199- 2units 200-249- 4 units 250-299- 6 units 300-350- 8 units > 350- 10 units pantoprazole [Protonix] 40 mg tablet,delayed release (DR/EC) 40 mg PO DAILY Qty: 30 0RF polyethylene glycol 3350 [Miralax] 17 gram/dose powder 4 g PO DAILY PRN (Reason: constipation) Qty: 119 0RF pravastatin 40 mg tablet 40 mg PO DAILY Qty: 30 0RF Discontinued pravastatin 40 mg tablet 40 mg PO DAILY furosemide 20 mg tablet 20 mg PO DAILY nitroglycerin 0.4 mg tablet, sublingual 0.4 mg sublingual UD PRN (Reason: Chest Pain) insulin glargine [Lantus U-100 Insulin] 100 unit/mL solution 20 unit SUBCUT QPM Novolin R Regular U-100 Insuln 100 unit/mL solution 0 unit subcut TIDWMEAL Rx Instructions: PER SLIDING SCALE WITH MEALS isosorbide mononitrate 30 mg tablet extended release 24 hr 30 mg PO DAILY metoprolol succinate 25 mg tablet extended release 24 hr 25 mg PO DAILY losartan 25 mg tablet 25 mg PO QAM aspirin 81 mg Tablet 81 mg PO DAILY folic acid 1 mg Tablet 1 mg PO DAILY ferrous sulfate 325 mg (65 mg iron) tablet 325 mg PO DAILY Qty: 30 1RF docusate sodium [Colace] 100 mg capsule 100 mg PO DAILY Qty: 30 1RF polyethylene glycol 3350 [Miralax] 17 gram/dose powder 8.5 g PO DAILY PRN (Reason: constipation) Qty: 119 0RF pantoprazole 40 mg tablet,delayed release (DR/EC) 40 mg PO DAILY Discharge Orders: Discharge Order (Routine); Ordered 04/01/22 Ordered By: Vineet Alvarado Admission Data Admit Date/Time: 03/27/22 10:05 Attending Provider: Vineet Alvarado Admit Provider: Laureen Chou Primary Care Provider: Nadine Li Other Providers: Laureen Chou ; Sebastián Rock ; Dae Teixeira [facility] ; [place] ; Tra Fitzgerald Other Interventions: Discharge Summary Assessment (RN) Last Done: 04/01/22 11:35
== END 2022-04-01 12:15 | DRG 551 ==
LOC: EDINP 06:26 → ED 06:26 → SUATTDRO 10:15 → 2W 12:58 → 4W 18:10 → SUATTDRO 03-27 10:05

== ENCOUNTER 2022-04-28 12:29 | Inpatient (IN) ==
[2022-04-28 13:06] LABS: Basophils # (auto) 0.04 K/uL (0-0.2); Basophils % (auto) 0.3 %; Eosinophils # (auto) 0.21 K/uL (0-0.50); Eosinophils % (auto) 1.8 %; Hematocrit (blood only) 41.2 % (40.1-51.0); Hemoglobin 13.9 g/dl (14.0-18.0); Immature Granulocytes # (auto) 0.05 K/uL (0.00-0.02); Immature Granulocytes % (auto) 0.4 %; Lymphocytes # (auto) 2.55 K/uL (1.2-3.4); Lymphocytes % (auto) 22.1 %; Mean Corpuscular Hgb Conc 33.7 g/dL (32.0-36.0); Mean Platelet Volume 9.1 fL (9.4-12.4); Monocytes % (auto) 7.8 %; Neutrophils # (auto) 7.78 K/uL (1.4-6.5); Neutrophils % (auto) 67.6 %; Platelet Count 204 K/uL (130-400); RDW Coefficient of Variation 14.9 % (11.5-14.5); RDW Standard Deviation 48.1 fL (36.4-46.3); Red Blood Count 4.63 M/uL (4.63-6.08); White Blood Count 11.53 K/ul (4.8-10.8)
--- NOTE | 2022-04-28 13:15 | XRay Report ---
XR chest 1V portable HISTORY: Atypical Chest Pain COMPARISON: Chest 03/25/2022. FINDINGS: There are poststernotomy changes. Interstitial thickening and trace bilateral pleural effus ions have improved. This suggests resolving pulmonary edema. No new focal lung consolidations. The he art remains borderline enlarged. IMPRESSION: Interval improvement in the pulmonary vascular congestion and trace bilateral pleural effusions. ACT 112: Negative or not required by law. Electronically signed by: Tank Hernandez M.D. 04/28/2022 1:14 PM
[2022-04-28 13:40] LABS: Troponin I High Sensitivity 18.2 pg/ml (0-20)
[2022-04-28 13:45] LABS: Albumin Globulin Ratio 1.3 (0.9-2); Albumin Level 3.9 gm/dl (3.4-5.0); BUN Creatinine Ratio 14.8 (10-20); Calcium 9.7 mg/dl (8.5-10.1); Creatinine Clr Calc Pharmacy 52.1 ml/min; Est GFR (African American) 66.4 ml/min; Est GFR (Non-African American) 57.3 ml/min; Globulin 2.9 gm/dl (2.5-4.0); Magnesium 1.8 mg/dl (1.7-2.4); Phosphorus 3.3 mg/dl (2.5-4.9); Potassium 4.8 mmol/L (3.5-5.1); Total Protein 6.8 gm/dl (6.0-8.3)
--- NOTE | 2022-04-28 14:04 | Emergency Department Note ---
Impression & Plan Atypical chest pain, Recurrent chest pain, Generalized weakness, Ischemic cardiomyopathy, Ambulatory dysfunction, Chronic HFrEF (heart failure with reduced ejection fraction) ED Provider Note NAME: LILLIAN GALARZA AGE: 86 SEX: M ARRIVES VIA: Ambulance INFORMANT: Patient, Family ED PROVIDER(S): Hong Khoury MD CHIEF COMPLAINT: Chest pain PLAN: Disposition: Admit MEDICAL DECISION MAKING: The patient is a pleasant 86-year-old gentleman with a past medical history of CHF with reduced EF/ischemic cardiomyopathy, neuropathy, diabetes, CAD, ILD who presents to the emergency department accompanied by his son's and via EMS for evaluation of chest pain that began this morning before 8 AM and felt like a stabbing pain in his chest that had been constant and did not resolve until he received nitro and aspirin by EMS. The patient reports he has chest pain still but it is different and it is in the right side of his chest. He denies any fevers, cough, congestion, GI or symptoms. Patient son report that since his discharge in March when he was admitted for a fall and then discharged to senior care he has not been doing well despite having home services where he is barely able to walk with his walker and get food for himself. They feel that he would benefit from being in a senior care facility. On arrival the patient is no acute distress, afebrile with stable vital signs. He appears euvolemic. He has reproducible right anterior chest wall discomfort without discrete ttp or crepitus. EKG without overt acute ischemia. Chest x-ray shows improvement in prior pulmonary edema. WBC 11.5K nonspecific. H/H similar to prior. Platelets within normal limits. Chemistry without metabolic acidosis. Electrolytes and FTs without significant abnormality. Initial high-sensitivity troponin 18.2, within normal limits. Lip ase is not elevated. Given the patient's negative high-sensitivity troponin over 4 hours from symptom onset, ACS is considered less likely. However given the patient's poor functioning at home will refer for admission for PT OT and possible placement. Case was d/w Artur Michael PAC, with Dr. Newton Siddiqui hospitalist who will evaluate the patient for admission. Triage Nursing notes reviewed and agree them. Prior medical records reviewed Differential diagnosis: Cardiac ischemia, aortic dissection, pulmonary embolism, pneumothorax, pneumonia, pericarditis, myocarditis, esophageal rupture, GERD, cholecystitis, pancreatitis, musculoskeletal, as well as other pathologies. ER treatment provided: See below. Diagnostics interpreted by me: ECG: Sinus rhythm with first-degree AV block, 70 bpm, no ectopy, nonspecific interventricular conduction block, no overt ST elevation or depression, QTC 464, QRS 120. Previous ST depressions from march are improved. Cardiac Monitoring: An order for continuous cardiac monitoring was placed and demonstrated sinus rhythm with first-degree AV block, 70 bpm, no ectopy. Laboratory studies: See below Imaging studies: See below Consultation(s): Artur Michael PAC, with Dr. Newton Siddiqui hospitalist. HPI: The patient is a pleasant 86-year-old gentleman with a past medical history of CHF with reduced EF/ischemic cardiomyopathy, neuropathy, diabetes, CAD, ILD who presents to the emergency department accompanied by his son's and via EMS for evaluation of chest pain that began this morning before 8 AM and felt like a stabbing pain in his chest that had been constant and did not resolve until he received nitro and aspirin by EMS. The patient reports he has chest pain still but it is different and it is in the right side of his chest. He denies any fevers, cough, congestion, GI or symptoms. Patient son report that since his discharge in March when he was admitted for a fall and then discharged to senior care he has not been doing well despite having home services where he is barely able to walk with his walker and get food for himself. They feel that he would benefit from being in a senior care facility. ROS: See above HPI for pertinent positives & negatives. A total of 10 systems reviewed and were otherwise negative. VITALS:See Below PHYSICAL EXAMINATION: GENERAL: Awake, alert, fatigued-appearing, in no distress HENT: Normocephalic, atraumatic. Oropharynx unremarkable. EYES: Normal conjunctiva. Sclera non-icteric. NECK: Supple. No nuchal rigidity. FROM. No JVD. RESPIRATORY: Clear to auscultation. CARDIAC: Regular rate, normal rhythm. Extremities warm and well perfused. Pulses equal. ABDOMEN: Soft, non-distended. No tenderness to palpation. No rebound or guarding. No masses. RECTAL: Deferred. MUSCULOSKELETAL: Chest examination reveals reproducible anterior chest wall discomfort without discrete tenderness. No bony crepitus. The back is symme trical on inspection without obvious abnormality. There is no CVA tenderness to palpation. No joint edema. LOWER EXTREMITIES: Calves are equal size bilaterally and non-tender. No edema. No discoloration. NEURO: Normal sensorium. Generalized weakness with no focal sensory or motor deficits noted. SKIN: No rash or jaundice noted Hong Khoury MD Past Med/Surg History Medical History Abdominal aortic aneurysm Acute GI bleeding CAD (coronary artery disease) "[place] at age 35 ~ 2009 - CABG x 4 " CKD stage 3 secondary to diabetes Closed compression fracture of lumbar vertebra DM (diabetes mellitus) Heart disease ILD (interstitial lung disease) Ischemic cardiomyopathy Neuropathy, diabetic Non-ST elevation [place] (NSTEMI) NSTEMI (non-ST elevated myocardial infarction) Peripheral arterial disease Symptomatic anemia Surgical History H/O nasal polypectomy S/P CABG (coronary artery bypass graft) Family History Other Family history non-contributory Social History Smoking Status: Former smoker Second Hand Exposure: No; Hx Alcohol Use: No Hx Substance Use: No Preferred Language: [place] Communication Ability: Effective Office Services Coordinator Required: No Beliefs That Will Affect Care: None Current Living Situation: Alone How many Children do You have: 4 Feels Safe at Home: Yes Safety Concerns: Feels Safe At This Time Assistive Devices: Cane Allergies Allergies Allergy/AdvReac Type Severity Reaction Status Date / Time GAMAL Inhibitors Allergy Unknown Unknown Verified 04/28/22 15:31 Home Meds Home Medications Medication Instructions Recorded Confirmed bisacodyl 5 mg tablet,delayed 5 mg PO DAILY PRN Constipation 04/28/22 04/28/22 release (Dulcolax (bisacodyl)) furosemide 20 mg tablet 20 mg PO DAILY 04/28/22 04/28/22 insulin glargine 100 unit/mL 22 unit subcut PM 04/28/22 04/28/22 subcutaneous solution (Lantus U-100 Insulin) isosorbide mononitrate 30 mg 30 mg PO QAM 04/28/22 04/28/22 tablet,extended release 24 hr losartan 25 mg tablet 12.5 mg PO DAILY 04/28/22 04/28/22 metoprolol succinate 25 mg capsule 25 mg PO DAILY 04/28/22 04/28/22 sprinkle, ext. release 24 hr Previous Rx's Medication Instructions Recorded aspirin 81 mg capsule 81 mg PO DAILY #30 caps 04/01/22 ferrous sulfate 325 mg (65 mg 325 mg PO DAILY #30 tabs 04/01/22 iron) tablet folic acid 1 mg tablet 1,000 mcg PO DAILY #30 tabs 04/01/22 insulin regular human 100 unit/mL 1 sliding scale dose subcut 04/01/22 (3 mL) subcutaneous pen (Novolin R USEASDIRECTD #15 mL Flexpen) pantoprazole 40 mg tablet,delayed 40 mg PO DAILY #30 tabs 04/01/22 release (Protonix) pravastatin 40 mg tablet 40 mg PO DAILY #30 tabs 04/01/22 tramadol 50 mg tablet 50 mg PO Q6H PRN pain #20 tabs 04/01/22 Results & Data (ED) Vital Signs Vital Signs - 24 hr 04/28/22 12:24 Temperature 36.8 C Temperature Source Oral Pulse Rate 79 Pulse Rhythm Regular Pulse Strength Normal Respiratory Rate 21 Respiratory Effort / Characteristics Non-Labored Respiratory Depth Normal Blood Pressure 136/69 Blood Pressure Mean 91 Blood Pressure Position Sitting Pulse Oximetry 95 Oxygen Delivery Method Room Air Sepsis Recent Fever Within 48 Hours No Sepsis New/Unexplained Change in Mental Status No Sepsis Action Taken by Nursing No Action Required Laboratory Data Attestation: I reviewed the patient's lab results. Result diagrams: 04/28/22 12:47 04/28/22 12:47 Lab Results 04/28/22 04/28/22 04/28/22 Range/Units 12:47 12:47 14:11 WBC 11.53 H (4.8-10.8) K/ul RBC 4.63 (4.63-6.08) M/uL Hgb 13.9 L (14.0-18.0) g/dl Hct 41.2 (40.1-51.0) % MCV 89.0 (80.0-100.0) fL MCH 30.0 (25.0-34.0) pg MCHC 33.7 (32.0-36.0) g/dL RDW Std Deviation 48.1 H (36.4-46.3) fL RDW Coeff of Fahad 14.9 H (11.5-14.5) % Plt Count 204 (130-400) K/uL MPV 9.1 L (9.4-12.4) fL Immature Gran % (Auto) 0.4 % Neut % (Auto) 67.6 % Lymph % (Auto) 22.1 % [place] % (Auto) 7.8 % Eos % (Auto) 1.8 % Baso % (Auto) 0.3 % Neut # (Auto) 7.78 H (1.4-6.5) K/uL Lymph # (Auto) 2.55 (1.2-3.4) K/uL [place] # (Auto) 0.90 H (0.24-0.82) K/uL Eos # (Auto) 0.21 (0-0.50) K/uL Baso # (Auto) 0.04 (0-0.2) K/uL Immature Gran # (Auto) 0.05 H (0.00-0.02) K/uL Sodium 133 L (136-145) mmol/L Potassium 4.8 (3.5-5.1) mmol/L Chloride 100 (98-107) mmol/L Carbon Dioxide 27 (21-32) mmol/L Anion Gap 6 (3-11) BUN 17 (6-23) mg/dl Creatinine 1.15 (0.6-1.4) mg/dl Est Cr Clr Drug Dosing 52.1 ml/min Est GFR ( Amer) 66.4 ml/min Est GFR (Non-Af Amer) 57.3 ml/min BUN/Creatinine Ratio 14.8 (10-20) Glucose 181 H (70-99(Fasting)) mg/dl Calcium 9.7 (8.5-10.1) mg/dl Phosphorus 3.3 (2.5-4.9) mg/dl Magnesium 1.8 (1.7-2.4) mg/dl Total Bilirubin 1.0 (0.2-1.0) mg/dl AST 20 (13-39) U/L ALT 13 (7-52) U/L Alkaline Phosphatase 80 (34-104) U/L Troponin I High Sens 18.2 D (0-20) pg/ml B-Natriuretic Peptide 434 H (0-100) pg/ml Total Protein 6.8 (6.0-8.3) gm/dl Albumin 3.9 (3.4-5.0) gm/dl Globulin 2.9 (2.5-4.0) gm/dl Albumin/Globulin Ratio 1.3 (0.9-2) Lipase 5 L (11-82) U/L Administered Medications Insulin Aspart (Insulin Aspart Per Unit) 0 units SC ACHS MARGIE Stop: 05/28/22 17:57 Last Admin: 04/28/22 18:38 Dose: 3 units Documented By: MONICA Co-signed By: [facility] Imaging Data Radiologist's Impression: Chest X-Ray 04/28/22 12:32 XR chest 1V portable HISTORY: Atypical Chest Pain COMPARISON: Chest 03/25/2022. FINDINGS: There are poststernotomy changes. Interstitial thickening and trace bilateral pleural effusions have improved. This suggests resolving pulmonary edema. No new focal lung consolidations. The heart remains borderline enlarged. IMPRESSION: Interval improvement in the pulmonary vascular congestion and trace bilateral pleural effusions. ACT 112: Negative or not required by law. Electronically signed by: Tank Hernandez M.D. 04/28/2022 1:14 PM Discharge Plan Visit Data Chief Complaint: Chest Pain Stated Complaint: CHEST PAIN ED Provider: Hong Khoury Discharge Problem: Atypical chest pain, Recurrent chest pain, Generalized weakness, Ischemic cardiomyopathy, Ambulatory dysfunction, Chronic HFrEF (heart failure with reduced ejection fraction) Patient Disposition: Admitted As Inpatient Discharge Instructions Interventions: ED Discharge Assessment Last Done: 04/28/22 17:25
--- NOTE | 2022-04-28 14:33 | Electrocardiogram Report ---
Test Reason : Blood Pressure : / mmHG Vent. Rate : 070 BPM Atrial Rate : 070 BPM P-R Int : 214 ms QRS Dur : 128 ms QT Int : 430 ms P-R-T Axes : 090 -55 094 degrees QTc Int : 464 ms Sinus rhythm with 1st degree A-V block Left axis deviation Non-specific intra-ventricular conduction block Abnormal ECG When compared with ECG of 27-MAR-2022 07:30, Premature ventricular complexes are no longer Present Premature atrial complexes are no longer Present ST less depressed in Lateral leads Confirmed by Parish Vieira ([id number]) on 04/28/2022 2:32:47 PM Referred By: ED Confirmed By:Parish Vieira
--- NOTE | 2022-04-28 14:34 | History & Physical Report ---
Date of Service April 28, 2022 Assessment & Plan (1) Chest pain: (2) CAD (coronary artery disease): (3) Chronic HFrEF (heart failure with reduced ejection fraction): (4) Ischemic cardiomyopathy: Plan: - Admit to tele for observation for r/o - Trend cardiac biomarkers, initial set was 18, trend x1 more set, patient has history of repeat chest pain complaints, previously troponin has been much higher than this one. He admits to some shortness of breath earlier this morning Pt reports hx of chest pains being musculoskeletal, he denies any unusual activities yesterday. Patient is noted to be weaker per his sons who are present at bedside since coming home from [facility] on 04/18. They are seeking placement for their father as he has required 11/01 care. - EKG reviewed as above - No need for repeat 2 D echo, most recent reviewed from 1 month ago - Consult cardiology - PT/OT consulted - Most recent lipid panel from outpt wnl, last a1c is 6.5 - Pt reduced lasix from 40 to 20 mg daily due to urination all night upon being home. Reports that he was up to pee 5x at night with taking 40 mg in the morning. Denies feeling fluid overloaded, swelling in legs, and denies any current shortness of breath. (5) DM (diabetes mellitus): Plan: - Last A1c is 6.5 on 02/12/2022 - Allow HH/DM diet - continue Lantus 22 units, ISS with Accu-Cheks ACHS (6) Neuropathy, diabetic: Plan: -Chronic, PT and OT consulted as above (7) Back pain: (8) Closed compression fracture of lumbar vertebra: (9) Ambulatory dysfunction: Plan: -Secondary to chronic back pain with L3 compression fracture, patient minimally compliant with wearing brace at home with ambulation. He only wears the brace never he is outside with a walker. - PT/OT - No new neurological deficits or findings - Pain well controlled with tramadol, continue - BM slightly constipated at times, last BM was 11/7 with stool softener (10) CKD stage 3 secondary to diabetes: Plan: - Cr./ BUN 17/1.15 respectively - Continue home antihypertensives DVT ppx: - teds, scds, heparin subq CODE: Full code Dispo: From home, likely to remain in the hospital x 1-2 days. CM to assist with discharge planning History of Present Illness Chief Complaint: Chest pain Primary Care Provider: Nadine Li MD This is an 86-year-old male with PMHx of CAD s/p CABG x4 in 2005, insulin- dependent diabetes with peripheral neuropathy, AAA 3.[address] chest 11/08, HTN, HLD, chronic HFrEF, ischemic cardiomyopathy, mild pulmonary hypertension, Pulmonary Fibrosis, CKD-3b baseline cr 1.5, difficulty hearing, chronic anemia, GERD and recent hospitalization here at [facility] from 03/25-04/01 for an L3 compression fracture. He was treated with conservative care with a brace and discharged with rehab to [facility] and has been home since 04/18/22. He was seen by Artur at home for enrollment on 04/24. At that point it was noted that he was not wearing the lumbar back brace. Three sons who are present at bedside report they has been taking turns living with the patient 11/01 since he has been home, they are looking into personal long-term for more permanent placement. Pt presents to the hospital after experiencing about chest pain which lasted for approximately 4 hours initially started substernally , with associated heaviness and some shortness of breath. He reports that he woke up from sleep due to this pain which lasted for almost 4 hours. It is unlike other previous chest pain that he is experienced. Patient notes that he thought it would go away, and approximately 11 AM he attempted to relieve it with a tramadol pill which he uses at baseline for his lumbar compression fracture. He took his home baby aspirin earlier this morning, and took several nitro tablets around 11 AM as well which relieved his pain. Initial troponin is 18 in the ER. Most recent echo was completed during his last hospital stay here, with a LVEF of 40 to 45%, moderately reduced systolic function, large sized apical, septal and anteroseptal and anterior wall motion abnormality with hypokinesis to akinesis of the segments, grade 1 diastolic dysfunction, moderate aortic regurg, mild mitral regurg, pulmonary hypertension --- no significant change compared to an echo from January 2021. Allergies Allergy/AdvReac Type Severity Reaction Status Date / Time GAMAL Inhibitors Allergy Unknown Unknown Verified 04/28/22 15:31 Home Medications Medication Instructions Recorded Confirmed Type aspirin 81 mg capsule 81 mg PO DAILY #30 caps 04/01/22 04/28/22 Rx ferrous sulfate 325 mg (65 mg 325 mg PO DAILY #30 tabs 04/01/22 04/28/22 Rx iron) tablet folic acid 1 mg tablet 1,000 mcg PO DAILY #30 tabs 04/01/22 04/28/22 Rx insulin regular human 100 unit/mL 1 sliding scale dose subcut 04/01/22 04/28/22 Rx (3 mL) subcutaneous pen (Novolin R USEASDIRECTD #15 mL Flexpen) pantoprazole 40 mg tablet,delayed 40 mg PO DAILY #30 tabs 04/01/22 04/28/22 Rx release (Protonix) pravastatin 40 mg tablet 40 mg PO DAILY #30 tabs 04/01/22 04/28/22 Rx tramadol 50 mg tablet 50 mg PO Q6H PRN pain #20 tabs 04/01/22 04/28/22 Rx bisacodyl 5 mg tablet,delayed 5 mg PO DAILY PRN Constipation 04/28/22 04/28/22 History release (Dulcolax (bisacodyl)) furosemide 20 mg tablet 20 mg PO DAILY 04/28/22 04/28/22 History insulin glargine 100 unit/mL 22 unit subcut PM 04/28/22 04/28/22 History subcutaneous solution (Lantus U-100 Insulin) isosorbide mononitrate 30 mg 30 mg PO QAM 04/28/22 04/28/22 History tablet,extended release 24 hr losartan 25 mg tablet 12.5 mg PO DAILY 04/28/22 04/28/22 History metoprolol succinate 25 mg capsule 25 mg PO DAILY 04/28/22 04/28/22 History sprinkle, ext. release 24 hr Past Med/Surg History Medical History Abdominal aortic aneurysm Acute GI bleeding CAD (coronary artery disease) "ND at age 35 ~ 2009 - CABG x 4 " CKD stage 3 secondary to diabetes Closed compression fracture of lumbar vertebra DM (diabetes mellitus) Heart disease ILD (interstitial lung disease) Ischemic cardiomyopathy Neuropathy, diabetic Non-ST elevation ND (NSTEMI) NSTEMI (non-ST elevated myocardial infarction) Peripheral arterial disease Symptomatic anemia Surgical History H/O nasal polypectomy S/P CABG (coronary artery bypass graft) Family History Other Family history non-contributory Social History Smoking Status: Former smoker Second Hand Exposure: No; Hx Alcohol Use: No Hx Substance Use: No Preferred Language: Croatian Communication Ability: Effective Energy And Sustainability Manager Required: No Beliefs That Will Affect Care: None Current Living Situation: Alone How many Children do You have: 4 Feels Safe at Home: Yes Safety Concerns: Feels Safe At This Time Assistive Devices: Cane Review of Systems Review of Systems: Constitutional: No fever, sweats or chills Eyes: No diplopia, no worsening or blurred vision ENT: normal hearing, no trouble swallowing Respiratory: As per HPI, no cough, sputum, dyspnea at rest or on exertion Cardiovascular: As per HPI, no chest pain currently, tightness or palpitations Abdomen: + Poor p.o. intake, no pain, nausea, vomiting, diarrhea or constipation Musculoskeletal: No joint pain, calf pain, swelling Neurologic: + Generalized weakness, numbness/tingling, or balance problems Psychiatric: No anxiety or depression Skin: No rash or itch Physical Exam Physical Exam: General: awake, alert, no apparent distress Head: Normocephalic, atraumatic EENT: PERRL, EOMI, + very hard of hearing, no pharyngeal exudate, mucous membranes moist Chest: Clear to auscultation, on room air, no adventitious breath sounds Cardiac: Chest pain is not reproducible with palpation, regular rate and rhythm, no murmur, no JVD, normal peripheral pulses, good capillary refill Abdominal: NABS x 4 quadrants, soft, nondistended, nontender to palpation, no rebound or guarding Extremities: Normal inspection, no peripheral edema or erythema, calfs nontender to palpation Psych: Normal mood and affect Neuro: AAO x 3, strength intact bilaterally and rated 5/5, no motor deficits, speech is clear, no peripheral sensory deficits Results & Data Results & Data ([facility]) Vital Signs (Past 12 Hours) Vital Signs Temp Pulse Resp BP Pulse Ox O2 Del Method 04/28/22 12:24 36.8 C 79 21 136/69 95 Room Air Laboratory Results 04/28/22 04/28/2222 14:11 12:47 12:47 WBC 11.53 H RBC 4.63 Hgb 13.9 L Hct 41.2 MCV 89.0 MCH 30.0 MCHC 33.7 RDW Std Deviation 48.1 H RDW Coeff of Fahad 14.9 H Plt Count 204 MPV 9.1 L Immature Gran % (Auto) 0.4 Neut % (Auto) 67.6 Lymph % (Auto) 22.1 [place] % (Auto) 7.8 Eos % (Auto) 1.8 Baso % (Auto) 0.3 Neut # (Auto) 7.78 H Lymph # (Auto) 2.55 [place] # (Auto) 0.90 H Eos # (Auto) 0.21 Baso # (Auto) 0.04 Immature Gran # (Auto) 0.05 H Sodium 133 L Potassium 4.8 Chloride 100 Carbon Dioxide 27 Anion Gap 6 BUN 17 Creatinine 1.15 Est Cr Clr Drug Dosing 52.1 Est GFR ( Amer) 66.4 Est GFR (Non-Af Amer) 57.3 BUN/Creatinine Ratio 14.8 Glucose 181 H Calcium 9.7 Phosphorus 3.3 Magnesium 1.8 Total Bilirubin 1.0 AST 20 ALT 13 Alkaline Phosphatase 80 Troponin I High Sens 18.2 D B-Natriuretic Peptide 434 H Total Protein 6.8 Albumin 3.9 Globulin 2.9 Albumin/Globulin Ratio 1.3 Lipase 5 L Diagnostic Findings Chest X-Ray 04/28/22 12:32 XR chest 1V portable HISTORY: Atypical Chest Pain COMPARISON: Chest 03/25/2022. FINDINGS: There are poststernotomy changes. Interstitial thickening and trace bilateral pleural effusions have improved. This suggests resolving pulmonary edema. No new focal lung consolidations. The heart remains borderline enlarged. IMPRESSION: Interval improvement in the pulmonary vascular congestion and trace bilateral pleural effusions. ACT 112: Negative or not required by law. Electronically signed by: Tank Hernandez M.D. 04/28/2022 1:14 PM ECG Additional Comments: 28-APR-2022 12:33:09 [facility]-EDSTAT ROUTINE RETRIEVAL Sinus rhythm with 1st degree A-V block Left axis deviation Non-specific intra-ventricular conduction block Abnormal ECG When compared with ECG of 27-MAR-2022 07:30, Premature ventricular complexes are no longer Present Premature atrial complexes are no longer Present ST less depressed in Lateral leads Confirmed by Parish Vieira ([id number]) on 04/28/2022 2:32:47 PM 25mm/s10mm/[id number] 241CID: [id number] by: ED Confirmed By: Parish Leyva. rate 70 BPM AL interval 214 ms QRS duration 128 ms QT/QTc 430/464 ms Code Status & VTE Plan Code Status Full code - discussed with the patient at bedside Supervising Physician Co-Signing Physician Notes The patient is an 86-year-old man with a history of CABG in the past and ischemic cardiomyopathy presenting with substernal chest pain reportedly that feels like an ice pick. It lasted for several hours and presented upon awakening this morning. It was resolved with nitroglycerin. He reports some chest pains when he uses his arms to get up from a sitting position and feels this chest pain is musculoskeletal in nature as a result. He does report some acid reflux issues. Cardiac biomarker trend has been negative so far today. Patient denies any current chest pain or shortness of breath. My physical physical exam is consistent with that above. Work-up reveals white blood cell count of 11.5, otherwise normal CBC. Sodium of 143 with normal electrolytes. Kidney function is at baseline with creatinine 1.15. Glucose slightly elevated at 225. Patient is on insulin at home and was placed on insulin here as well. BNP is 434, lipase is 5. SARS-CoV-2 is negative. A chest x-ray reveals post-sternotomy changes and resolving pulmonary edema. The last chest x-ray on 03/25/2022 suggested appearance consistent with chronic interstitial lung disease. EKG today reveals no significant changes to prior EKG with no evidence of acute ischemia. He is in sinus rhythm with first-degree AV block. Overall this is a 86-year-old well controlled diabetic man with known coronary disease presenting with chest pain. Current information reflects no evidence of ACS. Continue to trend troponin overnight and obtain cardiology thoughts given his history of severe CAD and heart failure. Continue PCU monitoring overnight. DO [place] (1) Back pain Back pain laterality: right Back pain location: low back pain Chronicity: acute Sciatica presence: without sciatica Qualified Code(s): M54.50 - Low back pain, unspecified (2) Chest pain Chest pain type: precordial pain Qualified Code(s): R07.2 - Precordial pain
[2022-04-28] MEDS ORDERED: GLUCAGON FOR INJ 1 MG VIAL SQ PRN (17:58)
[2022-04-28] MEDS ORDERED: DEXTROSE 50% 50 ML SYRINGE IV PRN (17:58)
[2022-04-28] MEDS ORDERED: GLUCOSE 10 TAB/TUBE PO PRN (17:58)
[2022-04-28] MEDS ORDERED: bisacodyL 5 MG TABEC PO PRN (17:58)
[2022-04-28] MEDS ORDERED: GLUCOSE 40% GEL 15 GM TUBE PO PRN (17:58)
[2022-04-28] MEDS ORDERED: CARBOHYDRATES FOR HYPOGLYCEMIA PO PRN (17:58)
[2022-04-28] MEDS: INSULIN ASPART PER UNIT SC SCH ×2 (18:38→20:21)
[2022-04-28] MEDS: LANTUS PER UNIT CHARGE SQ SCH (20:21)
[2022-04-28] MEDS ORDERED: HEPARIN SOD 5,000 UNIT/0.5 ML VIAL SQ SCH (21:00)
[2022-04-28] MEDS: traMADol HCL 50 MG TABLET PO PRN (22:21)
[2022-04-29 04:15] LABS: Hematocrit (blood only) 38.4 % (40.1-51.0); Hemoglobin 12.8 g/dl (14.0-18.0); Mean Corpuscular Hemoglobin 29.8 pg (25.0-34.0); Mean Corpuscular Hgb Conc 33.3 g/dL (32.0-36.0); Mean Corpuscular Volume 89.3 fL (80.0-100.0); Mean Platelet Volume 9.3 fL (9.4-12.4); Platelet Count 193 K/uL (130-400); RDW Coefficient of Variation 15.1 % (11.5-14.5); RDW Standard Deviation 48.7 fL (36.4-46.3)
[2022-04-29 04:33] LABS: BUN Creatinine Ratio 15.6 (10-20); Calcium 9.4 mg/dl (8.5-10.1); Creatinine Clr Calc Pharmacy 49.1 ml/min; Est GFR (African American) 61.8 ml/min; Est GFR (Non-African American) 53.4 ml/min; Potassium 4.5 mmol/L (3.5-5.1)
[2022-04-29 04:38] LABS: Troponin I High Sensitivity 23.1 pg/ml (0-20)
--- NOTE | 2022-04-29 05:00 | Communication Note ---
Date of Service: April 29, 2022 Notified by RN of a.m. troponin of 23.1 (3 troponins from yesterday within normal limits) No complaints as per RN. AP NSTEMI hx CAD status post CABG Continue patient's aspirin, beta-lianet, statin Rx IV heparin N.p.o. for now until patient seen by Cardiology in anticipation of ischemic work-up
[2022-04-29 06:47] LABS: Partial Thromboplastin Ratio 1.2; Partial Thromboplastin Time 31.9 Seconds (21.0-31.0)
[2022-04-29] MEDS: INSULIN ASPART PER UNIT SC SCH ×4 (08:47→20:47)
[2022-04-29] MEDS: ASPIRIN 81 MG ECTAB PO SCH (09:41)
[2022-04-29] MEDS: LOSARTAN POTASSIUM 25 MG TAB PO SCH (09:42)
[2022-04-29] MEDS: ISOSORBIDE MONO EXTENDED REL 30 MG TABCR PO SCH (09:42)
[2022-04-29] MEDS: FUROSEMIDE 20 MG TAB PO SCH (09:42)
[2022-04-29] MEDS: FOLIC ACID 1 MG TAB PO SCH (09:42)
[2022-04-29] MEDS: FERROUS SULFATE 325 MG TAB PO SCH (09:42)
[2022-04-29] MEDS: PRAVASTATIN SOD 40 MG TAB PO SCH (09:43)
[2022-04-29] MEDS: METOPROLOL SUCC 25MG EXT REL TAB PO SCH (09:43)
[2022-04-29] MEDS: PANTOprazole 40 MG TAB PO SCH (09:43)
--- NOTE | 2022-04-29 12:58 | Hospitalist Progress Note ---
Date of Service April 29, 2022 Assessment & Plan (1) Chest pain: Plan: - patient reports chest pain is likely MSK in his opinion - ECG without ischemic changes, trop negative x4 - Cardiology consulted - continue aspirin, statin - telemetry monitoring for now (2) Ambulatory dysfunction: Plan: - Secondary to chronic back pain with L3 compression fracture, patient minimally compliant with wearing brace at home with ambulation. He only wears the brace never he is outside with a walker. - PT/OT evaluation - No new neurological deficits or findings - Pain well controlled with tramadol, continue - BM slightly constipated at times, last BM was 04/27 with stool softener - family feels patient needs placement as they cannot meet needs at home - CM consulted for DC planning pending PT/OT eval (3) CAD (coronary artery disease): Plan: - currently without chest pain - ECG, trop negative as above - continue home meds (4) Chronic HFrEF (heart failure with reduced ejection fraction): Plan: - LVEF 40%, G1DD on TTE 03/2022 - does not appear to be in exacerbation - continue home meds GDMT - continue lasix 20mg PO daily (5) DM (diabetes mellitus): Plan: - Last A1c is 6.5 on 02/12/2022 - Allow HH/DM diet - continue Lantus 22 units - ISS - Accu-Cheks ACHS (6) Neuropathy, diabetic: Plan: -Chronic, PT and OT consulted as above (7) CKD stage 3 secondary to diabetes: Plan: - Cr./ BUN 17/1.15 respectively - Continue home antihypertensives Plan DVT ppx: teds, scds, heparin subq CODE: Full code Dispo: From home, likely to remain in the hospital x 1-2 days. CM to assist with discharge planning Raymond Ruelas MD [facility] Medicine Admission and Anticipated Discharge Date Admission Date: April 28, 2022 Subjective Patient admitted with chest pain, thought to be MSK related, trop, ECG without ischemia. Cardiology consulted. Family feels patient needs placement. PT/OT pending. CM consulted. Patient denies any symptoms this morning, denies chest pain, shortness of breath, n/v/d, abdominal pain, dysuria, LE swelling. Was asking for food as he was hungry this morning. Says he gets chest pain usually the day after moving around a lot, thinks it is muscles in his chest, both right and left sided. Review of Systems Review of Systems: All systems reviewed & are unremarkable except as noted in Subjective Physical Exam Physical Exam: General: awake, alert, no apparent distress Head: Normocephalic, atraumatic EENT: PERRL, EOMI, + very hard of hearing, no pharyngeal exudate, mucous membranes moist Chest: Clear to auscultation, on room air, no adventitious breath sounds Cardiac: Chest pain is not reproducible with palpation, regular rate and rhythm, no murmur, no JVD, normal peripheral pulses, good capillary refill Abdominal: NABS x 4 quadrants, soft, nondistended, nontender to palpation, no rebound or guarding Extremities: Normal inspection, no peripheral edema or erythema, calfs nontender to palpation Psych: Normal mood and affect Neuro: AAO x 3, strength intact bilaterally and rated 5/5, no motor deficits, speech is clear, no peripheral sensory deficits Results & Data Results & Data ([facility]) Vital Signs (Past 12 Hours) Vital Signs Temp Pulse Pulse Resp BP Pulse Ox O2 Del Method 04/29/22 10:32 36.6 C 71 16 134/67 93 Room Air 04/29/22 08:14 67 04/29/22 07:14 36.6 C 72 20 147/73 H 95 Room Air 04/29/22 02:44 36.5 C 72 16 141/66 H 95 Room Air Diagnostic Findings Laboratory Results WBC 10.40 K/ul (4.8-10.8) 04/29/22 03:26 RBC 4.30 M/uL (4.63-6.08) L 04/29/22 03:26 Hgb 12.8 g/dl (14.0-18.0) L 04/29/22 03:26 Hct 38.4 % (40.1-51.0) L 04/29/22 03:26 MCV 89.3 fL (80.0-100.0) 04/29/22 03:26 MCH 29.8 pg (25.0-34.0) 04/29/22 03:26 MCHC 33.3 g/dL (32.0-36.0) 04/29/22 03:26 RDW Std Deviation 48.7 fL (36.4-46.3) H 04/29/22 03:26 RDW Coeff of Fahad 15.1 % (11.5-14.5) H 04/29/22 03:26 Plt Count 193 K/uL (130-400) 04/29/22 03:26 MPV 9.3 fL (9.4-12.4) L 04/29/22 03:26 Immature Gran % (Auto) 0.4 % 04/28/22 12:47 Neut % (Auto) 67.6 % 04/28/22 12:47 Lymph % (Auto) 22.1 % 04/28/22 12:47 [place] % (Auto) 7.8 % 04/28/22 12:47 Eos % (Auto) 1.8 % 04/28/22 12:47 Baso % (Auto) 0.3 % 04/28/22 12:47 Neut # (Auto) 7.78 K/uL (1.4-6.5) H 04/28/22 12:47 Lymph # (Auto) 2.55 K/uL (1.2-3.4) 04/28/22 12:47 [place] # (Auto) 0.90 K/uL (0.24-0.82) H 04/28/22 12:47 Eos # (Auto) 0.21 K/uL (0-0.50) 04/28/22 12:47 Baso # (Auto) 0.04 K/uL (0-0.2) 04/28/22 12:47 Immature Gran # (Auto) 0.05 K/uL (0.00-0.02) H 04/28/22 12:47 APTT 31.9 Seconds (21.0-31.0) H 04/29/22 06:22 PTT Ratio 1.2 04/29/22 06:22 Sodium 135 mmol/L (136-145) L 04/29/22 03:26 Potassium 4.5 mmol/L (3.5-5.1) 04/29/22 03:26 Chloride 100 mmol/L (98-107) 04/29/22 03:26 Carbon Dioxide 29 mmol/L (21-32) 04/29/22 03:26 Anion Gap 6 (3-11) 04/29/22 03:26 BUN 19 mg/dl (6-23) 04/29/22 03:26 Creatinine 1.22 mg/dl (0.6-1.4) 04/29/22 03:26 Est Cr Clr Drug Dosing 49.1 ml/min 04/29/22 03:26 Est GFR ( Amer) 61.8 ml/min 04/29/22 03:26 Est GFR (Non-Af Amer) 53.4 ml/min 04/29/22 03:26 BUN/Creatinine Ratio 15.6 (10-20) 04/29/22 03:26 Glucose 139 mg/dl (70-99(Fasting)) H 04/29/22 03:26 POC Glucose 201 mg/dl (70-99) H 04/29/22 11:15 Calcium 9.4 mg/dl (8.5-10.1) 04/29/22 03:26 Phosphorus 3.3 mg/dl (2.5-4.9) 04/28/22 12:47 Magnesium 1.8 mg/dl (1.7-2.4) 04/28/22 12:47 Total Bilirubin 1.0 mg/dl (0.2-1.0) 04/28/22 12:47 AST 20 U/L (13-39) 04/28/22 12:47 ALT 13 U/L (7-52) 04/28/22 12:47 Alkaline Phosphatase 80 U/L (34-104) 04/28/22 12:47 Troponin I High Sens 23.1 pg/ml (0-20) H 04/29/22 03:26 B-Natriuretic Peptide 434 pg/ml (0-100) H 04/28/22 14:11 Total Protein 6.8 gm/dl (6.0-8.3) 04/28/22 12:47 Albumin 3.9 gm/dl (3.4-5.0) 04/28/22 12:47 Globulin 2.9 gm/dl (2.5-4.0) 04/28/22 12:47 Albumin/Globulin Ratio 1.3 (0.9-2) 04/28/22 12:47 Lipase 5 U/L (11-82) L 04/28/22 12:47 SARS-CoV-2, RNA, NAAT NEGATIVE (NEGATIVE) 04/28/22 15:51 Impressions Chest X-Ray 04/28/22 12:32 XR chest 1V portable HISTORY: Atypical Chest Pain COMPARISON: Chest 03/25/2022. FINDINGS: There are poststernotomy changes. Interstitial thickening and trace bilateral pleural effusions have improved. This suggests resolving pulmonary edema. No new focal lung consolidations. The heart remains borderline enlarged. IMPRESSION: Interval improvement in the pulmonary vascular congestion and trace bilateral pleural effusions. ACT 112: Negative or not required by law. Electronically signed by: Tank Hernandez M.D. 04/28/2022 1:14 PM Medications Administered Current Inpatient Medications Aspirin (Aspirin 81 Mg Ectab) 81 mg PO DAILY MARGIE Stop: 05/29/22 08:59 Last Admin: 04/29/22 09:41 Dose: 81 mg Bisacodyl (Bisacodyl 5 Mg Tabec) 5 mg PO DAILY PRN PRN Reason: Constipation Stop: 05/28/22 17:57 Last Admin: 04/28/22 22:21 Dose: 5 mg Dextrose (Dextrose 50% 50 Ml Syringe) 25 - 50 ml IV UD PRN; Protocol PRN Reason: Hypoglycemia Protocol Stop: 05/28/22 17:57 Ferrous Sulfate (Ferrous Sulfate 325 Mg Tab) 325 mg PO DAILY MARGIE Stop: 05/29/22 08:59 Last Admin: 04/29/22 09:42 Dose: 325 mg Folic Acid (Folic Acid 1 Mg Tab) 1 mg PO DAILY MARGIE Stop: 05/29/22 08:59 Last Admin: 04/29/22 09:42 Dose: 1 mg Furosemide (Furosemide 20 Mg Tab) 20 mg PO DAILY MARGIE Stop: 05/29/22 08:59 Last Admin: 04/29/22 09:42 Dose: 20 mg Glucagon (Glucagon For Inj 1 Mg Vial) 1 mg SQ UD PRN; Protocol PRN Reason: Hypoglycemia Protocol Stop: 05/28/22 17:57 Glucose (Glucose 40% Gel 15 Gm Tube) 15 - 30 gm PO UD PRN; Protocol PRN Reason: Hypoglycemia Protocol Stop: 05/28/22 17:57 Glucose (Glucose 10 Tab/Tube) 4 - 8 tab PO UD PRN; Protocol PRN Reason: Hypoglycemia Treatment Stop: 05/28/22 17:57 Insulin Aspart (Insulin Aspart Per Unit) 0 units SC ACHS MARGIE Stop: 05/28/22 17:57 Last Admin: 04/29/22 12:43 Dose: 3 units Insulin Glargine (Lantus Per Unit Charge) 22 units SQ PM MARGIE Stop: 05/28/22 20:59 Last Admin: 04/28/22 20:21 Dose: 22 units Isosorbide Mononitrate (Isosorbide [place] Extended Rel 30 Mg Tabcr) 30 mg PO QAM MARGIE Stop: 05/29/22 08:59 Last Admin: 04/29/22 09:42 Dose: 30 mg Losartan Potassium (Losartan Potassium 25 Mg Tab) 12.5 mg PO DAILY MARGIE Stop: 05/29/22 08:59 Last Admin: 04/29/22 09:42 Dose: 12.5 mg Metoprolol Succinate (Metoprolol Succ 25mg Ext Rel Tab) 25 mg PO DAILY MARGIE Stop: 05/29/22 08:59 Last Admin: 04/29/22 09:43 Dose: 25 mg Miscellaneous (Carbohydrates For Hypoglycemia ) 15 - 30 gm PO UD PRN PRN Reason: Hypoglycemia Protocol Stop: 05/28/22 17:57 Pantoprazole Sodium (Pantoprazole 40 Mg Tab) 40 mg PO DAILY MARGIE Stop: 05/29/22 08:59 Last Admin: 04/29/22 09:43 Dose: 40 mg Pravastatin Sodium (Pravastatin Sod 40 Mg Tab) 40 mg PO DAILY MARGIE Stop: 05/29/22 08:59 Last Admin: 04/29/22 09:43 Dose: 40 mg Tramadol HCl (Tramadol Hcl 50 Mg Tablet) 50 mg PO Q6H PRN PRN Reason: pain Stop: 05/28/22 17:57 Last Admin: 04/28/22 22:21 Dose: 50 mg (1) Chest pain Chest pain type: precordial pain Qualified Code(s): R07.2 - Precordial pain
--- NOTE | 2022-04-29 14:08 | Cardiology Consultation ---
Date of Consultation April 29, 2022 Assessment & Plan (1) Atypical chest pain: (2) Generalized weakness: (3) Closed compression fracture of lumbar vertebra: (4) Anemia: (5) Chronic HFrEF (heart failure with reduced ejection fraction): (6) Ischemic cardiomyopathy: (7) Peripheral arterial disease: (8) CAD (coronary artery disease): Plan Chest pain is reproducible in nature. No further cardiac test intervention necessary at this time. Recommend conservative treatment. Okay to discharge from a cardiac standpoint History of Present Illness Reason for Consultation: Chest pain Requesting Physician: [facility] hospitalist group Attending Physician: Raymond Ruelas MD History of Present Illness It was my pleasure to see Mr. Sapp in cardiac consultation today April 29, 2022. He is a very pleasant 86-year-old gentleman who is very well-known to our cardiology practice. He presented to [facility] emergency department on 04/28/2022 with complaints of chest pain. The patient is still recovering from his lumbar compression fracture. He was in bed where he and he attempted to pull himself up when he suddenly felt sharp stabbing chest pain. He states it was along his left sternal border. He states "it felt like I pulled something.". Currently chest discomfort free. No associated symptoms. Past Medical History: 1. Chronic coronary heart disease, CABG in 2007 or 2008 at [place], anatomical details unknown 2. Prior myocardial infarction at the age of 35 3. Ischemic cardiomyopathy, pharmacologic nuclear stress test, September, revealed a large sized inferior, septal, apical scar with no superimposed ischemia. LVEF 42%. 4. [facility], [facility]: Large sized apical, septal, anteroseptal, anterior wall motion abnormality with hypokinesis to akinesis of the segments, LVEF mildly reduced 45 to 49%, moderate aortic regurgitation. 5. Flow cytometry suggestive of monotypic CD5 positive B-cell population with an immunophenotype typical of chronic lymphocytic leukemia, small lymphocytic leukemia (CLL/SLL) 6. Suspected underlying interstitial lung disease 4. Chart history, past admission for gastrointestinal bleeding 2016, diverticulosis noted at that time. EGD November,, report describes a single nonbleeding localized erosion at the pylorus. Colonoscopy November,, report describes many small and large mouth diverticula in the sigmoid and descending colon. Allergies Allergy/AdvReac Type Severity Reaction Status Date / Time GAMAL Inhibitors Allergy Unknown Unknown Verified 04/28/22 15:31 Home Medications Medication Instructions Recorded Confirmed Type aspirin 81 mg capsule 81 mg PO DAILY #30 caps 04/01/22 04/28/22 Rx ferrous sulfate 325 mg (65 mg 325 mg PO DAILY #30 tabs 04/01/22 04/28/22 Rx iron) tablet folic acid 1 mg tablet 1,000 mcg PO DAILY #30 tabs 04/01/22 04/28/22 Rx insulin regular human 100 unit/mL 1 sliding scale dose subcut 04/01/22 04/28/22 Rx (3 mL) subcutaneous pen (Novolin R USEASDIRECTD #15 mL Flexpen) pantoprazole 40 mg tablet,delayed 40 mg PO DAILY #30 tabs 04/01/22 04/28/22 Rx release (Protonix) pravastatin 40 mg tablet 40 mg PO DAILY #30 tabs 04/01/22 04/28/22 Rx tramadol 50 mg tablet 50 mg PO Q6H PRN pain #20 tabs 04/01/22 04/28/22 Rx bisacodyl 5 mg tablet,delayed 5 mg PO DAILY PRN Constipation 04/28/22 04/28/22 History release (Dulcolax (bisacodyl)) furosemide 20 mg tablet 20 mg PO DAILY 04/28/22 04/28/22 History insulin glargine 100 unit/mL 22 unit subcut PM 04/28/22 04/28/22 History subcutaneous solution (Lantus U-100 Insulin) isosorbide mononitrate 30 mg 30 mg PO QAM 04/28/22 04/28/22 History tablet,extended release 24 hr losartan 25 mg tablet 12.5 mg PO DAILY 04/28/22 04/28/22 History metoprolol succinate 25 mg capsule 25 mg PO DAILY 04/28/22 04/28/22 History sprinkle, ext. release 24 hr Patient History Medical History Abdominal aortic aneurysm Acute GI bleeding CAD (coronary artery disease) "[place] at age 35 ~ 2009 - CABG x 4 " CKD stage 3 secondary to diabetes Closed compression fracture of lumbar vertebra DM (diabetes mellitus) Heart disease ILD (interstitial lung disease) Ischemic cardiomyopathy Neuropathy, diabetic Non-ST elevation [place] (NSTEMI) NSTEMI (non-ST elevated myocardial infarction) Peripheral arterial disease Symptomatic anemia Surgical History H/O nasal polypectomy S/P CABG (coronary artery bypass graft) Family History Other Family history non-contributory Social History Smoking Status: Former smoker Second Hand Exposure: No; Hx Alcohol Use: No Hx Substance Use: No Preferred Language: Nepali Communication Ability: Effective Skin Fitter Required: No Beliefs That Will Affect Care: None marital status: / Current Living Situation: Alone How many Children do You have: 4 Feels Safe at Home: Yes Safety Concerns: Feels Safe At This Time Assistive Devices: Cane and Walker Review of Systems Review of Systems: All systems reviewed & are unremarkable except as noted in HPI & below Physical Exam Physical Exam: General: Awake, alert and oriented x 3. No acute distress. HEENT: Normocephalic, atraumatic. Pupils equal, round and reactive to light and accommodation. Extraocular muscles are intact. Anicteric sclera. Moist mucous membranes. Neck: No JVD. No bruit. Cardiovascular: Regular. Positive S-4. Normal S-1 and S-2. No S-3. 3/6 holosystolic ejection murmur, 5th intercostal space, mid-clavicular line without radiation. No rubs. Pulmonary: Clear to auscultation bilaterally. No rales, rhonchi, or wheezing. Abdomen: Bowel sounds x 4, soft. No rebound, guarding or tenderness. No organomegaly. Extremities: No clubbing, cyanosis or edema. +2 pedal pulses bilaterally. Skin: Warm and dry. Results & Data ([facility]) Vital Signs (Past 12 Hours) Vital Signs Temp Pulse Pulse Resp BP Pulse Ox O2 Del Method 04/29/22 10:32 36.6 C 71 16 134/67 93 Room Air 04/29/22 08:14 67 04/29/22 07:14 36.6 C 72 20 147/73 H 95 Room Air 04/29/22 02:44 36.5 C 72 16 141/66 H 95 Room Air (1) Anemia Anemia type: unspecified type Qualified Code(s): D64.9 - Anemia, unspecified
--- NOTE | 2022-04-29 16:46 | Electrocardiogram Report ---
Test Reason : Blood Pressure : / mmHG Vent. Rate : 067 BPM Atrial Rate : 067 BPM P-R Int : 228 ms QRS Dur : 128 ms QT Int : 426 ms P-R-T Axes : 079 -54 015 degrees QTc Int : 450 ms Sinus rhythm with sinus arrhythmia with 1st degree A-V block Left axis deviation Right bundle branch block Abnormal ECG When compared with ECG of 28-APR-2022 12:33, Right bundle branch block has replaced Non-specific intra-ventricular conduction block Confirmed by Parish Vieira ([id number]) on 04/29/2022 4:46:01 PM Referred By: REFERRED SELF Confirmed By:Parish Vieira
[2022-04-29] MEDS: LANTUS PER UNIT CHARGE SQ SCH (20:48)
[2022-04-30] MEDS: traMADol HCL 50 MG TABLET PO PRN (05:32)
[2022-04-30 06:59] LABS: Albumin Globulin Ratio 1.2 (0.9-2); Albumin Level 3.7 gm/dl (3.4-5.0); BUN Creatinine Ratio 17.5 (10-20); Calcium 9.3 mg/dl (8.5-10.1); Creatinine Clr Calc Pharmacy 49.9 ml/min; Est GFR (African American) 63.1 ml/min; Est GFR (Non-African American) 54.4 ml/min; Phosphorus 3.4 mg/dl (2.5-4.9); Potassium 4.1 mmol/L (3.5-5.1); Total Protein 6.7 gm/dl (6.0-8.3)
[2022-04-30] MEDS: FERROUS SULFATE 325 MG TAB PO SCH (08:33)
[2022-04-30] MEDS: ISOSORBIDE MONO EXTENDED REL 30 MG TABCR PO SCH (08:33)
[2022-04-30] MEDS: PANTOprazole 40 MG TAB PO SCH (08:33)
[2022-04-30] MEDS: LOSARTAN POTASSIUM 25 MG TAB PO SCH (08:33)
[2022-04-30] MEDS: PRAVASTATIN SOD 40 MG TAB PO SCH (08:33)
[2022-04-30] MEDS: METOPROLOL SUCC 25MG EXT REL TAB PO SCH (08:34)
[2022-04-30] MEDS: FOLIC ACID 1 MG TAB PO SCH (08:34)
[2022-04-30] MEDS: FUROSEMIDE 20 MG TAB PO SCH (08:34)
[2022-04-30] MEDS: ASPIRIN 81 MG ECTAB PO SCH (08:34)
[2022-04-30] MEDS: INSULIN ASPART PER UNIT SC SCH ×2 (08:38→12:50)
--- NOTE | 2022-04-30 12:39 | Discharge Summary ---
Date of Service April 30, 2022 Admission HPI Per Admitting Provider This is an 86-year-old male with PMHx of CAD s/p CABG x4 in 2005, insulin- dependent diabetes with peripheral neuropathy, AAA 3.[address] chest 11/08, HTN, HLD, chronic HFrEF, ischemic cardiomyopathy, mild pulmonary hypertension, Pulmonary Fibrosis, CKD-3b baseline cr 1.5, difficulty hearing, chronic anemia, GERD and recent hospitalization here at [facility] from 03/25-04/01 for an L3 compression fracture. He was treated with conservative care with a brace and discharged with rehab to [facility] and has been home since 04/18/22. He was seen by Artur at home for enrollment on 04/24. At that point it was noted that he was not wearing the lumbar back brace. Three sons who are present at bedside report they has been taking turns living with the patient 11/01 since he has been home, they are looking into personal intermediate for more permanent placement. Pt presents to the hospital after experiencing about chest pain which lasted for approximately 4 hours initially started substernally , with associated heaviness and some shortness of breath. He reports that he woke up from sleep due to this pain which lasted for almost 4 hours. It is unlike other previous chest pain that he is experienced. Patient notes that he thought it would go away, and approximately 11 AM he attempted to relieve it with a tramadol pill which he uses at baseline for his lumbar compression fracture. He took his home baby asp irin earlier this morning, and took several nitro tablets around 11 AM as well which relieved his pain. Initial troponin is 18 in the ER. Most recent echo was completed during his last hospital stay here, with a LVEF of 40 to 45%, moderately reduced systolic function, large sized apical, septal and anteroseptal and anterior wall motion abnormality with hypokinesis to akinesis of the segments, grade 1 diastolic dysfunction, moderate aortic regurg, mild mitral regurg, pulmonary hypertension --- no significant change compared to an echo from January 2021. Admission Exam Per Admitting Provider General: awake, alert, no apparent distress Head: Normocephalic, atraumatic EENT: PERRL, EOMI, + very hard of hearing, no pharyngeal exudate, mucous membranes moist Chest: Clear to auscultation, on room air, no adventitious breath sounds Cardiac: Chest pain is not reproducible with palpation, regular rate and rhythm, no murmur, no JVD, normal peripheral pulses, good capillary refill Abdominal: NABS x 4 quadrants, soft, nondistended, nontender to palpation, no rebound or guarding Extremities: Normal inspection, no peripheral edema or erythema, calfs nontender to palpation Psych: Normal mood and affect Neuro: AAO x 3, strength intact bilaterally and rated 5/5, no motor deficits, speech is clear, no peripheral sensory deficits Principal Diagnosis MSK chest pain Discharge Exam General: awake, alert, no apparent distress Head: Normocephalic, atraumatic EENT: PERRL, EOMI, + very hard of hearing, no pharyngeal exudate, mucous membranes moist Chest: Clear to auscultation, on room air, no adventitious breath sounds Cardiac: Chest pain is reproducible with palpation, regular rate and rhythm, no murmur, no JVD, normal peripheral pulses, good capillary refill Abdominal: NABS x 4 quadrants, soft, nondistended, nontender to palpation, no rebound or guarding Extremities: Normal inspection, no peripheral edema or erythema, calfs nontender to palpation Psych: Normal mood and affect Neuro: AAO x 3, strength intact bilaterally and rated 5/5, no motor deficits, speech is clear, no peripheral sensory deficits Discharge Data Allergies Allergy/AdvReac Type Severity Reaction Status Date / Time GAMAL Inhibitors Allergy Unknown Unknown Verified 04/28/22 15:31 Consultations 04/28/22 17:58 Consult Cardiology Routine Hospital Course (1) Chest pain: - patient reports chest pain is likely MSK in his opinion - ECG without ischemic changes, trop negative x4 - Cardiology consulted - ok for dicharge from Cardiology perspective - continue aspirin, statin - telemetry monitoring for now (2) Ambulatory dysfunction: - Secondary to chronic back pain with L3 compression fracture, patient minimally compliant with wearing brace at home with ambulation. He only wears the brace never he is outside with a walker. - PT/OT evaluation - No new neurological deficits or findings - Pain well controlled with tramadol, continue - BM slightly constipated at times, last BM was 04/27 with stool softener - family feels patient needs placement as they cannot meet needs at home - discussion with CM and sons, patient to be discharged home with plan to view some [facility] and choose on one for patient to live in with possibility of setting up home services with facility of choice (3) CAD (coronary artery disease): - currently without chest pain - ECG, trop negative as above - continue home meds (4) Chronic HFrEF (heart failure with reduced ejection fraction): - LVEF 40%, G1DD on TTE 03/2022 - does not appear to be in exacerbation - continue home meds GDMT - continue lasix 20mg PO daily (5) DM (diabetes mellitus): - Last A1c is 6.5 on 02/12/2022 - Allow HH/DM diet - continue Lantus 22 units - ISS - Accu-Cheks ACHS (6) Neuropathy, diabetic: -Chronic, PT and OT consulted as above (7) CKD stage 3 secondary to diabetes: - Cr./ BUN 07/07.15 respectively - Continue home antihypertensives Plan DVT ppx: teds, scds, heparin subq CODE: Full code Dispo: discharge home 04/30/2022 Raymond Ruelas MD [facility] Medicine Total Time Total Time Spent Total Time Spent (In Minutes): 29 Total Time Includes: Examination of the Patient, Discharge Planning, Medication Reconciliation and Communication With Other Providers Discharge Plan Discharge Items Patient Disposition: Home - Self-Care Reason For Visit: CHEST PAIN Discharge Diagnosis: MSK chest pain Activity: Resume your previous activity Non-emergency contact: Primary Care Provider and Redipper Follow-up/Referrals: Sebastián Rock DO [Physician] - Nadine Li MD [Primary Care Provider] - Diet: Carb Consistent or DM2 and Heart Healthy Addtl Attending Provider Instructions: You were admitted for chest pain. Your tests were negative for heart related chest pain and seen by Cardiology who felt you were ok from a heart stand point. You and your sons spoke with our child support case officer for living options like assisted living and decided on being discharged home and going to see various facilities. You should continue with follow up with your primary care doctore and Redipper. You and your sons can set up home services with the personal intermediate (assisted living facility) of your choice when decided. Pending Studies at Discharge: No Stand-Alone Forms: My [employer], Smoking Cessation Medications and DC Order Prescriptions: Continued aspirin 81 mg capsule 81 mg PO DAILY Qty: 30 0RF tramadol 50 mg tablet 50 mg PO Q6H PRN (Reason: pain) Qty: 20 0RF ferrous sulfate 325 mg (65 mg iron) tablet 325 mg PO DAILY Qty: 30 0RF folic acid 1 mg tablet 1,000 mcg PO DAILY Qty: 30 0RF Novolin R Flexpen 100 unit/mL (3 mL) insulin pen 1 sliding scale dose subcut USEASDIRECTD Qty: 15 0RF Rx Instructions: < 150- 0 units 150-199- 2units 200-249- 4 units 250-299- 6 units 300-350- 8 units > 350- 10 units pantoprazole [Protonix] 40 mg tablet,delayed release (DR/EC) 40 mg PO DAILY Qty: 30 0RF pravastatin 40 mg tablet 40 mg PO DAILY Qty: 30 0RF isosorbide mononitrate 30 mg tablet extended release 24 hr 30 mg PO QAM bisacodyl [Dulcolax (bisacodyl)] 5 mg Tablet,Delayed Release (Dr/Ec) 5 mg PO DAILY PRN (Reason: Constipation) furosemide 20 mg tablet 20 mg PO DAILY Rx Instructions: Pt taking 20 mg, not 40 like prescribed due to frequent urination HS insulin glargine [Lantus U-100 Insulin] 100 unit/mL solution 22 unit subcut PM losartan 25 mg tablet 12.5 mg PO DAILY metoprolol succinate 25 mg capsule,sprinkle,ER 24hr 25 mg PO DAILY Discharge Orders: Discharge Order (Routine); Ordered 04/30/22 Ordered By: Raymond Gamez/Other Patient Handouts: Managing Type 2 Diabetes Admission Data Admit Date/Time: 04/29/22 15:17 Attending Provider: Raymond Ruelas Admit Provider: Lynne Glez Primary Care Provider: Nadine Li Other Providers: Sebastián Rock ; [facility]
--- NOTE | 2022-04-30 13:02 | Cardiology Progress Note ---
Date of Service April 30, 2022 Assessment & Plan (1) Atypical chest pain: (2) Generalized weakness: (3) Closed compression fracture of lumbar vertebra: (4) Anemia: (5) Chronic HFrEF (heart failure with reduced ejection fraction): (6) Ischemic cardiomyopathy: (7) Peripheral arterial disease: (8) CAD (coronary artery disease): Plan Chest pain is reproducible in nature. No further cardiac testing or intervention necessary at this time. Recommend conservative treatment. Currently awaiting placement. Okay to discharge from a cardiac standpoint Admission and Anticipated Discharge Date Admission Date: April 29, 2022 Subjective Patient seen and examined. Chart reviewed. Telemetry reviewed. Review of Systems Review of Systems: All systems reviewed & are unremarkable except as noted in HPI & below Physical Exam Physical Exam: General: Awake, alert and oriented x 3. No acute distress. HEENT: Normocephalic, atraumatic. Pupils equal, round and reactive to light and accommodation. Extraocular muscles are intact. Anicteric sclera. Moist mucous membranes. Neck: No JVD. No bruit. Cardiovascular: Regular. Positive S-4. Normal S-1 and S-2. No S-3. 3/6 holosystolic ejection murmur, 5th intercostal space, mid-clavicular line without radiation. No rubs. Pulmonary: Clear to auscultation bilaterally. No rales, rhonchi, or wheezing. Abdomen: Bowel sounds x 4, soft. No rebound, guarding or tenderness. No organomegaly. Extremities: No clubbing, cyanosis or edema. +2 pedal pulses bilaterally. Skin: Warm and dry. Results & Data ([facility]) Vital Signs (Past 12 Hours) Vital Signs Temp Pulse Pulse Resp BP Pulse Ox O2 Del Method 04/30/22 11:08 36.5 C 67 20 117/66 94 Room Air 04/30/22 08:00 88 04/30/22 07:24 36.2 C L 75 16 158/79 H 97 Room Air 04/30/22 02:55 37.2 C 83 18 143/62 H 97 Room Air (1) Anemia Anemia type: unspecified type Qualified Code(s): D64.9 - Anemia, unspecified
== END 2022-04-30 14:51 | disposition home or self-care (01) | DRG 313 ==
LOC: 2E 12:29 → ED 12:29 → SUATTDRO 14:54 → 2E 17:25